=== PATIENT | female | born 1950 | race Caucasian/White ===

== ENCOUNTER → 2017-06-18 09:14 | Outpatient (CLI) | payer BC, MEDICARE, SELFPAY ==
[2017-06-18 15:30] LABS: Alanine Aminotransferase 20 U/L (12-78); Albumin Level 3.9 gm/dL (3.4-5.0); Albumin/Globulin Ratio 1.2 (1.1-1.8); Alkaline Phosphatase 106 U/L (46-116); Anion Gap 10.2 mEq/L (5-15); Aspartate Amino Transferase 17 U/L (15-37); Bilirubin,Total 0.3 mg/dL (0.2-1.0); Blood Urea Nitrogen 12 mg/dL (7-18); Calcium 9.2 mg/dL (8.5-10.1); Carbon Dioxide 32 mmol/L (21.0-32.0); Chloride 105 mmol/L (98-107); Chol/HDL Ratio 4.8 (1-3.5); Cholesterol 198 mg/dL (140-200); Creatinine,Serum 0.66 mg/dL (0.55-1.02); Estimated Glomerular Filt Rate 90 ml/min (>60); GFR (African American) 109 ML/MIN (>60); Globulin 3.3 gm/dl (1.3-3.2); Glucose 100 mg/dL (74-106); HDL Cholesterol 41 mg/dL (29-89); Potassium 4.2 mmoL/L (3.5-5.1); Sodium 143 mmol/L (136-145); Total Protein,Serum 7.2 gm/dL (6.4-8.2)
[2017-06-18 15:35] LABS: Triglycerides 408 mg/dL (30-200)
[2017-06-18 15:51] LABS: Thyroid Stimulating Hormone 1.73 uIU/ml (0.358-3.740)
[2017-06-21 13:36] LABS: Vitamin B12 1804 pg/mL (232-1245)
== END ==
PROVIDERS: PCP Family Medicine; Visit Provider Physician Assistant
DX: E53.8 Deficiency of other specified B group vitamins (principal); E03.9 Hypothyroidism, unspecified; I10 Essential (primary) hypertension; E55.9 Vitamin D deficiency, unspecified; Z13.220 Encounter for screening for lipoid disorders
CPT/HCPCS: 36415; 80053; 80061; 82607; 82652; 84443

== ENCOUNTER → 2017-06-24 10:35 | Outpatient (CLI) | payer BC, MEDICARE, SELFPAY ==
[2017-06-24 12:56] LABS: Chol/HDL Ratio 5.3 (1-3.5); Cholesterol 272 mg/dL (140-200); HDL Cholesterol 51 mg/dL (29-89)
[2017-06-24 13:08] LABS: Triglycerides 403 mg/dL (30-200)
== END ==
PROVIDERS: PCP Family Medicine; Visit Provider Physician Assistant
DX: E78.1 Pure hyperglyceridemia (principal)
CPT/HCPCS: 36415; 80061

== ENCOUNTER → 2019-06-15 09:45 | Outpatient (CLI) | payer MEDICARE, SELFPAY ==
--- NOTE | 2019-06-15 | CA_ITS ---
APPROVED REPORT Ht: 5 ft 7 in Wt: 137 lbs BSA: 1.72 m2 Stress Test Details Test: Serge HR Resting HR: 79 bpm Max Heart Rate (APMHR): 153 bpm Max HR Achieved: 108 bpm Target HR (85% APMHR): 130 bpm % of APMHR: 70 Recovery HR: 81 bpm BP Resting BP: 134/52 mmHg Max BP: 181/75 mmHg Recovery BP: 177.0/76.0 mmHg ECG Resting ECG: Sinus Rhythm Clinical Exercise duration: 01:27 min Highest Stage Achieved: Exercise capacity: 4.6 METs Stress ECG Conclusion Serge Protocol completed. Test stopped due to patient converted into a LBBB for 15 seconds. Patient converted back to SR. Test was reviewed with Neha Dahl. Pt had some CP with LBBB which resolved when rhythm converted back to SR. There was the occasional PVC, Couplet, and LBBB(15sec). Less than 1.5mm ST Depression. Patient had a normal bp response to the GXT. Yudelka Degroot spoke with Dr. Marie about patients abnormal GXT. Advised patient to avoid the gym until her follow up with Dr. Marie on Tuesday the . Test Summary REST . . . . . . . Standing REST . . . . . . . Sitting REST 02:48 0.0 0.0 79 . 134/ 52 . . Stage 1 01:00 10.0 1.7 92 . . . . Stage 1 01:27 10.0 1.7 100 . . . Stop exercise at 01:27 RECOVERY 01:00 0.0 0.0 87 . . . . RECOVERY 02:00 0.0 0.0 80 . 177/ 63 . . RECOVERY 03:00 0.0 0.0 73 . 177/ 63 . . RECOVERY 04:00 0.0 0.0 75 . 174/ 75 . . RECOVERY 05:00 0.0 0.0 77 . 174/ 75 . . RECOVERY 06:00 0.0 0.0 78 . 181/ 75 . . RECOVERY 07:00 0.0 0.0 72 . 181/ 75 . . RECOVERY 08:00 0.0 0.0 74 . 181/ 75 . . RECOVERY 09:00 0.0 0.0 75 . 181/ 75 . . RECOVERY 09:43 0.0 0.0 76 . 150/ 78 . . Electronically signed by : Angel Rivera, 06/18/2019 12:59:02
== END ==
PROVIDERS: PCP Family Medicine; Visit Provider Family Medicine
DX: R07.9 Chest pain, unspecified (principal)
CPT/HCPCS: 93017

== ENCOUNTER → 2019-07-16 10:30 | Outpatient (CLI) | payer MEDICARE, SELFPAY | PROVIDERS: PCP Family Medicine; Visit Provider Urology | DX: I10 Essential (primary) hypertension (principal); I35.9 Nonrheumatic aortic valve disorder, unspecified; R06.00 Dyspnea, unspecified; R42 Dizziness and giddiness; Z86.79 Personal history of other diseases of the circulatory system | CPT/HCPCS: 93270 ==

== ENCOUNTER → 2020-05-05 15:04 | Outpatient (CLI) | payer MEDICARE, SELFPAY ==
--- NOTE | 2020-05-05 15:06 | US_ITS ---
PROCEDURE: US THYROID CLINICAL INDICATION: HYPOTHYROIDISM hypothyroidism-pt says she has trouble swallowing-goiter seen on right lobe COMPARISON: No exams were available for comparison FINDINGS: Right lobe: 1.7cm x 4.2cm x 1.7cm. There is a 3.4 x 1.4 cm spongiform nodule in the mid polar region on the right. This is well-circumscribed wider than tall without obvious calcifications. This is a T rads 1 nodule benign Left lobe: 0.8cm x 3.9cm x 1.2cm Isthmus: Unremarkable Additional findings: IMPRESSION: There is a dominant right nodule in the right lobe of the thyroid gland measuring 3.4 x 1.4 cm. This however has benign features/T rads 1. Recommend six-month follow-up to confirm stability due to the size Dictated by: Colten Roe MD 05/06/2020 07:09 Colten Roe MD in OV 05/06/2020 07:09
== END ==
PROVIDERS: PCP Family Medicine; Visit Provider Family Medicine
DX: E03.9 Hypothyroidism, unspecified (principal)
CPT/HCPCS: 76536

== ENCOUNTER → 2020-07-09 09:03 | Outpatient (CLI) | payer MEDICARE, SELFPAY ==
--- NOTE | 2020-07-09 09:18 | CA_ITS ---
APPROVED REPORT EXAM: Comprehensive 2D, Doppler, and color-flow Echocardiogram Game Producer: Ann Perez RCS, RVS Ht: 5 ft 7 in Wt: 117lbs BSA: 1.61 BP: 123/42 mmHg Indications: Abn Aortic valve morphology, Aortic insufficiency, SOA 2D Dimensions IVSd 0.95 cm LVEF (Visual) 58.60 % PWd 1.01 cm LA Volume 46.40 mL LVDd 4.00 cm LA Volume Index 28.80 mL/m2 (M/F) 16-34 LVDs 2.78 cm Aortic Root 3.16 cm Left Atrium 2.72 cm LVOT 2.06 cm (M/F) 1.5-2.5 M-Mode Dimensions LA Diam 3.21 cm (1.9-4.0) Ao Diam 2.98 cm (2.0-3.7) EPSs 1.04 cm TAPSE 2.09 (<1.7) LV Diastology E Decel Time 250.00 (160-240 msec) E/A Ratio 1.02 MED E' 6.80 (< 7 cm/sec) MED A' 9.20 cm/s E'/MED E' Ratio 11.59 (>14) LAT E' 8.90 (<10 cm/sec) LAT A' 12.90 cm/s E/LAT E' Ratio 8.85 (>14) Aortic Valve LVOT Max 86.00 (70-110 cm/s) LVOT VTI 19.16 cm AoV Peak Lauri. 115.00 (50-130 cm/s) AI PHT 436.00 ms AO Peak GR. 5.30 mmHg AO Mean GR. 2.90 (<5 mmHg) AO VTI 29.44 (18-25 cm) ANGEL (VTI) 2.17 (2.5-4.5 cm2) Mitral Valve MV A Velocity 77.00 (40-130 cm/s) E/A Ratio 1.02 MV Decel. Time 250.00 (160-240 ms) Pulmonary Valve PV Peak Velocity 66.00 (50-150 cm/s) Tricuspid Valve TR P. Velocity 302.00 cm/s RAP Estimate 10.00 mmHg RVSP 46.50 mmHg Left Ventricle Left atrium is mildly enlarged, left ventricle is normal size, mild concentric left ventricular hypertrophy, visually estimated ejection fraction 55% with no regional wall motion abnormality, diastolic parameters are inconclusive. Right Ventricle Right atrium is mildly enlarged, right ventricle is normal size and contractility. Aortic Valve Aortic valve is thickened and calcified without aortic stenosis, there is moderate aortic insufficiency. Mitral Valve Mitral valve leaflets are minimally thickened, there is mild mitral regurgitation. Tricuspid Valve Tricuspid valve grossly normal, there is mild Tricuspid regurgitation, calculated right ventricular systolic pressure is 45 mmHg. Pulmonic Valve Pulmonic valve is poorly visualized. Great Vessels Aortic root is normal size. Pericardium No significant pericardial effusion noted. Conclusion 1. Mild biatrial enlargement, normal left ventricular size, mild concentric left ventricular hypertrophy, visually estimated ejection fraction 55% with no regional wall motion abnormality, diastolic parameters are inconclusive. 2. Moderate aortic, mild mitral and tricuspid regurgitation, calculated right ventricular systolic pressure is 46 mmHg. 3. No significant pericardial effusion noted. Electronically signed by : Salvador Cooper, 07/09/2020 18:26:09
== END ==
PROVIDERS: PCP Family Medicine; Visit Provider Nurse Practitioner Family
DX: R06.09 Other forms of dyspnea (principal); R07.9 Chest pain, unspecified
CPT/HCPCS: 93306

== ENCOUNTER → 2020-11-19 10:25 | Outpatient (CLI) | payer MEDICARE, SELFPAY ==
--- NOTE | 2020-11-19 10:27 | MM_ITS ---
PROCEDURE INFORMATION: Exam: MG Screening 3D Mammography Exam date and time: 11/19/2020 10:27 AM Age: 70 years old Clinical indication: Encounter for screening mammogram for malignant neoplasm of breast TECHNIQUE: Imaging protocol: Screening tomosynthesis and 2D mammography including computer-aided detection (CAD) when performed. COMPARISON: No relevant prior studies available. FINDINGS: MAMMOGRAPHY: Breast composition: The breast tissue is heterogeneously dense, which may obscure small masses. Mass: None. Architectural distortion: None. Calcifications: No suspicious calcifications. Asymmetric density: None. Skin thickening: None. Axillary adenopathy: None. IMPRESSION: No mammographic evidence of malignancy. Annual screening is recommended unless otherwise clinically indicated. ASSESSMENT: BI-RADS Category 1: Negative
== END ==
PROVIDERS: PCP Family Medicine; Visit Provider Family Medicine
DX: Z12.31 Encounter for screening mammogram for malignant neoplasm of breast (principal)
CPT/HCPCS: 77063; 77067

== ENCOUNTER 2020-12-14 13:16 | Emergency (ER) | payer MEDICARE, SELFPAY ==
[2020-12-14 14:18] VITALS: BP 151/71; PULSE 75; RESP 15; TEMP 36.8; O2SAT 98; BMI 17.8
--- NOTE | 2020-12-14 14:45 | HMH.EDUTC ---
[facility] [place] Clinical Impression: Strep [place] Disposition: Home, Self-Care Condition on Discharge: Good Instructions: Strep Throat, DI for Strep Throat Additional Instructions: Drink plenty of fluids. Take tylenol or ibuprofen for pain or fever. Take the medications as directed. Follow up with your regular doctor. GO TO THE ER FOR ANY WORSENING SYMPTOMS Throw your tooth brush away and get a new one. Prescriptions: Amoxicillin [Amoxicillin 500mg Tab] 500 mg PO TID 10 Days #30 tab Transmission Status: Received by [id number] predniSONE [Deltasone 10mg tablet] 10 mg PO BID 3 Days #6 tab Transmission Status: Received by [id number] Referrals: Neha Marie MD [Primary Care Provider] - Time of Disposition: 15:04 Medical Decision Making - Medical Records Medical records reviewed: No: I reviewed the patient's medical records. - Isac Inquiry Pt receiving controlled substance: No Vital Signs: 12/14/20 14:18 12/14/20 15:10 Temperature 98.3 F 98.3 F Temperature Source Oral Pulse Rate 70 Pulse Rate [Left] 75 Respiratory Rate 15 16 Blood Pressure 144/75 H Blood Pressure [Right Arm] 151/71 H Blood Pressure Mean [Right Arm] 97 02 Sat by Pulse Oximetry 98 - Lab Data Lab results reviewed: Yes: I reviewed the patient's lab results. Lab Results 12/14/20 14:52: Strep Scn Rapid Clinic Positive [place] [facility] [place] - General Stated complaint: headache, fever, fatigue Time Seen by Provider: 12/14/20 14:45 Mode of Arrival: Ambulatory Source of Information: Patient Limitations: No Limitations Description of Symptoms (Recalled from Triage Doc. by RN): pt c/o HAYS, fever, sore throat, nausea, lethargy and a cough. HEENT Symptoms (Recalled from RN notes): Yes (sore throat and HAYS) Resp Symptoms (Recalled from RN notes): Yes (nonproductive cough) Skin Symptoms (Recalled from RN notes): No MS Symptoms (Recalled from RN notes): No Functional Status (Recalled from RN notes): lethargy - History of Present Illness Provider Complaint: She states that for the past 3 days she has had fatigue, fever up to 103, body aches and chilling. She has been vaccinated against covid-19, but it was around 6 months ago. She denies sore throat. - Related Data Home Medications Medication Instructions Recorded Confirmed triamterene 37.5 1 tab PO QAM 06/06/17 01/09/20 mg-hydrochlorothiazide 25 mg tablet levothyroxine 50 mcg tablet 50 mcg PO DAILY tab 06/20/19 01/09/20 losartan 50 mg tablet 50 mg PO DAILY tab 07/09/20 07/09/20 sertraline 50 mg tablet 50 mg PO DAILY tab 07/09/20 07/09/20 Previous Rx's Medication Instructions Recorded diazepam 5 mg tablet 2.5 mg PO BID PRN #30 tab 03/21/20 buspirone 5 mg tablet See Rx Instructions PO BID #30 tab 11/13/20 Amoxicillin [Amoxicillin 500mg Tab] 500 mg PO TID 10 Days #30 tab 12/14/20 predniSONE [Deltasone 10mg tablet] 10 mg PO BID 3 Days #6 tab 12/14/20 Allergies Allergy/AdvReac Type Severity Reaction Status Date / Time Iodinated Contrast Media Allergy Severe Rash and Verified 07/09/20 10:45 [Iodinated Contrast Media - itching IV Dye] VODKA Allergy Severe Severe Uncoded 07/09/20 10:45 swelling - Worker's Comp Is this a Worker's Comp case?: No [facility] History - Hepatitis A Screen Drug use history?: No High risk sexual behaviors?: No History of sexually transmitted infection?: No Currently employed?: No Childcare worker?: No Do you have indoor plumbing?: Yes Do you have electricity?: Yes Attestation statement:: This patient has been screened for Hepatitis A risk factors. I have reviewed the patient's past medical history: Yes 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: Reports:: Arrhythmia, Hypertension, Kidney Stones, Palpitations Denies:: Seizures Other 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: Reports: Hypothyroidism Laterality Cases: Bilateral: Other Other Surgeries: Yes: Cholecystectomy, Hysterectomy-Partial, Other (bladder tuck) Amputation: No F
[2020-12-14 14:53] LABS: UTC Strep Screen (Rapid) Positive (Negative)
[2020-12-14 15:10] VITALS: BP 144/75; PULSE 70; RESP 16; TEMP 36.8
== END 2020-12-14 15:10 | disposition home or self-care (01) ==
PROVIDERS: Emergency Provider Nurse Practitioner Family; PCP Family Medicine
DX: J02.0 Streptococcal pharyngitis (principal); E03.9 Hypothyroidism, unspecified; Z87.442 Personal history of urinary calculi; Z87.891 Personal history of nicotine dependence; I10 Essential (primary) hypertension
CPT/HCPCS: G0463; 87880; 99202

== ENCOUNTER → 2021-01-19 10:35 | Outpatient (CLI) | payer MEDICARE, SELFPAY ==
--- NOTE | 2021-01-19 10:36 | CA_ITS ---
APPROVED REPORT EXAM: Comprehensive 2D, Doppler, and color-flow Echocardiogram Aircraft Systems Repairer: Adelaida Nicole RDCS Ht: 5 ft 7 in Wt: 111lbs BSA: 1.57 BP: 132/51 mmHg Indications: AI, Murmur, SOB, TR 2D Dimensions IVSd 1.04 cm LVEF (Visual) 50.80 % PWd 0.82 cm LA Volume 41.20 mL LVDd 4.39 cm LA Volume Index 26.399267 mL/m2 (M/F) 16-34 LVDs 3.21 cm Aortic Root 3.00 cm Left Atrium 2.70 cm LVOT 1.96 cm (M/F) 1.5-2.5 M-Mode Dimensions RVDd 1.34 cm (0.9-2.6) LA Diam 3.26 cm (1.9-4.0) LVDd 4.87 cm (3.5-5.7) Ao Diam 3.16 cm (2.0-3.7) LVDs 3.09 cm (3.5-5.7) IVSd 0.85 cm (0.6-1.1) PWd 0.96 cm (0.6-1.1) EF (Teich) 66.20% FS 36.60% EDV (Teich) 111.20 mL TAPSE 1.92 (<1.7) ESV (Teich) 37.60 mL LV Diastology E Decel Time 223.00 (160-240 msec) E/A Ratio 0.98 MED E' 6.00 (< 7 cm/sec) MED A' 9.60 cm/s E'/MED E' Ratio 10.78 (>14) LAT E' 8.10 (<10 cm/sec) LAT A' 12.30 cm/s E/LAT E' Ratio 7.99 (>14) Aortic Valve LVOT Max 94.00 (70-110 cm/s) LVOT VTI 22.13 cm AI PHT 419.00 ms AO Peak GR. 8.40 mmHg Mitral Valve MV A Velocity 66.00 (40-130 cm/s) E/A Ratio 0.98 MV Decel. Time 223.00 (160-240 ms) Pulmonary Valve ME End VMAX 155.00 cm/s Tricuspid Valve TR P. Velocity 233.00 cm/s RAP Estimate 10.00 mmHg RVSP 31.70 mmHg Left Ventricle Left atrium is mildly enlarged, left ventricle is normal size, mild concentric left ventricle hypertrophy, visually estimated ejection fraction 50% with no regional wall motion abnormality grade 1 diastolic dysfunction seen without tissue Doppler evidence of raise left atrial pressure. Right Ventricle Right atrium and right ventricle are normal size and contractility. Aortic Valve Aortic valve is minimally thickened and fibrosed, there is no aortic stenosis there is moderate aortic insufficiency. Mitral Valve Mitral valve grossly normal, there is mild mitral regurgitation. Tricuspid Valve Tricuspid grossly normal, there is mild tricuspid regurgitation, calculated right ventricular systolic pressure is within normal range. Pulmonic Valve Pulmonic valve is poorly visualized. Great Vessels Aortic root is normal size. Pericardium No significant pericardial effusion noted. Conclusion 1. Mildly enlarged left atrium, normal left ventricular size, mild concentric left ventricular hypertrophy, visually estimated ejection fraction 50% with no regional wall motion abnormality, diastolic parameters are consistent with grade 1, without tissue Doppler evidence of raise left atrial pressure. 2. Moderate aortic, mild mitral and tricuspid regurgitation. Calculated right ventricular systolic pressure is within normal range. 3. No significant pericardial effusion noted. Electronically signed by : Salvador Cooper MD 01/19/2021 19:10:38
== END ==
PROVIDERS: PCP Family Medicine; Visit Provider Physician Assistant
DX: I10 Essential (primary) hypertension (principal); I35.1 Nonrheumatic aortic (valve) insufficiency; I35.9 Nonrheumatic aortic valve disorder, unspecified
CPT/HCPCS: 93306

== ENCOUNTER → 2021-02-09 15:23 | Outpatient (CLI) | payer MEDICARE, SELFPAY ==
--- NOTE | 2021-02-09 15:27 | US_ITS ---
PROCEDURE: US THYROID CLINICAL INDICATION: HYPOTHYROIDISM,THYROID NODULE COMPARISON: US US THYROID from 05/05/2020 FINDINGS: Right lobe: 4.3 x 1.5 x 2.1 cm. A dominant nodule is present in the right lobe measuring 3.6 x 1.4 cm. The nodules heterogeneous having a spongiform appearance wider than tall with no calcification smooth margins and the nodule is well-circumscribed. Left lobe: 4 x 0.8 x 1.1 cm. Unremarkable appearance Isthmus: Unremarkable Additional findings: IMPRESSION: No change benign-appearing right thyroid nodule. Annual follow-up suggested. Dictated by: Colten Roe MD 02/10/2021 07:31 Colten Roe MD in OV 02/10/2021 07:31
== END ==
PROVIDERS: PCP Family Medicine; Visit Provider Family Medicine
DX: E03.9 Hypothyroidism, unspecified (principal); E04.1 Nontoxic single thyroid nodule
CPT/HCPCS: 76536

== ENCOUNTER → 2021-10-07 09:33 | Outpatient (CLI) | payer MEDICARE, SELFPAY ==
--- NOTE | 2021-10-07 09:46 | MR_ITS ---
FINAL REPORT CLINICAL HISTORY: MEMORY LOSS, EPISODIC PAROXYSMAL HEMICRANIA FINDINGS: Multiplanar MR imaging of the brain was performed without contrast. There is mild age-appropriate atrophy. There are scattered foci of increased T2 signal in the cerebral white matter that have a nonspecific appearance but likely represent mild chronic ischemic/gliotic changes. There is no evidence of intracranial hemorrhage or mass. No abnormal ventricular dilatation is identified. No abnormal extra-axial fluid collection is seen. No abnormality is seen on the diffusion weighted images. The posterior fossa and brainstem are unremarkable. Normal major vessel vascular flow voids are seen. IMPRESSION: Age-appropriate atrophy and mild chronic ischemic/gliotic changes. No acute intracranial abnormality. Reviewed, Interpreted and Dictated by Connor Zaidi III, MD Transcribed by Guillermo Gillespie Authenticated by Connor Zaidi III, MD on 10/07/2021 11:10:47 AM [facility]
== END ==
PROVIDERS: PCP Family Medicine; Visit Provider Family Medicine
DX: R41.3 Other amnesia (principal)
CPT/HCPCS: 70551

== ENCOUNTER → 2021-11-24 09:48 | Outpatient (CLI) | payer MEDICARE, SELFPAY ==
[2021-11-24 10:35] VITALS: PULSE 86; PULSE 89
--- NOTE | 2021-11-24 11:47 | XR_ITS ---
FINAL REPORT CLINICAL HISTORY: SOA COMPARISON: March 30, 2017 FINDINGS: Two views of the chest were obtained. The heart size and pulmonary vascularity are within normal limits. The mediastinum is normal. The lungs are hyperinflated consistent with COPD. There is no pneumothorax. The bony thorax is intact. IMPRESSION: Hyperinflation of the lungs consistent with COPD. Reviewed, Interpreted and Dictated by Connor Zaidi III, MD Transcribed by Guadalupe Resendiz Authenticated and [facility]
[2021-11-24 12:43] LABS: Basophils # 0.2 K/mm3 (0-0.2); Basophils % 2.6 % (0.1-2.0); Eosinophils # 0.1 K/mm3 (0.0-0.4); Eosinophils % 2.2 % (0.1-12.0); Hematocrit 41.7 % (37.0-47.0); Hemoglobin 13.3 g/dL (12.2-16.2); Lymphocytes # 2.6 K/mm3 (0.7-4.5); Mean Corpuscular HGB Conc 31.9 g/dL (31.8-35.4); Mean Corpuscular Volume 87.6 fl (81-99); Mean Platelet Volume 7.8 fl (7.4-10.4); Monocytes # 0.3 K/mm3 (0.1-1.0); Neutrophils # 2.9 K/mm3 (1.8-7.8); Neutrophils % 47.3 % (37.0-80.0); Platelet Count 245 K/mm3 (142-424); Red Blood Count 4.77 M/mm3 (4.20-5.40); Red Cell Distribution Width 14.8 % (11.5-17.5); White Blood Count 6.1 K/mm3 (4.8-10.8)
[2021-11-24 13:39] LABS: Erythrocyte Sedimentation Rate 18 mm/hr (0-30)
[2021-11-24 16:12] LABS: Vitamin B12 386 pg/mL (239-931)
[2021-11-24 16:29] LABS: Folate > 20.00 ng/mL
[2021-11-25 15:47] LABS: Anti-Centromere B Antibodies <0.2 AI (0.0-0.9); Anti-DNA (DS) Ab Qn <1 IU/mL (0-9); Anti-Jo-1 <0.2 AI (0.0-0.9); Anti-Smith Antibody <0.2 AI (0.0-0.9); Antichromatin Antibodies <0.2 AI (0.0-0.9); Antiscleroderma-70 Antibodies <0.2 AI (0.0-0.9); RNP Antibodies 0.2 AI (0.0-0.9); Sjogren's Anti-SS-A <0.2 AI (0.0-0.9); Sjogren's Anti-SS-B <0.2 AI (0.0-0.9)
== END ==
PROVIDERS: PCP Family Medicine; Visit Provider Specialist
DX: R53.83 Other fatigue (principal); R41.3 Other amnesia; R06.02 Shortness of breath; R68.89 Other general symptoms and signs
CPT/HCPCS: 36415; 71046; 82607; 82746; 85025; 85651; 86225; 86235; 94060; 94618; 94640; 94727; 94729; 94762

== ENCOUNTER → 2022-01-06 13:26 | Outpatient (CLI) | payer MEDICARE, SELFPAY ==
--- NOTE | 2022-01-06 13:37 | CA_ITS ---
APPROVED REPORT EXAM: Comprehensive 2D, Doppler, and color-flow Echocardiogram Harbor Boat Pilot: Ann Perez, ISMAEL, RVS Ht: 5 ft 7 in Wt: 135lbs BSA: 1.71 BP: 136/64 mmHg Indications: HTN, HLD, Aortic Insufficiency, Ex-smoker, Murmur, Hx-cardiac arrythmia and possible MVP 2D Dimensions Aortic Root 2.83 cm LA Volume 43.90 mL Left Atrium 3.14 cm LA Volume Index 25.70 mL/m2 (M/F) 16-34 LVOT 2.06 cm (M/F) 1.5-2.5 M-Mode Dimensions RVDd 2.11 cm (0.9-2.6) LA Diam 2.99 cm (1.9-4.0) LVDd 5.09 cm (3.5-5.7) Ao Diam 2.69 cm (2.0-3.7) LVDs 3.32 cm (3.5-5.7) IVSd 0.77 cm (0.6-1.1) PWd 0.87 cm (0.6-1.1) EF (Teich) 63.60% EPSs 0.71 cm FS 34.80% EDV (Teich) 123.20 mL TAPSE 1.94 (<1.7) ESV (Teich) 44.80 mL LV Diastology E Decel Time 170.00 (160-240 msec) E/A Ratio 0.93 MED E' 6.10 (< 7 cm/sec) MED A' 10.30 cm/s E'/MED E' Ratio 11.85 (>14) LAT E' 7.40 (<10 cm/sec) LAT A' 10.20 cm/s E/LAT E' Ratio 9.77 (>14) Pulm Vein s 24.00 cm/sec Pulm Vein d 24.00 cm/sec Ar-A Duration 93.00 msec Aortic Valve LVOT Max 90.00 (70-110 cm/s) LVOT VTI 17.93 cm AoV Peak Lauri. 123.00 (50-130 cm/s) AI PHT 478.00 ms AO Peak GR. 6.10 mmHg AO Mean GR. 3.50 (<5 mmHg) AO VTI 29.43 (18-25 cm) ANGEL (VTI) 2.03 (2.5-4.5 cm2) Mitral Valve MV A Velocity 78.00 (40-130 cm/s) E/A Ratio 0.93 MV Decel. Time 170.00 (160-240 ms) MV PHT 50.00 ms Pulmonary Valve PV Peak Velocity 87.00 (50-150 cm/s) UT End VMAX 133.00 cm/s Tricuspid Valve TR P. Velocity 229.00 cm/s RAP Estimate 10.00 mmHg RVSP 31.00 mmHg Left Ventricle Left atrium is mildly Left ventricle is normal size mild concentric left ventricular hypertrophy, estimated ejection fraction 55% with no obvious regional wall motion abnormality, grade 1 diastolic dysfunction seen without tissue Doppler evidence of raise left atrial pressure. Right Ventricle Right atrium and right ventricle are mildly enlarged with normal contractility. Aortic Valve Aortic valve is thickened and calcified without aortic stenosis, there is moderate aortic insufficiency. Mitral Valve Mitral valve leaflets are minimally thickened, there is mild mitral regurgitation. There is no obvious mitral valve prolapse seen in this study. Tricuspid Valve Tricuspid valve grossly normal, there is mild tricuspid regurgitation, calculated right ventricular systolic pressure is 31 mmHg. Pulmonic Valve Pulmonic valve is poorly visualized. Great Vessels Aortic root is normal size. Inferior vena cava normal size with normal inspiratory collapse. Pericardium No significant pericardial effusion noted. Conclusion 1. Mild biatrial enlargement, normal left ventricular size, mild concentric left ventricular hypertrophy, estimated ejection fraction 55% with no regional wall motion abnormality, grade 1 diastolic dysfunction seen without tissue Doppler evidence of raise left atrial pressure. 2. Mildly enlarged right ventricle with normal contractility. 3. Moderate aortic, mild mitral and tricuspid regurgitation, calculated right ventricular systolic pressure is 31 mmHg. 4. No significant pericardial effusion. 5. Inferior vena cava is normal size with normal inspiratory collapse. Electronically signed by : Salvador Cooper MD 01/07/2022 05:41:50
--- NOTE | 2022-01-06 14:15 | CT_ITS ---
FINAL REPORT CLINICAL HISTORY: H/O NICOTINE DEPENDENCE former smoker. quit 9 years ago. smoked 3ppd x 50 years. soa, weakness family hx of lung cancer FINDINGS: Low-Dose Chest CT Axial images were obtained from the lung apex to the mid abdomen by computed tomography. Low-dose protocol was utilized. CTDI vol (mGy): 2.90 DLP (mGy-cm): 106.29 There is no axillary adenopathy. There is no hilar or mediastinal adenopathy. The heart is proper size. There is no pericardial or pleural effusion. Limited images of the upper abdomen demonstrates a 19 mm mass in the medial segment of the left hepatic lobe which cannot be accurately characterized without contrast but may represent a cyst. In addition, there is a 9 mm mass in the medial left kidney which is not definitely a cyst. The Lung window images demonstrate mild changes of emphysema and mild pulmonary scarring. There are several calcified granulomas. There is a 3 mm nodule in the right lower lobe on image 54. IMPRESSION: Right lower lobe nodule Modifier S: 9 mm mass in the medial left kidney which is not definitely a cyst. If indicated, renal mass protocol CT could further evaluate. Lung RADS category 2S. Recommend 12 month follow-up low-dose chest CT. Reviewed, Interpreted and Dictated by Connor Zaidi III, MD Transcribed by Milvia Mendes Authenticated and [facility]
== END ==
PROVIDERS: PCP Family Medicine; Visit Provider Family Medicine
DX: R06.02 Shortness of breath (principal); R68.89 Other general symptoms and signs; I35.2 Nonrheumatic aortic (valve) stenosis with insufficiency; Z87.891 Personal history of nicotine dependence; Z12.2 Encounter for screening for malignant neoplasm of respiratory organs; I10 Essential (primary) hypertension
CPT/HCPCS: 71271; 93306

== ENCOUNTER → 2022-01-14 10:15 | Outpatient (CLI) | payer MEDICARE, SELFPAY ==
--- NOTE | 2022-01-14 10:24 | CT_ITS ---
FINAL REPORT TECHNIQUE: Axial CT images of the abdomen and pelvis were obtained before and after the administration of IV contrast. This study was performed with techniques to keep radiation doses as low as reasonably achievable (ALARA). Individualized dose reduction techniques using automated exposure control or adjustment of mA and/or kV according to the patient''s size were employed. CLINICAL HISTORY: RENAL MASS follow up FINDINGS: Abdomen: There is mild scarring in the lung bases. The heart is normal in size. There is a 19 mm mass in the medial segment of the left hepatic lobe consistent with a cyst. The patient is status post cholecystectomy. There is mild biliary ductal dilatation. The spleen is unremarkable. No adrenal masses present. The pancreas has an unremarkable appearance. There is a 10 mm mass in the anterior left kidney consistent with a cyst. The aorta is normal in caliber. There is no free fluid or adenopathy. No abnormal fluid collection is seen. There is a small umbilical hernia containing fat. Precontrast images demonstrate no evidence of nephrolithiasis. Pelvis: The appendix is normal. The patient is status post hysterectomy. The urinary bladder is unremarkable. No inflammatory process is seen. There is no evidence of mass or adenopathy. There is no evidence of bowel obstruction. IMPRESSION: Masses in the medial segment of the left hepatic lobe and anterior left kidney consistent with cysts. Reviewed, Interpreted and Dictated by Connor Zaidi III, MD Transcribed by Guadalupe Resendiz Authenticated and [facility]
[2022-01-14 10:59] LABS: Blood Urea Nitrogen 11 mg/dl (7-17); Estimated Glomerular Filt Rate 83 ml/min (>60); GFR (African American) 100 ML/MIN (>60)
== END ==
PROVIDERS: PCP Family Medicine; Visit Provider Family Medicine
DX: N28.89 Other specified disorders of kidney and ureter (principal)
CPT/HCPCS: 36415; 74178; 82565; 84520; Q9967

== ENCOUNTER → 2022-05-27 13:33 | Outpatient (CLI) | payer MEDICARE, SELFPAY ==
--- NOTE | 2022-05-27 13:37 | XR_ITS ---
FINAL REPORT CLINICAL HISTORY: left knee pain FINDINGS: LEFT KNEE Two views of the left knee were obtained. There is no acute fracture or dislocation. There are mild degenerative changes. Soft tissues are unremarkable. IMPRESSION: Mild degenerative change with no acute bony abnormality. Reviewed, Interpreted and Dictated by Connor Zaidi III, MD Transcribed by Milvia Mendes Authenticated and [facility]
== END ==
PROVIDERS: PCP Psychiatry & Neurology Sleep Medicine; Visit Provider Nurse Practitioner
DX: M25.562 Pain in left knee (principal)
CPT/HCPCS: 73560

== ENCOUNTER → 2022-07-20 10:58 | Outpatient (CLI) | payer MEDICARE, SELFPAY ==
--- NOTE | 2022-07-20 11:06 | CA_ITS ---
APPROVED REPORT EXAM: Comprehensive 2D, Doppler, and color-flow Echocardiogram Journalism Internship: Bettina Barbour CRT Ht: 5 ft 7 in Wt: 136lbs BSA: 1.72 BP: 177/62 mmHg Indications: COPD, Murmur, Hyperlipidemia, Hypertension/HDD, LBBB, AI 2D Dimensions LVOT 1.99 cm (M/F) 1.5-2.5 LA Volume 24.80 mL LA Volume Index 14.10 mL/m2 (M/F) 16-34 M-Mode Dimensions RVDd 2.13 cm (0.9-2.6) LA Diam 3.43 cm (1.9-4.0) LVDd 5.01 cm (3.5-5.7) Ao Diam 3.50 cm (2.0-3.7) LVDs 3.45 cm (3.5-5.7) IVSd 1.60 cm (0.6-1.1) PWd 0.75 cm (0.6-1.1) EF (Teich) 58.70% FS 31.10% EDV (Teich) 118.80 mL TAPSE 2.37 (<1.7) ESV (Teich) 49.10 mL LV Diastology E Decel Time 243.00 (160-240 msec) E/A Ratio 0.86 MED E' 6.20 (< 7 cm/sec) MED A' 9.40 cm/s E'/MED E' Ratio 11.84 (>14) LAT E' 8.80 (<10 cm/sec) LAT A' 9.40 cm/s E/LAT E' Ratio 8.34 (>14) Aortic Valve AI PHT 523.00 ms AO Peak GR. 8.20 mmHg Mitral Valve MV E Max Lauri. 73.00 (40-130 cm/s) MV A Velocity 85.00 (40-130 cm/s) E/A Ratio 0.86 MV Decel. Time 243.00 (160-240 ms) MV PHT 71.00 ms Pulmonary Valve PV Peak Velocity 129.00 (50-150 cm/s) Tricuspid Valve TR P. Velocity 284.00 cm/s RAP Estimate 10.00 mmHg RVSP 42.30 mmHg Left Ventricle Left atrium is mildly enlarged, left ventricle is normal size, mild concentric left ventricular hypertrophy, estimated ejection fraction 50%, there is abnormal septal motion. Grade 1 diastolic dysfunction seen without tissue Doppler evidence of late left atrial pressure. Right Ventricle Right atrium and right ventricular normal size and contractility. Aortic Valve Aortic valve is thickened and calcified without aortic stenosis, there is moderate aortic insufficiency. Mitral Valve Mitral valve is grossly normal, there is trace mitral regurgitation. Tricuspid Valve Tricuspid valve grossly normal, there is trace tricuspid regurgitation, tricuspid regurgitation jet velocity is inadequate for calculation of the right ventricular systolic pressure. Pulmonic Valve Pulmonic valve is poorly visualized. Great Vessels Aortic root is normal size. Inferior vena cava is normal size with normal inspiratory collapse. Pericardium No significant pericardial effusion noted. Conclusion 1. Mildly enlarged left atrium, normal left ventricular size mild concentric left ventricular hypertrophy, estimated ejection fraction 50%, there is abnormal septal motion, grade 1 diastolic dysfunction seen without tissue Doppler evidence of raise left atrial pressure. 2. Moderate aortic, trace mitral and tricuspid regurgitation. 3. No significant pericardial effusion noted. 4. Inferior vena cava is normal size with normal inspiratory collapse. Electronically signed by : Salvador Cooper MD 07/21/2022 06:01:48
== END ==
PROVIDERS: PCP Family Medicine; Visit Provider Physician Assistant
DX: I35.1 Nonrheumatic aortic (valve) insufficiency (principal); I51.89 Other ill-defined heart diseases
CPT/HCPCS: 93306

== ENCOUNTER 2022-08-06 07:59 | Day surgery (SDC) | payer MEDICARE, SELFPAY ==
[2022-08-06 08:03] VITALS: BMI 21.4
[2022-08-06 08:25] VITALS: BP 144/70; PULSE 69; PULSE 72; RESP 18; O2SAT 97
[2022-08-06 08:32] LABS: Basophils # 0.1 K/mm3 (0-0.2); Basophils % 1.2 % (0.1-2.0); Eosinophils # 0.2 K/mm3 (0.0-0.4); Eosinophils % 3.2 % (0.1-12.0); Hematocrit 39.9 % (37.0-47.0); Hemoglobin 13.4 g/dL (12.2-16.2); Lymphocytes # 1.8 K/mm3 (0.7-4.5); Lymphocytes % 34.5 % (10-50); Mean Corpuscular HGB Conc 33.5 g/dL (31.8-35.4); Mean Corpuscular Hemoglobin 27.9 pg (27.0-31.2); Mean Corpuscular Volume 83.1 fl (81-99); Mean Platelet Volume 8.1 fl (7.4-10.4); Monocytes # 0.4 K/mm3 (0.1-1.0); Monocytes % 8.5 % (1.7-9.3); Neutrophils # 2.7 K/mm3 (1.8-7.8); Neutrophils % 52.5 % (37.0-80.0); Platelet Count 234 K/mm3 (142-424); Red Blood Count 4.79 M/mm3 (4.20-5.40); White Blood Count 5.1 K/mm3 (4.8-10.8)
--- NOTE | 2022-08-06 10:03 | CA_ITS ---
APPROVED REPORT EXAM: Comprehensive 2D, Doppler, and color-flow Echocardiogram Car Icer: Marisa Hedrick RT(R) Ht: 5 ft 7 in Wt: 135lbs BSA: 1.71 BP: 136/52 mmHg Indications: mod AI, COPD, HTN, ex smoker, fatigue, LBBB, CM Procedure After obtaining informed consent, patient underwent transesophageal echo in the Accounts Receivable Coordinator. Type of Sedation : Conscious Sedation Sedation was administered by Dimitris Encarnacion C.R.N.A. Transesophageal probe was inserted and advanced into esophagus without difficulty by Dr. Charles Everett. The MYKE was performed without complications. Throughout the procedure, the blood pressure, pulse oximetry, cardiac rhythm, and rate were monitored. The patient tolerated the procedure without adverse effects. Recovery from conscious sedation was uneventful and vital signs were stable. Left Ventricle Left ventricle is normal size, estimated ejection fraction 50% in the obtained views. With no regional wall motion abnormality. Right Ventricle Right ventricle is normal size and contractility. Atria Left atrium is mildly enlarged, left great appendage free of thrombus, there is good appendage flow by spectral Doppler. Right atrium is normal size. Intra-atrial septum is intact, there is no flow across the interatrial septum, agitated saline contrast study did not identify intracardiac shunt. Aortic Valve Aortic valve is trileaflet, is minimally thickened and calcified, there is severe aortic insufficiency. Mitral Valve Mitral valve is grossly normal, there is mild mitral regurgitation. Tricuspid Valve Tricuspid valve grossly normal, there is mild tricuspid regurgitation. Pulmonic Valve Pulmonic valve is grossly normal. Great Vessels Aortic root is normal size. Ascending, arch and descending thoracic aorta there is no aneurysm or dissection. Pericardium No significant pericardial effusion noted. Conclusion 1. Normal left ventricular size, estimated ejection fraction 50% with no regional wall motion abnormality in the obtained views. 2. Thickened and calcified aortic valve without aortic stenosis there is severe aortic insufficiency. 3. Mild mitral and tricuspid regurgitation. 4. Other ancillary findings as described above. Electronically signed by : Salvador Cooper MD 08/06/2022 12:56:57
[2022-08-06 10:49] VITALS: BP 121/52; PULSE 67; RESP 20; O2SAT 95
[2022-08-06 10:50] VITALS: BP 101/42; PULSE 63; RESP 20; O2SAT 99
[2022-08-06 11:05] VITALS: BP 112/55; PULSE 60; RESP 18; O2SAT 100
[2022-08-06 11:25] VITALS: BP 104/45; PULSE 62; RESP 16; O2SAT 99
== END 2022-08-06 11:55 | disposition home or self-care (01) ==
PROVIDERS: Internal Medicine Cardiovascular Disease; PCP Family Medicine; Visit Provider Physician Assistant
DX: R06.09 Other forms of dyspnea; I35.1 Nonrheumatic aortic (valve) insufficiency; I25.118 Atherosclerotic heart disease of native coronary artery with other forms of angina pectoris; I10 Essential (primary) hypertension; J44.9 Chronic obstructive pulmonary disease, unspecified; R53.83 Other fatigue; R93.1 Abnormal findings on diagnostic imaging of heart and coronary circulation; R94.2 Abnormal results of pulmonary function studies; Z86.79 Personal history of other diseases of the circulatory system
CPT/HCPCS: 85025; 93312; 99152

== ENCOUNTER 2022-08-11 08:59 | Day surgery (SDC) | payer MEDICARE, SELFPAY ==
[2022-08-11] VITALS (13 sets, daily range): BP systolic 129–155; BP diastolic 49–85; PULSE 60–81; RESP 18–20; O2SAT 94–98; BMI 21.4
--- NOTE | 2022-08-11 | IR_ITS ---
APPROVED REPORT Patient Location: Outpatient PROCEDURES Selective coronary angiogram INDICATION Preoperative evaluation for surgical cardiothoracic/aortic valve surgery Informed consent was obtained prior to the procedure. COMPLICATIONS None Estimated Blood Loss: Less than 10 ml TECHNIQUE One percent lidocaine used to anesthetize the right anterior aspect of the wrist. The right radial artery was accessed via the Seldinger technique. A 6 Surinamese sheath was placed in the right radial artery. 2.5 mg of verapamil, 800 mcg of nitroglycerin, 1mg Lidocaine and 5000 U Heparin were given through the arterial sheath. The papa catheter was also used to perform selective coronary angiogram. The papa catheter was used to selectively intubate each renal artery. At the end of the procedure the sheath was removed good hemostasis was achieved using Traclet band, patient was transferred to the postop holding area in stable condition.. ANGIOGRAPHIC RESULTS The left main artery Normal The left anterior descending artery Normal The circumflex artery Normal The right coronary artery Dominant normal The ERWIN ventriculogram reveals Not performed The left ventricular end-diastolic pressure Not measured IMPRESSION Normal coronary arteries PLAN 1. Proceed with surgical evaluation and treatment of severe aortic valve disease Electronically signed by : John To MD 08/11/2022 14:18:08
[2022-08-11 09:32] LABS: Basophils # 0.1 K/mm3 (0-0.2); Basophils % 1.3 % (0.1-2.0); Eosinophils # 0.2 K/mm3 (0.0-0.4); Eosinophils % 3.3 % (0.1-12.0); Hematocrit 41.1 % (37.0-47.0); Hemoglobin 13.6 g/dL (12.2-16.2); Lymphocytes # 1.9 K/mm3 (0.7-4.5); Lymphocytes % 35.9 % (10-50); Mean Corpuscular HGB Conc 33.1 g/dL (31.8-35.4); Mean Corpuscular Hemoglobin 27.7 pg (27.0-31.2); Mean Corpuscular Volume 83.7 fl (81-99); Mean Platelet Volume 7.5 fl (7.4-10.4); Monocytes # 0.4 K/mm3 (0.1-1.0); Monocytes % 8.2 % (1.7-9.3); Neutrophils # 2.7 K/mm3 (1.8-7.8); Neutrophils % 51.3 % (37.0-80.0); Platelet Count 240 K/mm3 (142-424); Red Blood Count 4.91 M/mm3 (4.20-5.40); Red Cell Distribution Width 14.1 % (11.5-17.5); White Blood Count 5.3 K/mm3 (4.8-10.8)
[2022-08-11 09:56] LABS: Anion Gap 10.6 mEq/L (5-15); Blood Urea Nitrogen 15 mg/dl (7-17); Calcium 9.5 mg/dl (8.4-10.2); Carbon Dioxide 30 mmol/L (22.0-30.0); Chloride 103 mmol/L (98-107); Creatinine Clearance Estimated 51 mL/min (50-200); Estimated Glomerular Filt Rate 71 ml/min (>60); GFR (African American) 86 ML/MIN (>60); Glucose 95 mg/dl (74-100); Potassium 3.6 mmoL/L (3.5-5.1); Sodium 140 mmol/L (136-145)
--- NOTE | 2022-08-11 15:09 | SUR.PHASEII ---
Appointment made with dr Fish for august 27, 1039 am for aortic valve surgery consult.
== END 2022-08-11 15:09 | disposition home or self-care (01) ==
PROVIDERS: PCP Family Medicine; Visit Provider Internal Medicine
DX: I05.1 Rheumatic mitral insufficiency (principal); I25.118 Atherosclerotic heart disease of native coronary artery with other forms of angina pectoris; R94.2 Abnormal results of pulmonary function studies; J44.9 Chronic obstructive pulmonary disease, unspecified; I10 Essential (primary) hypertension; I42.9 Cardiomyopathy, unspecified; Z79.899 Other long term (current) drug therapy; Z87.891 Personal history of nicotine dependence
CPT/HCPCS: 80048; 85025; 93454; 99152; C1725; C1769; J1644; Q9967

== ENCOUNTER → 2022-10-26 14:21 | Outpatient (POV) | payer MEDICARE, SELFPAY | PROVIDERS: Visit Provider Dermatology | DX: Z00.00 Encounter for general adult medical examination without abnormal findings (principal) ==

== ENCOUNTER → 2022-11-02 10:55 | Outpatient (CLI) | payer MEDICARE, SELFPAY ==
--- NOTE | 2022-11-02 11:10 | MM_ITS ---
PROCEDURE INFORMATION: Exam: MG Bilateral Screening 3D Mammography Exam date and time: 11/02/2022 11:14 AM Age: 72 years old Clinical indication: Screening examination TECHNIQUE: Imaging protocol: Bilateral Screening tomosynthesis and 2D mammography including computer-aided detection (CAD) when performed. COMPARISON: MG MM DIG SCREENING MAMM BI W/CAD 11/19/2020 10:29 AM FINDINGS: MAMMOGRAPHY: Breast composition: The breasts are heterogeneously dense, which may obscure small masses. Mass: None. Architectural distortion: None. Calcifications: No suspicious calcifications. Asymmetric density: None. Skin thickening: None. Axillary adenopathy: None. IMPRESSION: No mammographic evidence of malignancy. Annual screening is recommended unless otherwise clinically indicated. So I a ASSESSMENT: BI-RADS Category 1: Negative
== END ==
PROVIDERS: PCP Family Medicine; Visit Provider Family Medicine
DX: Z12.31 Encounter for screening mammogram for malignant neoplasm of breast (principal)
CPT/HCPCS: 77063; 77067

== ENCOUNTER 2022-11-11 09:59 | Outpatient (RCR) | payer MEDICARE, SELFPAY | END 2023-01-14 14:00 | disposition home or self-care (01) | LOC: PT 09:59 | PROVIDERS: Visit Provider Thoracic Surgery (Cardiothoracic Vascular Surgery) | DX: Z95.2 Presence of prosthetic heart valve (principal); I25.10 Atherosclerotic heart disease of native coronary artery without angina pectoris | CPT/HCPCS: 93798 ==

== ENCOUNTER → 2023-01-04 12:21 | Outpatient (CLI) | payer MEDICARE, SELFPAY ==
[2023-01-04 12:48] LABS: Basophils % 0.6 % (0.1-2.0); Eosinophils # 0.2 K/mm3 (0.0-0.4); Eosinophils % 3.4 % (0.1-12.0); Hematocrit 37.9 % (37.0-47.0); Hemoglobin 11.9 g/dL (12.2-16.2); Lymphocytes # 2.3 K/mm3 (0.7-4.5); Lymphocytes % 36.8 % (10-50); Mean Corpuscular HGB Conc 31.4 g/dL (31.8-35.4); Mean Corpuscular Hemoglobin 23.1 pg (27.0-31.2); Mean Corpuscular Volume 73.6 fl (81-99); Mean Platelet Volume 8.1 fl (7.4-10.4); Monocytes # 0.4 K/mm3 (0.1-1.0); Monocytes % 6.3 % (1.7-9.3); Neutrophils # 3.3 K/mm3 (1.8-7.8); Platelet Count 245 K/mm3 (142-424); Red Blood Count 5.15 M/mm3 (4.20-5.40); Red Cell Distribution Width 15.6 % (11.5-17.5); White Blood Count 6.2 K/mm3 (4.8-10.8)
[2023-01-04 13:16] LABS: Alanine Aminotransferase 14 U/L (12-78); Albumin Level 4.2 g/dl (3.5-5.0); Alkaline Phosphatase 108 U/L (38-126); Anion Gap 10.1 mEq/L (5-15); Aspartate Amino Transferase 20 U/L (14-36); Bilirubin,Indirect 0.4 mg/dL (0.0-0.9); Bilirubin,Total 0.4 mg/dl (0.2-1.3); Bilirubin,Unconjugated 0.5 mg/dL (0.0-1.1); Blood Urea Nitrogen 17 mg/dl (7-17); Calcium 9.7 mg/dl (8.4-10.2); Carbon Dioxide 30 mmol/L (22.0-30.0); Chloride 107 mmol/L (98-107); Chol/HDL Ratio 2.9 (1-3.5); Cholesterol 120 mg/dl (140-200); Estimated Glomerular Filt Rate 83 ml/min (>60); GFR (African American) 100 ML/MIN (>60); Glucose 96 mg/dl (74-100); HDL Cholesterol 42 mg/dl (40-60); Magnesium 1.9 mg/dl (1.6-2.3); Potassium 4.1 mmoL/L (3.5-5.1); Sodium 143 mmol/L (136-145); Total Protein,Serum 7.1 g/dl (6.3-8.2); Triglycerides 256 mg/dl (30-150); VLDL Cholesterol 51 mg/dL (0-40)
[2023-01-04 13:35] LABS: Direct LDL Cholesterol < 30.00 mg/dL (100-129)
[2023-01-04 13:38] LABS: Free T4 (Free Thyroxine) 1.23 ng/dl (0.78-2.19)
[2023-01-04 13:45] LABS: Thyroid Stimulating Hormone < 0.02 uIU/mL (0.465-4.68)
== END ==
PROVIDERS: PCP Family Medicine; Visit Provider Internal Medicine
DX: I20.8 Other forms of angina pectoris (principal); J44.9 Chronic obstructive pulmonary disease, unspecified; R93.1 Abnormal findings on diagnostic imaging of heart and coronary circulation; R94.2 Abnormal results of pulmonary function studies; Z95.3 Presence of xenogenic heart valve; R53.83 Other fatigue; I42.8 Other cardiomyopathies
CPT/HCPCS: 36415; 80048; 80061; 80076; 83735; 84439; 84443; 85025

== ENCOUNTER → 2023-01-21 08:02 | Outpatient (CLI) | payer MEDICARE, SELFPAY ==
--- NOTE | 2023-01-21 08:18 | US_ITS ---
FINAL REPORT TECHNIQUE: Ultrasound images of the kidneys and bladder were obtained. CLINICAL HISTORY: hypertension FINDINGS: The right kidney measures 10.6 cm in length. It is normal in echogenicity. There is no hydronephrosis. The left kidney measures 8.8 cm in length. It is normal in echogenicity. There is no hydronephrosis. There is a small cyst in the superior pole of the left kidney. The spleen is unremarkable. IMPRESSION: Left renal cyst. Reviewed, Interpreted and Dictated by Sheng Craven MD Transcribed by Paulette Sharma Authenticated and [facility]
== END ==
PROVIDERS: PCP Family Medicine; Visit Provider Family Medicine
DX: I10 Essential (primary) hypertension (principal)
CPT/HCPCS: 76770

== ENCOUNTER → 2023-02-22 13:45 | Outpatient (CLI) | payer MEDICARE, SELFPAY ==
--- NOTE | 2023-02-22 13:49 | CA_ITS ---
APPROVED REPORT EXAM: Comprehensive 2D, Doppler, and color-flow Echocardiogram Plumbing Designer: Ann Perez, RCS, RVS Ht: 5 ft 7 in Wt: 124lbs BSA: 1.65 BP: 129/51 mmHg Indications: SOA s/p porcine AVR 08/2022, LBBB, Bradycardia, COPD, smoker 2D Dimensions Aortic Root 2.29 cm LA Volume 79.00 mL Left Atrium 3.68 cm LA Volume Index 46.70 mL/m2 (M/F) 16-34 LVOT 1.80 cm (M/F) 1.5-2.5 Ascending Aorta 3.12 cm M-Mode Dimensions RVDd 2.68 cm (0.9-2.6) LA Diam 4.10 cm (1.9-4.0) LVDd 3.98 cm (3.5-5.7) Ao Diam 2.99 cm (2.0-3.7) LVDs 3.01 cm (3.5-5.7) IVSd 1.30 cm (0.6-1.1) PWd 1.27 cm (0.6-1.1) EF (Teich) 49.00% EPSs 0.71 cm FS 24.40% EDV (Teich) 69.20 mL TAPSE 1.26 (<1.7) ESV (Teich) 35.30 mL LV Diastology E Decel Time 288.00 (160-240 msec) E/A Ratio 0.70 MED E' 6.20 (< 7 cm/sec) MED A' 11.80 cm/s E'/MED E' Ratio 10.53 (>14) LAT E' 8.60 (<10 cm/sec) LAT A' 14.00 cm/s E/LAT E' Ratio 7.59 (>14) Aortic Valve LVOT Max 87.00 (70-110 cm/s) LVOT VTI 17.97 cm AoV Peak Lauri. 233.00 (50-130 cm/s) AO Peak GR. 21.70 mmHg AO Mean GR. 13.20 (<5 mmHg) AO VTI 53.26 (18-25 cm) ANGEL (VTI) 0.86 (2.5-4.5 cm2) Mitral Valve MV A Velocity 93.00 (40-130 cm/s) E/A Ratio 0.70 MV Decel. Time 288.00 (160-240 ms) MV Mean Gr. 2.00 (<2mmHg) MV PHT 60.00 ms Pulmonary Valve PV Peak Velocity 98.00 (50-150 cm/s) MI End VMAX 177.00 cm/s Tricuspid Valve TR P. Velocity 238.00 cm/s RAP Estimate 10.00 mmHg RVSP 32.60 mmHg Left Ventricle The left ventricle is normal size. The left ventricular systolic function is low-normal. The left ventricular ejection fraction is within the normal range. There is increased LV wall thickness. There is moderate hypokinesis of the septal, inferoseptal, and anteroseptal forrester. Diastolic function is indeterminate. LVEF is 50% Right Ventricle The right ventricle is mildly dilated. The right ventricular systolic function is normal. Atria The left atrium is moderately dilated. The right atrium size is moderately dilated. There is no Doppler evidence of interatrial shunt. Aortic Valve s/p bioprosthetic AVR. The leaflets are not very well visualized, but grossly appears to have normal mobility. There is no aortic valvular stenosis. Peak velocity 2.3 m/s. Mean AV gradient is 14 mmHg. Max AV gradient is 21 mmHg. DVI=0.39. Trace paravalvular aortic regurgitation. No central AI. Mitral Valve The mitral valve is normal in structure. No evidence of mitral valve stenosis. Mild mitral regurgitation. Tricuspid Valve The tricuspid valve leaflets are thin and pliable. Mild tricuspid regurgitation. RVSP is 20-25 mmHg. Pulmonic Valve The pulmonary valve is normal in structure. Trace pulmonic regurgitation. Great Vessels The aortic root is normal in size. The ascending aorta is normal in size. IVC is normal in size and collapses >50% with inspiration. Pericardium There is no pericardial effusion. Other Information Study Quality: Fair Conclusion Low-normal biventricular systolic function. Moderate hypokinesis of the septal, inferoseptal, and anteroseptal LV forrester. Mild RV dilatation. Moderate biatrial dilatation. s/p bioprosthetic porcine AVR. The bioprosthesis is well-seated with grossly normal leaflet mobility. No significant AI. Peak transaortic velocity 2.3 m/s. Electronically signed by : Amrita Katz MD 02/25/2023 16:05:49
== END ==
PROVIDERS: PCP Family Medicine; Visit Provider Internal Medicine
DX: I10 Essential (primary) hypertension (principal); I20.8 Other forms of angina pectoris; R06.09 Other forms of dyspnea; R53.83 Other fatigue; R93.1 Abnormal findings on diagnostic imaging of heart and coronary circulation; Z95.3 Presence of xenogenic heart valve; I42.8 Other cardiomyopathies
CPT/HCPCS: 93306

== ENCOUNTER 2023-04-04 07:55 | Day surgery (SDC) | payer MEDICARE, SELFPAY ==
[2023-03-31 11:02] VITALS: BMI 20.6
[2023-04-04] VITALS (10 sets, daily range): BP systolic 113–163; BP diastolic 60–81; PULSE 68–85; RESP 15–18; TEMP 36.2–36.7; O2SAT 94–98
--- NOTE | 2023-04-04 08:22 | CA_ITS ---
APPROVED REPORT EXAM: Comprehensive 2D, Doppler, and color-flow Echocardiogram Human Machine Interface Engineer: RT Deya(R) Ht: 5 ft 7 in Wt: 124lbs BSA: 1.65 BP: 129/54 mmHg Indications: fatigue, CP, COPD, HTN, ex smoker, fatigue, HTN, hyperlipidemia, GERD, Abn EKG, hx AV replacement 08/2022 porcine. Procedure After obtaining informed consent, patient underwent transesophageal echo in the [facility]. Type of Sedation : MAC Sedation was administered by Dimitris Encarnacion C.R.N.A. Sedation start time: 10:300 Case end Time: 10:30 Transesophageal probe was inserted and advanced into esophagus without difficulty by Dr. Amrita Katz. The MYKE was performed without complications. Throughout the procedure, the blood pressure, pulse oximetry, cardiac rhythm, and rate were monitored. The patient tolerated the procedure without adverse effects. Recovery from conscious sedation was uneventful and vital signs were stable. Left Ventricle The left ventricle is normal size. Left ventricular systolic function is low-normal. There is increased LV wall thickness. There is moderate hypokinesis of the septal, inferoseptal, and anteroseptal LV forrester. LVEF is 50%. Right Ventricle The right ventricle is normal size. The right ventricular systolic function is normal. Atria Left atrium is mildly dilated. Right atrium is mildly dilated. Aortic Valve s/p bioprosthetic AVR (08/2022). The AV prosthesis is well-seated. The aortic valve leaflets have normal mobility without any evidence of restriction. No hemodynamically significant aortic stenosis. Mean AV gradient 8 mmHg. Max AV gradient 14 mmHg. Peak velocity 1.9 m/s. DI=0.43. Acceleration time 85 ms. No evidence of central or paravalvular aortic insufficiency. Mitral Valve The mitral valve leaflets are mildly thickened. No evidence of mitral valve stenosis. Mild mitral regurgitation. Tricuspid Valve The tricuspid valve leaflets are thin and pliable. Trace tricuspid regurgitation. There is insufficient TR jet to estimate RVSP. Pulmonic Valve The pulmonary valve is normal in structure. Trace pulmonic regurgitation. Great Vessels The aortic root is normal in size. The ascending aorta is normal in size. Pericardium There is no pericardial effusion. Other Information Study Quality: Adequate Conclusion Low-normal biventricular LV wall thickness (LVEF 50%). Moderate hypokinesis of the septal, inferoseptal, and anteroseptal LV forrester. Mild biatrial dilation. s/p bioprosthetic AVR (08/2022). The AV prosthesis is well-seated. The aortic valve leaflets have normal mobility without any evidence of restriction. No hemodynamically significant aortic stenosis or regurgitation. Mean AV gradient 8 mmHg. Max AV gradient 14 mmHg. Peak velocity 1.9 m/s. DI=0.43. Acceleration time 85 ms. Electronically signed by : Amrita Katz MD 04/04/2023 21:36:24
--- NOTE | 2023-04-04 08:23 | ECG_ITS ---
APPROVED REPORT Exam: Resting ECG HR:73 bpm ECG Measurements Heart Rate 73 AXES MT 190 P 75 QRSd 142 QRS 81 QT 420 T 29 QTc 445 Conclusion SINUS RHYTHM INTRAVENTRICULAR CONDUCTION DELAY [130+ ms QRS DURATION] ABNORMAL ECG UNCONFIRMED REPORT Electronically signed by : Juan Tobin MD 04/04/2023 17:49:04
[2023-04-04 08:36] LABS: Basophils % 0.4 % (0.1-2.0); Eosinophils # 0.2 K/mm3 (0.0-0.4); Eosinophils % 3.7 % (0.1-12.0); Hematocrit 37.8 % (37.0-47.0); Hemoglobin 13.2 g/dL (12.2-16.2); Lymphocytes # 1.8 K/mm3 (0.7-4.5); Lymphocytes % 35.4 % (10-50); Mean Corpuscular HGB Conc 34.9 g/dL (31.8-35.4); Mean Corpuscular Hemoglobin 27.7 pg (27.0-31.2); Mean Corpuscular Volume 79.3 fl (81-99); Mean Platelet Volume 7.5 fl (7.4-10.4); Monocytes # 0.3 K/mm3 (0.1-1.0); Monocytes % 6.4 % (1.7-9.3); Neutrophils # 2.7 K/mm3 (1.8-7.8); Neutrophils % 54.1 % (37.0-80.0); Platelet Count 236 K/mm3 (142-424); Red Blood Count 4.77 M/mm3 (4.20-5.40); Red Cell Distribution Width 16.4 % (11.5-17.5)
[2023-04-04 08:38] LABS: INR 0.99 (0.9-1.1); Prothrombin Time 10.7 seconds (10.1-12.5)
[2023-04-04 08:44] LABS: Anion Gap 12.4 mEq/L (5-15); Blood Urea Nitrogen 13 mg/dl (7-17); Calcium 9.9 mg/dl (8.4-10.2); Carbon Dioxide 30 mmol/L (22.0-30.0); Chloride 102 mmol/L (98-107); Creatinine Clearance Estimated 48 mL/min (50-200); Estimated Glomerular Filt Rate 71 ml/min (>60); GFR (African American) 86 ML/MIN (>60); Glucose 108 mg/dl (74-100); Potassium 3.4 mmoL/L (3.5-5.1); Sodium 141 mmol/L (136-145)
--- NOTE | 2023-04-04 11:09 | SUR.PHASEII ---
pt awakes easily and answers questions appropriately. pt request to sleep. family is at bedside. no further needs voiced.
== END 2023-04-04 12:30 | disposition home or self-care (01) ==
PROVIDERS: PCP Family Medicine; Visit Provider Internal Medicine
DX: I07.1 Rheumatic tricuspid insufficiency (principal); I34.0 Nonrheumatic mitral (valve) insufficiency; I51.89 Other ill-defined heart diseases; Z95.3 Presence of xenogenic heart valve
CPT/HCPCS: 80048; 85025; 85610; 93005; 93312

== ENCOUNTER → 2023-04-14 09:14 | Outpatient (CLI) | payer MEDICARE, SELFPAY ==
[2023-04-14 10:48] LABS: Alanine Aminotransferase 31 U/L (12-78); Albumin Level 4.3 g/dl (3.5-5.0); Alkaline Phosphatase 112 U/L (38-126); Aspartate Amino Transferase 44 U/L (14-36); Bilirubin,Direct 0.1 mg/dl (0.0-0.4); Bilirubin,Indirect 0.2 mg/dL (0.0-0.9); Bilirubin,Total 0.3 mg/dl (0.2-1.3); Bilirubin,Unconjugated 0.1 mg/dL (0.0-1.1); Total Protein,Serum 7.2 g/dl (6.3-8.2)
== END ==
PROVIDERS: PCP Family Medicine; Visit Provider Internal Medicine
DX: I10 Essential (primary) hypertension (principal); R53.83 Other fatigue; R93.1 Abnormal findings on diagnostic imaging of heart and coronary circulation; Z87.891 Personal history of nicotine dependence
CPT/HCPCS: 36415; 80076; 82533

== ENCOUNTER → 2023-05-13 07:51 | Outpatient (CLI) | payer MEDICARE, SELFPAY ==
--- NOTE | 2023-05-13 07:56 | NM_ITS ---
APPROVED REPORT Calculation Reviewer: Procedure: 99mTc-PYP Cardiac Amyloidosis Imaging Clinical Indication: cardiomyopathy, AVR, biatrial dilation, increased LV wall thickness, persistent fatigue Protocol: The patient received 25.7 mCi 99mTc-PYP intravenously. Planar and SPECT imaging was performed approximately 3 hours post injection. Planar images included anterior, left lateral and [id number] projections. Findings: Visual interpretation: Planar and SPECT images were reviewed The overall quality of the study was good. Semi quantitative SPECT findings showed a grade 2. Planar imaging demonstrates a heart to contralateral ratio of 2.5 (normal<1.5, equivocal=1.2-1.4, abnormal>1.5). Impression: 1. Overall, the quality of the study was good. 2. Semi quantitative SPECT findings showed grade 2. 3. Overall interpretation. 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 Further evaluation with cardiac MRI (amyloidosis protocol) is recommended. This study and report were reviewed and signed by Reyes Katz MD (forest officer). Conclusion Electronically signed by : Amrita Katz MD 05/23/2023 22:29:02
== END ==
LOC: RAD 07:51
PROVIDERS: PCP Family Medicine; Visit Provider Internal Medicine
DX: R06.00 Dyspnea, unspecified; R53.83 Other fatigue; Z95.3 Presence of xenogenic heart valve; I42.8 Other cardiomyopathies
CPT/HCPCS: 78800

== ENCOUNTER 2023-06-01 12:37 | Outpatient (CLI) | payer MEDICARE, SELFPAY ==
--- NOTE | 2023-06-01 12:55 | MR_ITS ---
APPROVED REPORT Retail Services Professional: CLINICAL INDICATION Equivocal PYP scan, evaluate for amyloidosis. TECHNIQUE Image Acquisition: Cardiac magnetic resonance (CMR) was performed on Siemens Espree MRI 1.5T scanner. Software platform sequences were performed using the Siemens Spreadsave MR B19 platform. A set of three-plane, low-resolution, large [id number] localizers were initially acquired. Then axial, coronal, sagittal TrueFISP, as well as axial HASTE images, were obtained. These were followed by gated TrueFISP breathold cinematic sequences obtained in the short axis with 8 mm slices and 2 mm gaps, 2-chamber (vertical long axis), 3-chamber, 4-chamber (horizontal long axis). A bolus of contrast was injected intravenously with first-pass sequences obtained in the short axis and four-chamber planes. After approximately 10 minutes, a TI vp & general counsel sequence was performed to determine the optimal TI time. Using the optimized TI time, delayed contrast enhancement segmented inversion???recovery TurboFLASH sequences were obtained in the short axis, 2-chamber, 3-chamber, and 4-chamber projections. 2D-velocity phase mapping was performed. Functional parameters were calculated by offline analysis on an independent workstation ([employer], [employer]). Contrast: ProHance??? (Gadoteridol) FINDINGS MORPHOLOGY AND FUNCTION Left ventricle: The left ventricle is normal in size. The indexed left ventricular end-diastolic volume (LVEDVi) is 62 ml/m2 (reference range 57-105 ml/m2 in males, 56-96 ml/m2 in females). There is mild reduction in left ventricular systolic function. There is normal left ventricular wall thickness (maximum LV wall thickness is 10.5 mm in end-diastole). There is moderate hypokinesis of the septal, anteroseptal, and inferoseptal LV forrester. The septum appears asynchronous. LVEF is calculated at 47.1% (reference range 57-77%). Right ventricle: The right ventricle is normal in size. The indexed right ventricular end-diastolic volume (RVEDVi) is 57 ml/m2 (reference range 61-121 ml/m2 in males, 48-112 ml/m2 in females). Normal right ventricular systolic function is present. RVEF is calculated at 55.5% (reference range 52-72% in males, 51-71% in females). Atria: The left atrium is normal in size. The maximum indexed left atrial volume is 26 ml/m2 (reference range 26-52 ml/m2 in males, 27-53 ml/m2 in females). The right atrium is normal in size. The maximum indexed right atrial volume is 22 ml/m2 (reference range 18-90 ml/m2). Aorta: The diameter of the aortic annulus is normal, measuring 25 mm (coronal view reference range 21-30 mm in males, 19-27 mm in females). The diameter of the aortic sinus is normal, measuring 31 mm (coronal view reference range 25-42 mm in males, 24-36 mm in females). The diameter of the sinotubular junction is normal, measuring 27 mm (coronal view reference range 18-32 mm in males, 18-28 mm in females). The diameters of the ascending and descending thoracic aorta are normal. Main pulmonary artery: The main pulmonary artery diameter is normal. Pericardium: The pericardial thickness is normal. The pericardial thickness measures 1.2 cm (normal < 4.0 cm). There is no pericardial effusion. VALVES s/p porcine aortic valve replacement. No significant aortic regurgitation is noted. The remaining valves appear normal in structure visually. Systolic anterior motion of the mitral valve is not visualized. Ratio of pulmonary to systemic flow, Qp:Qs ratio = 1.0 (normal < or = 1.2), demonstrating no evidence of hemodynamically significant shunt. TISSUE CHARACTERIZATION Resting Perfusion: Normal myocardial blood flow at rest. No evidence of resting hypoperfusion. Myocardial Fibrosis and/or edema: Normal gadolinium kinetics are present. No evidence of late gadolinium enhancement is noted, consistent with absence of myocardial scarring, infarction, or necrosis. T2-weighted imaging demonstrates no evidence of myocardial edema or inflammation. OTHER No other significant findings are noted. However, this exam is focused on the cardiac structure and function. IMPRESSION Normal LV size with mild reduction in LV systolic function. LVEDVi= 62 ml/m2 and LVEF= 47.1%. Moderate hypokinesis of the septal, anteroseptal, and inferoseptal LV forrester. The septum is asynchronous. Normal RV size with normal RV systolic function. RVEDVi= 57 ml/m2 and RVEF= 55.5%. No atrial enlargement. s/p porcine aortic valve replacement. No significant aortic regurgitation is noted. No CMR evidence of myocardial scarring, infarction, or necrosis. No evidence of myocardial edema or inflammation. Perfusion analysis demonstrates normal blood flow at rest with no evidence of resting hypoperfusion. Ratio of pulmonary to systemic flow, Qp:Qs ratio = 1.0 (normal < or = 1.2), demonstrating no evidence of hemodynamically significant shunt. Overall, the study demonstrates mild, non-ischemic cardiomyopathy with mild reduction in LV systolic function (LVEF 47.1%). No CMR evidence of amyloidosis in this study. COMPARISON None CRITICAL RESULT None COMMUNICATION Per this written report The findings of this cardiac MR were reviewed, reported, and signed by Reyes Katz MD (Underwriting Director). Conclusion Electronically signed by : Amrita Katz MD 06/05/2023 19:18:29
[2023-06-01 13:43] LABS: Blood Urea Nitrogen 15 mg/dl (7-17); Calcium 9.7 mg/dl (8.4-10.2); Carbon Dioxide 29 mmol/L (22.0-30.0); Chloride 104 mmol/L (98-107); Estimated Glomerular Filt Rate 49 ml/min (>60); GFR (African American) 59 ML/MIN (>60); Glucose 119 mg/dl (74-100); Potassium 4.2 mmoL/L (3.5-5.1)
[2023-06-01 13:56] LABS: Anion Gap 7.2 mEq/L (5-15); Sodium 136 mmol/L (136-145)
[2023-06-01] MEDS: SODIUM CHLORIDE 0.9% 10ML SYR (RAD ONLY) 10 ML IV (14:48)
[2023-06-01] MEDS: GADOTERIDOL INJ 17ML SYRINGE 14 ML IV (14:48)
[2023-06-01] MEDS: SODIUM CHLORIDE 0.9% 50ML BAG 25 ML IV (14:48)
== END 2023-06-01 23:59 ==
LOC: RAD 12:37
PROVIDERS: PCP Family Medicine; Visit Provider Internal Medicine
DX: I10 Essential (primary) hypertension (principal); I42.9 Cardiomyopathy, unspecified; R06.00 Dyspnea, unspecified; R53.83 Other fatigue; J44.9 Chronic obstructive pulmonary disease, unspecified; R93.1 Abnormal findings on diagnostic imaging of heart and coronary circulation; Z95.3 Presence of xenogenic heart valve; Z87.891 Personal history of nicotine dependence; I20.89 Other forms of angina pectoris
CPT/HCPCS: 75561; 80048; A9576

== ENCOUNTER 2023-08-01 14:29 | Outpatient (CLI) | payer MEDICARE, SELFPAY ==
[2023-08-01 14:58] LABS: Basophils # 0.1 K/mm3 (0-0.2); Basophils % 1.3 % (0.1-2.0); Eosinophils # 0.2 K/mm3 (0.0-0.4); Eosinophils % 2.3 % (0.1-12.0); Hematocrit 41.8 % (37.0-47.0); Hemoglobin 13.7 g/dL (12.2-16.2); Lymphocytes # 2.3 K/mm3 (0.7-4.5); Lymphocytes % 33.3 % (10-50); Mean Corpuscular HGB Conc 32.8 g/dL (31.8-35.4); Mean Corpuscular Hemoglobin 28.6 pg (27.0-31.2); Mean Platelet Volume 7.7 fl (7.4-10.4); Monocytes # 0.6 K/mm3 (0.1-1.0); Monocytes % 8.4 % (1.7-9.3); Neutrophils # 3.7 K/mm3 (1.8-7.8); Neutrophils % 54.7 % (37.0-80.0); Platelet Count 199 K/mm3 (142-424); Red Cell Distribution Width 14.5 % (11.5-17.5); White Blood Count 6.8 K/mm3 (4.8-10.8)
[2023-08-01 15:38] LABS: Alanine Aminotransferase 24 U/L (12-78); Albumin Level 4.3 g/dl (3.5-5.0); Alkaline Phosphatase 94 U/L (38-126); Anion Gap 9.6 mEq/L (5-15); Aspartate Amino Transferase 29 U/L (14-36); Bilirubin,Direct 0.3 mg/dl (0.0-0.4); Bilirubin,Indirect 0.4 mg/dL (0.0-0.9); Bilirubin,Total 0.7 mg/dl (0.2-1.3); Bilirubin,Unconjugated 0.4 mg/dL (0.0-1.1); Blood Urea Nitrogen 15 mg/dl (7-17); Calcium 10.6 mg/dl (8.4-10.2); Carbon Dioxide 30 mmol/L (22.0-30.0); Chloride 105 mmol/L (98-107); Chol/HDL Ratio 4.4 (1-3.5); Cholesterol 159 mg/dl (140-200); Estimated Glomerular Filt Rate 62 ml/min (>60); GFR (African American) 75 ML/MIN (>60); Glucose 87 mg/dl (74-100); HDL Cholesterol 36 mg/dl (40-60); Magnesium 2.1 mg/dl (1.6-2.3); Potassium 4.6 mmoL/L (3.5-5.1); Sodium 140 mmol/L (136-145); Total Protein,Serum 6.8 g/dl (6.3-8.2); Triglycerides 371 mg/dl (30-150); VLDL Cholesterol 74 mg/dL (0-40)
[2023-08-01 15:48] LABS: Direct LDL Cholesterol 35.04 mg/dL (100-129)
[2023-08-01 15:55] LABS: Free T4 (Free Thyroxine) 0.97 ng/dl (0.78-2.19)
[2023-08-01 16:08] LABS: Thyroid Stimulating Hormone 1.05 uIU/mL (0.465-4.68)
== END 2023-08-01 23:59 ==
LOC: LAB 14:30
PROVIDERS: PCP Family Medicine; Visit Provider Internal Medicine
DX: I10 Essential (primary) hypertension (principal); J44.9 Chronic obstructive pulmonary disease, unspecified; R53.83 Other fatigue; R93.1 Abnormal findings on diagnostic imaging of heart and coronary circulation; I42.8 Other cardiomyopathies; Z79.899 Other long term (current) drug therapy
CPT/HCPCS: 36415; 80048; 80061; 80076; 83735; 84439; 84443; 85025

== ENCOUNTER 2023-08-10 16:58 | Emergency (ER) | payer MEDICARE, SELFPAY ==
--- NOTE | 2023-08-10 17:14 | EXP.UTC ---
Discharge Plan Disposition Patient Disposition: Home, Self-Care Condition: Good Prescriptions Prescriptions: New azithromycin [Zithromax] 250 mg tablet 250 mg PO UD DOSE PK Qty: 6 0RF Rx Instructions: Take two (2) tablets today, then one (1) tablet days #2 thru #5 benzonatate 100 mg capsule 100 mg PO TIDP PRN (Reason: Cough) Qty: 30 0RF methylprednisolone 4 mg Tablets,Dose Pack 4 mg PO DIRECTED 6 Days Qty: 21 0RF Rx Instructions: Take 1 pack as directed for 6 days No Action levothyroxine [Synthroid] 50 mcg tablet 50 mcg PO DAILY rosuvastatin 5 mg tablet 5 mg PO DAILY duloxetine 30 mg capsule,delayed release(DR/EC) 30 mg PO DAILY losartan 50 mg tablet 50 mg PO DAILY Qty: 90 3RF metoprolol succinate [Toprol XL] 50 mg tablet extended release 24 hr 50 mg PO DAILY Qty: 30 2RF aspirin [Adult Aspirin Regimen] 81 mg tablet,delayed release (DR/EC) 81 mg PO DAILY hydrochlorothiazide 12.5 mg tablet 12.5 mg PO DAILY Qty: 90 3RF Referrals Follow up/Referrals: Neha Marie MD [Primary Care Provider] - See instructions Activity Restrictions/Add. Instructions Additional Instructions/Restrictions: Drink plenty of fluids. Take tylenol or ibuprofen for pain or fever. Take the medications as directed. Follow up with your regular doctor. GO TO THE ER FOR ANY WORSENING SYMPTOMS Throw your tooth brush away and get a new one. Don't start the oral steroids until tomorrow since you had the steroid shot here today. Clinical Impressions Clinical Impression: Strep throat Instructions Patient Instructions: Strep Throat, DI for Strep Throat, Methylprednisolone, Azithromycin, Penicillin G Benzathine Injection, Dexamethasone Injection Discharge ED Provider: Kenyon Coburn [facility] General Stated complaint: exp strep- sore throat Time Seen by Provider: 08/10/23 17:14 History of Present Illness Provider Complaint: She states that for the past 3 days she has had worsening sore throat, low grade fever, malaise, and a dry cough. She has been exposed to strep throat in her home. Related Data Home Medications Medication Instructions Recorded Confirmed levothyroxine 50 mcg tablet 50 mcg PO DAILY thyroid 06/20/19 08/10/23 (Synthroid) rosuvastatin 5 mg tablet 5 mg PO DAILY Cholesterol 07/09/21 08/10/23 duloxetine 30 mg capsule,delayed 30 mg PO DAILY mood 11/19/21 08/10/23 release aspirin 81 mg tablet,delayed 81 mg PO DAILY 10/05/22 08/10/23 release (Adult Aspirin Regimen) Previous Rx's Medication Instructions Recorded losartan 50 mg tablet 50 mg PO DAILY #90 tabs 12/21/22 hydrochlorothiazide 12.5 mg tablet 12.5 mg PO DAILY #90 tabs 05/12/23 metoprolol succinate 50 mg 50 mg PO DAILY #30 tabs 08/01/23 tablet,extended release 24 hr (Toprol XL) azithromycin 250 mg tablet 250 mg PO UD DOSE PK #6 tabs 08/10/23 (Zithromax) benzonatate 100 mg capsule 100 mg PO TIDP PRN Cough #30 caps 08/10/23 methylprednisolone 4 mg tablets in 4 mg PO DIRECTED 6 days #21 tabs 08/10/23 a dose pack Allergies Allergy/AdvReac Type Severity Reaction Status Date / Time Iodinated Contrast Media Allergy Mild Rash and Verified 08/10/23 17:22 [Iodinated Contrast Media - itching IV Dye] VODKA Allergy Severe Severe Uncoded 08/01/23 13:39 swelling [facility] Disclaimer: The information contained in this section may have been updated after the patient was seen, as this information can be updated by other users. 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 COPD (chronic obstructive pulmonary disease) Dyspnea on exertion Hyperlipemia Hypertension Mild mitral regurgitation Mild tricuspid regurgitation Moderate aortic regurgitation Stopped smoking with greater than 30 pack year history Surgical History Heart valve replaced Hx of bladder repair surgery Hx of cholecystectomy Hx of vaginal hysterectomy Family History Other Hypertension Social History Smoking Status: Former smoker alcohol intake: never substance use type: denies use current occupational status: retired and other Travel in the last 8 weeks: None household members: spouse housing: house number of children: 5 ROS Obtained: Yes All systems reviewed & no additional complaints except as documented Constitutional Constitutional: Reports chills and Reports fever(s) Eyes Eyes: Denies eye discharge ENT Ears, Nose, Mouth, and Throat: Reports as per HPI Cardiovascular Cardiovascular: Denies chest pain Respiratory Respiratory: Denies chest congestion and Reports cough Gastrointestinal Gastrointestingal: Reports nausea; Denies abdominal pain, constipation, cramping, diarrhea or vomiting Musculoskeletal Musculoskeletal: Denies arthralgias Integumentary/Breasts Skin/Breast: Denies rash Neurologic Neurologic: Denies paresthesias Physical Exam General General appearance: alert and in no apparent distress Head Head exam: atraumatic, normocephalic and normal inspection Eye Eye exam: Present normal appearance, PERRL and EOMI ENT ENT exam: Present mucous membranes moist and normal external ear exam Expanded ENT Exam TM/Canal exam: Bilateral TM: erythema and bulging Nose exam: Absent sinus tenderness Mouth exam: Present normal external inspection; Absent drooling Teeth exam: Present normal inspection Throat exam: Present tonsillar erythema, tonsillomegaly and tonsillar exudate Neck Neck exam: Present normal inspection, full ROM and trachea midline; Absent tenderness, meningismus or lymphadenopathy Chest Chest inspection: Present normal inspection and symmetric chest wall rise; Absent tenderness Respiratory Respiratory exam: Present normal lung sounds bilaterally; Absent respiratory distress, wheezes, stridor or accessory muscle use Cardiovascular Cardiovascular exam: Present regular rate and normal rhythm; Absent systolic murmur or diastolic murmur Abdominal Exam Abdominal exam: Present soft and normal bowel sounds; Absent distention, tenderness, guarding, rebound or rigidity Extremities Exam Extremities exam: Present normal inspection and normal capillary refill; Absent calf tenderness Back Exam Back exam: Present normal inspection and full ROM; Absent tenderness, CVA tenderness (R) or CVA tenderness (L) Neurological Exam Neurological exam: Present alert, oriented X3 and CN II-XII intact Psychiatric Psychiatric exam: Present normal affect and normal mood Skin Skin exam: Present warm, dry, intact and normal color Medical Decision Making Medical Records Medical records reviewed: No I reviewed the patient's medical records. Isac Inquiry Pt receiving controlled substance: No Lab Data Lab results reviewed: Yes I reviewed the patient's lab results.
[2023-08-10 17:15] VITALS: BP 124/50; PULSE 67; RESP 18; TEMP 36.6; O2SAT 100; BMI 21.9
[2023-08-10 17:29] LABS: UTC Strep Screen (Rapid) Negative (Negative)
[2023-08-10] MEDS: PENICILLIN G BENZATHINE 1,200,000 UNITS/2ML SYRINGE 1200000 UNIT IM (17:44)
[2023-08-10] MEDS: DEXAMETHASONE 4MG/ML 1ML VIAL 8 MG IM (17:44)
[2023-08-10 18:03] VITALS: BP 124/50; PULSE 67; RESP 18; TEMP 36.6; O2SAT 100
== END 2023-08-10 18:03 | disposition home or self-care (01) ==
PROVIDERS: Emergency Provider Nurse Practitioner Family; PCP Family Medicine
DX: J02.0 Streptococcal pharyngitis (principal); R50.9 Fever, unspecified; R53.81 Other malaise; R05.9 Cough, unspecified; J44.9 Chronic obstructive pulmonary disease, unspecified; E78.5 Hyperlipidemia, unspecified; I10 Essential (primary) hypertension; I34.0 Nonrheumatic mitral (valve) insufficiency; I36.1 Nonrheumatic tricuspid (valve) insufficiency; I35.1 Nonrheumatic aortic (valve) insufficiency; Z87.891 Personal history of nicotine dependence
CPT/HCPCS: 87880; 96372; 99212; 99214; G0463; J0561

== ENCOUNTER 2023-09-12 09:35 | Outpatient (CLI) | payer MEDICARE, SELFPAY ==
--- NOTE | 2023-09-12 | CA_ITS ---
APPROVED REPORT EXAM: Limited 2D Echocardiogram Curtain Fitter: Kia Keating RVT Ht: 5 ft 7 in Wt: 141lbs BSA: 1.74 BP: 97/55 mmHg Indications: EF CHECK, EF OF 50% ON ECHO FROM 02/19 AND EF OF 47% ON MRI 06/01/23,AVR M-Mode Dimensions RVDd 2.93 cm (0.9-2.6) LA Diam 2.66 cm (1.9-4.0) LVDd 3.32 cm (3.5-5.7) LVDs 2.11 cm (3.5-5.7) IVSd 1.20 cm (0.6-1.1) PWd 0.69 cm (0.6-1.1) EF (Teich) 67.40% FS 36.40% EDV (Teich) 44.80 mL ESV (Teich) 14.60 mL Other Information Study Quality: Fair Conclusion This is a limited TTE to evaluate for LVEF. Limited windows were obtained. The left ventricle is normal in size. There is increased LV wall thickness. There is normal global LV systolic function. The septum is asynchronous. There is mild hypokinesis of the septal and inferior septal LV forrester. No regional wall motion abnormalities are noted. LVEF is 55%. Compared to prior [facility] and prior CMR report, the LVEF is improved and is now normal. Electronically signed by : Amrita Katz MD 09/14/2023 12:28:28
== END 2023-09-12 23:59 | disposition home or self-care (01) ==
LOC: RT 09:38
PROVIDERS: PCP Family Medicine; Visit Provider Internal Medicine
DX: I51.89 Other ill-defined heart diseases (principal)
CPT/HCPCS: 93308

== ENCOUNTER 2023-11-16 08:46 | Outpatient (CLI) | payer MEDICARE, SELFPAY ==
--- NOTE | 2023-11-16 08:55 | CT_ITS ---
FINAL REPORT TECHNIQUE: Axial CT of the abdomen and pelvis, without and with IV contrast. Coronal and sagittal reconstructions were obtained and reviewed. This study was performed with techniques to keep radiation doses as low as reasonably achievable, (ALARA). Individualized dose reduction techniques using automated exposure control or adjustment of mA and/or kV according to the patient's size were employed. CLINICAL HISTORY: LT LOWER QUADRANT PAIN COMPARISON: 01/14/2022 FINDINGS: Abdomen: Lung bases are clear. There is an 8 mm left hepatic lobe lesion, decreased in size from prior exam where it measured 17 mm. This probably represents a cyst. The remaining solid abdominal organs are unremarkable. Status postcholecystectomy. Precontrast imaging shows no renal stone disease. Postcontrast imaging of the kidneys shows a 9 mm upper pole left renal cyst. The kidneys are otherwise unremarkable. There is mild fecal impaction of the colon without evidence of bowel obstruction. Pelvis: The appendix is normal. Pelvic bowel loops are unremarkable. Status post hysterectomy. The urinary bladder is unremarkable. No fluid collection or adenopathy is seen. IMPRESSION: No evidence of bowel obstruction or inflammatory changes. No urinary tract stone disease or obstruction. Reviewed, Interpreted and Dictated by Neha Marcus MD Transcribed by Miranda Powell Authenticated and . [facility]
[2023-11-16 09:18] LABS: Blood Urea Nitrogen 14 mg/dl (7-17); Estimated Glomerular Filt Rate 62 ml/min (>60); GFR (African American) 75 ML/MIN (>60)
[2023-11-16] MEDS: IOPAMIDOL-370 (76%);100ML BOTTLE 75 ML IV (10:01)
[2023-11-16] MEDS: SODIUM CHLORIDE 0.9% 10ML SYR (RAD ONLY) 10 ML IV (10:01)
== END 2023-11-16 23:59 | disposition home or self-care (01) ==
LOC: RAD 08:46
PROVIDERS: PCP Family Medicine; Visit Provider Nurse Practitioner Family
DX: R10.32 Left lower quadrant pain (principal)
CPT/HCPCS: 36415; 74178; 82565; 84520; Q9967

== ENCOUNTER 2023-11-20 15:58 | Emergency (ER) | payer MEDICARE, SELFPAY ==
--- NOTE | 2023-11-20 16:12 | XR_ITS ---
PROCEDURE INFORMATION: Exam: XR Right Ankle Exam date and time: 11/20/2023 4:46 PM Age: 73 years old Clinical indication: Pain; Ankle; Right; Additional info: Pain/cant walk TECHNIQUE: Imaging protocol: Radiologic exam of the right ankle. Views: 3 or more views. COMPARISON: No relevant prior studies available. FINDINGS: Bones/joints: No evidence of acute fracture or malalignment. Ankle mortise appears intact. Soft tissues: Unremarkable. IMPRESSION: No evidence of acute osseous abnormality in the right ankle.
--- NOTE | 2023-11-20 16:13 | XR_ITS ---
PROCEDURE INFORMATION: Exam: XR Right Foot Exam date and time: 11/20/2023 4:49 PM Age: 73 years old Clinical indication: Pain; Foot; Right; Additional info: Pain/cant walk TECHNIQUE: Imaging protocol: Radiologic exam of the right foot. Views: 3 or more views. COMPARISON: CR XR ANKLE RT MIN 3V 11/20/2023 4:46 PM FINDINGS: Bones/joints: No evidence of acute fracture or malalignment. Lisfranc joint appears normal. Soft tissues: Unremarkable. IMPRESSION: No evidence of acute osseous abnormality in the right foot.
[2023-11-20 17:10] VITALS: BP 188/76; PULSE 70; RESP 18; TEMP 36.7; O2SAT 99; BMI 22.6
--- NOTE | 2023-11-20 17:38 | EXP.UTC ---
Discharge Plan Disposition Patient Disposition: Home, Self-Care Condition: Good Prescriptions Prescriptions: No Action levothyroxine [Synthroid] 50 mcg tablet 50 mcg PO DAILY rosuvastatin 5 mg tablet 5 mg PO DAILY duloxetine 30 mg capsule,delayed release(DR/EC) 30 mg PO DAILY losartan 50 mg tablet 50 mg PO DAILY Qty: 90 3RF aspirin [Adult Aspirin Regimen] 81 mg tablet,delayed release (DR/EC) 81 mg PO DAILY metoprolol succinate [Toprol XL] 50 mg tablet extended release 24 hr 50 mg PO DAILY Qty: 30 2RF spironolactone [Aldactone] 25 mg tablet 25 mg PO DAILY Qty: 90 3RF Referrals Follow up/Referrals: Neha Marie MD [Primary Care Provider] - See instructions Activity Restrictions/Add. Instructions Additional Instructions/Restrictions: rest Ice with cold pack for 20 minutes remove may repeat for comfort every hour Ivan wrap for support and swelling no less in the shower. Be sure not too tight but not to lose either Elevate with ankle above your heart as much as possible to help reduce swelling and therefore pain Ibuprofen every 6 hours as needed for pain or inflammation. If needs something more you can take Tylenol every 4 hours as needed as long as her primary care has told he was okayed for you to take both. If improving any do not need to follow-up you can bring begin exercising 2-3 weeks after injury. Follow-up immediately if new or worsening symptoms or no noticeable improvement over the next 3-5 days. call ortho if no improvement Clinical Impressions Clinical Impression: Ankle strain Instructions Patient Instructions: DI for Ankle Sprain Discharge ED Provider: Pietro ([facility])Audie [facility] HPI General Stated complaint: AO 11/20/23 1230 injury right foot Mode of Arrival: Ambulatory Source of Information: Patient Limitations: No Limitations Time Seen by Provider: 11/20/23 17:38 Description of Symptoms (Recalled from Triage Doc. by RN): Pt was stepping off a step while carrying her grandson and stepped in a hole. She has pain in her right foot. HEENT Symptoms (Recalled from RN notes): No Resp Symptoms (Recalled from RN notes): No Skin Symptoms (Recalled from RN notes): No MS Symptoms (Recalled from RN notes): Yes Functional Status (Recalled from RN notes): n/a History of Present Illness Provider Complaint: 73 yr old female presents for rt foot pain. Pt was stepping off a step while carrying her grandson and stepped in a hole. She has pain in her right foot. Related Data Home Medications Medication Instructions Recorded Confirmed levothyroxine 50 mcg tablet 50 mcg PO DAILY thyroid 06/20/19 11/20/23 (Synthroid) rosuvastatin 5 mg tablet 5 mg PO DAILY Cholesterol 07/09/21 11/20/23 duloxetine 30 mg capsule,delayed 30 mg PO DAILY mood 11/19/21 11/20/23 release aspirin 81 mg tablet,delayed 81 mg PO DAILY 10/05/22 11/20/23 release (Adult Aspirin Regimen) Previous Rx's Medication Instructions Recorded losartan 50 mg tablet 50 mg PO DAILY #90 tabs 12/21/22 metoprolol succinate 50 mg 50 mg PO DAILY #30 tabs 10/10/23 tablet,extended release 24 hr (Toprol XL) spironolactone 25 mg tablet 25 mg PO DAILY #90 tabs 11/10/23 (Aldactone) Allergies Allergy/AdvReac Type Severity Reaction Status Date / Time Iodinated Contrast Media Allergy Mild Rash and Verified 11/20/23 17:23 [Iodinated Contrast Media - itching IV Dye] VODKA Allergy Severe Severe Uncoded 09/01/23 13:34 swelling Worker's Comp Is this a Worker's Comp case?: No [facility] Disclaimer: The information contained in this section may have been updated after the patient was seen, as this information can be updated by other users. 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) Smoking Status: Former smoker alcohol intake: never substance use type: denies use current occupational status: retired and other Travel in the last 8 weeks: None household members: spouse housing: house number of children: 5 ROS Obtained: Yes All systems reviewed & no additional complaints except as documented Constitutional Constitutional: Reports system reviewed and no additional complaints, except as documented Eyes Eyes: Reports system reviewed and no additional complaints, except as documented ENT Ears, Nose, Mouth, and Throat: Reports system reviewed and no additional complaints, except as documented Cardiovascular Cardiovascular: Reports system reviewed and no additional complaints, except as documented Respiratory Respiratory: Reports system reviewed and no additional complaints, except as documented Gastrointestinal Gastrointestingal: Reports system reviewed and no additional complaints, except as documented Musculoskeletal Musculoskeletal: Reports system reviewed and no additional complaints, except as documented, Reports arthralgias, Reports joint swelling and Reports limited range of motion Integumentary/Breasts Skin/Breast: Reports system reviewed and no additional complaints, except as documented Neurologic Neurologic: Reports system reviewed and no additional complaints, except as documented Endocrine Endocrine: Reports system reviewed and no additional complaints, except as documented Hematologic/Lymphatic Henatologic/Lymphatic: Reports system reviewed and no additional complaints, except as documented Allergic/Immunologic Allergic/Immunologic: Reports system reviewed and no additional complaints, except as documented Physical Exam General General appearance: alert and in no apparent distress Head Head exam: atraumatic ENT ENT exam: Present normal exam Respiratory Respiratory exam: Present normal lung sounds bilaterally Cardiovascular Cardiovascular exam: Present regular rate and normal rhythm Expanded Lower Extremity Exam Right: Ankle image: 1. tenderness, bruise Neurological Exam Neurological exam: Present alert and oriented X3 Skin Skin exam: Present warm and intact Medical Decision Making Medical Records Medical records reviewed: Yes I reviewed the patient's medical records. Isac Inquiry Pt receiving controlled substance: No Isac was queried for this patient: No Vital Signs: 11/20/23 17:10 Temperature 98.0 F Temperature Source Oral Pulse Rate [Right Radial] 70 Respiratory Rate 18 Blood Pressure [Right Arm] 188/76 H Blood Pressure Mean [Right Arm] 113 Blood Pressure Source [Right Arm] Automatic Cuff Blood Pressure Position [Right Arm] Sitting 02 Sat by Pulse Oximetry 99 Oxygen Delivery Method Room Air Lab Data Lab results reviewed: Yes I reviewed the patient's lab results. Orders (Tests/Meds): ORDERS Category Date Time Status Ankle XR -Right minimum 3 Views [XR ankle RT min 3V] Exams 11/20/23 16:12 Taken Stat Foot XR right minimum 3 views [XR foot RT min 3V] Stat Exams 11/20/23 16:13 Taken
[2023-11-20 18:26] VITALS: BP 188/76; PULSE 70; RESP 18; TEMP 36.7; O2SAT 99
== END 2023-11-20 18:26 | disposition home or self-care (01) ==
PROVIDERS: Emergency Provider Nurse Practitioner Family; PCP Family Medicine
DX: S96.911A Strain of unspecified muscle and tendon at ankle and foot level, right foot, initial encounter (principal); M79.671 Pain in right foot; W10.8XXA Fall (on) (from) other stairs and steps, initial encounter
CPT/HCPCS: 73610; 73630; 99212; 99213; G0463

== ENCOUNTER 2023-11-29 10:56 | Outpatient (CLI) | payer MEDICARE, SELFPAY ==
--- NOTE | 2023-11-29 11:00 | MM_ITS ---
PROCEDURE INFORMATION: Exam: MG Bilateral Diagnostic Breast Tomosynthesis Exam date and time: 11/29/2023 10:52 AM Age: 73 years old Clinical indication: Left breast palpable lump TECHNIQUE: Imaging protocol: Bilateral Diagnostic tomosynthesis and 2D mammography including computer-aided detection (CAD) when performed. Unilateral or bilateral exam. COMPARISON: 1. MG MM DIG SCREENING MAMM BI W/CAD 11/02/2022 11:14 AM 2. MG MM DIG SCREENING MAMM BI W/CAD 11/19/2020 10:29 AM FINDINGS: MAMMOGRAPHY: Breast composition: The breasts are heterogeneously dense, which may obscure small masses. Breast mammogram findings: A skin marker was placed over area of palpable concern in the left upper outer quadrant.There is no stellate mass, architectural distortion or suspicious microcalcifications in either breast to suggest malignancy. No skin thickening or axillary adenopathy. IMPRESSION: Patient to return for targeted left breast ultrasound for further evaluation of a palpable abnormality ASSESSMENT: BI-RADS Category 0: Incomplete- Need Additional Imaging Evaluation and/or Prior Mammograms for Comparison.
== END 2023-11-29 23:59 | disposition home or self-care (01) ==
LOC: RAD 10:57
PROVIDERS: PCP Family Medicine; Visit Provider Family Medicine
DX: N63.21 Unspecified lump in the left breast, upper outer quadrant (principal); N63.25 Unspecified lump in the left breast, overlapping quadrants; Z12.31 Encounter for screening mammogram for malignant neoplasm of breast
CPT/HCPCS: 77062; 77066; G0279

== ENCOUNTER 2023-12-06 10:19 | Outpatient (CLI) | payer MEDICARE, SELFPAY ==
--- NOTE | 2023-12-06 10:23 | US_ITS ---
PROCEDURE INFORMATION: Exam: US Left Breast, Complete Exam date and time: 12/06/2023 10:21 AM Age: 73 years old Clinical indication: Patient returned for further evaluation of a palpable abnormality in the left breast TECHNIQUE: Imaging protocol: Complete ultrasound of all four quadrants of the left breast and the retroareolar regions, including ultrasound of the axilla when performed. COMPARISON: MG MM DIG MAMM BI DX W/CAD 11/29/2023 10:52 AM FINDINGS: ULTRASOUND: Breast ultrasound findings: Sonographic images of the left breast including the retroareolar region, all 4 quadrants and the axilla demonstrates a hypoechoic lobulated solid mass in the 2 o'clock axis 3 cm from the nipple corresponding to the patient's complaint of palpable abnormalities. It measures 1.1 x 0.6 x 1.1 cm in dimension and is radiographically indeterminate. Ovoid well-circumscribed uniformly hypoechoic solid mass in the left 12 o'clock axis 5 cm from the nipple, nonpalpable, measures 0.6 x 0.8 x 0.2 cm. Both masses are radiographically indeterminate. Both masses are not well seen on mammography. No architectural distortion or acoustical shadowing. No skin thickening or axillary adenopathy. IMPRESSION: Two indeterminate solid masses in the left breast, 1 of which corresponds to a palpable abnormality. Ultrasound-guided core biopsy of both masses is recommended for further evaluation. ASSESSMENT: BI-RADS Category 4: Suspicious.
== END 2023-12-06 23:59 | disposition home or self-care (01) ==
LOC: RAD 10:19
PROVIDERS: PCP Family Medicine; Visit Provider Family Medicine
DX: N63.21 Unspecified lump in the left breast, upper outer quadrant (principal); N63.25 Unspecified lump in the left breast, overlapping quadrants
CPT/HCPCS: 76641

== ENCOUNTER 2023-12-12 09:46 | Outpatient (CLI) | payer MEDICARE, SELFPAY ==
--- NOTE | 2023-12-12 09:52 | US_ITS ---
FINAL REPORT CLINICAL HISTORY: LT ABNORMAL US -- LT BREAST CORE BX -- DR SARAH DE SOUZA -- MAMMATOME FINDINGS: ULTRASOUND-GUIDED LEFT BREAST CORE BIOPSY HISTORY: Left breast nodules Note: There were 2 separate left breast nodules. Larger more suspicious was targeted for biopsy which measured 11 mm located 2:00. TECHNIQUE: The left breast was prepped in a routine sterile fashion and locally anesthetized with 1% lidocaine. An 11-gauge vacuum-assisted hand-held device was utilized. The needle was positioned posterior to the lesion. Multiple vacuum assisted core samples were obtained. Lesion was noted to be significantly smaller following biopsy. A biopsy marker clip was deployed in satisfactory position. A post biopsy mammogram was performed and dictated separately. Limited postbiopsy images showed no evidence of significant hemorrhage. Marker clip is noted to be in satisfactory position. Procedure was well tolerated. IMPRESSION: 1. Technically successful guided vacuum assisted core biopsy of left breast lesion as above. 2. Biopsy marker clip deployed Histopathology results reveal intraductal papilloma. Pathology is concordant with mammographic findings. Recommend 6-month sonographic and mammographic follow-up as routine post benign biopsy surveillance Authenticated and ERN
--- NOTE | 2023-12-12 11:44 | MM_ITS ---
FINAL REPORT CLINICAL HISTORY: .CLIP PLACEMENT , S/P BX FINDINGS: MAMMOGRAM LEFT 2D TECHNIQUE: Standard digital 2D views COMPARISON: 12/06/2023 and 11/29/2023 DENSITY: There are scattered areas of fibroglandular density FINDINGS: Post biopsy marker clip is noted in satisfactory position. Postbiopsy changes are noted. There is no nodule seen in the region of the biopsy marker clip at 2-3:00. No lesion was seen on diagnostic mammogram. The abnormality was evident by ultrasound only. IMPRESSION: Biopsy marker clip in good position RECOMMENDATION: Short-term 6-month mammographic and sonographic follow-up left breast as part of normal post benign biopsy surveillance Authenticated and ERN
== END 2023-12-12 23:59 | disposition home or self-care (01) ==
LOC: RAD 09:47
PROVIDERS: PCP Family Medicine; Visit Provider Physician Assistant
DX: R92.8 Other abnormal and inconclusive findings on diagnostic imaging of breast (principal)
CPT/HCPCS: 19083; 77065; 88305; C2618

== ENCOUNTER 2024-02-13 08:06 | Outpatient (CLI) | payer MEDICARE, SELFPAY ==
--- NOTE | 2024-02-13 08:10 | CA_ITS ---
FINAL REPORT TECHNIQUE: Izquierdo scale, color and spectral doppler images of the bilateral carotid arteries were obtained. CLINICAL HISTORY: Dizziness, HTN, HLD, exsmoker COMPARISON: None FINDINGS: Peak systolic velocity in the right internal carotid artery is 96 cm/sec. The internal carotid to common carotid artery ratio is 1.79. There is no significant carotid artery stenosis and no significant plaque formation. The right vertebral artery is normal in direction. Peak systolic velocity in the left internal carotid artery is 88 cm/sec. The internal carotid to common carotid artery ratio is 1.19. There is no significant carotid artery stenosis, with mild plaque formation present. The left vertebral artery is normal in direction. IMPRESSION: No ultrasound evidence of hemodynamically significant carotid artery stenosis. Normal peak systolic velocities and normal internal to common carotid artery ratios bilaterally. Mild left carotid artery plaque. Reviewed, Interpreted and Dictated by Lily Martin MD Transcribed by Freda Luevano Authenticated and [facility]
== END 2024-02-13 23:59 | disposition home or self-care (01) ==
LOC: RT 08:07
PROVIDERS: PCP Psychiatry & Neurology Sleep Medicine; Visit Provider Nurse Practitioner Family
DX: R42 Dizziness and giddiness (principal)
CPT/HCPCS: 93880

== ENCOUNTER 2024-06-08 10:19 | Outpatient (CLI) | payer MEDICARE, SELFPAY ==
--- NOTE | 2024-06-08 10:24 | MM_ITS ---
PROCEDURE INFORMATION: Exam: MG Bilateral Screening 3D Mammography Exam date and time: 06/08/2024 10:08 AM Age: 74 years old Clinical indication: Screening examination TECHNIQUE: Imaging protocol: Bilateral Screening tomosynthesis and 2D mammography including computer-aided detection (CAD) when performed. COMPARISON: 1. MG MM CLIP PLACEMENT LT 12/12/2023 11:28 AM 2. MG MM DIG MAMM BI DX W/CAD 11/29/2023 10:52 AM FINDINGS: MAMMOGRAPHY: Breast composition: The breasts are heterogeneously dense, which may obscure small masses. Mass: None. Architectural distortion: None. Calcifications: No suspicious calcifications. Asymmetric density: None. Skin thickening: None. Axillary adenopathy: None. IMPRESSION: No mammographic evidence of malignancy. Annual screening is recommended unless otherwise clinically indicated. ASSESSMENT: BI-RADS Category 1: Negative.
== END 2024-06-08 23:59 | disposition home or self-care (01) ==
LOC: RAD 10:20
PROVIDERS: PCP Family Medicine; Visit Provider Family Medicine
DX: Z12.31 Encounter for screening mammogram for malignant neoplasm of breast (principal)
CPT/HCPCS: 77063; 77067

== ENCOUNTER 2024-06-28 14:25 | Outpatient (CLI) | payer MEDICARE, SELFPAY | END 2024-06-28 23:59 | disposition home or self-care (01) | LOC: RT 14:27 | PROVIDERS: PCP Family Medicine; Visit Provider Internal Medicine | DX: R55 Syncope and collapse (principal); R07.9 Chest pain, unspecified | CPT/HCPCS: 93225; 93227 ==

== ENCOUNTER 2024-07-04 14:20 | Outpatient (CLI) | payer MEDICARE, SELFPAY | END 2024-07-04 23:59 | disposition home or self-care (01) | LOC: RT 14:21 | PROVIDERS: PCP Family Medicine; Visit Provider Internal Medicine | DX: R55 Syncope and collapse (principal); R07.9 Chest pain, unspecified | CPT/HCPCS: 93270 ==

== ENCOUNTER 2024-07-11 06:57 | Outpatient (CLI) | payer MEDICARE, SELFPAY ==
--- NOTE | 2024-07-11 | CA_ITS ---
APPROVED REPORT Exam: Pharmacologic Technologist: Deb Mayer Ht: 6 ft 7 in Wt: 143 lbs BSA: 1.98 m2 HR: 56 bpm BP: 143/61 mmHg Stress Test Details Test: Lexiscan HR Resting HR: 56 bpm Max Heart Rate (APMHR): 148.914841 bpm Max HR Achieved: 70 bpm Target HR (85% APMHR): 125.289427 bpm % of APMHR: 47.30 Recovery HR: 62 bpm BP Resting BP: 143.0/61.0 mmHg Max BP: 143.0/61.0 mmHg Recovery BP: 132.0/57.0 mmHg ECG Resting ECG: Sinus rhythm Stress ECG Conclusion Symptoms: Mild lightheaded and dizziness Arrhythmias/Ectopy: None ST-T Changes: None Lexiscan Electronically signed by : Amrita Katz MD 07/15/2024 00:17:56
--- NOTE | 2024-07-11 07:06 | NM_ITS ---
APPROVED REPORT Exam: Nuclear Stress Test Indication: cabg, htn, fm hx, c.p., sob, fatigue Patient Location: Outpatient Stress Tech: Deb Mayer [place] Tech:Zaira YostPEDRO RT (R)(N)(M) Ht: 5 ft 7 in Wt: 145 lbs Bra Size: 36c HR: 56 bpm BP: 143/61 mmHg BSA: 1.76 m2 TID: 1.18 BMI: 22.7 History: cabg, htn, fm hx, c.p., sob, fatigue Procedure: Patient received 0.4 mg of intravenous Lexiscan, resting heart rate 56 bpm, resting blood pressure 143/61 mmHg, with Lexiscan maximum heart rate achieved was 70 bpm which is % of the maximum predicted heart rate and blood pressure was 140/58 mmHg. With Lexiscan, patient denied any complaint of chest pain. Cardiac Stress and Resting SPECT Images: Cardiac Stress and Resting SPECT images were obtained using technetium 99m Myoview 31.7 mCi stress and 10.18 mCi at rest. Resting and stress imaging in supine and prone positions demonstrate no evidence of fixed or reversible perfusion defects. Gated imaging demonstrates normal global and regional LV systolic function. LVEF is calculated at 62%. Conclusion: No evidence of fixed or reversible perfusion defects. Gated imaging demonstrates normal global and regional LV systolic function. LVEF is calculated at 62%. Electronically signed by : Amrita Katz MD 07/15/2024 00:09:40
[2024-07-11] MEDS: SODIUM CHLORIDE 0.9% 10ML SYR (RAD ONLY) 10 ML IV ×2 (07:10→08:30)
--- NOTE | 2024-07-11 07:47 | CA_ITS ---
APPROVED REPORT EXAM: Comprehensive 2D, Doppler, and color-flow Echocardiogram Car Dryer: Kia Keating RVT Ht: 5 ft 7 in Wt: 143lbs BSA: 1.75 BP: 124/70 mmHg Indications: DYSPENA,NEAR SYNCOPE,MURMUR,COPD,EX SMOKER,PORCINE AVR 09/19 2D Dimensions LA Volume 26.00 mL LA Volume Index 14.86 mL/m2 (M/F) 16-34 M-Mode Dimensions RVDd 2.77 cm (0.9-2.6) LA Diam 3.64 cm (1.9-4.0) LVDd 3.57 cm (3.5-5.7) LVDs 2.24 cm (3.5-5.7) IVSd 1.22 cm (0.6-1.1) PWd 0.80 cm (0.6-1.1) EF (Teich) 68.10% FS 37.30% EDV (Teich) 53.30 mL TAPSE 1.75 (<1.7) ESV (Teich) 17.00 mL LV Diastology E Decel Time 250 (160-240 msec) E/A Ratio 1.1 Aortic Valve ANGEL Index 0.73 cm2/m2 AoV Peak Lauri. 234.0 (50-130 cm/s) AO Peak GR. 22.00 mmHg AO Mean GR. 13.50 (<5 mmHg) AO VTI 59.5 (18-25 cm) ANGEL (VTI) 1.32 (2.5-4.5 cm2) Mitral Valve MV E Max Lauri. 94.0 (40-130 cm/s) MV A Velocity 88.0 (40-130 cm/s) E/A Ratio 1.06 MV PHT 73.0 ms Pulmonary Valve PV Peak Velocity 79.0 (50-150 cm/s) Tricuspid Valve TR P. Velocity 297.00 cm/s RAP Estimate 10.00 mmHg RVSP 45.20 mmHg Left Ventricle The left ventricle is normal size. The left ventricular systolic function is normal. The left ventricular ejection fraction is within the normal range. There is increased LV wall thickness. There is normal LV segmental wall motion. Diastolic function is indeterminate. LVEF is 55%. Right Ventricle The right ventricle is normal size. The right ventricular systolic function is normal. Atria Left atrium is moderately dilated. Right atrium is moderately dilated. There is no Doppler evidence of interatrial shunt. Aortic Valve s/p AVR. The prosthesis is well-seated. Peak velocity 2.4 m/s. Mean AV gradient 13 mmHg. Max AV gradient 25 mmHg. Acceleration time 80 ms. Trace central aortic regurgitation. Mitral Valve The mitral valve leaflets are mildly thickened. Mild mitral regurgitation. No evidence of mitral valve stenosis. Tricuspid Valve Tricuspid valve is grossly normal in structure and function. Mild tricuspid regurgitation. RVSP is 20-25 mmHg. Pulmonic Valve The pulmonary valve is normal in structure. Trace pulmonic regurgitation. Great Vessels The aortic root is normal in size. IVC is normal in size and collapses >50% with inspiration. Pericardium There is no pericardial effusion. Other Information Study Quality: Fair Conclusion Normal biventricular systolic function. Biatrial dilation. Mild MR, mild TR. s/p AVR. Peak transaortic velocity 2.4 m/s. Mean AV gradient 13 mmHg. Max AV gradient 25 mmHg. Acceleration time 80 ms. Compared to prior TTE and MYKE, there is no significant change. The transaortic velocities and gradients are unchanged. Electronically signed by : Amrita Katz MD 07/16/2024 00:10:39
[2024-07-11] MEDS: REGADENOSON 0.4MG/5ML SYRINGE 0.4 MG IV (08:30)
[2024-07-11] MEDS: ISOTOPE MYOVIEW (PER STUDY) 1 DOSE IV (09:45)
== END 2024-07-11 23:59 | disposition home or self-care (01) ==
LOC: RAD 06:57
PROVIDERS: PCP Family Medicine; Visit Provider Internal Medicine
DX: R06.09 Other forms of dyspnea (principal); I07.1 Rheumatic tricuspid insufficiency; I10 Essential (primary) hypertension; I35.1 Nonrheumatic aortic (valve) insufficiency; Z95.3 Presence of xenogenic heart valve; I42.9 Cardiomyopathy, unspecified; Z86.79 Personal history of other diseases of the circulatory system; I34.0 Nonrheumatic mitral (valve) insufficiency; J44.9 Chronic obstructive pulmonary disease, unspecified; R53.83 Other fatigue; R07.9 Chest pain, unspecified; R55 Syncope and collapse
CPT/HCPCS: 78452; 93017; 93018; 93306; A9502; J2785

== ENCOUNTER 2024-08-06 10:16 | Outpatient (CLI) | payer MEDICARE, SELFPAY ==
--- NOTE | 2024-08-06 10:19 | XR_ITS ---
FINAL REPORT TECHNIQUE: Chest PA & Lateral CLINICAL HISTORY: Weakness, myasthenia COMPARISON: 11/24/2021 FINDINGS: 2 views of the chest were performed. Sternotomy wires are present, new since the prior exam of 2021. The heart size is normal. The mediastinum is within normal limits. There is no acute cardiopulmonary process. There are no pleural effusions. There is no pneumothorax. The bony thorax appears intact. IMPRESSION: No acute cardiopulmonary process. Reviewed, Interpreted and Dictated by Sheng Craven MD Transcribed by Freda Luevano Authenticated and [facility]
[2024-08-06 10:57] LABS: Anti-Centromere B Antibodies ND; Anti-DNA (DS) Ab Qn ND; Antichromatin Antibodies ND; Antiscleroderma-70 Antibodies ND; RNP Antibodies ND; Sjogren's Anti-SS-A ND; Sjogren's Anti-SS-B ND
[2024-08-06 11:26] LABS: Basophils # 0.1 K/mm3 (0-0.2); Basophils % 1.4 % (0.1-2.0); Eosinophils # 0.1 K/mm3 (0.0-0.4); Eosinophils % 2.3 % (0.1-12.0); Hematocrit 42.6 % (37.0-47.0); Hemoglobin 14.2 g/dL (12.2-16.2); Lymphocytes # 1.8 K/mm3 (0.7-4.5); Lymphocytes % 31.8 % (10-50); Mean Corpuscular HGB Conc 33.3 g/dL (31.8-35.4); Mean Corpuscular Hemoglobin 27.8 pg (27.0-31.2); Mean Corpuscular Volume 83.5 fl (81-99); Mean Platelet Volume 10.2 fl (7.4-10.4); Monocytes # 0.5 K/mm3 (0.1-1.0); Monocytes % 8.7 % (1.7-9.3); Neutrophils # 3.2 K/mm3 (1.8-7.8); Neutrophils % 55.5 % (37.0-80.0); Platelet Count 239 K/mm3 (142-424); Red Cell Distribution Width 13.3 % (11.5-17.5); White Blood Count 5.7 K/mm3 (4.8-10.8)
[2024-08-06 11:55] LABS: Erythrocyte Sedimentation Rate 13 mm/hr (0-30)
[2024-08-06 11:56] LABS: Alanine Aminotransferase 23 U/L (12-78); Albumin Level 4.6 g/dl (3.5-5.0); Albumin/Globulin Ratio 1.8 (1.1-1.8); Alkaline Phosphatase 102 U/L (38-126); Anion Gap 9.2 mEq/L (5-15); Aspartate Amino Transferase 30 U/L (14-36); Bilirubin,Total 0.6 mg/dl (0.2-1.3); Blood Urea Nitrogen 13 mg/dl (7-17); Calcium 10.7 mg/dl (8.4-10.2); Carbon Dioxide 27 mmol/L (22.0-30.0); Chloride 106 mmol/L (98-107); Creatine Kinase 124 U/L (30-135); Estimated Glomerular Filt Rate 62 ml/min (>60); GFR (African American) 74 ML/MIN (>60); Globulin 2.5 g/dL (1.3-3.2); Glucose 99 mg/dl (74-100); Potassium 4.2 mmoL/L (3.5-5.1); Sodium 138 mmol/L (136-145); Total Protein,Serum 7.1 g/dl (6.3-8.2)
[2024-08-06 12:28] LABS: Thyroid Stimulating Hormone 1.75 uIU/mL (0.465-4.68)
[2024-08-06 12:48] LABS: Vitamin B12 242 pg/mL (239-931)
[2024-08-07 14:19] LABS: Anti-Jo-1 <0.2 AI (0.0-0.9); Antinuclear Antibodies (ANA) Negative (Negative)
[2024-08-07 16:11] LABS: Aldolase 5.4 U/L (3.3-10.3)
[2024-08-08 15:17] LABS: AChR Binding Abs 0.27 nmol/L (0.00-0.24)
[2024-08-09 13:11] LABS: AChR Blocking Abs 40 % (0-25)
[2024-08-13 06:12] LABS: MuSK Antibodies <1.0 U/mL (.)
[2024-08-15 10:44] LABS: AChR Modulating Ab 23 % (0-45)
[2024-08-20 17:12] LABS: Voltage-gated Ca Antibody <1.0 pmol/L (0.0-30.0)
[2024-08-23 15:14] LABS: Anti-Jo-1 <0.2
== END 2024-08-06 23:59 | disposition home or self-care (01) ==
LOC: LAB 10:17
PROVIDERS: PCP Family Medicine; Visit Provider Specialist
DX: R53.1 Weakness (principal); H02.401 Unspecified ptosis of right eyelid; R53.83 Other fatigue; R42 Dizziness and giddiness; Z79.899 Other long term (current) drug therapy
CPT/HCPCS: 36415; 71046; 80053; 82085; 82550; 82607; 82746; 83519; 84443; 85025; 85651; 86038; 86225; 86235; 86255; 86596

== ENCOUNTER 2024-08-14 12:49 | Outpatient (CLI) | payer MEDICARE, SELFPAY ==
--- NOTE | 2024-08-14 12:50 | MR_ITS ---
FINAL REPORT TECHNIQUE: Multiplanar MR, without and with gadolinium enhancement CLINICAL HISTORY: weakness, dizziness, r eye drooping memory loss right sided head pain with ringing in ears and blurry vision 13 ml prohance COMPARISON: 10/07/2021 FINDINGS: MRI HEAD WITH AND WITHOUT CONTRAST: Diffusion sequences show no signal abnormality to indicate acute infarct. No mass, hemorrhage or edema is seen. Minimal changes of age-appropriate atrophy are identified. There are mild scattered foci of increased T2 signal in the periventricular and subcortical white matter, consistent with mild changes of chronic microvascular disease. Ventricles are normal. Major vascular flow voids are intact. Following contrast administration, no mass or abnormal enhancement is seen. IMPRESSION: No acute findings are present to account for the clinical symptoms. Minimal age-appropriate atrophy and mild changes of chronic microvascular disease. Reviewed, Interpreted and Dictated by Neah Marcus MD Transcribed by Freda Luevano Authenticated and [facility]
[2024-08-14] MEDS: SODIUM CHLORIDE 0.9% 10ML SYR (RAD ONLY) 10 ML IV (14:04)
[2024-08-14] MEDS: GADOTERIDOL INJ 20ML SYRINGE 13 ML IV (14:04)
== END 2024-08-14 23:59 | disposition home or self-care (01) ==
LOC: RAD 12:50
PROVIDERS: PCP Family Medicine; Visit Provider Specialist
DX: R53.1 Weakness (principal); R42 Dizziness and giddiness; H02.401 Unspecified ptosis of right eyelid
CPT/HCPCS: 70553; A9576

== ENCOUNTER 2024-08-28 12:51 | Outpatient (CLI) | payer MEDICARE, SELFPAY ==
[2024-08-28 14:05] VITALS: PULSE 60; PULSE 61
[2024-08-28] MEDS: ALBUTEROL 0.083% 2.5 MG/3 ML NEB IH (14:05)
== END 2024-08-28 23:59 | disposition home or self-care (01) ==
LOC: RT 12:51
PROVIDERS: PCP Family Medicine; Visit Provider Specialist
DX: R94.2 Abnormal results of pulmonary function studies (principal); R06.09 Other forms of dyspnea; J44.9 Chronic obstructive pulmonary disease, unspecified
CPT/HCPCS: 94060; 94618; 94640; 94726; 94729; J7613

== ENCOUNTER 2024-09-26 10:16 | Outpatient (CLI) | payer MEDICARE, SELFPAY ==
--- NOTE | 2024-09-26 10:30 | CT_ITS ---
FINAL REPORT TECHNIQUE: Axial images were obtained through the chest without contrast. Coronal and sagittal images were obtained and reviewed. This study was performed with techniques to keep radiation doses as low as reasonably achievable, (ALARA). Individualized dose reduction techniques using automated exposure control or adjustment of mA and/or kV according to the patient's size were employed. CLINICAL HISTORY: eval for thymoma (C37) COMPARISON: CT low-dose 01/06/2022 FINDINGS: The ascending aorta measures up to 3.4 cm. The heart size is normal. Multiple median sternotomy wires are present. There is streak artifact from aortic valve. There is no pericardial or pleural effusion. Limited images of the upper abdomen are unremarkable. No suspicious infiltrate or nodule identified. Biapical pleural and parenchymal scarring is noted. No evidence of thymoma. IMPRESSION: No acute process. No evidence of thymoma. Reviewed, Interpreted and Dictated by Sheng Craven MD Transcribed by Miranda Powell Authenticated and [facility]
== END 2024-09-26 23:59 | disposition home or self-care (01) ==
LOC: RAD 10:16
PROVIDERS: PCP Family Medicine; Visit Provider Specialist
DX: G70.00 Myasthenia gravis without (acute) exacerbation (principal); G70.9 Myoneural disorder, unspecified; R53.1 Weakness
CPT/HCPCS: 71250

== ENCOUNTER 2024-12-14 08:55 | Day surgery (SDC) | payer MEDICARE, SELFPAY ==
[2024-12-12 16:08] VITALS: BMI 22.6
[2024-12-14 09:13] VITALS: BP 154/64; PULSE 64; RESP 18; TEMP 36.2; O2SAT 98
--- NOTE | 2024-12-14 09:13 | EXP.GEN.HP ---
HPI HPI HPI: Patient is a 74-year-old female who presents for colonoscopy. She wasreferred by Paulette Ramos for rectal mass and seen in office on 11/29/24. She has been treated by Dr. Norton for lichen sclerosus and patient states that she had incidentally noted with observation an anal mass. This has been relatively asymptomatic however she has had change in her bowel function which she describes small frequent pellet-like stools. Denies bleeding or pain or itching. She does have photos of the lesion on her phone. This appears to be potentially consistent with large prolapsing hemorrhoid versus polyp versus less likely distal rectal mass. She states that it has been years since she has had a colonoscopy. [facility] Disclaimer: The information contained in this section may have been updated after the patient was seen, as this information can be updated by other users. 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 Myasthenia gravis Antibody positive, (AChR, binding and blocking +) Drooping eyelid >5 months Abdominal bloating Dyspareunia in female Lichen sclerosus of vulva Hypertension Hyperlipemia Mild tricuspid regurgitation Mild mitral regurgitation Dyspnea on exertion Stopped smoking with greater than 30 pack year history COPD (chronic obstructive pulmonary disease) Moderate aortic regurgitation Surgical History Hx of bladder repair surgery Heart valve replaced Hx of cholecystectomy Hx of vaginal hysterectomy Family History Other Hypertension Social History Smoking Status: Former smoker alcohol intake: never substance use type: denies use current occupational status: retired and other Travel in the last 8 weeks?: None household members: spouse housing: house number of children: 5 Have you lived/traveled outside US in past 30 days?: No Contact w/someone who lives/traveled outside US past 30 days?: No Exposure to someone with infectious disease in past 14 days?: No Do you have a fever (greater than 100.4 F or 38 C)?: No Have you tested positive for COVID-19?: No Exposed to someone with COVID-19 in past 14 days?: No Do you have a sore throat?: No Do you have a cough?: No Do you have any weakness?: No Do you have any diarrhea?: No Are you experiencing any unusual bleeding?: No Do you have any muscle aches/pain?: No Do you have any abdominal pain?: No Are you experiencing loss of taste or smell?: No Other 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 Have you received the Flu Vaccine for this season: Yes Have you received the Pneumonia Vaccine: Yes Meds Home Medications and Allergies Home Medications ?Medication ?Instructions ?Recorded ?Confirmed ?Type levothyroxine 50 mcg tablet 50 mcg PO DAILY thyroid 06/20/19 12/14/24 History (Synthroid) duloxetine 30 mg capsule,delayed 30 mg PO BID mood 11/19/21 12/14/24 History release aspirin 81 mg tablet,delayed 81 mg PO DAILY 10/05/22 12/14/24 History release (Adult Aspirin Regimen) spironolactone 25 mg tablet 25 mg PO DAILY #90 tabs 06/05/24 12/14/24 Rx (Aldactone) irbesartan 300 mg tablet 300 mg PO DAILY 06/28/24 12/14/24 History clobetasol 0.05 % topical cream 1 applic topical HS #30 grams 07/09/24 11/29/24 Rx amlodipine 5 mg tablet 5 mg PO DAILY 10/02/24 12/14/24 History pyridostigmine bromide 60 mg tablet 60 mg PO TID Myasthenia gravis #90 10/02/24 12/14/24 Rx tabs sodium,potassium,mag sulfates 17.5 See Rx Instructions PO .COMPLEX 11/29/24 11/29/24 Rx gram-3.13 gram-1.6 gram oral soln #354 mL (Suprep Bowel Prep Kit) metoprolol succinate 50 mg 50 mg PO DAILY 12/12/24 12/14/24 History tablet,extended release 24 hr New Prescriptions to Start Prescriptions: Allergies Allergy/AdvReac Type Severity Reaction Status Date / Time Iodinated Contrast Media Allergy Mild Rash and Verified 12/14/24 09:09 (Iodinated Contrast Media - itching IV Dye) VODKA Allergy Severe Severe Uncoded 11/29/24 11:23 swelling Exam Data for Last 24 hours I & O for Last 24 hours: Intake & Output 07/15/25 07/16/25 07/17/25 07/18/25 11:59 11:59 11:59 11:59 Weight 140 lb Constitutional Constitutional: no acute distress *Routine HEENT Exam Head: Present normocephalic Eye: Present EOMI and PERRL ENT: Present mucous membranes moist *Routine Neck Exam Neck: Present supple; Absent lymphadenopathy *Routine Respiratory Exam Respiratory: Present CTA bilaterally *Routine Cardiovascular Exam Cardiovascular: Present RRR *Routine Abdominal Exam Abdominal: Present soft and normoactive bowel sounds; Absent tenderness *Routine Rectal Exam Rectal:: deferred *Routine Genitalia Exam Genitalia:: deferred *Routine Extremities Exam Extremities: Absent cyanosis, clubbing or edema *Routine Skin Exam Skin: Present warm; Absent rash *Routine Neurological Exam Neurological: Present alert and oriented X3 Assessment and Plan *Assessment and plan (1) Rectal lesion: Status: Acute Category: Medical Code(s): K62.9 - Disease of anus and rectum, unspecified Plan This lesion could be secondary to a variety of pathology from benign to significant. This could be internal hemorrhoid or polyp or mass or potentially prolapsing rectal tissue. Plan to proceed with colonoscopy to start with to assess the area for better characterization.
[2024-12-14] MEDS: LACTATED RINGERS 1000ML 1,000 ML 50 ML IV (09:28)
--- NOTE | 2024-12-14 09:41 | EXP.ANES.CKL ---
[facility] Disclaimer: The information contained in this section may have been updated after the patient was seen, as this information can be updated by other users. 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 Myasthenia gravis Antibody positive, (AChR, binding and blocking +) Drooping eyelid >5 months Abdominal bloating Dyspareunia in female Lichen sclerosus of vulva Hypertension Hyperlipemia Mild tricuspid regurgitation Mild mitral regurgitation Dyspnea on exertion Stopped smoking with greater than 30 pack year history COPD (chronic obstructive pulmonary disease) Moderate aortic regurgitation Surgical History Hx of bladder repair surgery Heart valve replaced Hx of cholecystectomy Hx of vaginal hysterectomy Family History Other Hypertension Social History Smoking Status: Former smoker alcohol intake: never substance use type: denies use current occupational status: retired and other Travel in the last 8 weeks?: None household members: spouse housing: house number of children: 5 Have you lived/traveled outside US in past 30 days?: No Contact w/someone who lives/traveled outside US past 30 days?: No Exposure to someone with infectious disease in past 14 days?: No Do you have a fever (greater than 100.4 F or 38 C)?: No Have you tested positive for COVID-19?: No Exposed to someone with COVID-19 in past 14 days?: No Do you have a sore throat?: No Do you have a cough?: No Do you have any weakness?: No Do you have any diarrhea?: No Are you experiencing any unusual bleeding?: No Do you have any muscle aches/pain?: No Do you have any abdominal pain?: No Are you experiencing loss of taste or smell?: No [facility] Anesthesia Checklist Patient Identification Patient Identification: Arm Band and Verbal (Name & ) Structural Data Admitted From: Home Planned Operative Procedure/s: colonoscopy Verified Documents: Surgical Consent NPO Status Verified Time NPO: 00:00 Additional verifications Anesthesia Reactions: Yes (PONV) Hx Blood Transfusions: No Blood Transfusion Reaction: No Airway Assessment Mallampati Score:: Class II C-Spine Mobility Assessed: Yes TMJ Mobility Assessed: Yes Dentition: Edentulous Neurological Assessment Level of Consciousness: Awake, Alert and Appropriate Hx Seizures: No Numbness or tingling in extremities: No Anesthesia Plan Anesthesia Risk discussed: Yes Anesthesia Plan: Verified ASA Class: II Anesthesia Type: MAC
[2024-12-14 10:00] VITALS: BP 87/48; PULSE 59; RESP 16; TEMP 36.2; O2SAT 98
--- NOTE | 2024-12-14 10:04 | HMH.SCOPE ---
Procedure: Date: 12/14/24 Patient Date of :: 1950 Procedure Performed:: Total colonoscopy Indications:: Patient is a 74-year-old female who presents for colonoscopy. She wasreferred by Paulette Ramos for rectal mass and seen in office on 11/29/24. She has been treated by Dr. Norton for lichen sclerosus and patient states that she had incidentally noted with observation an anal mass. This has been relatively asymptomatic however she has had change in her bowel function which she describes small frequent pellet-like stools. Denies bleeding or pain or itching. She does have photos of the lesion on her phone. This appears to be potentially consistent with large prolapsing hemorrhoid versus polyp versus less likely distal rectal mass. She states that it has been years since she has had a colonoscopy. Performing Provider:: Connor Baez MD Referring Provider:: Van Marie MD Sedation:: MAC sedation Procedure:: Patient history was obtained and appropriate physical examination was performed. Patient's medications and allergies were reviewed. Informed consent was obtained after explaining the benefits, alternatives, and risks of the procedure including, but not limited to, bleeding, perforation, missed lesions, and adverse reaction to anesthesia medications. Patient was transported to endoscopy procedure room. Patient was connected to monitoring devices. Throughout the procedure the patient's blood pressure, pulse, and oxygen saturations were monitored continuously. Patient identification and planned procedure were verified by the staff. Patient was positioned in lateral decubitus position. Digital anorectal exam was performed. Variable stiffness Olympus colonoscope was inserted and advanced under direct visualization to the cecum. Adequacy of the colonic preparation was noted. The colonoscope was advanced a short distance into the terminal ileum. The colonoscope was then slowly withdrawn while carefully examining the color, texture, anatomy, and integrity of the mucosoa circumferentially. Within the rectum retroflexion was performed. Colonoscope was then withdrawn. Impression: Colonic preparation was excellent. Retroflexion was unable to be successfully safely performed in the rectum. However careful inspection revealed circumferential mild prolapsing hemorrhoids. There did appear to be possibly 1 hemorrhoid pile which was somewhat more prominent. Findings:: Prolapsing hemorrhoids Recommendations:: Repeat colonoscopy 10 years unless otherwise indicated. Rectal mass appears to be likely prolapsing hemorrhoid. This appears to be potentially amenable to medical management. I will give her prescription for steroid suppositories. If she develops progressive refractory symptoms could undergo potential banding in the operating room under sedation. Complications:: None immediately apparent Estimated blood obtained (mL): 0 Colonoscopy Component Colonoscopy Component Was a colonoscopy performed during today's procedure?: Yes Recommended follow up colonoscopy of at least 10 years?: Yes
[2024-12-14 10:10] VITALS: BP 97/50; PULSE 54; RESP 18; O2SAT 100
[2024-12-14 10:30] VITALS: BP 118/60; PULSE 52; RESP 18; TEMP 36.2; O2SAT 97
[2024-12-14 10:32] VITALS: BP 117/59; PULSE 51; RESP 18; O2SAT 97
== END 2024-12-14 10:30 | disposition home or self-care (01) ==
PROVIDERS: PCP Family Medicine; Visit Provider Surgery
PROC: 0DJD8ZZ Inspection of Lower Intestinal Tract, Via Natural or Artificial Opening Endoscopic (ICD-10-PCS; CPT 45378; principal; 2024-12-14 10:00)
DX: K64.8 Other hemorrhoids (principal); R19.4 Change in bowel habit; E78.5 Hyperlipidemia, unspecified; I10 Essential (primary) hypertension; J44.9 Chronic obstructive pulmonary disease, unspecified; G70.00 Myasthenia gravis without (acute) exacerbation; Z87.891 Personal history of nicotine dependence; Z90.49 Acquired absence of other specified parts of digestive tract; Z95.2 Presence of prosthetic heart valve; Z79.890 Hormone replacement therapy; Z79.82 Long term (current) use of aspirin; Z79.899 Other long term (current) drug therapy; Z91.041 Radiographic dye allergy status; Z88.8 Allergy status to other drugs, medicaments and biological substances
CPT/HCPCS: 45378; J2003; J2704; J7120

== ENCOUNTER 2025-01-04 09:12 | Outpatient (CLI) | payer MEDICARE, SELFPAY ==
--- OUTSIDE RECORDS SUMMARY | 2008-06-25 05:17 | XMS_ITS | Continuity of Care Document ---
Author Organization [facility] Address [address] [facility] [place] [address] Phone Care Team Providers Care Circus Hand Name Role Phone Nichelle Guzmán MD Unavailable Unavailable Advance Directives Directive Yes / No Effective Date File Name No Information Encounters Encounter Description Practice Location Reason(s) For Visit Diagnoses Date Provider Providers Copied on Encounter [facility], [facility] [place], [address], [place] tel:[phone] [facility] No Information Ramirez Steward. [address] [place] [address], [address], [place], [id number], [place]. tel:[phone] Referring Provider: Nichelle walter, [address] [place] [address] [address], [place], [address] . tel:[phone] Family History Family Member Type Diagnosis Age At Onset No Information Payers Payer name Insurance type Covered alliance party ID Authoriza tion(s) [facility] National Account BL [id number] Social History Type Description Quantity Date Captured [...]
--- OUTSIDE RECORDS SUMMARY | 2009-09-21 20:00 | XMS_ITS | Continuity of Care Document ---
Author Organization [facility] Address [address] [place] [address] [place] [address] Phone Care Team Providers Care Counseling Psychologist Name Role Phone Nichelle Guzmán MD Unavailable Unavailable Medications Medication Instructions Dosage Effective Dates (start - stop) Status Comments trazodone 150 mg Tab TAKE 1 TABLET BY MOUTH EVERY NIGHT AT BEDTIME No Longer Active folic acid 1 mg [...] BY MOUTH TWICE DAILY No Longer Active trazodone 150 mg [...] TABLET BY MOUTH DAILY No Longer Active amitriptyline 50 mg [...] BY MOUTH TWICE DAILY No Longer Active carisoprodol 350 mg Tab TAKE 1 TABLET BY MOUTH FOUR TIMES DAILY No Longer Active Cymbalta 30 mg Cap TAKE 3 CAPSULES BY MOUTH EVERY DAY No Longer Active prednisone 5 mg Tab [...] TABLET BY MOUTH DAILY No Longer Active trazodone 150 mg Tab TAKE 1 TABLET BY MOUTH EVERY NIGHT AT BEDTIME No Longer Active amitriptyline 50 mg Tab TAKE 3 TABLETS BY MOUTH EVERY NIGHT AT BEDTIME No Longer Active Cymbalta 30 mg Cap TAKE 3 CAPSULES BY MOUTH EVERY DAY No Longer Active Lunesta 3 mg Tab TAKE ONE TABLET BY MOUTH AT BEDTIME NEEDED FOR SLEEP No Longer Active amitriptyline 50 mg Tab TAKE 3 TABLETS BY MOUTH EVERY NIGHT AT BEDTIME No Longer Active Zithromax Z-Kyle 250 mg Tab Use as directed No Longer Active none Cymbalta 30 mg Cap TAKE 3 CAPSULES BY MOUTH EVERY DAY No Longer Active folic acid 1 mg Tab TAKE ONE TABLET BY MOUTH DAILY No Longer Active amitriptyline 50 mg [...] Tab Take 1 Tablets by oral route [facility] No Longer Active Lunesta 3 mg Tab TAKE ONE TABLET BY MOUTH AT BEDTIME NEEDED FOR SLEEP No Longer Active Cymbalta 60 mg Cap TAKE 1 CAPSULES BY ORAL ROUTE EVERY DAY No Longer Active carisoprodol 350 [...] Tab Take 1 Tablets by oral route [facility] No Longer Active Lunesta 3 mg Tab TAKE ONE TABLET BY MOUTH AT BEDTIME NEEDED FOR SLEEP No Longer Active Nasonex 50 mcg/actuation [place] Use As Directed No Longer Active Asmanex [...] Tab Take 1 Tablets by oral route [facility] No Longer Active Lunesta 3 mg Tab Take 1 Tablets by oral route [facility] No Longer Active PT WILL PAY WOLFF : HAVING HARD TIME GETTING THROUGH PHONE LINES amitriptyline 50 mg Tab Take 1 Tablets by oral route [facility] No Longer Active Lunesta 3 mg Tab Take 1 Tablets by oral route [facility] No Longer Active INS APPROVED 20 TABLETS. Provigil 200 mg Tab take 1 tablet [...] Tab Take 1 Tablets by oral route [facility] No Longer Active INS APPROVED 20 [...] Provider Providers Copied on Encounter [facility], [facility] Traci Gomez MD, [id number], [place] tel:[phone] Rx Conversion Data No Information 0 [facility] Nichelle. [address] [place] [address], [facility] 340, [place], [id number], [place]. tel:[phone] [facility], [facility] [place], [id number], [place] tel:[phone] Rx Conversion Data No Information 0 Ramirez Nichelle. [address] [place] [address], [address], [place], [id number], [place]. tel:[phone] [facility], [facility] [place] Traci Mccullough MD, [id number], [place] tel:[phone] Rx Conversion Data No Information 0 Ramirez Nichelle. [address] [place] [address] 340, [place], [id number], [place]. tel:[phone] [facility] [place], [id number], [place] tel:[phone] Rx Conversion Data No Information 0 Ramirez Nichelle. [address] [place] [address], [place], [id number], [place]. tel:[phone] [facility] [place], [id number], [place] tel:[phone] Rx Conversion Data No Information 0 Ramirez Nichelle. [address] [place] [address], [place], [id number], [place]. tel:[phone] [facility], [facility] [place] Traci Mccullough MD, [id number], [place] tel:[phone] Rx Conversion Data No Information 9 Ramirez Nichelle. [facility] [place] [address], [id number], [place]. tel:[phone] [facility], [facility] [place] Traci Mccullough MD, [id number], [place] tel:[phone] Rx Conversion Data No Information 9 Ramirez Nichelle. [address] [place] [address]Traci MD, [id number], [place]. tel:[phone] [facility] [place], [id number], [place] tel:[phone] Rx Conversion Data No Information 9 Ramirez Nichelle. [facility] 340, [place], [id number], [place]. tel:[phone] [facility], [facility] [place] Traci Mccullough MD, [id number], [place] tel:+ [phone] Rx Conversion Data No Information Oct-1 4-200 9 Ramirez Nichelle. [address] [place] [address], [facility] 340, [place], [id number], [place]. tel:[phone] [facility], [address] [place], [place] [address]Traci [place], [id number], [place] tel:[phone] Rx Conversion Data No Information 0 8-200 9 Ramirez Nichelle. [address] [place] [address] 340, [place], [id number], [place]. tel:[phone] [facility], [id number], [place] tel:[phone] Rx Conversion Data No Information 3200 9 Ramirez Nichelle. [address] [place] [address], [place], [id number], [place]. tel:[phone] [facility], [facility] [place] Traci Mccullough MD, [id number], [place] tel:[phone] Rx Conversion Data No Information 1200 9 Ramirez Nichelle. [address] [place] [address], [place], [id number], [place]. tel:[phone] [facility], [facility] [place] Traci Mccullough MD, [id number], [place] tel:[phone] Rx Conversion Data No Information 8200 9 Ramirez Nichelle. [address] [place], [place] [address]Traci [place], [id number], [place]. tel:[phone] [facility], [id number], [place] tel:[phone] Rx Conversion Data No Information 0-200 9 Ramirez Nichelle. [facility] [place] [address], [place], [id number], [place]. tel:[phone] [facility] [place], [id number], [place] tel:[phone] Rx Conversion Data No Information 5-200 9 Ramirez Nichelle. [address] [place] [address], [place], [id number], [place]. tel:[phone] [facility], [facility] [place] Traci Mccullough MD, [id number], [place] tel: [phone] Rx Conversion Data No Information 8-200 9 Ramirez Nichelle. [address] [place] [address], [address], [place], [id number], [place]. tel:[phone] [facility] [place], [id number], [place] tel:[phone] Rx Conversion Data No Information 1-200 9 Ramirez Nichelle. [address] [place] [address], [facility] 340, [place], [id number], [place]. tel:[phone] [facility], [facility] [place] Traci Mccullough MD, [id number], [place] tel:[phone] Rx Conversion Data No Information 3 0-200 9 Ramirez Nichelle. [address] [place] [address], [facility] 340, [place], [id number], [place]. tel:[phone] [facility], [facility] [place] Traci Mccullough MD, [id number], [place] tel:[phone] Rx Conversion Data No Information Aug-0 2-200 9 Ramirez Nichelle. [facility], [facility] 340, [place], [id number], [place]. tel:[phone] [facility], [facility] [place], [id number], [place] tel:[phone] Rx Conversion Data No Information Jul-0 2-200 9 Ramirez Nichelle. [facility], [facility] 340, [place], [id number], [place]. tel:[phone] [facility], [facility] Traci Gomez MD, [id number], [place] tel:[phone] Rx Conversion Data No Information 6-200 9 Ramirez Nichelle. [facility], [facility] 340, [place], [id number], [place]. tel:[phone] [facility], [facility] [place], [id number], [place] tel:[phone] Rx Conversion Data No Information 1200 8 Ramirez Nichelle. [address] [facility], [facility] 340, [place], [id number], [place]. tel:[phone] [facility], [facility] [place] Traci Mccullough MD, [id number], [place] tel:[phone] Rx Conversion Data No Information 0 1200 8 Ramirez Nichelle. [address] [place] [address], [facility] 340, [place], [id number], [place]. tel:[phone] [facility], [facility] [place], [id number], [place] tel:[phone] Rx Conversion Data No Information 8 Ramirez Nichelle. [facility], [facility] 340, [place], [id number], [place]. tel:[phone] [facility], [facility] [place], [id number], [place] tel:[phone] Rx Conversion Data No Information 7200 8 Ramirez Nichelle. [facility], [facility] 340Traci MD, [id number], [place]. tel:[phone] [facility], [facility] [place], [id number], [place] tel:[phone] Rx Conversion Data No Information 6200 8 Ramirez Nichelle. [address] [place] [address], [facility] 340, [place], [id number], [place]. tel:[phone] [facility], [facility] [place], [id number], [place] tel:[phone] Rx Conversion Data No Information 8200 8 Ramirez Nichelle. [facility], [facility] 340, [place], [id number], [place]. tel:[phone] [facility], [facility] [place], [id number], [place] tel:[phone] Rx Conversion Data No Information May-1 9-200 8 Ramirez Nichelle. [address] [place] [address], [facility] 340, [place], [id number], [place]. tel:[phone] [facility] [place], [id number], [place] tel:[phone] Rx Conversion Data No Information 8-200 8 Ramirez Nichelle. [address] [place] [address] 340, [place], [id number], [place]. tel:[phone] [facility], [address] [place], [place] [address]Traci [place], [id number], [place] tel:+ [phone] Rx Conversion Data No Information 5-200 8 Ramirez Nichelle. [address] [place] [address], [place], [id number], [place]. tel:[phone] [facility], [facility] [place] Traci Mccullough MD, [id number], [place] tel:+ [phone] Rx Conversion Data No Information 4-200 8 Ramirez Nichelle. [address] [place] [address], [place], [id number], [place]. tel:[phone] [facility], [facility] [place] Traci Mccullough MD, [id number], [place] tel:+ [phone] Rx Conversion Data No Information 5-200 8 Ramirez Nichelle. [address] [place], [place] [address]Traci [place], [id number], [place]. tel:[phone] [facility] [place], [id number], [place] tel:[phone] Rx Conversion Data No Information 4-200 8 Ramirez Nichelle. [facility] [place] [address], [id number], [place]. tel:[phone] [facility], [facility] Traci Mccullough MD, [id number], [place] tel:[phone] Rx Conversion Data No Information 8-200 8 Ramirez Nichelle. [address] [place] [address], [place], [id number], [place]. tel:[phone] [facility] MD, [id number], [place] tel:+ [phone] Rx Conversion Data No Information 2 0-200 7 Ramirez Nichelle. [address] [place] [address], [address], [place], [id number], [place]. tel:[phone] [facility], [facility] [place], [id number], [place] tel:+ [phone] Rx Conversion Data No Information 4-200 7 Ramirez Nichelle. [address] [place] [address], [address], [place], [id number], [place]. tel:[phone] [facility], [facility] [place] Traci Mccullough MD, [id number], [place] tel:+ [phone] Rx Conversion Data No Information 0 7-200 7 Ramirez Nichelle. [address] [place] [address], [facility] 340, [place], [id number], [place]. tel:[phone] [facility], [facility] MD, [id number], [place] tel:+ [phone] Rx Conversion Data No Information 0 5-200 7 Ramirez Nichelle. [address] [place] [address], [facility] 340, [place], [id number], [place]. tel:[phone] [facility], [facility] [place], [id number], [place] tel:+ [phone] Rx Conversion Data No Information 2 6-200 7 Ramirez Nichelle. [facility], [address], [place], [id number], [place]. tel:[phone] [facility], [facility] [place], [id number], [place] tel:+ [phone] Rx Conversion Data No Information 9-200 7 Ramirez Nichelle. [address] [place] [address], [facility] 340, [place], [id number], [place]. tel:[phone] [facility], [facility] [place], [id number], [place] tel:+ [phone] Rx Conversion Data No Information Dec-3 1-200 7 Ramirez Nichelle. [address] [place] [address], [facility] 340, [place], [id number], [place]. tel:[phone] [facility], [facility] Traci Mccullough MD, [id number], [place] tel:+ [phone] Rx Conversion Data No Information Dec-2 3-200 7 Ramirez Nichelle. [address] [place] [address], [facility] 340, [place], [id number], [place]. tel:[phone] [facility], [facility] [place], [id number], [place] tel:+ [phone] Rx Conversion Data No Information Dec-2 2-200 7 Ramirez Nichelle. [address] [place] [address], [facility] 340, [place], [id number], [place]. tel:[phone] [facility], [facility] [place] Traci Mccullough MD, [id number], [place] tel:+ [phone] Rx Conversion Data No Information Dec-1 6-200 7 Ramirez Nichelle. [facility] [place] [address], [place], [id number], [place]. tel:[phone] [facility], [facility] [place], [id number], [place] tel:+ [phone] Rx Conversion Data No Information Dec-1 0-200 7 Ramirez Nichelle. [address] [place] [address] 340, [place], [id number], [place]. tel:[phone] [facility], [facility] [place] Traci Mccullough MD, [id number], [place] tel:+ [phone] Rx Conversion Data No Information Aug-0 2-200 7 Ramirez Nichelle. [facility] 340, [place], [id number], [place]. tel:[phone] [facility], [facility] [place], [id number], [place] tel:+ [phone] Rx Conversion Data No Information 0-200 7 Ramirez Nichelle. [address] [facility], [address], [place], [id number], [place]. tel:[phone] [facility], [id number], [place] tel:+ [phone] Rx Conversion Data No Information 3200 7 Ramirez Nichelle. [address] [facility] 340, [place], [id number], [place]. tel:[phone] [facility], [facility] MD, [id number], [place] tel:+ [phone] Rx Conversion Data No Information 6-200 7 Ramirez Nichelle. [address] [facility] 340, [place], [id number], [place]. tel:[phone] [facility], [facility] [place] Traci Mccullough MD, [id number], [place] tel:+ [phone] Rx Conversion Data No Information 6-200 7 Ramirez Nichelle. [address] [place] [address], [facility] 340, [place], [id number], [place]. tel:[phone] [facility], [facility] [place], [id number], [place] tel:+ [phone] Rx Conversion Data No Information 0200 7 Ramirez Nichelle. [address] [place], [place] [address]Traci [place], [id number], [place]. tel:[phone] [facility], [facility] [place], [id number], [place] tel:[phone] Rx Conversion Data No Information 0200 7 Ramirez Nichelle. [facility] [place] [address], [id number], [place]. tel:[phone] [facility], [facility] [place], [id number], [place] tel:[phone] Rx Conversion Data No Information 4200 6 Ramirez Nichelle. [address] [place] [address] 340, [place], [id number], [place]. tel:[phone] [facility], [facility] [place] Traci Mccullough MD, [id number], [place] tel:+ [phone] Rx Conversion Data No Information 9-200 6 Ramirez Nichelle. [address] [facility], [address], [place], [id number], [place]. tel:[phone] [facility], [facility], [id number], [place] tel:[phone] Rx Conversion Data No Information 5-200 6 Ramirez Nichelle. [address] [place] [address], [facility] 340, [place], [id number], [place]. tel:[phone] [facility], [facility] Traci Gomez MD, [id number], [place] tel:[phone] Rx Conversion Data No Information 9-200 6 Ramirez Nichelle. [address] [place] [address], [facility] 340, [place], [id number], [place]. tel:[phone] [facility], [facility] [place] Traci Mccullough MD, [id number], [place] tel:+ [phone] Rx Conversion Data No Information 2-200 6 Ahmed Olesya. [address] [facility], [place] [address], [place], [address], [place]. tel:[phone] [facility], [facility] [place], [id number], [place] tel:+ [phone] Rx Conversion Data No Information -200 6 Ramirez Nichelle. [facility], [facility] 340, [place], [id number], [place]. tel:[phone] [facility], [facility] [place] MD, [id number], [place] tel:+ [phone] Rx Conversion Data No Information 8-200 6 Armirez Nichelle. [address] [place] [address], [facility] 340, [place], [id number], [place]. tel:[phone] [facility], [facility] [place] Traci Mccullough MD, [id number], [place] tel:+ [phone] Rx Conversion Data No Information 7200 6 [facility] Nichelle. [address] [place] [address], [facility] 340, [place], [id number], [place]. tel:[phone] [facility], [facility] HospitalTr[facility] [place], [id number], [place] tel:+ [phone] Rx Conversion Data No Information 7200 5 [facility] Nichelle. [address] [place] [address], [facility] 340, [place], [id number], [place]. tel:[phone] [facility], [facility] [place], [id number], [place] tel:+ [phone] Rx Conversion Data No Information 1200 5 [facility] Nichelle. [address] [place] [address], [facility] 340, [place], [id number], [place]. tel:[phone] [facility], [facility] MD, [id number], [place] tel:+ [phone] Rx Conversion Data No Information 8200 5 [facility] Nichelle. [address] [place] [address], [facility] 340, [place]aci, [id number], [place]. tel:[phone] [facility], [facility] [place] Traci Mccullough MD, [id number], [place] tel:+ [phone] Rx Conversion Data No Information 0-200 4 Ramirez Nichelle. [address] [place] [address], [facility] 340, [place], [id number], [place]. tel:[phone] [facility], [facility] [place], [id number], [place] tel:+ [phone] Rx Conversion Data No Information 1-200 4 Ramirez Nichelle. [facility], [facility] 340, [place] Traci, [id number], [place]. tel:[phone] [facility], [facility] MD, [id number], [place] tel:+ [phone] Rx Conversion Data No Information [address] [facility]. [address] [place] [address], [address], [place], [id number], [place]. tel:[phone] Family History Family Member Type Diagnosis Age At Onset No Information Payers Payer name Insurance type Covered green party ID Authoriza tion(s) No Information Social [...]
--- OUTSIDE RECORDS SUMMARY | 2024-08-21 07:30 | XMS_ITS ---
Author Organization [facility] Address [address] [place] [id number] Care Team Providers Care Systems Technician Name Role Phone Mallorie Marie Primary Care Provider [phone] Kee Gaspar Unavailable [phone] Allergies Allergen (clinical drug ingredient) Drug/Non Drug [...] 10.7 Performing Lab: Notes/Report: Test performed by [facility], [employer] [address] [place] [address] , [address], [place] [address] Kenneth Mcrae MD, Medical Dermatologist CLIA: [id number] Sodium 138 135-145 mmol/L Potassium 4.9 3.5-5.3 mmol/L Chloride 104 97-108 mmol/L CO2 24 22-32 mmol/L Glucose 91 65-99 mg/dL BUN 16 8-23 mg/dL Creatinine 0.92 0.50-1.00 mg/dL Calcium 10.7 8.6-10.4 mg/dL eGFR by Creatinine 66 >59 mL/min/1.73m2 P-CPK Reviewed date:08/22/2024 05:54:01 PM Interpretation:247 Performing Lab: Notes/Report: Test performed by [facility] , [address], [place] [address] Kenneth Mcrae MD, Medical Dermatologist CLIA: [id number] Creatine Kinase 247 20-180 U/L J-G-Uunlwvyc Protein (CRP) Reviewed date:08/22/2024 05:54:01 PM Interpretation:0.81 Performing Lab: Notes/Report: Test performed by [facility] , [facility], [place] [address] Kenneth Mcrae MD, Medical Dermatologist CLIA: [id number] C-Reactive Protein (CRP) 0.81 <0.50 mg/dL P-Sed Rate (ESR) Reviewed date:08/22/2024 05:54:01 PM Interpretation:Normal Performing Lab: Notes/Report: Test performed by [facility] , [address], [place] [address] Kenneth Mcrae MD, Medical Dermatologist CLIA: [id number] Erythrocyte Sedimentation Rate (ESR), Automated 7 <31 mm/hr P-Magnesium Reviewed date:08/22/2024 05:54:01 PM Interpretation:Normal Performing Lab: Notes/Report: Test performed by [facility] , [address], [place] [address] Kenneth Mcrae MD, Medical Dermatologist CLIA: [id number] Magnesium 2.2 1.6-2.4 mg/dL P-Phosphorus Reviewed date:08/22/2024 05:54:01 PM Interpretation:Normal Performing Lab: Notes/Report: Test performed by [facility] [address] , [address], [place] [address] Kenneth Mcrae MD, Medical Dermatologist CLIA: [id number] Phosphorus 3.2 2.5-4.5 mg/dL REASON FOR VISIT [...] 25 MG 1 tablet Orally Active pyRIDostigmine [place] 30 MG 1 tablet Or ally Five times a day; Duration: 30 day(s) Active Aspirin 81 MG 1 tab(s) orally once a day; Duration: 30 day(s) Active Problems Problem Type SNOMED Code ICD Code Onset Dates Problem Status W/U Status Risk Notes Problem MG (myasthenia gravis) (G70.00) Active confirmed Vital Signs Blood pressure systolic 132 mm Hg 08/22/19 25 Blood pressure diastolic 70 mm Hg 025 Heart Rate 66 /min 08/21/2024 Height 66.50 in 08/21/2024 Weight 140 lbs 08/21/2024 BMI 22.26 kg/m2 08/21/2024 Encounters Encounter Location Date Provider Diagnosis [facility] [address] [id number] 08/21/2024 Kee Aurora Cramp in lower leg R25.2 ; Myalgia [...] Notes MG (myasthenia gravis) Note from Dr. Pav ez reviewed, keep f/u appt. in 2 weeks Next Appt Details Follow Up: via phone to repo rt test results, Reason: Progress Notes * ANISHA DUBONDOB: 2 (74 yo F)Acc No.[id number]:08/21/2024 Progress Notes Patient: ANISHA ORTIZ Provider: Kam Gaspar M.D. :1950 A ge:74 Y S ex:Female Date:08/21/2024 Address:[address] [place] [address] [place] Jin [id number] Pcp:Mallorie Marie Subjective: * Chief Complaints: * [...] 09/22/2022. * Hospitalization/Major Diagno stic Procedure: [facility] [place] [facility] 08/2010, [place]: AVR for severe aortic [...] active: yes. * Medications: T aking pyRIDostigmine [place] 30 MG Tablet 1 tablet Orally Five [...] 53:49 PM > see phone encounter ?LAB: G-Q-Lmodgesn Protein (CRP) (Collection Date & Time - [...] G 2211 Complex e/[place] [address] CBC WITH AUTO DIFF, 3075F SYST BP GE 130 - 139MM HG, 3078F DIAST BP < 80 MM HG * Follow Up: v ia phone to report test results * Images: Billing Information: * Visit Code: 34126 Office Visit, Est Pt., Level 4. * Procedure Codes: G2211 Complex e/[place]. [address] CBC WITH AUTO DIFF. 3075F SYST BP GE 130 - 139MM HG. 3078F DIAST BP < 80 MM HG. * Electronic signature of Tara Gaspar MD on 01/04/2025 at 09:13 AM EDT Sign off status: Pending * Provider: Kam Gaspar M.D. Date: 0 08/21/2024 Generated for Lou turner/Hakeem/eTbensmcirilo on: 0 01/04/2025 09:13 AM EDT History and Physical Notes * [...]
--- OUTSIDE RECORDS SUMMARY | 2024-11-26 09:30 | XMS_ITS ---
[facility] Address [address] [place] [id number] Care Team Providers Care Ball Machine Operator Name Role Phone Mallorie Marie Primary Care Provider Maggie Ramos Unavailable [phone] Allergies Allergen (clinical drug ingredient) Drug/Non Drug [...] Rectal mass (K62.89) [facility] Referring Provider First Name Maggie Referring Provider [...] TWIC E DAILY; Duration: 90 Active pyRIDostigmine [place] 30 MG 1 tablet Or ally Five [...] 11/26/2024 Encounters Encounter Location Date Provider Diagnosis [facility] [address] [phone] 11/26/2024 Maggie Ramos Acute upper respiratory infection [...] * ANISHA DUBONDOB: 2 (74 yo F)Acc No.[id number]:11/26/2024 Progress Notes Patient: JESUS ORTIZTY Provider: KO Lewis :1950 A ge:74 Y S ex:Female Date:11/26/2024 Address:[address] [place] [address] Debra Abernathy [place], [id number] Pcp:Mallorie Marie Subjective: * Chief Complaints: * [...] * Hospitalization/Major Diagno stic Procedure: C venita [facility] 08/2010, : AVR for severe aortic [...] active: yes. * Medications: T aking pyRIDostigmine [place] 30 MG Tablet 1 tablet Orally Five [...] 80, O2 Sat: 96% on RA, Nurse: [facility], Ht: 66.50, BMI:22.16. * Examination: G eneral [...] I mbalance - R26.89 5 . B [place] 22.0-22.9, adult - Z68.22 Plan: * Treatment: [...] G 2211 Complex e/[place], [address] CAPILLARY BLOOD DRAW, 09769 CBC WITH AUTO DIFF, 78458 COVID TEST IN HOUSE, Modifiers: QW , 1036F TOBACCO NON-USER, G8420 BMI<30 AND >=22 CALC & DOCU, G8783 BP SCR PRFRM RCMDD DEFIND SCR INTVL, G8752 MOST RECENT SYSTOLIC BP < 140MM HG, G8754 MOST RECENT DIASTOLIC BP < 90MM HG * Follow Up: p rn * Images: Billing Information: * Visit Code: 20188 Office Visit, Est Pt., Level 3. * Procedure Codes: G2211 Complex e/[place]. [address] CAPILLARY BLOOD DRAW. 85309 CBC WITH AUTO DIFF. 46284 COVID TEST IN HOUSE. Modifiers: QW 1036F TOBACCO NON-USER. G8420 BMI<30 AND >=22 CALC & DOCU. G8783 BP SCR PRFRM RCMDD DEFIND SCR INTVL. G8752 MOST RECENT SYSTOLIC BP < 140MM HG. G8754 MOST RECENT DIASTOLIC BP < 90MM HG. * Electronic signature of Jillian warnersidra Ramos APRN on 01/04/2025 at 09:14 AM EDT Sign off status: Pending * Provider: ZEYAD LewisP Date: 0 11/26/2024 Generated for Saltyi johnny/Thiagog/eTbensmitting on: 0 01/04/2025 09:14 AM EDT History and Physical Notes * [...]
--- OUTSIDE RECORDS SUMMARY | 2024-12-10 04:52 | XMS_ITS ---
[facility] Address [address] [facility] [address] [facility] [address] [place] [id number] Care Team Providers Care Appliance Fixer Name Role Phone Mallorie Marie Primary Care Provider REASON FOR VISIT due colonoscopy and BD Encounters Encounter Location Date Provider Diagnosis [facility] [address] [place] [id number] 12/10/2024 Mallorie Marie Screening for osteoporosis Z13.820 Assessments Encounter Date Diagnosis (ICD Code) Assessment Notes Treatment Notes Treatment Clinical Notes Section Notes 12/10/2024 Screening for osteoporosis (ICD-10 - Z13.820) Plan Of Treatment Pending Test Test Name Order Date Bone density 12/10/2024 Progress Notes * LINGANISHADOB: 2 (74 yo F)Acc No.[id number]:12/10/2024 Patient: ANISHA ORTIZ :1950 A ge:74 Y S ex:Female Address:[address] [place] [address] [place] [address] Subjective: * Chief Complaints: * d ue colonoscopy and BD * 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: * Surgical History: * Hospitalization/Major Diagno stic Procedure: * Medications: Objective: * Vitals: * Physical Examination: Assessment: * Assessment: 1. S creening for osteoporosis - Z13.820 (Primary) Plan: * Treatment: * Procedure Codes: * true * Date: Generated for Printi ng/Faxing/eTransmitting on: 0 01/04/2025 09:14 AM EDT
--- OUTSIDE RECORDS SUMMARY | 2025-01-04 09:14 | XMS_ITS | Clinical Summary ---
Author Organization [facility] Address [address] 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 2 Active rosuvastatin (Crestor) 5 MG tablet Take 5 mg by mouth every night. 3 Active DULoxetine (Cymbalta) [address] capsule Take 30 mg by mouth 1 (one) time each day. 3 Active acetaminophen (Tylenol) 325 MG tablet Take 2 tablets (650 mg total) by mouth every 6 (six) hours if needed for pain, headaches or fever. 100 tablet 3 Active metoprolol tartrate (Lopressor) 25 MG tablet Take 1 tablet (25 mg) by mouth 2 (two) times a day. 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 COPD (chronic obstructive pulmonary disease) Hypertension 08/23/2022 Hyperlipidemia 08/23/2022 Left bundle branch block 08/23/2022 Overview (09/22/2022): - No beta blockers Hypothyroid 08/23/2022 Resolved Problems Problem Noted Date Diagnosed Date Resolved Date Calcification of aortic valve 09/26/2022 09/27/2022 Hypermagnesemia 09/26/2022 09/27/2022 Hypocalcemia 09/26/2022 09/27/2022 Hypophosphatemia 09/26/2022 09/27/2022 Hyperkalemia 09/26/2022 09/27/2022 Hypercalcemia 09/26/2022 09/27/2022 Transient hyperglycemia post procedure 09/26/2022 09/27/2022 Tobacco abuse, in remission 09/26/2022 09/27/2022 Thrombocytopenia 09/25/2022 09/27/2022 Dyspnea on exertion 09/25/2022 09/28/19 Acute respiratory failure with hypoxia 09/22/2022 09/27/2022 Overview (09/23/2022): - Arrived to the ICU intubated - On HFNC - Daily CXR Nausea 09/22/2022 09/25/2022 Overview (09/22/2022): - Postop - PRN zofran Constipation 09/22/2022 09/25/2022 Overview (09/22/2022): - Postoperative - Bowel regimen BMI 21.0-21.9, adult 09/01/2022 05/2 023 Severe aortic insufficiency 08/23/2022 09/27/2022 Overview (09/22/2022): Severe AI noted on preop MYKE Now s/p AVR on 09/22 Family History 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 Relation Name Comments Coronary artery disease Brother Hypertension Child Stroke Child Coronary artery disease Father she does not know Cancer Mother Coronary artery disease Mother Hypertension Mother Cancer Sister Anesthesia problems Neg Hx Malig Hyperthermia Neg Hx Relation Name Status Comments Brother Child Alive Father Mother Sister Social History Tobacco Use Types Packs/Day Years Used Date Smoking Tobacco: Former Cigarettes 2 40 1 963 - 2003 Smokeless Tobacco: Never Tobacco Cessation:Counseling Given: Not Answered Alcohol Use Standard Drinks/Week Comments Not Currently 0 (1 standard drink = 0.6 oz pur e alcohol) Comments No Sex and Gender Information Value Date Recorded Sex Assigned at Not on file Legal Sex Female 7:53 PM EDT Gender Identity Not on file Sexual Orientation Not on file Last Filed Vital Signs Vital Sign Reading Time Taken Comments Blood Pressure 144/76 10/14/2022 2:32 PM EDT Pulse 64 10/14/2022 2:23 PM EDT Temperature 36.6 C (97.9 F) 09/27/2022 11:35 AM EDT Respiratory Rate 18 09/27/2022 11:35 AM EDT Oxygen Saturation 98% 10/14/2022 2:23 PM EDT Inhaled Oxygen Concentration - - Weight 57.2 kg (126 lb) 10/14/2022 2:23 PM EDT Height 167.6 cm (5' 6 ) 08/26/2022 10:54 AM EDT Body Mass Index 20.34 08/26/2022 10:54 AM EDT Plan of Treatment Health Maintenance Due Date Last Done Comments [facility]-Bone Density Scan 1952 [facility]-Depression Screening 1952 [facility]-Hepatitis C Screening 1950 [facility]-Medicare Annual Wellness (AWV) 1952 [facility]-Infant/Child/Adol SDOH Screenings 1952 [facility]- SDOH Screenings 1970 [facility]-Adult SDOH Screenings 1970 [facility]-DTaP,Tdap,and Td Vaccine s (1 - Tdap) 1971 CT Colonography 1997 Colonoscopy 1997 FIT-DNA 1997 FIT 1997 FOBT 1997 Sigmoidoscopy 1997 [facility]-Colorectal Cancer Screening 1997 [facility]-Breast Cancer Screening 2002 [facility]-RSV Vaccine: 60+ Years o r (1 - Risk 60-74 years 1-dose series) 2012 [facility]-Pneumococcal Vaccine: 50 + Years (2 of 2 - PCV) 03/21/2021 03/21/2020 [id number] Vaccine (4 - 2023- season) 2024 06/03/2021, 09/24/2020, 08/27/2020 [facility]-Influenza Vaccine (#1) 2025 03/21/2020 [facility]-Zoster Vaccines Completed 06/10/2020, 03/21/2020 HPV Vaccines Aged Out No longer eligi ble based on patient's age to complete this topic [facility]-HIB Vaccines Aged Out No longer e ligible based on patient's age to complete this topic [facility]-Hepatitis A Vaccines Aged Out No longer eligible based on patient's age to complete this topic UKY-IPV Vaccines Aged Out No longer e ligible based on patient's age to complete this topic UKY-Rotavirus Vaccines Aged Out No lo nger eligible based on patient's age to complete this topic Medical Devices Implanted Type Area Boiler Installer Device Identifier Shelf Expiration Date Model / Serial / Lot Valve Aortic Epic Plus Supra Porcine 21mm - [id number] - [id number] Implanted:Qty: 1 on 09/22/2022 by Garth Fish MD at [facility] [id number] 01/14/2025 [id number] / [id number] / [id number] Description:2 rinses, 10 sec onds each. Insurance [facility] MEDICARE Advance Directives * Full Code (Latest Code Status on File) Date Activated Date Inactivated Comments 09/22/2022 2:41 PM 09/27/2022 3:02 PM Question Answer Comments Patient has decision-making capacity? Yes Care Teams Jet Dyeing Machine Operator Relationship Specialty Start Date End Date Andres Marie MD [address] [address] PCP - General 10/10/20 Quintin Dahl PA [address] [place] [address] Referring Physician Cardiology 08/23/22
--- OUTSIDE RECORDS SUMMARY | 2025-01-04 09:14 | XMS_ITS | Patient Health Record ---
[facility] Address [address] [place] [id number] Care Team Providers Care Vending Machine Servicer Name Role Phone Mallorie Marie Primary Care Provider [phone] Kee Gaspar Unavailable [phone] Maggie Ramos Unavailable [phone] Melodie Ponce Unavailable [phone] Allergies Allergen (clinical drug ingredient) Drug/Non Drug [...] 10.7 Performing Lab: Notes/Report: Test performed by [email or web address], [facility] [address] [place] [address] , [address], [place] [address] Kenneth Mcrae MD, Stock Digger CLIA: [id number] Sodium 138 135-145 mmol/L Potassium 4.9 3.5-5.3 mmol/L Chloride 104 97-108 mmol/L CO2 24 22-32 mmol/L Glucose 91 65-99 mg/dL BUN 16 8-23 mg/dL Creatinine 0.92 0.50-1.00 mg/dL Calcium 10.7 8.6-10.4 mg/dL eGFR by Creatinine 66 >59 mL/min/1.73m2 P-CPK Reviewed date:08/22/2024 05:54:01 PM Interpretation:247 Performing Lab: Notes/Report: Test performed by [email or web address] , [address], [place] [address] Kenneth Mcrae MD, Stock Digger CLIA: [id number] Creatine Kinase 247 20-180 U/L O-C-Kolwxous Protein (CRP) Reviewed date:08/22/2024 05:54:01 PM Interpretation:0.81 Performing Lab: Notes/Report: Test performed by [facility] , [address], [place] [address] Kenneth Mcrae MD, Stock Digger CLIA: [id number] C-Reactive Protein (CRP) 0.81 <0.50 mg/dL P-Sed Rate (ESR) Reviewed date:08/22/2024 05:54:01 PM Interpretation:Normal Performing Lab: Notes/Report: [facility] , [facility] [address], [place] [address] Kenneth Mcrae MD, Stock Digger CLIA: [id number] Erythrocyte Sedimentation Rate (ESR), Automated 7 <31 mm/hr P-Magnesium Reviewed date:08/22/2024 05:54:01 PM Interpretation:Normal Performing Lab: Notes/Report: Test performed by [email or web address] , [address], [place] [address] Kenneth Mcrae MD, Stock Digger CLIA: [id number] Magnesium 2.2 1.6-2.4 mg/dL P-Phosphorus Reviewed date:08/22/2024 05:54:01 PM Interpretation:Normal Performing Lab: Notes/Report: [facility] , [address], [place] [address] Kenneth Mcrae MD, Stock Digger CLIA: [id number] Phosphorus 3.2 2.5-4.5 mg/dL CBC Fingerstick (in house) Reviewed date:11/26/2024 04:02:27 [...] Interpretation:neg Performing Lab: Notes/Report: neg Result: neg Mammogram Reviewed date:06/15/2024 12:41:43 PM Interpretation:Negative Performing Lab: Notes/Report: Negative result Negative Carotid Duplex Reviewed date:02/21/2024 10:48:53 AM Interpretation:mild let carotid artery plaque Performing Lab: Notes/Report: mild let carotid artery plaque Medications Medication SIG (Take, Route, Frequency, Duration) Notes Start Date End Date Status Spironolactone 25 MG 1 tablet Orally Active Albuterol Sulfate HFA 108 (90 Base) MCG/ACT 2 inhalations Inhalation four times a day as needed 11/24/2022 Active Metoprolol Succinate 50 MG 1 capsule Ora lly Once a day Active amLODIPine Besylate 5 MG 1 tablet Orally Once a day; Duration: 30 days Active Irbesartan 300 MG TAKE 1 TABLET EVERY MORNING; Duration: 90 days Active Levothyroxine Sodium 50 MCG TAKE 1 TABLE T EVERY OTHER DAY ALTERNATE WITH 1/2 TABLET EVERY OTHER DAY; Duration: 90 Active DULoxetine HCl 30 MG TAKE 1 CAPSULE TWIC E DAILY; Duration: 90 Active pyRIDostigmine [place] 30 MG 1 tablet Or ally Five times a day; Duration: 30 day(s) Active Aspirin 81 MG 1 tab(s) orally once a day; Duration: 30 day(s) Active Immunizations Vaccine Route Administration Date Status Malou nts xFlu shot-36 months and older IM Intramuscular 04/29/2006 Administered Shingrix Unknown 03/21/2020 Administered Shingrix Unknown 06/10/2020 Administered PNEUMOVAX 23 VACCINE Unknown 03/21/2020 Administered Fluzone High Dose (65yr and older) IM Intramuscular 04/12/2019 Administered Fluzone High Dose (65yr and older) Unknown 03/21/2020 Administered Fluzone High Dose (65yr and older) IM Intramuscular 02/14/2023 Administered COVID 19 Moderna Unknown 08/27/2020 Administered COVID 19 Moderna Unknown 09/24/2020 Administered COVID 19 Moderna Unknown 06/03/2021 Administered Problems Problem Type SNOMED Code ICD Code Onset Dates Problem Status W/U Status Risk Notes Problem Hypothyroidism (81906791) Hypothyroidism (acquired) (E03.9) Active confirmed Problem Vitamin D deficiency (45020647) Vitamin D deficiency (E55.9) Active confirmed Problem Essential hypertension (23166400) Essential hypertension (I10) Active confirmed Problem Hypertriglyceridemia (505292908) Hypertriglyceridemia (E78.1) Active confirmed Problem Anxiety (97143598) Anxiety (F41.9) Active confi rmed Problem Osteopenia (545041193) Osteopenia (M85.80) Active confirmed Problem Mixed anxiety and depressive disorder (098729545) Depression with anxiety (F41.8) Active confirmed Problem Memory loss (51405116) Memory loss (R41.3) Active confirmed Problem Paroxysmal hemicrani a (872254004) Episodic paroxysmal hemicrania, 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) Active confirmed Problem Chronic pain (84978295) Other chronic pain (G89.29) Active confirmed Problem Thyroid nodule (666805985) Thyroid nodule (E04.1) Active confirmed Problem Chronic pain (84751066) Other chronic pain (G89.29) Active confirmed Problem Reactive depression (situational) (96636548) Situational depression (F43.21) Active confirmed Problem Mammography abnormal (050228678) Abnormal mammogram of left breast (R92.8) Active confirmed Problem New daily persistent headache (318214969704621) New daily persistent headache (G44.52) Active confirmed Problem Abnormal gait (62683747) Imbalance (R26.89) Active confirmed Problem History of heart valve repair with prosthesis (963648394602530) Status post aortic valve replacement (Z95.2) Active confirmed Problem Ultrasonography of breast abnormal (14116625698905856) Abnormal ultrasound of breast (R92.8) Active confirmed Problem Mixed hyperlipidemia (448202056) Elevated triglycerides with high cholesterol (E78.2) Active confirmed Problem Memory deficit (929611920) Memory deficit (R41.3) Active confirmed Problem Aortic valve sclerosis (02199494) Aortic valve sclerosis (I35.8) Active confirmed Problem Hypertensive urgency (130177583) Hypertensive urgency (I16.0) Active confirmed Problem Loss of balance (321513574) Loss of balance (R26.89) Active confirmed Problem Contracture of smith r fascia (576507672) Dupuytren's contracture of left hand (M72.0) Active confirmed Problem Disorder of kidney and/or ureter (699487012) Left renal mass (N28.89) Active confirmed Problem Disorder of skin pigmentation (93006142) Pigmented skin lesion suspicious for malignant neoplasm (L81.9) Active confirmed Problem Basal cell carcinoma of truncal skin (958185618) Basal cell carcinoma of skin of trunk (C44.519) Active confirmed Problem Vitreous floaters of both eyes (592894660613710) Vitreous floaters of both eyes (H43.393) Active confirmed Problem Myasthenia gravis without exacerbation (54308259529257) MG (myasthenia gravis) (G70.00) Active confirmed Vital Signs Heart Rate 80 /min 11/26/2024 Blood pressure diastolic 60 mm Hg 11/26/2024 Height 66.50 in 11/26/2024 Blood pressure systolic 110 mm Hg 11/26/2024 Weight 139.4 lbs 11/26/2024 BMI 22.16 kg/m2 11/26/2024 Encounters Encounter Location Date Provider Diagnosis [facility] [address] [place] [id number] 02/07/2024 Maggie Ramos Dizziness R42 ; Loss of balance R26.89 ; Depression with anxiety F41.8 and Memory deficit R41.3 [facility] [address] [place] [id number] 03/21/2024 Melodie Crowdy Essential hypertensi on I10 and Hypertensive urgency I16.0 [facility] [address] [place] [id number] 04/04/2024 Melodie Crowdy Essential hypertensi on I10 and Vitreous floaters of both eyes H43.393 [facility] [address] [facility] [address] [place], [place] [id number] 08/21/2024 Kee Gaspar Cramp in lower leg R25.2 ; Myalgia M79.10 and MG (myasthenia gravis) G70.00 [facility] [address] [facility] [address] [place], [place] [id number] 11/26/2024 Maggie Ramos Acute upper respiratory infection 465.9 ; Rectal mass K62.89 ; Essential hypertension I10 ; Imbalance R26.89 and BMI 22.0-22.9, adult Z68.22 [facility] [address] [facility] [address] [place], [place] [id number] 06/08/2024 Mallorie Marie [facility] [address] [facility] [address] [place], [place] [id number] 08/22/2024 Kee Gaspar [facility] [address] [facility] [address] [place], [place] [id number] 09/17/2024 Mallorie Marie [facility] [address] [place], [place] [id number] 12/10/2024 Mallorie Marie Screening for osteoporosis Z13.820 Assessments Encounter Date Diagnosis (ICD Code) Assessment Notes Treatment Notes Treatment Clinical Notes Section Notes 02/07/2024 Loss of balance (ICD-10 - R26.89) 03/21/2024 Essential hypertension (ICD-10 - I10) 03/21/2024 Hypertensive urgency (ICD-10 - I16.0) Discussed with Dr. Gaspar. Will stop the losartan and start on irbesartan and amlodipine. Will log BP twice a day and f/u in 2 weeks. 04/04/2024 Essential hypertension (ICD-10 - I10) BP is much better today. Readings are still elevated at night at home. Will give it a few more weeks and see if BP continues to improve. She has a f/u with cardiology next month. 04/04/2024 Vitreous floaters of both eyes (ICD-10 - H43.393) Will make an appt to see her eye doctor. 08/21/2024 Cramp in lower leg (ICD-10 - R25.2) 08/21/2024 Myalgia (ICD-10 - M79.10) 02/07/2024 Dizziness (ICD-10 - R42) 11/26/2024 Acute upper respiratory infection (ICD-10 - 465.9) Inpatient labs negative. Continue to stay away from sister and others as long as symptoms continue. fluids, rest, supportive measures for fever/symptom relief 11/26/2024 Rectal mass (ICD-10 - K62.89) Sent a referral to surgery to make sure this is not cancer. Told her to make srue she shows the surgeon that photo she showed us. 12/10/2024 Screening for osteoporosis (ICD-10 - Z13.820) 02/07/2024 Depression with anxiety (ICD-10 - F41.8) will increase Duloxitine 08/21/2024 MG (myasthenia gravis) (ICD-10 - G70.00) Note from Dr. Thao reviewed, keep f/u appt. in 2 weeks 11/26/2024 Essential hypertension (ICD-10 - I10) 02/07/2024 Memory deficit (ICD-10 - R41.3) encouraged her to write down things she igoing to do, where she is going, directions to where she is going or use a GPS 11/26/2024 Imbalance (ICD-10 - R26.89) 11/26/2024 BMI 22.0-22.9, adult (ICD-10 - Z68.22) Plan Of Treatment Pending Test Test Name Order Date Bone density 12/10/2024 Mammogram 11/18/2023 Cologuard 11/18/2023 Insurance Providers Payer Name Payer Address Payer Phone Subscriber Number Group Number Insured Name Patient Relationship to Insured Coverage Start Date Coverage End Date [employer] (MEDICAR E) [address] [address] [place] [address] [phone] [id number] ANISHA DUBON Self - patient is the insured Medications Administered Medication Instructions Date of Administration Dosage Notes B-12 03/27/2015 1 mL B-12 03/27/2015 1 mL B-12 10/15/2020 1 mL Bicillin LA 1,200,000 06/01/2012 2 mL Dexamethasone 12/18/2005 1 mL Dexamethasone 11/02/2008 1 mL Dexamethasone 07/12/2018 1 mL Medical (General) History 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 History ICD Code Hypercholestrolemia Hypertriglyceridemia Chronic Sinusitis MVP on echo MNG Cardiac cath Dr. Barreto 2006 Cologard 11/27/2020 NEG Depression COPD Hypothyroidism Grade 1 diastolic dysfunction LVH Surgical History Surgery Date(Month/Year) Hysterectomy (cystocoele/rectocoele) 199 6 Anterior Colporrhaphy Repair 02/2009 Cholecystectomy AVR 09/22/2022 Hospitalization History Reason Date(Month/Year) [facility]: AVR for severe aortic re gurgitation and calcified aortic valve; acute blood loss anemia; COPD with hypoxia 09/22-09/27/2022 Chest Pain- [facility] 08/2010
--- OUTSIDE RECORDS SUMMARY | 2025-01-04 09:14 | XMS_ITS | Encounter Summary ---
Author Organization Healthcare Address [address] [place] [address] Care Team Providers Care Linen Room Custodian Name Role Phone Andres Marie MD Primary Care Provider [phone] Quintin Dahl Unavailable Encounter Details Date Type Department Care Team (Late st Contact Info) Description 08/11/2022 Orders Only External Location [address] [place] [address] Provider, External Social History Tobacco Use Types Packs/Day Years Used Date Smoking Tobacco: Never Assessed Comments Unknown Sex and Gender Information Value Date Recorded Sex Assigned at Not on file Legal Sex Female 7:53 PM EDT Gender Identity Not on file Sexual Orientation Not on file documented as of this encounter Plan of Treatment Not on file documented as of this encounter Procedures Procedure Name Priority Date/Time Associated Diagnosis Comments IR CHEST OUTSIDE IMAGES 08/11/2022 12:00 AM EDT documented in this encounter Results * IR CHEST OUTSIDE IMAGES (08/11/2022 12:00 AM EDT) Anatomical Region Laterality Modality X-Ray Angiograph y 08/11/2022 us External Provider IMG IR PROCEDURES Final Result documented in this encounter Visit Diagnoses Not on filedocumented in this encounter Care Teams Linen Room Custodian Relationship Specialty Start Date End Date Andres Marie MD [address] [place] [address] PCP - General 10/10/20 Quintin Dahl PA [address] [place] [address] Referring Physician Cardiology 08/23/22 documented as of this encounter
--- NOTE | 2025-01-04 09:16 | XR_ITS ---
FINAL REPORT CLINICAL HISTORY: SCREENING COMPARISON: None FINDINGS: Using L1-4, the bone mineral density of the spine is 0.800 g/cm2, corresponding to T-score of -2.2, consistent with osteopenia. Using the left hip, the bone mineral density of the total hip is 0.588 g/cm2, corresponding to a T-score of -2.9, consistent with osteoporosis. Using the right hip, the bone mineral density of the femoral neck is 0.655 g/cm2, corresponding to a T-score of -2.4, consistent with osteopenia. FRAX not reported because some T-score at or below -2.5. NOTE: T-score: Standard deviation compared with peak bone mass of young adult mean. *Following the recommendations of the International Society of Bone densitometry, classification of hip BMD is based on the lower of two T-scores; total hip or femoral neck. IMPRESSION: Diminished bone mineral density consistent with osteopenia in the lumbar spine and right hip and osteoporosis in the left hip. Reviewed, Interpreted and Dictated by Sheng Craven MD Transcribed by Miranda Powell Authenticated and [facility]
== END 2025-01-04 23:59 | disposition home or self-care (01) ==
LOC: RAD 09:12
PROVIDERS: PCP Family Medicine; Visit Provider Family Medicine
DX: Z13.820 Encounter for screening for osteoporosis (principal); M81.0 Age-related osteoporosis without current pathological fracture
CPT/HCPCS: 77080

== ENCOUNTER 2025-03-13 11:35 | Outpatient (CLI) | payer MEDICARE, SELFPAY ==
--- OUTSIDE RECORDS SUMMARY | 2024-08-21 07:30 | XMS_ITS ---
Author Organization [facility] Address [address] [place] [id number] Care Team Providers Care Assembly Riveter Name Role Phone Mallorie Marie Primary Care Provider Kee Gaspar Unavailable [phone] Allergies Allergen (clinical drug ingredient) Drug/Non Drug [...] PM Interpretation:Calcium 10.7 Performing Lab: Notes/Report: CLIA: [id number] Kenneth Mcrae MD, Geographic Information Systems Director [facility] , [address], [place] [address] Test performed by [employer], [facility] Sodium 138 135-145 mmol/L Potassium 4.9 3.5-5.3 mmol/L Chloride 104 97-108 mmol/L CO2 24 22-32 mmol/L Glucose 91 65-99 mg/dL BUN 16 8-23 mg/dL Creatinine 0.92 0.50-1.00 mg/dL Calcium 10.7 8.6-10.4 mg/dL eGFR by Creatinine 66 >59 mL/min/1.73m2 P-CPK Reviewed date:08/22/2024 05:54:01 PM Interpretation:247 Performing Lab: Notes/Report: Test performed by [employer] , [address], [place] [address] Kenneth Mcrae MD, Geographic Information Systems Director CLIA: [id number] Creatine Kinase 247 20-180 U/L J-X-Nmdkfxzd Protein (CRP) Reviewed date:08/22/2024 05:54:01 PM Interpretation:0.81 Performing Lab: Notes/Report: [facility] by [facility] , [facility] [address], [place] [address] Kenneth Mcrae MD, Geographic Information Systems Director CLIA: [id number] C-Reactive Protein (CRP) 0.81 <0.50 mg/dL P-Sed Rate (ESR) Reviewed date:08/22/2024 05:54:01 PM Interpretation:Normal Performing Lab: Notes/Report: Test performed by [facility] , [address], [place] [address] Kenneth Mcrae MD, Geographic Information Systems Director CLIA: [id number] Erythrocyte Sedimentation Rate (ESR), Automated 7 <31 mm/hr P-Magnesium Reviewed date:08/22/2024 05:54:01 PM Interpretation:Normal Performing Lab: Notes/Report: Test performed by [facility] , [address], [place] [address] Kenneth Mcrae MD, Geographic Information Systems Director CLIA: [id number] Magnesium 2.2 1.6-2.4 mg/dL P-Phosphorus Reviewed date:08/22/2024 05:54:01 PM Interpretation:Normal Performing Lab: Notes/Report: Test performed by [employer] [address] , [address], [place] [address] Kenneth Mcrae MD, Geographic Information Systems Director CLIA: [id number] Phosphorus 3.2 2.5-4.5 mg/dL REASON FOR VISIT [...] 25 MG 1 tablet Orally Active pyRIDostigmine Maxwell 30 MG 1 tablet Or ally Five times a day; Duration: 30 day(s) Active Aspirin 81 MG 1 tab(s) orally once a day; Duration: 30 day(s) Active Problems Problem Type SNOMED Code ICD Code Onset Dates Problem Status W/U Status Risk Notes Problem Myasthenia gravis without exacerbation (07706038076357) MG (myastheni a gravis) (G70.00) Active confirmed Vital Signs Weight 140 lbs 08/21/2024 Blood pressure systolic 132 mm Hg 08/22/19 Blood pressure diastolic 70 mm Hg 025 Heart Rate 66 /min 08/21/2024 Height 66.50 in 08/21/2024 BMI 22.26 kg/m2 08/21/2024 Encounters Encounter Location Date Provider Diagnosis [facility] [address], [place] [phone] 08/21/2024 Kee Atwood Cramp in lower leg R25.2 ; Myalgia [...] * ANISHA DUBONDOB: 2 (74 yo F)Acc No.[id number]:08/21/2024 Progress Notes Patient: ANISHA ORTIZ Provider: Kam Gaspar M.D. :1950 A ge:74 Y S ex:Female Date:08/21/2024 Address:[address] [place] [address] VALORIE Jin, [id number] Pcp:Mallorie Marie Subjective: * Chief Complaints: * [...] * Hospitalization/Major Diagno stic Procedure: C [place] [facility] 08/2010, : AVR for severe aortic [...] active: yes. * Medications: T aking pyRIDostigmine Maxwell 30 MG Tablet 1 tablet Orally Five [...] 53:49 PM > see phone encounter ?LAB: F-Z-Vynfdixf Protein (CRP) (Collection Date & Time - [...] G 2211 Complex e/[place], [address] CBC WITH AUTO DIFF, 3075F SYST BP GE 130 - 139MM HG, 3078F DIAST BP < 80 MM HG * Follow Up: v ia phone to report test results * Images: Billing Information: * Visit Code: 89268 Office Visit, Est Pt., Level 4. * Procedure Codes: G2211 Complex e/[place]. [address] CBC WITH AUTO DIFF. 3075F SYST BP GE 130 - 139MM HG. 3078F DIAST BP < 80 MM HG. * Electronic signature of Tara Gaspar MD on 03/13/2025 at 11:37 AM EDT Sign off status: Pending * Provider: Kam Gaspar M.D. Date: 0 08/21/2024 Generated for Lou turner/Hakeem/Sonam on: 1 11:37 AM EDT History and Physical Notes * [...]
--- OUTSIDE RECORDS SUMMARY | 2024-11-26 09:30 | XMS_ITS ---
Author Organization [facility] Address [address] [place] [id number] Care Team Providers Care Griddle Attendant Name Role Phone Mallorie Marie Primary Care Provider Maggie Ramos Unavailable [phone] Allergies Allergen (clinical drug ingredient) Drug/Non Drug [...] 1 Rectal mass (K62.89) [facility] Referring Provider First Name Maggie Referring Provider [...] TWIC E DAILY; Duration: 90 Active pyRIDostigmine [place] 30 MG 1 tablet Or ally Five [...] 11/26/2024 Encounters Encounter Location Date Provider Diagnosis [facility] [address] [phone] 11/26/2024 Maggie Ramos Acute upper respiratory infection [...] Next Appt Details Follow Up: prn, Reason: Progress Notes * ANISHA DUBONDOB: 2 (74 yo F)Acc No.[id number]:11/26/2024 Progress Notes Patient: JESUS ORTIZTY Provider: KO Lewis :1950 A ge:74 Y S ex:Female Date:11/26/2024 Address:[address] [place] [address] Debra Abernathy [place], [id number] Pcp:Mallorie Marie Subjective: * Chief Complaints: * [...] * Hospitalization/Major Diagno stic Procedure: C venita [facility] 08/2010, : AVR for severe aortic regurgitation [...] active: yes. * Medications: T aking pyRIDostigmine [place] 30 MG Tablet 1 tablet Orally Five [...] 80, O2 Sat: 96% on RA, Nurse: [facility], Ht: 66.50, BMI:22.16. * Examination: G eneral [...] I mbalance - R26.89 5 . B [place] 22.0-22.9, adult - Z68.22 Plan: * Treatment: [...] G 2211 Complex e/[place], [address] CAPILLARY BLOOD DRAW, 48476 CBC WITH AUTO DIFF, 14740 COVID TEST IN HOUSE, Modifiers: QW , 1036F TOBACCO NON-USER, G8420 BMI<30 AND >=22 CALC & DOCU, G8783 BP SCR PRFRM RCMDD DEFIND SCR INTVL, G8752 MOST RECENT SYSTOLIC BP < 140MM HG, G8754 MOST RECENT DIASTOLIC BP < 90MM HG * Follow Up: p rn * Images: Billing Information: * Visit Code: 37920 Office Visit, Est Pt., Level 3. * Procedure Codes: G2211 Complex e/[place]. [address] CAPILLARY BLOOD DRAW. 99991 CBC WITH AUTO DIFF. 68564 COVID TEST IN HOUSE. Modifiers: QW 1036F TOBACCO NON-USER. G8420 BMI<30 AND >=22 CALC & DOCU. G8783 BP SCR PRFRM RCMDD DEFIND SCR INTVL. G8752 MOST RECENT SYSTOLIC BP < 140MM HG. G8754 MOST RECENT DIASTOLIC BP < 90MM HG. * Electronic signature of Jillian lai MELANIE Ramos on 03/13/2025 at 11:38 AM EDT Sign off status: Pending * Provider: ZEYAD LewisP Date: 0 11/26/2024 Generated for Printi ng/Fajohng/eTransmitting on: 1 11:38 AM EDT History and Physical Notes * [...]
--- OUTSIDE RECORDS SUMMARY | 2025-01-12 07:15 | XMS_ITS ---
Author Organization [facility] Address [address] [place] [phone] Care Team Providers Care Voice Coach Name Role Phone Mallorie Marie Primary Care Provider Kee Gaspar Unavailable [phone] Allergies Allergen (clinical drug ingredient) Drug/Non Drug [...] a day as needed 11/24/2022 Active pyRIDostigmine [place] 30 MG 1 tablet Or ally Five [...] Location Date Provider Diagnosis [facility] [address] [facility] [address] [place] [id number] 01/12/2025 Kee [place] Muscle spasm of back M62.830 Assessments Encounter [...] via phone to repo rt progress, Reason: Progress Notes * ANISHA DUBONDOB: 2 (74 yo F)Acc No.[id number]:01/12/2025 Progress Notes Patient: ANISHA ORTIZ Provider: Kam Gaspar M.D. :1950 A ge:74 Y S ex:Female Date:01/12/2025 Address:[address] [place] [address] [phone] Pcp:Mallorie Marie Subjective: * Chief Complaints: [...] Hospitalization/Major Diagno stic Procedure: C [facility]- [facility] 08/2010, [place]: AVR for severe aortic regurgitation [...] active: yes. * Medications: T aking pyRIDostigmine [place] 30 MG Tablet 1 tablet Orally Five [...] * Images: Billing Information: * Visit Code: 85823 Office Visit, Est Pt., Level 3. * Procedure Codes: G2211 Complex e/m visit add on. * Electronic signature of Tara Gaspar MD on 03/13/2025 at 11:38 AM EDT Sign off status: Pending * Provider: Kam Gaspar M.D. Date: 0 01/12/2025 Generated for Lou turner/Hakeem/Langsmitting on: 1 11:38 AM EDT History and [...]
--- OUTSIDE RECORDS SUMMARY | 2025-01-17 12:00 | XMS_ITS ---
Author Organization [facility] 1210 [facility] [address] [place] [id number] Care Team Providers Care Softwood Faller Name Role Phone Mallorie Marie Primary Care Provider Melodie Ponce [phone] Allergies Allergen (clinical drug ingredient) Drug/Non Drug Allergy documented on EMR Reaction Allergy Type Onset Date Status Iodinated contrast media (substance) Iodinated Contrast Media Unknown Drug Allergy Active REASON FOR VISIT Pain not Improving Encounters Encounter Location Date Provider Diagnosis [facility] [address] [place] [id number] 01/17/2025 Melodie Ponce Plan Of Treatment No Information Progress Notes * DUBONANISHADOB: 2 (74 yo F)Acc No.[id number]:01/17/2025 Progress Notes Patient: ANISHA ORTIZ Provider: ZACH Humphreys :1950 A ge:74 Y S ex:Female Date:01/17/2025 Address:[address] [place] [address] [id number] Pcp:Mallorie Marie Subjective: * Chief Complaints: * [...] Hospitalization/Major Diagno stic Procedure: C venita [facility]- [facility] 08/2010, : AVR for severe aortic [...] * Electronic signature of ZACH Pat on 03/13/2025 at 11:37 AM EDT Sign off status: Pending * Provider: ZACH Humphreys Date: 0 01/17/2025 Generated for Lou turner/Hakeem/eTransmitting on: 1 11:37 AM EDT
--- OUTSIDE RECORDS SUMMARY | 2025-03-13 11:38 | XMS_ITS | Clinical Summary ---
Author Organization [facility] Address 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 COPD (chronic obstructive pulmonary disease) Hypertension 08/23/2022 Hyperlipidemia 08/23/2022 Left bundle branch block 08/23/2022 Overview (09/22/2022): - No beta blockers Hypothyroid 08/23/2022 Resolved Problems Problem Noted Date Diagnosed Date Resolved Date Calcification of aortic valve 09/26/2022 09/27/2022 Left ventricular hypertrophy 09/26/2022 02/17/2025 Hypermagnesemia 09/26/2022 09/27/2022 Hypocalcemia 09/26/2022 09/27/2022 Hypophosphatemia 09/26/2022 09/27/2022 Hyperkalemia 09/26/2022 09/27/2022 Hypercalcemia 09/26/2022 09/27/2022 Transient hyperglycemia post procedure 09/26/2022 09/27/2022 Tobacco abuse, in remission 09/26/2022 09/27/2022 Thrombocytopenia 09/25/2022 09/27/2022 Dyspnea on exertion 09/25/2022 09/28/19 23 Acute respiratory failure with hypoxia 09/22/2022 09/27/2022 Overview (09/23/2022): - Arrived to the ICU intubated - On HFNC - Daily CXR Nausea 09/22/2022 09/25/2022 Overview (09/22/2022): - Postop - PRN zofran Constipation 09/22/2022 09/25/2022 Overview (09/22/2022): - Postoperative - Bowel regimen BMI 21.0-21.9, adult 09/01/2022 05/ 023 Severe aortic insufficiency 08/23/2022 09/27/2022 Overview [...] [facility]-Depression Screening 1950 [facility]-Hepatitis C Screening 1950 [facility]-Medicare Annual Wellness (AWV) 1950 [facility]-/Child/Adol SDOH Screenings 1950 [facility]- SDOH Screenings 1970 [...] (2 of 2 - PCV) 03/21/2021 03/21/2020 [id number] Vaccine (4 - 2024- season) 2025 06/03/2021, 09/24/2020, 08/27/2020 [facility]-Influenza Vaccine (#1) 2025 [...] this topic Medical Devices Implanted Type Area Abstracter Device Identifier Shelf Expiration Date Model / Serial / Lot Valve Aortic Epic Plus Supra Porcine 21mm - [id number] - [id number] Implanted:Qty: 1 on 09/22/2022 by Garth Fish MD at [facility] [id number] 01/14/2025 [id number] / [id number] / [id number] Description:2 rinses, 10 sec onds each. Insurance [facility] MEDIC[facility] Advance Directives * Full Code (Latest Code Status on File) Date Activated Date Inactivated Comments 09/22/2022 2:41 PM 09/27/2022 3:02 PM Question Answer Comments Patient has decision-making capacity? Yes Care Teams House Superintendent Relationship Specialty Start Date End Date Andres Marie MD [address] [facility] [address] [address] PCP - General 10/10/20 Quintin Dahl PA [address] [place] [address] Referring Physician Cardiology 08/23/22
--- OUTSIDE RECORDS SUMMARY | 2025-03-13 11:38 | XMS_ITS | Encounter Summary ---
Author Organization [facility] Address [address] [place] [address] Care Team Providers Care Car Examiner Name Role Phone Andres Marie MD Primary Care Provider [phone] Quintin Dahl Unavailable Encounter Details Date Type Department Care Team (Late st Contact Info) Description 08/11/2022 Orders Only External Location [address] [place] [address] Provider, External Social History Tobacco Use Types [...] on filedocumented in this encounter Care Teams Car Examiner Relationship Specialty Start Date End Date Andres Marie MD [address] [place] [address] PCP - General 10/10/20 Quintin Dahl PA [address] [place] [address] Referring Physician Cardiology 08/23/22 documented as of this encounter
--- OUTSIDE RECORDS SUMMARY | 2025-03-13 11:39 | XMS_ITS | Patient Health Record ---
[facility] Address [address] [place] [id number] Care Team Providers Care Yarn Weigher Name Role Phone Mallorie Marie Primary Care Provider [phone] Kee Gaspar Unavailable [phone] Maggie Ramos Unavailable [phone] Melodie Ponce Unavailable [phone] Allergies Allergen (clinical drug ingredient) Drug/Non Drug [...] 10.7 Performing Lab: Notes/Report: Test performed by [facility] [address] [place] [address] , [address], [place] [address] Kenneth Mcrae MD, Knitting Teacher CLIA: [id number] Sodium 138 135-145 mmol/L Potassium 4.9 3.5-5.3 mmol/L Chloride 104 97-108 mmol/L CO2 24 22-32 mmol/L Glucose 91 65-99 mg/dL BUN 16 8-23 mg/dL Creatinine 0.92 0.50-1.00 mg/dL Calcium 10.7 8.6-10.4 mg/dL eGFR by Creatinine 66 >59 mL/min/1.73m2 P-CPK Reviewed date:08/22/2024 05:54:01 PM Interpretation:247 Performing Lab: Notes/Report: Test performed by [facility] , [address], [place] [address] Kenneth Mcrae MD, Knitting Teacher CLIA: [id number] Creatine Kinase 247 20-180 U/L J-M-Guezneec Protein (CRP) Reviewed date:08/22/2024 05:54:01 PM Interpretation:0.81 Performing Lab: Notes/Report: Test performed by [facility] , [address], [place] [address] Kenneth Mcrae MD, Knitting Teacher CLIA: [id number] C-Reactive Protein (CRP) 0.81 <0.50 mg/dL P-Sed Rate (ESR) Reviewed date:08/22/2024 05:54:01 PM Interpretation:Normal Performing Lab: Notes/Report: Test performed by [facility] , [facility] [address], [place] [address] Kenneth Mcrae MD, Knitting Teacher CLIA: [id number] Erythrocyte Sedimentation Rate (ESR), Automated 7 <31 mm/hr P-Magnesium Reviewed date:08/22/2024 05:54:01 PM Interpretation:Normal Performing Lab: Notes/Report: Test performed by [facility] , [address], [place] [address] Kenneth Mcrae MD, Knitting Teacher CLIA: [id number] Magnesium 2.2 1.6-2.4 mg/dL P-Phosphorus Reviewed date:08/22/2024 05:54:01 PM Interpretation:Normal Performing Lab: Notes/Report: Test performed by [facility] , [address], [place] [address] Kenneth Mcrae MD, Knitting Teacher CLIA: [id number] Phosphorus 3.2 2.5-4.5 mg/dL CBC Fingerstick (in [...] Interpretation:Negative Performing Lab: Notes/Report: Negative result Negative Bone density Reviewed date:01/07/2025 09:28:20 AM Interpretation:osteopenia L-spine and right hip, osteoporosis left hip Performing Lab: Notes/Report: osteopenia L-spine and right hip, osteoporosis left hip Medications Medication SIG (Take, Route, Frequency, Duration) Notes Start Date End Date Status Irbesartan 300 MG 1 tablet Orally Once a day; Duration: 90 days Active Aspirin 81 MG 1 tab(s) orally once a day; Duration: 30 day(s) Active Albuterol Sulfate HFA 108 (90 Base) MCG/ACT 2 inhalations Inhalation four times a day as needed 11/24/2022 Active pyRIDostigmine Kersey 30 MG 1 tablet Or ally Five times a day; Duration: 30 day(s) Active Metoprolol Succinate 50 MG 1 capsule Ora lly Once a day Active Levothyroxine Sodium 50 MCG TAKE 1 TABLE T EVERY OTHER DAY ALTERNATE WITH 1/2 TABLET EVERY OTHER DAY; Duration: 90 Active amLODIPine Besylate 5 MG 1 tablet Orally Once a day; Duration: 90 days Active tiZANidine HCl 4 MG 1 tablet Orally 3 times a day As needed 01/17/2025 Active DULoxetine HCl 30 MG 1 capsule Orally tw ice a day; Duration: 90 days Active Spironolactone 25 MG 1 tablet Orally Active Immunizations Vaccine Route Administration Date Status Comme nts xFlu shot-36 months and older IM [...] Status W/U Status Risk Notes Problem Hypothyroidism (33869294) Hypothyroidism (acquired) (E03.9) Active confirmed Problem Vitamin D deficiency (64363144) Vitamin D deficiency (E55.9) Active confirmed Problem Essential hypertension (13788343) Essential hypertension (I10) Active confirmed Problem Hypertriglyceridemia (789681237) Hypertriglyceridemia (E78.1) Active confirmed Problem Anxiety (87783936) Anxiety (F41.9) Active confi rmed Problem Osteopenia (768358475) Osteopenia (M85.80) Active confirmed Problem Mixed anxiety and depressive disorder (735846969) Depression with anxiety (F41.8) Active confirmed Problem Memory loss (65401558) Memory loss (R41.3) Active confirmed Problem Paroxysmal hemicrani a (235796112) Episodic paroxysmal hemicrania, 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) Active confirmed Problem Chronic pain (72015605) Other chronic pain (G89.29) Active confirmed Problem Thyroid nodule (434830645) Thyroid nodule (E04.1) Active confirmed Problem Chronic pain (45668404) Other chronic pain (G89.29) Active confirmed Problem Reactive depression (situational) (86808958) Situational depression (F43.21) Active confirmed Problem Mammography abnormal (131073435) Abnormal mammogram of left breast (R92.8) Active confirmed Problem New daily persistent headache (287670549952708) New daily persistent headache (G44.52) Active confirmed Problem Abnormal gait (13088011) Imbalance (R26.89) Active confirmed Problem History of heart valve repair with prosthesis (671917191721958) Status post aortic valve replacement (Z95.2) Active confirmed Problem Ultrasonography of breast abnormal (88313824256604316) Abnormal ultrasound of breast (R92.8) Active confirmed Problem Mixed hyperlipidemia (147461959) Elevated triglycerides with high cholesterol (E78.2) Active confirmed Problem Memory deficit (058150467) Memory deficit (R41.3) Active confirmed Problem Aortic valve sclerosis (53572692) Aortic valve sclerosis (I35.8) Active confirmed Problem Hypertensive urgency (407826933) Hypertensive urgency (I16.0) Active confirmed Problem Loss of balance (498286769) Loss of balance (R26.89) Active confirmed Problem Contracture of smith r fascia (065360649) Dupuytren's contracture of left hand (M72.0) Active confirmed Problem Age-related osteoporosis (349109903) Osteoporosis, unspecified osteoporosis type, unspecified pathological fracture presence (M81.0) Active confirmed Problem Disorder of kidney and/or ureter (432626278) Left renal mass (N28.89) Active confirmed Problem Disorder of skin pigmentation (62079405) Pigmented skin lesion suspicious for malignant neoplasm (L81.9) Active confirmed Problem Basal cell carcinoma of truncal skin (234001003) Basal cell carcinoma of skin of trunk (C44.519) Active confirmed Problem Vitreous floaters of both eyes (731764014991545) Vitreous floaters of both eyes (H43.393) Active confirmed Problem Myasthenia gravis without exacerbation (96769570270686) MG (myasthenia gravis) (G70.00) Active confirmed Vital Signs Heart Rate 62 /min 01/12/2025 Blood pressure diastolic 70 mm Hg 01/12/2025 Height 66.50 in 01/12/2025 Blood pressure systolic 130 mm Hg 01/12/2025 Weight 140.8 lbs 01/12/2025 BMI 22.38 kg/m2 01/12/2025 Encounters Encounter Location Date Provider Diagnosis [facility] [address] [facility] [address] [facility] [address] [place] [id number] 03/21/2024 Melodie Crowdy Essential hypertensi on I10 and Hypertensive urgency I16.0 [facility] [address] [facility] [address] [facility] [address] [place] [id number] 04/04/2024 Melodie Crowdy Essential hypertensi on I10 and Vitreous floaters of both eyes H43.393 [facility] [address] [place], [place] [id number] 08/21/2024 Kee Auburn Cramp in lower leg R25.2 ; Myalgia M79.10 and MG (myasthenia gravis) G70.00 [facility] [address] [place], [place] [id number] 11/26/2024 Maggie Ramos Acute upper respiratory infection 465.9 ; Rectal mass K62.89 ; Essential hypertension I10 ; Imbalance R26.89 and BMI 22.0-22.9, adult Z68.22 [facility] [address] [place], [place] [id number] 01/12/2025 Kee Auburn Muscle spasm of back M62.830 [facility] [address] [place], [place] [id number] 06/08/2024 Mallorie Marei [facility] [address] [place], [place] [id number] 08/22/2024 Kee Auburn [facility] [address] [place], [place] [id number] 09/17/2024 Mallorie Marie [facility] [address] [place], [place] [id number] 12/10/2024 Mallorie Marie Screening for osteoporosis Z13.820 [facility] [address] [place], [place] [id number] 01/07/2025 Mallorie Marie [facility] [address] [place], [place] [id number] 01/14/2025 Kee Auburn [facility] [address] [place], [place] [id number] 01/16/2025 Kee [place] Muscle spasm of back M62.830 [facility] [address] [place], [place] [id number] 02/28/2025 Mallorie Marie Assessments Encounter Date Diagnosis (ICD Code) Assessment [...] - R25.2) 08/21/2024 Myalgia (ICD-10 - M79.10) 11/26/2024 Rectal mass (ICD-10 - K62.89) Sent a referral to surgery to make sure this is not cancer. Told her to make srue she shows the surgeon that photo she showed us. 12/10/2024 Screening for osteoporosis (ICD-10 - Z13.820) 01/12/2025 Muscle spasm of back (ICD-10 - M62.830) Home exercise program provided to patient heating pad to affected areas 2 to 3 times a day TENS unit OTC recommended 01/16/2025 Muscle spasm of back (ICD-10 - M62.830) 11/26/2024 Acute upper respiratory infection (ICD-10 - 465.9) Inpatient labs negative. Continue to stay away from sister and others as long as symptoms continue. fluids, rest, supportive measures for fever/symptom relief 08/21/2024 MG (myasthenia gravis) (ICD-10 - G70.00) Note from Dr. Thao reviewed, keep f/u appt. in 2 weeks 11/26/2024 Essential hypertension (ICD-10 - I10) 11/26/2024 Imbalance (ICD-10 - R26.89) 11/26/2024 BMI 22.0-22.9, adult (ICD-10 - Z68.22) Plan Of Treatment Pending Test Test Name Order Date Mammogram 11/18/2023 Cologuard 11/18/2023 Insurance Providers Payer Name Payer Address Payer Phone Subscriber Number Group Number Insured Name Patient Relationship to Insured Coverage Start Date Coverage End Date [employer] (MEDICAR E) [address] [address] [place] [address] [id number] LING ANISHA Self - patient is the insured Medications [...] anemia; COPD with hypoxia 09/22-09/27/2022 Chest Pain- [facility] 08/2010
[2025-03-13 12:30] LABS: Blood Urea Nitrogen 9 mg/dl (7-17); Creatinine,Serum 0.80 mg/dl (0.52-1.04); Estimated Glomerular Filt Rate 71 ml/min (>60); GFR (African American) 85 ML/MIN (>60)
== END 2025-03-13 23:59 | disposition home or self-care (01) ==
LOC: LAB 11:35
PROVIDERS: PCP Family Medicine; Visit Provider Colon & Rectal Surgery
DX: Z01.89 Encounter for other specified special examinations (principal)
CPT/HCPCS: 36415; 82565; 84520

== ENCOUNTER 2025-03-14 07:49 | Outpatient (CLI) | payer MEDICARE, SELFPAY ==
--- OUTSIDE RECORDS SUMMARY | 2024-08-21 07:30 | XMS_ITS ---
Author Organization [facility] Address [address] [place] [id number] Care Team Providers Care Form Stripper Name Role Phone Mallorie Marie Primary Care Provider Kee Gaspar Unavailable [phone] Allergies Allergen (clinical drug ingredient) Drug/Non Drug [...] 05:54:01 PM Interpretation:Calcium 10.7 Performing Lab: Notes/Report: Test performed by [facility], [facility] [address] [place] [address] , [address], [place] [address] Kenneth Mcrae MD, Power Tool Repairer CLIA: [id number] Sodium 138 135-145 mmol/L Potassium 4.9 3.5-5.3 mmol/L Chloride 104 97-108 mmol/L CO2 24 22-32 mmol/L Glucose 91 65-99 mg/dL BUN 16 8-23 mg/dL Creatinine 0.92 0.50-1.00 mg/dL Calcium 10.7 8.6-10.4 mg/dL eGFR by Creatinine 66 >59 mL/min/1.73m2 P-CPK Reviewed date:08/22/2024 05:54:01 PM Interpretation:247 Performing Lab: Notes/Report: Test performed by [facility] , [address], [place] [address] Kenneth Mcrae MD, Power Tool Repairer CLIA: [id number] Creatine Kinase 247 20-180 U/L R-C-Jxnytoen Protein (CRP) Reviewed date:08/22/2024 05:54:01 PM Interpretation:0.81 Performing Lab: Notes/Report: [facility] , [facility], [place] [address] Kenneth Mcrae MD, Power Tool Repairer CLIA: [id number] C-Reactive Protein (CRP) 0.81 <0.50 mg/dL P-Sed Rate (ESR) Reviewed date:08/22/2024 05:54:01 PM Interpretation:Normal Performing Lab: Notes/Report: [facility] , [address], [place] [address] Kenneth Mcrae MD, Power Tool Repairer CLIA: [id number] Erythrocyte Sedimentation Rate (ESR), Automated 7 <31 mm/hr P-Magnesium Reviewed date:08/22/2024 05:54:01 PM Interpretation:Normal Performing Lab: Notes/Report: Test performed by [facility] , [address], [place] [address] Kenneth Mcrae MD, Power Tool Repairer CLIA: [id number] Magnesium 2.2 1.6-2.4 mg/dL P-Phosphorus Reviewed date:08/22/2024 05:54:01 PM Interpretation:Normal Performing Lab: Notes/Report: Test performed by [facility] [address] , [address], [place] [address] Kenneth Mcrae MD, Power Tool Repairer CLIA: [id number] Phosphorus 3.2 2.5-4.5 mg/dL REASON FOR VISIT [...] 25 MG 1 tablet Orally Active pyRIDostigmine [place] 30 MG 1 tablet Or ally Five times a day; Duration: 30 day(s) Active Aspirin 81 MG 1 tab(s) orally once a day; Duration: 30 day(s) Active Problems Problem Type SNOMED Code ICD Code Onset Dates Problem Status W/U Status Risk Notes Problem Myasthenia gravis without exacerbation (65209629407712) MG (myastheni a gravis) (G70.00) Active confirmed Vital Signs Weight 140 lbs 08/21/2024 Blood pressure systolic 132 mm Hg 08/22/19 Blood pressure diastolic 70 mm Hg 025 Heart Rate 66 /min 08/21/2024 Height 66.50 in 08/21/2024 BMI 22.26 kg/m2 08/21/2024 Encounters Encounter Location Date Provider Diagnosis [facility] [address], [place] [id number] 08/21/2024 Kee [place] Cramp in lower leg R25.2 ; Myalgia [...] phone to repo rt test results, Reason: Progress Notes * ANISHA DUBONDOB: 2 (74 yo F)Acc No.[id number]:08/21/2024 Progress Notes Patient: ANISHA ORTIZ Provider: Kam Gaspar M.D. :1950 A ge:74 Y S ex:Female Date:08/21/2024 Address:[address] [place] [address] [place], [id number] Pcp:Mallorie Marie Subjective: * Chief Complaints: * [...] 09/22/2022. * Hospitalization/Major Diagno stic Procedure: [facility] 08/2010, : AVR for severe aortic regurgitation [...] active: yes. * Medications: T aking pyRIDostigmine [place] 30 MG Tablet 1 tablet Orally Five [...] M agnesium 2.2 1.6-2.4 - mg/dL * LoisGina 08/22/2024 05: 53:49 PM > see phone encounter ?LAB: P-Phosphorus (Collection Date & Time - 08/21/2024 11:20 AM)?Normal* Value Reference Range P hosphorus 3.2 2.5-4.5 - mg/dL * LoisGina 08/22/2024 05: 53:49 PM > see phone [...] Homa Benjamin 08/21/2024 12:34:3 8 PM > LoisGina 08/22/2024 05:53:49 PM > see phone encounter 2.?Myalgia?LAB: P-CPK (Collection Date & Time - 08/21/2024 11:20 AM)?247* Value Reference Range C reatine Kinase 247 H 20-180 - U/L * Gina Abreu 08/22/2024 05: 53:49 PM > see phone encounter ?LAB: F-B-Uatpbnea Protein (CRP) (Collection Date & Time - [...] G 2211 Complex e/[place], [address] CBC WITH AUTO DIFF, 3075F SYST BP GE 130 - 139MM HG, 3078F DIAST BP < 80 MM HG * Follow Up: v ia phone to report test results * Images: Billing Information: * Visit Code: 15582 Office Visit, Est Pt., Level 4. * Procedure Codes: G2211 Complex e/[place]. [address] CBC WITH AUTO DIFF. 3075F SYST BP GE 130 - 139MM HG. 3078F DIAST BP < 80 MM HG. * Electronic signature of Tara Gaspar MD on 03/14/2025 at 07:53 AM EDT Sign off status: Pending * Provider: Kam Gaspar M.D. Date: 0 08/21/2024 Generated for Lou turner/Hakeem/Sonam on: 1 07:53 AM EDT History and Physical Notes * HPI (History [...]
--- OUTSIDE RECORDS SUMMARY | 2024-11-26 09:30 | XMS_ITS ---
Author Organization [facility] Address [address] [place] [phone] Care Team Providers Care Dividend Deposit Voucher Clerk Name Role Phone Mallorie Marie Primary Care Provider [phone] Maggie Ramos Unavailable [phone] Allergies Allergen (clinical drug ingredient) Drug/Non Drug [...] Diagnosis 1 Rectal mass (K62.89) [facility] Referring Provider First Name Maggie Referring Provider [...] TWIC E DAILY; Duration: 90 Active pyRIDostigmine [place] 30 MG 1 tablet Or ally Five [...] 11/26/2024 Encounters Encounter Location Date Provider Diagnosis [facility] [address] [phone] 11/26/2024 Maggie Ramos Acute upper respiratory infection [...] * ANISHA DUBONDOB: 2 (74 yo F)Acc No.[id number]:11/26/2024 Progress Notes Patient: JESUS ORTIZTY Provider: KO Lewis :1950 A ge:74 Y S ex:Female Date:11/26/2024 Address:[address] [place] [address] [phone] Pcp:Mallorie Marie Subjective: * Chief Complaints: * [...] ERMATOLOGY: no R cecilia. n o H adoins. E NT: Cough y es. S ore [...] * Hospitalization/Major Diagno stic Procedure: C venita [facility] 08/2010, : AVR for severe aortic [...] active: yes. * Medications: T aking pyRIDostigmine [place] 30 MG Tablet 1 tablet Orally Five [...] 80, O2 Sat: 96% on RA, Nurse: [facility] [employer], Ht: 66.50, BMI:22.16. * Examination: G eneral [...] I mbalance - R26.89 5 . B [place] 22.0-22.9, adult - Z68.22 Plan: * Treatment: [...] G 2211 Complex e/[place], [address] CAPILLARY BLOOD DRAW, 85045 CBC WITH AUTO DIFF, 43939 COVID TEST IN HOUSE, Modifiers: QW , 1036F TOBACCO NON-USER, G8420 BMI<30 AND >=22 CALC & DOCU, G8783 BP SCR PRFRM RCMDD DEFIND SCR INTVL, G8752 MOST RECENT SYSTOLIC BP < 140MM HG, G8754 MOST RECENT DIASTOLIC BP < 90MM HG * Follow Up: p rn * Images: Billing Information: * Visit Code: 47219 Office Visit, Est Pt., Level 3. * Procedure Codes: G2211 Complex e/[place]. [address] CAPILLARY BLOOD DRAW. 62044 CBC WITH AUTO DIFF. 27160 COVID TEST IN HOUSE. Modifiers: QW 1036F TOBACCO NON-USER. G8420 BMI<30 AND >=22 CALC & DOCU. G8783 BP SCR PRFRM RCMDD DEFIND SCR INTVL. G8752 MOST RECENT SYSTOLIC BP < 140MM HG. G8754 MOST RECENT DIASTOLIC BP < 90MM HG. * Electronic signature of Jillian lai MELANIE Ramos on 03/14/2025 at 07:53 AM EDT Sign off status: Pending * Provider: ZEYAD LewisP Date: 0 11/26/2024 Generated for Printi ng/Thiagog/eTransmitting on: 1 07:53 AM EDT History and [...]
--- OUTSIDE RECORDS SUMMARY | 2025-01-12 07:15 | XMS_ITS ---
Author [facility] [address] [place] [id number] Care Team Providers Care Retail General Manager Name Role Phone Mallorie Marie Primary Care Provider Kee Gaspar Unavailable [phone] Allergies Allergen (clinical drug ingredient) Drug/Non Drug [...] a day as needed 11/24/2022 Active pyRIDostigmine [place] 30 MG 1 tablet Or ally Five [...] Provider Diagnosis [facility] [address] [facility] [address] [place] [id number] 01/12/2025 Kee [place] Muscle spasm of back M62.830 Assessments Encounter [...] * ANISHA DUBONDOB: 2 (74 yo F)Acc No.[id number]:01/12/2025 Progress Notes Patient: ANISHA ORTIZ Provider: Kam Gaspar M.D. :1950 A ge:74 Y S ex:Female Date:01/12/2025 Address:[address] [place] [address] [phone] Pcp:Mallorie Marie Subjective: * [...] Hospitalization/Major Diagno stic Procedure: C [facility]- [facility] 08/2010, [place]: AVR for severe aortic regurgitation [...] active: yes. * Medications: T aking pyRIDostigmine [place] 30 MG Tablet 1 tablet Orally Five [...] * Images: Billing Information: * Visit Code: 27231 Office Visit, Est Pt., Level 3. * Procedure Codes: G2211 Complex e/m visit add on. * Electronic signature of Tara Gaspar MD on 03/14/2025 at 07:53 AM EDT Sign off status: Pending * Provider: Kam Gaspar M.D. Date: 0 01/12/2025 Generated for Lou turner/Hakeem/Langsmitting on: 07:53 AM EDT History and Physical Notes [...]
--- OUTSIDE RECORDS SUMMARY | 2025-01-17 12:00 | XMS_ITS ---
[facility] 1210 [facility] [address] [place] [id number] Care Team Providers Care Baby Registry Sales Consultant Name Role Phone Mallorie Marie Primary Care Provider Melodie Ponce [phone] Allergies Allergen (clinical drug ingredient) Drug/Non Drug Allergy documented on EMR Reaction Allergy Type Onset Date Status Iodinated contrast media (substance) Iodinated Contrast Media Unknown Drug Allergy Active REASON FOR VISIT Pain not Improving Encounters Encounter Location Date Provider Diagnosis [facility] [address] [place] [phone] 01/17/2025 Melodie Ponce Plan Of Treatment No Information Progress Notes * DUBONANISHADOB: 2 (74 yo F)Acc No.[id number]:01/17/2025 Progress Notes Patient: AINSHA ORTIZ Provider: ZACH Humphreys :1950 A ge:74 Y S ex:Female Date:01/17/2025 Address:[address] [place] [address] [id number] Pcp:Mallorie Marie Subjective: * Chief Complaints: * [...] Hospitalization/Major Diagno stic Procedure: C venita [facility]- [facility] 08/2010, : AVR for severe aortic [...] * Procedure Codes: * Electronic signature of [facility] Pat on 03/14/2025 at 07:53 AM EDT Sign off status: Pending * Provider: ZACH Humphreys Date: 0 01/17/2025 Generated for Lou turner/Hakeem/eTbensmitting on: 1 07:53 AM EDT
--- NOTE | 2025-03-14 07:53 | CT_ITS ---
FINAL REPORT TECHNIQUE: Thin section axial images were obtained from the thoracic inlet through the upper abdomen after intravenous contrast injection. Reconstruction images were obtained from the axial data. Exam was performed using dose reduction technique. This study was performed with techniques to keep radiation doses as low as reasonably achievable (ALARA). Individualized dose reduction techniques using automated exposure control or adjustment of mA and/or kV according to the patient's size were employed. 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 There is no pleural or pericardial effusion. The heart size is normal. Biapical scarring is stable in appearance. There are changes of emphysema as well as evidence of prior granulomatous disease. There is a tiny right lower lobe medial subpleural nodule present, best seen on image 53 of series 4. There is a 4 mm nodule just inferior, which is new, and indeterminate in etiology. No additional nodules or masses are identified. The lung gipson are otherwise clear with no evidence of consolidation. No acute osseous abnormality. IMPRESSION: 1. There is a new 4 mm nodule in the medial right lower lobe, which is new compared with the prior exam of 09/26/2024, and indeterminate. Recommend 3 to 6-month follow-up CT for further evaluation. 2. No new nodules or masses are otherwise identified. Reviewed, Interpreted and Dictated by Lily Martin MD Transcribed by Freda Luevano Authenticated and [facility]
--- NOTE | 2025-03-14 07:53 | CT_ITS ---
FINAL REPORT TECHNIQUE: Thin section axial images are obtained through the abdomen and pelvis after intravenous contrast. Reconstruction images were obtained from the axial data. Exam was performed using dose reduction techniques. This study was performed with techniques to keep radiation doses as low as reasonably achievable (ALARA). Individualized dose reduction techniques using automated exposure control or adjustment of mA and/or kV according to the patient's size were employed. CLINICAL HISTORY: localized cancer of skin perineum COMPARISON: 11/16/2023 FINDINGS: LIVER: Homogeneous. There is a lesion in the medial segment of the left lobe of the liver, currently measuring 5 mm in size, which is slightly decreased in size since the prior exam. This is best seen on image #30 of series 5. There is also a stable likely hepatic cyst in the lateral segment of the left lobe, best seen on image #27. No other new hepatic lesions are identified. GALLBLADDER/BILIARY SYSTEM: Gallbladder is present. No gallstones. No biliary dilatation. SPLEEN: Unremarkable. PANCREAS: Unremarkable. ADRENALS: Unremarkable. KIDNEYS/URETERS/BLADDER: There is a stable small hypodense lesion in the upper pole of the left kidney, which was also seen on the prior CT of 2023 and is unchanged in appearance. Unremarkable urinary bladder. GI TRACT: No small bowel obstruction or dilatation. Normal appendix. There is mild wall thickening in the sigmoid colon without surrounding inflammatory change, similar to the prior exam. This may be related to incomplete distention or changes of radiation, correlate with clinical history. PELVIC ORGANS: The uterus is absent. LYMPH NODES/RETROPERITONEUM/MESENTERY: No lymphadenopathy. No abdominal aortic aneurysm. ABDOMINAL WALL: There is a small fat-containing umbilical hernia present. FREE FLUID: No ascites. BONES: No acute osseous abnormality. IMPRESSION: 1. Lesion in the medial segment of the left lobe of the liver is now 5 mm, decreased in size since the prior CT of 2023. No new hepatic lesions are seen. 2. Mild wall thickening in the sigmoid colon without surrounding inflammatory change, that may represent incomplete distention or radiation changes to the colon. Correlate with clinical history. Reviewed, Interpreted and Dictated by Lily Martin MD Transcribed by Freda Luevano Authenticated and [facility]
--- OUTSIDE RECORDS SUMMARY | 2025-03-14 07:53 | XMS_ITS | Clinical Summary ---
Author Organization [facility] Address [address] [id number] Care Team Providers Care Diagnostic Technologist Name Role Phone Andres Marie MD Primary Care Provider [phone] Quintin Dahl PA Unavailable Allergies Active [...] (2 of 2 - PCV) 03/21/2021 03/21/2020 [id number] Vaccine (4 - 2024- season) 2025 06/03/2021, [...] this topic Medical Devices Implanted Type Area Pellet Press Operator Device Identifier Shelf Expiration Date Model / Serial / Lot Valve Aortic Epic Plus Supra Porcine 21mm - [id number] - [id number] Implanted:Qty: 1 on 09/22/2022 by Garth Fish MD at [facility] [id number] 01/14/2025 [id number] / [id number] / [id number] Description:2 rinses, 10 sec onds each. Insurance [facility] MEDICARE Advance Directives * Full Code (Latest Code Status on File) Date Activated Date Inactivated Comments 09/22/2022 2:41 PM 09/27/2022 3:02 PM Question Answer Comments Patient has decision-making capacity? Yes Care Teams Diagnostic Technologist Relationship Specialty Start Date End Date Andres Marie MD [address] [facility] [address] [address] PCP - General 10/10/20 Quintin Dahl PA [address] [place] [address] Referring Physician Cardiology 08/23/22
--- OUTSIDE RECORDS SUMMARY | 2025-03-14 07:53 | XMS_ITS | Encounter Summary ---
Author Organization Healthcare Address [address] [place] [address] Care Team Providers Care Ball Rolling Machine Operator Name Role Phone Andres Marie MD Primary Care Provider [phone] Quintin Dahl Unavailable Encounter Details Date Type Department Care Team (Late st Contact Info) Description 08/11/2022 Orders Only External Location [address] [place] [address] Provider, External Social History Tobacco Use Types [...] on filedocumented in this encounter Care Teams Ball Rolling Machine Operator Relationship Specialty Start Date End Date Andres Marie MD [address] [place] [address] PCP - General 10/10/20 Quintin Dahl PA [address] [place] [address] Referring Physician Cardiology 08/23/22 documented as of this encounter
--- OUTSIDE RECORDS SUMMARY | 2025-03-14 07:54 | XMS_ITS | Patient Health Record ---
Author Organization [facility] Address [address] [place] [id number] Care Team Providers Care Electromagnet Crane Operator Name Role Phone Mallorie Marie Primary Care Provider [phone] Kee Gaspar Unavailable [phone] Maggie Ramos Unavailable [phone] Melodie Ponce Unavailable [phone] Allergies Allergen (clinical drug ingredient) Drug/Non Drug [...] 10.7 Performing Lab: Notes/Report: Test performed by [facility] [employer] [address] [place] [address] , [address], [place] [address] Kenneth Mcrae MD, Bank Note Designer CLIA: [id number] Sodium 138 135-145 mmol/L Potassium 4.9 3.5-5.3 mmol/L Chloride 104 97-108 mmol/L CO2 24 22-32 mmol/L Glucose 91 65-99 mg/dL BUN 16 8-23 mg/dL Creatinine 0.92 0.50-1.00 mg/dL Calcium 10.7 8.6-10.4 mg/dL eGFR by Creatinine 66 >59 mL/min/1.73m2 P-CPK Reviewed date:08/22/2024 05:54:01 PM Interpretation:247 Performing Lab: Notes/Report: Test performed by [facility] , [address], [place] [address] Kenneth Mcrae MD, Bank Note Designer CLIA: [id number] Creatine Kinase 247 20-180 U/L N-G-Ndzahvob Protein (CRP) Reviewed date:08/22/2024 05:54:01 PM Interpretation:0.81 Performing Lab: Notes/Report: Test performed by [facility] , [address], [place] [address] Kenneth Mcrae MD, Bank Note Designer CLIA: [id number] C-Reactive Protein (CRP) 0.81 <0.50 mg/dL P-Sed Rate (ESR) Reviewed date:08/22/2024 05:54:01 PM Interpretation:Normal Performing Lab: Notes/Report: [facility] , [facility], [place] [address] Kenneth Mcrae MD, Bank Note Designer CLIA: [id number] Erythrocyte Sedimentation Rate (ESR), Automated 7 <31 mm/hr P-Magnesium Reviewed date:08/22/2024 05:54:01 PM Interpretation:Normal Performing Lab: Notes/Report: Test performed by [facility] , [address], [place] [address] Kenneth Mcrae MD, Bank Note Designer CLIA: [id number] Magnesium 2.2 1.6-2.4 mg/dL P-Phosphorus Reviewed date:08/22/2024 05:54:01 PM Interpretation:Normal Performing Lab: Notes/Report: [facility] , [address], [place] [address] Kenneth Mcrae MD, Bank Note Designer CLIA: [id number] Phosphorus 3.2 2.5-4.5 mg/dL CBC Fingerstick (in [...] Interpretation:neg Performing Lab: Notes/Report: neg Result: neg Bone density Reviewed date:01/07/2025 09:28:20 AM Interpretation:osteopenia L-spine and right hip, osteoporosis left hip Performing Lab: Notes/Report: osteopenia L-spine and right hip, osteoporosis left hip Mammogram Reviewed date:06/15/2024 12:41:43 PM Interpretation:Negative Performing Lab: Notes/Report: Negative result Negative Medications Medication SIG (Take, Route, Frequency, Duration) Notes Start Date End Date Status Irbesartan 300 MG 1 tablet Orally Once a day; Duration: 90 days Active Aspirin 81 MG 1 tab(s) orally once a day; Duration: 30 day(s) Active Albuterol Sulfate HFA 108 (90 Base) MCG/ACT 2 inhalations Inhalation four times a day as needed 11/24/2022 Active pyRIDostigmine Riggins 30 MG 1 tablet Or ally Five [...] Status W/U Status Risk Notes Problem Hypothyroidism (95171698) Hypothyroidism (acquired) (E03.9) Active confirmed Problem Vitamin D deficiency (50146401) Vitamin D deficiency (E55.9) Active confirmed Problem Essential hypertension (45935303) Essential hypertension (I10) Active confirmed Problem Hypertriglyceridemia (847722511) Hypertriglyceridemia (E78.1) Active confirmed Problem Anxiety (60625703) Anxiety (F41.9) Active confi rmed Problem Osteopenia (805684130) Osteopenia (M85.80) Active confirmed Problem Mixed anxiety and depressive disorder (216945939) Depression with anxiety (F41.8) Active confirmed Problem Memory loss (52847795) Memory loss (R41.3) Active confirmed Problem Paroxysmal hemicrani a (087691093) Episodic paroxysmal hemicrania, 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) Active confirmed Problem Chronic pain (00394376) Other chronic pain (G89.29) Active confirmed Problem Thyroid nodule (745380568) Thyroid nodule (E04.1) Active confirmed Problem Chronic pain (46620310) Other chronic pain (G89.29) Active confirmed Problem Reactive depression (situational) (91697147) Situational depression (F43.21) Active confirmed Problem Mammography abnormal (841384343) Abnormal mammogram of left breast (R92.8) Active confirmed Problem New daily persistent headache (760192518984738) New daily persistent headache (G44.52) Active confirmed Problem Abnormal gait (81988130) Imbalance (R26.89) Active confirmed Problem History of heart valve repair with prosthesis (480836101293811) Status post aortic valve replacement (Z95.2) Active confirmed Problem Ultrasonography of breast abnormal (62476763656083055) Abnormal ultrasound of breast (R92.8) Active confirmed Problem Mixed hyperlipidemia (346765200) Elevated triglycerides with high cholesterol (E78.2) Active confirmed Problem Memory deficit (431662549) Memory deficit (R41.3) Active confirmed Problem Aortic valve sclerosis (70026019) Aortic valve sclerosis (I35.8) Active confirmed Problem Hypertensive urgency (644967580) Hypertensive urgency (I16.0) Active confirmed Problem Loss of balance (629727283) Loss of balance (R26.89) Active confirmed Problem Contracture of smith r fascia (031313265) Dupuytren's contracture of left hand (M72.0) Active confirmed Problem Age-related osteoporosis (008361736) Osteoporosis, unspecified osteoporosis type, unspecified pathological fracture presence (M81.0) Active confirmed Problem Disorder of kidney and/or ureter (804218319) Left renal mass (N28.89) Active confirmed Problem Disorder of skin pigmentation (18123967) Pigmented skin lesion suspicious for malignant neoplasm (L81.9) Active confirmed Problem Basal cell carcinoma of truncal skin (960929004) Basal cell carcinoma of skin of trunk (C44.519) Active confirmed Problem Vitreous floaters of both eyes (277750772430587) Vitreous floaters of both eyes (H43.393) Active confirmed Problem Myasthenia gravis without exacerbation (46376210385700) MG (myasthenia gravis) (G70.00) Active confirmed Vital Signs Heart Rate 62 /min 01/12/2025 Blood pressure diastolic 70 mm Hg 01/12/2025 Height 66.50 in 01/12/2025 Blood pressure systolic 130 mm Hg 01/12/2025 Weight 140.8 lbs 01/12/2025 BMI 22.38 kg/m2 01/12/2025 Encounters Encounter Location Date Provider Diagnosis [facility] [address] [facility] [address] [facility] [address] [place] [id number] 03/21/2024 Melodie Crowdy Essential hypertensi on I10 and Hypertensive urgency I16.0 [facility] [address] [facility] [address] [facility] [address] [place] [id number] 04/04/2024 Melodie Crowdy Essential hypertensi on I10 and Vitreous floaters of both eyes H43.393 [facility] [address] [place], [place] [id number] 08/21/2024 Kee [place] Cramp in lower leg R25.2 ; Myalgia M79.10 and MG (myasthenia gravis) G70.00 [facility] [address] [place], [place] [id number] 11/26/2024 Maggie Ramos Acute upper respiratory infection 465.9 ; Rectal mass K62.89 ; Essential hypertension I10 ; Imbalance R26.89 and BMI 22.0-22.9, adult Z68.22 [facility] [address] [place], [place] [id number] 01/12/2025 Kee [place] Muscle spasm of back M62.830 [facility] [address] [place], [place] [id number] 06/08/2024 Mallorie Marie [facility] [address] [place], [place] [id number] 08/22/2024 Kee [place] [facility] [address] [place], [place] [id number] 09/17/2024 Mallorie Marie [facility] [address] [place], [place] [id number] 12/10/2024 Mallorie Marie Screening for osteoporosis Z13.820 [facility] [address] [place], [place] [id number] 01/07/2025 Mallorie Marie [facility] [address] [place], [place] [id number] 01/14/2025 Kee [place] [facility] [address] [place] [id number] 01/16/2025 Kee [place] Muscle spasm of back M62.830 [facility] [address] [place], [place] [id number] 02/28/2025 Mallorie Marie Assessments Encounter Date Diagnosis (ICD Code) Assessment Notes Treatment Notes Treatment Clinical Notes Section Notes 08/21/2024 Cramp in lower leg (ICD-10 - R25.2) 08/21/2024 Myalgia (ICD-10 - M79.10) 11/26/2024 Rectal mass (ICD-10 - K62.89) Sent a referral to surgery to make sure this is not cancer. Told her to make srue she shows the surgeon that photo she showed us. 01/12/2025 Muscle spasm of back (ICD-10 - M62.830) Home exercise program provided to patient heating pad to affected areas 2 to 3 times a day TENS unit OTC recommended 01/16/2025 Muscle spasm of back (ICD-10 - M62.830) 04/04/2024 Essential hypertension (ICD-10 - I10) BP is much better today. Readings are still elevated at night at home. Will give it a few more weeks and see if BP continues to improve. She has a f/u with cardiology next month. 04/04/2024 Vitreous floaters of both eyes (ICD-10 - H43.393) Will make an appt to see her eye doctor. 03/21/2024 Essential hypertension (ICD-10 - I10) 03/21/2024 Hypertensive urgency (ICD-10 - I16.0) Discussed with Dr. Gaspar. Will stop the losartan and start on irbesartan and amlodipine. Will log BP twice a day and f/u in 2 weeks. 11/26/2024 Acute upper respiratory infection (ICD-10 - 465.9) Inpatient labs negative. Continue to stay away from sister and others as long as symptoms continue. fluids, rest, supportive measures for fever/symptom relief 12/10/2024 Screening for osteoporosis (ICD-10 - Z13.820) 08/21/2024 MG (myasthenia gravis) (ICD-10 - G70.00) [...] Date [employer] [address] [address] [place] [address] [id number] LING ANISHA Self - patient is the [...] anemia; COPD with hypoxia 09/22-09/27/2022 Chest [facility] 08/2010
[2025-03-14] MEDS: IOPAMIDOL-370 (76%);100ML BOTTLE 75 ML IV (08:29)
[2025-03-14] MEDS: SODIUM CHLORIDE 0.9% 10ML SYR (RAD ONLY) 10 ML IV (08:30)
== END 2025-03-14 23:59 | disposition home or self-care (01) ==
LOC: RAD 07:51
PROVIDERS: PCP Family Medicine; Visit Provider Colon & Rectal Surgery
DX: C44.500 Unspecified malignant neoplasm of anal skin (principal); R91.8 Other nonspecific abnormal finding of lung field
CPT/HCPCS: 71260; 74177; Q9967

== ENCOUNTER 2025-04-19 20:11 | Emergency (ER) | payer MEDICARE, SELFPAY ==
--- OUTSIDE RECORDS SUMMARY | 2008-06-25 04:17 | XMS_ITS | Continuity of Care Document ---
Author Organization [facility] Address [address] [facility] [place] [address] Phone Care Team Providers Care Explosives Worker Name Role Phone Nichelle Guzmán MD Unavailable Unavailable Advance Directives Directive Yes / No Effective Date File Name No Information Encounters Encounter Description Practice Location Reason(s) For Visit Diagnoses Date Provider Providers Copied on Encounter [facility], [facility] [place], [address], [place] tel:[phone] [facility] No Information Ramirez tSeward. [address] [place] [address], [address], [place], [id number], [place]. tel:[phone] Referring Provider: Nichelle walter, [address] [place] [address] [address], [place], [address] . tel:[phone] Family History Family Member Type Diagnosis Age At Onset No Information Payers Payer name Insurance type Covered green party ID Authoriza tion(s) [facility] National Account BL [id number] Social History Type Description Quantity Date Captured Comments Sex Female Smoking Status No Information Chief Complaint And Reason For Visit No Information Reason For Referral Reason For Referral No Information History Of Present Illness Encounter Date Complaint History Of Prese nt Illness No Information Functional Status Date Functional Assessmen t No Information Instructions Date Instruction Additional Infor mation No Information Assessments Type Assessment Date No Information Patient Care Teams Name Effective Dates (start - stop) Status Members No Information
--- OUTSIDE RECORDS SUMMARY | 2009-09-21 19:00 | XMS_ITS | Continuity of Care Document ---
Author Organization [facility] Address [address] [place] [address] [place] [address] Phone Care Team Providers Care Cook Soup Name Role Phone Nichelle Guzmán MD Unavailable Unavailable Medications Medication Instructions Dosage Effective Dates (start - stop) Status Comments trazodone 150 mg Tab TAKE 1 TABLET BY MOUTH EVERY NIGHT AT BEDTIME No Longer Active prednisone 5 mg Tab TAKE 2 TABLETS BY MOUTH TWICE DAILY No Longer Active folic acid 1 mg Tab TAKE ONE TABLET BY MOUTH DAILY No Longer Active prednisone 5 mg Tab TAKE 2 TABLETS BY MOUTH TWICE DAILY No Longer Active amitriptyline 50 mg Tab TAKE 3 TABLETS BY MOUTH EVERY NIGHT AT BEDTIME No Longer Active trazodone 150 mg Tab TAKE 1 TABLET BY MOUTH EVERY NIGHT AT BEDTIME No Longer Active prednisone 5 mg Tab TAKE 2 TABLETS BY MOUTH TWICE DAILY No Longer Active prednisone 5 mg Tab TAKE 2 TABLETS BY MOUTH TWICE DAILY No Longer Active folic acid 1 mg Tab TAKE ONE TABLET BY MOUTH DAILY No Longer Active prednisone 5 mg Tab TAKE 2 TABLETS BY MOUTH TWICE DAILY No Longer Active amitriptyline 50 mg Tab TAKE 3 TABLETS BY MOUTH EVERY NIGHT AT BEDTIME No Longer Active trazodone 150 mg Tab TAKE 1 TABLET BY MOUTH EVERY NIGHT AT BEDTIME No Longer Active prednisone 5 mg Tab TAKE 2 TABLETS BY MOUTH TWICE DAILY No Longer Active folic acid 1 mg Tab TAKE ONE TABLET BY MOUTH DAILY No Longer Active prednisone 5 mg Tab TAKE 2 TABLETS BY MOUTH TWICE DAILY No Longer Active amitriptyline 50 mg Tab TAKE 3 TABLETS BY MOUTH EVERY NIGHT AT BEDTIME No Longer Active trazodone 150 mg Tab TAKE 1 TABLET BY MOUTH EVERY NIGHT AT BEDTIME No Longer Active amitriptyline 50 mg Tab TAKE 3 TABLETS BY MOUTH EVERY NIGHT AT BEDTIME No Longer Active trazodone 150 mg Tab TAKE 1 TABLET BY MOUTH EVERY NIGHT AT BEDTIME No Longer Active prednisone 5 mg Tab TAKE 2 TABLETS BY MOUTH TWICE DAILY No Longer Active prednisone 5 mg Tab TAKE 2 TABLETS BY MOUTH TWICE DAILY No Longer Active Cymbalta 30 mg Cap TAKE 3 CAPSULES BY MOUTH EVERY DAY No Longer Active carisoprodol 350 mg Tab TAKE 1 TABLET BY MOUTH FOUR TIMES DAILY No Longer Active folic acid 1 mg Tab TAKE ONE TABLET BY MOUTH DAILY No Longer Active prednisone 5 mg Tab TK 2 TS PO BID No Longer Active amitriptyline 50 mg Tab TAKE 3 TABLETS BY MOUTH EVERY NIGHT AT BEDTIME No Longer Active trazodone 150 mg Tab TAKE 1 TABLET BY MOUTH EVERY NIGHT AT BEDTIME No Longer Active Lunesta 3 mg Tab TAKE ONE TABLET BY MOUTH AT BEDTIME NEEDED FOR SLEEP No Longer Active folic acid 1 mg Tab TAKE ONE TABLET BY MOUTH DAILY No Longer Active Lunesta 3 mg Tab TAKE ONE TABLET BY MOUTH AT BEDTIME NEEDED FOR SLEEP No Longer Active Cymbalta 30 mg Cap TAKE 3 CAPSULES BY MOUTH EVERY DAY No Longer Active trazodone 150 mg Tab TAKE 1 TABLET BY MOUTH EVERY NIGHT AT BEDTIME No Longer Active amitriptyline 50 mg Tab TAKE 3 TABLETS BY MOUTH EVERY NIGHT AT BEDTIME No Longer Active amitriptyline 50 mg Tab TAKE 3 TABLETS BY MOUTH EVERY NIGHT AT BEDTIME No Longer Active Zithromax Z-Kyle 250 mg Tab Use as directed No Longer Active none folic acid 1 mg Tab TAKE ONE TABLET BY MOUTH DAILY No Longer Active Cymbalta 30 mg Cap TAKE 3 CAPSULES BY MOUTH EVERY DAY No Longer Active amitriptyline 50 mg Tab TAKE 3 TABLETS BY MOUTH EVERY NIGHT AT BEDTIME No Longer Active Lunesta 3 mg Tab TAKE ONE TABLET BY MOUTH EVERY NIGHT AT BEDTIME NEEDED No Longer Active folic acid 1 mg Tab TAKE ONE TABLET BY MOUTH DAILY No Longer Active prednisone 5 mg Tab TAKE 2 TABLETS BY MOUTH TWICE DAILY No Longer Active prednisone 5 mg Tab TAKE 2 TABLETS BY MOUTH TWICE DAILY No Longer Active folic acid 1 mg Tab TAKE ONE TABLET BY MOUTH DAILY No Longer Active carisoprodol 350 mg Tab TAKE 1 TABLET BY MOUTH FOUR TIMES DAILY No Longer Active carisoprodol 350 mg Tab TAKE 1 TABLET BY MOUTH FOUR TIMES DAILY No Longer Active Lunesta 3 mg Tab Take 1 Tablets by oral route [facility] No Longer Active Lunesta 3 mg Tab TAKE ONE TABLET BY MOUTH AT BEDTIME NEEDED FOR SLEEP No Longer Active carisoprodol 350 mg Tab TAKE 1 TABLET BY MOUTH FOUR TIMES DAILY No Longer Active Cymbalta 60 mg Cap TAKE 1 CAPSULES BY ORAL ROUTE EVERY DAY No Longer Active Lunesta 3 mg Tab Take 1 Tablets by oral route [facility] No Longer Active carisoprodol 350 mg Tab TAKE 1 TABLET BY MOUTH FOUR TIMES DAILY No Longer Active trazodone 150 mg Tab Take 1 Tablet(s) PO QHS No Longer Active none Lyrica 300 mg Cap Take 1 Capsules by oral route BID No Longer Active Lyrica 50 mg Cap TAKE 4 TABLET TWICE DAILY No Longer Active Lyrica 50 mg Cap Use As Directed No Longer Active Lyrica 300 mg Cap Take 1 Capsules by oral route BID No Longer Active Lunesta 3 mg Tab Take 1 Tablets by oral route [facility] No Longer Active Lunesta 3 mg Tab TAKE ONE TABLET BY MOUTH AT BEDTIME NEEDED FOR SLEEP No Longer Active Nasonex 50 mcg/actuation [place] Use As Directed No Longer Active Asmanex Twisthaler 220 mcg (60 doses) Breath Activated Inhale 1 Puffs by inhalation route QD No Longer Active Asmanex Twisthaler 220 mcg (60 doses) Breath Activated Inhale 1 Puffs by inhalation route QD No Longer Active Asmanex Twisthaler 220 mcg (60 doses) Breath Activated Inhale 1 Puffs by inhalation route QD No Longer Active trazodone 150 mg Tab Take 1 Tablet(s) PO QHS No Longer Active none Lyrica 75 mg Cap Take 1 Capsules by oral route BID No Longer Active Cymbalta 60 mg Cap Take 1 Capsules by oral route QD No Longer Active Ultram ER 100 mg 24 hr Tab Take 1-2 Tablets by oral route QD No Longer Active Cymbalta 60 mg Cap Take 1 Capsules by oral route QD No Longer Active Lunesta 3 mg Tab Take 1 Tablets by oral route [facility] No Longer Active PT WILL PAY WOLFF : HAVING HARD TIME GETTING THROUGH PHONE LINES Lunesta 3 mg Tab Take 1 Tablets by oral route [facility] No Longer Active Lunesta 3 mg Tab Take 1 Tablets by oral route [facility] No Longer Active INS APPROVED 20 TABLETS. amitriptyline 50 mg Tab Take 1 Tablets by oral route TID No Longer Active Provigil 200 mg Tab take 1 tablet (200mg) by oral route once daily in the morning No Longer Active trazodone 150 mg Tab Take 1 Tablet(s) PO QHS No Longer Active none sulfasalazine 500 mg Tab take 4 tablet (500mg) by oral route 2 times per day No Longer Active sulfasalazine 500 mg Tab take 4 tablet (500mg) by oral route 2 times per day No Longer Active folic acid 1 mg Tab Take 1 Tablet(s) PO QD No Longer Active none carisoprodol 350 mg Tab Take 1 Tablets by oral route QID No Longer Active Lunesta 3 mg Tab Take 1 Tablets by oral route [facility] No Longer Active INS APPROVED 20 TABLETS. Lunesta 3 mg Tab Take 1 Tablets by oral route Q No Longer Active INS APPROVED 20 TABLETS. amitriptyline 50 mg Tab Take 1 Tablets by oral route TID - No Longer Active Lunesta 3 mg Tab Take 1 Tablets by oral route QHS - No Longer Active INS APPROVED 20 TABLETS. PT NEEDS RX BY 12PM TODAY sulfasalazine 500 mg Tab take 4 tablet (500mg) by oral route 2 times per day - No Longer Active amitriptyline 50 mg Tab Take 1 Tablets by oral route TID - No Longer Active Miralax 17 gram/dose Oral Powder Take 0.5-1 Teaspoon(s) PO QD - No Longer Active none Mobic 15 mg Tab take 1 tablet (15mg) by oral route once daily - No Longer Active amitriptyline 50 mg Tab Take 1 Tablet(s) by oral route TID - No Longer Active Celebrex 200 mg Cap Take 1-3 Tablet(s) PO QD No Longer Active none carisoprodol 350 mg Tab Take 1 Tablet(s) by oral route QID - No Longer Active Advance Directives Directive Yes / No Effective Date File Name No Information Encounters Encounter Description Practice Location Reason(s) For Visit Diagnoses Date Provider Providers Copied on Encounter [facility] Traci Gomez MD, [id number], [place] tel:[phone] Rx Conversion Data No Information 0 [facility] Nichelle. [address] [place] [address], [facility] 340, [place] Traci, [id number], [place]. tel:[phone] [facility] [place], [id number], [place] tel:[phone] Rx Conversion Data No Information 0 Ramirez Nichelle. [address] [place] [address], [address], [place] Traci, [id number], [place]. tel:[phone] [facility] Traci Mccullough MD, [id number], [place] tel:[phone] Rx Conversion Data No Information 0 Ramirez Nichelle. [address] [place] [address], [place] Traci, [id number], [place]. tel:[phone] [facility] [id number], [place] tel:[phone] Rx Conversion Data No Information 0 Ramirez Nichelle. [address] [place] [address], [place] Traci, [id number], [place]. tel:[phone] [facility], [id number], [place] tel:[phone] Rx Conversion Data No Information 0 Ramirez Nichelle. [address] [place] [address], [place] Traci, [id number], [place]. tel:[phone] [facility] Traci Mccullough MD, [id number], [place] tel:[phone] Rx Conversion Data No Information 9 Ramirez [place]helle. [facility] [place] [address], [id number], [place]. tel:[phone] [facility] Traci Mccullough MD, [id number], [place] tel:[phone] Rx Conversion Data No Information 9 Ramirez Nichelle. [address] [place] [address]Traci MD, [id number], [place]. tel:[phone] [facility], [id number], [place] tel:[phone] Rx Conversion Data No Information 9 Ramirez [facility]. [facility], [place], [id number], [place]. tel:[phone] [facility] Traci Mccullough MD, [id number], [place] tel:[phone] Rx Conversion Data No Information Oct-1 4-200 9 Ramirez Nichelle. [address] [place] [address], [facility] 340, [place] Traci, [id number], [place]. tel:[phone] [facility], [address] [place], [place] [address]Traci MD, [id number], [place] tel:[phone] Rx Conversion Data No Information 0 8-200 9 Ramirez Nichelle. [address] [place] [address], [place] Traci, [id number], [place]. tel:[phone] [facility], [id number], [place] tel:[phone] Rx Conversion Data No Information 3200 9 Ramirez Nichelle. [address] [place] [address], MD Traci, [id number], [place]. tel:[phone] [facility] Traci Mccullough MD, [id number], [place] tel:[phone] Rx Conversion Data No Information 1200 9 Ramirez Nichelle. [address] [place] [address], [place] Traci, [id number], [place]. tel:[phone] [facility] Traci Mccullough MD, [id number], [place] tel:[phone] Rx Conversion Data No Information 8200 9 Ramirez Nichelle. [address] [place], [place] [address]Traci MD, [id number], [place]. tel:[phone] [facility], [id number], [place] tel:[phone] Rx Conversion Data No Information 0-200 9 Ramirez Nichelle. [facility] [place] [address], [place], [id number], [place]. tel:[phone] [facility], [id number], [place] tel:[phone] Rx Conversion Data No Information 5-200 9 Ramirez Nichelle. [address] [place] [address], MD Traci, [id number], [place]. tel:[phone] [facility] Traci Mccullough MD, [id number], [place] tel: [phone] Rx Conversion Data No Information 8-200 9 Ramirez Nichelle. [address] [place] [address], [address], [place] Traci, [id number], [place]. tel:[phone] [facility], [id number], [place] tel:[phone] Rx Conversion Data No Information 1-200 9 Ramirez Nichelle. [address] [place] [address], [facility] 340, [place] Traci, [id number], [place]. tel:[phone] [facility] Traci Mccullough MD, [id number], [place] tel:[phone] Rx Conversion Data No Information 3 0-200 9 Ramirez Nichelle. [address] [place] [address], [facility] 340, [place] Traci, [id number], [place]. tel:[phone] [facility] Traci Mccullough MD, [id number], [place] tel:[phone] Rx Conversion Data No Information Aug-0 2-200 9 Ramirez Nichelle. [facility], [facility] 340, MD Traci, [id number], [place]. tel:[phone] [facility] [place] [place], [id number], [place] tel:[phone] Rx Conversion Data No Information Jul-0 2-200 9 Ramirez Nichelle. [facility], [facility] 340, MD Traci, [id number], [place]. tel:[phone] [facility] Traci Gomez MD, [id number], [place] tel:[phone] Rx Conversion Data No Information 6-200 9 Ramirez Nichelle. [facility], [facility] 340, [place] Traci, [id number], [place]. tel:[phone] [facility] [place] MD, [id number], [place] tel:[phone] Rx Conversion Data No Information 1200 8 Ramirez Nichelle. [address] [facility], [facility] 340, MD Traci, [id number], [place]. tel:[phone] [facility] Traci Mccullough MD, [id number], [place] tel:[phone] Rx Conversion Data No Information 0 1200 8 Ramirez Nichelle. [address] [place] [address], [facility] 340, MD Traci, [id number], [place]. tel:[phone] [facility], [id number], [place] tel:[phone] Rx Conversion Data No Information 8 Ramirez Nichelle. [facility], [facility] 340, MD Traci, [id number], [place]. tel:[phone] [facility] [place] MD, [id number], [place] tel:[phone] Rx Conversion Data No Information 7200 8 Ramirez Nichelle. [facility], [facility] 340Traci MD, [id number], [place]. tel:[phone] [facility] [place], [id number], [place] tel:[phone] Rx Conversion Data No Information 6200 8 Ramirez Nichelle. [address] [place] [address], [facility] 340, MD Traci, [id number], [place]. tel:[phone] [facility] [place], [id number], [place] tel:+ [phone] Rx Conversion Data No Information 8200 8 Ramirez Nichelle. [facility], [facility] 340, [place] Traci, [id number], [place]. tel:[phone] [facility] [place] [place], [id number], [place] tel:+ [phone] Rx Conversion Data No Information May-1 9-200 8 Ramirez Nichelle. [address] [place] [address], [facility] 340, [place] Traci, [id number], [place]. tel:[phone] [facility], [id number], [place] tel:+ [phone] Rx Conversion Data No Information 8-200 8 Ramirez Inchelle. [address] [place] [address], [place] Traci, [id number], [place]. tel:[phone] [facility], [address] [place], [place] [address]Traci MD, [id number], [place] tel:+ [phone] Rx Conversion Data No Information 5-200 8 Ramirez Nichelle. [address] [place] [address], MD Traci, [id number], [place]. tel:[phone] [facility] Traci Mccullough MD, [id number], [place] tel:+ [phone] Rx Conversion Data No Information 4-200 8 Ramirez Nichelle. [address] [place] [address], MD Traci, [id number], [place]. tel:[phone] [facility] Traci Mccullough MD, [id number], [place] tel:+ [phone] Rx Conversion Data No Information 5-200 8 Ramirez Nichelle. [address] [place], [place] [address]Traci MD, [id number], [place]. tel:[phone] [facility], [id number], [place] tel:[phone] Rx Conversion Data No Information 4-200 8 Ramirez Nichelle. [facility] [place] [address], [id number], [place]. tel:[phone] [facility] Traci Mccullough MD, [id number], [place] tel:[phone] Rx Conversion Data No Information 8-200 8 Ramirez Nichelle. [address] [place] [address], MD Traci, [id number], [place]. tel:[phone] [facility], [id number], [place] tel:+ [phone] Rx Conversion Data No Information 2 0-200 7 Ramirez Nichelle. [address] [place] [address], [address], [place] Traci, [id number], [place]. tel:[phone] [facility], [id number], [place] tel:+ [phone] Rx Conversion Data No Information 4-200 7 Ramirez Nichelle. [address] [place] [address], [address], [place] Traci, [id number], [place]. tel:[phone] [facility] Traci Mccullough MD, [id number], [place] tel:+ [phone] Rx Conversion Data No Information 0 7-200 7 Ramirez Nichelle. [address] [place] [address], [facility] 340, MD Traci, [id number], [place]. tel:[phone] [facility], [id number], [place] tel:+ [phone] Rx Conversion Data No Information 0 5-200 7 Ramirez Nichelle. [address] [place] [address], [facility] 340, [place] Traci, [id number], [place]. tel:[phone] [facility] [place], [id number], [place] tel:+ [phone] Rx Conversion Data No Information 2 6-200 7 Ramirez Nichelle. [facility], [address], [place] Trcai, [id number], [place]. tel:[phone] [facility] C[facility] MD, [id number], [place] tel:+ [phone] Rx Conversion Data No Information 9-200 7 Ramirez Nichelle. [address] [place] [address], [facility] 340, MD Traci, [id number], [place]. tel:[phone] [facility] [place] [place], [id number], [place] tel:+ [phone] Rx Conversion Data No Information Dec-3 1-200 7 Ramirez Nichelle. [address] [place] [address], [facility] 340, MD Traci, [id number], [place]. tel:[phone] [facility] Trcai Mccullough MD, [id number], [place] tel:+ [phone] Rx Conversion Data No Information Dec-2 3-200 7 Ramirez Nichelle. [address] [place] [address], [facility] 340, MD Traci, [id number], [place]. tel:[phone] [facility], [id number], [place] tel:+ [phone] Rx Conversion Data No Information Dec-2 2-200 7 Ramirez Nichelle. [address] [place] [address], [facility] 340, MD Traci, [id number], [place]. tel:[phone] [facility] Traci Mccullough MD, [id number], [place] tel:+ [phone] Rx Conversion Data No Information Dec-1 6-200 7 Ramirez Nichelle. [facility] [place] [address], [place]aci, [id number], [place]. tel:[phone] [facility] C[place] MD, [id number], [place] tel:+ [phone] Rx Conversion Data No Information Dec-1 0-200 7 Ramirez Nichelle. [address] [place] [address] 340, [place] Traci, [id number], [place]. tel:[phone] [facility] Traci Mccullough MD, [id number], [place] tel:+ [phone] Rx Conversion Data No Information Aug-0 2-200 7 Ramirez Nichelle. [facility], [place]aci, [id number], [place]. tel:[phone] [facility] [place], [id number], [place] tel:+ [phone] Rx Conversion Data No Information 0-200 7 Ramirez Nichelle. [facility], [address], [place] Traci, [id number], [place]. tel:[phone] [facility], [id number], [place] tel:+ [phone] Rx Conversion Data No Information 3200 7 Ramirez Nichelle. [address] [facility] 340, [place] Traci, [id number], [place]. tel:[phone] [facility], [id number], [place] tel:+ [phone] Rx Conversion Data No Information 6-200 7 Ramirez Nichelle. [address] [facility] 340, MD Traci, [id number], [place]. tel:[phone] [facility] Traci Mccullough MD, [id number], [place] tel:+ [phone] Rx Conversion Data No Information 6-200 7 Ramirez Nichelle. [address] [place] [address], [facility] 340, MD Traci, [id number], [place]. tel:[phone] [facility] C[place], [id number], [place] tel:+ [phone] Rx Conversion Data No Information 0200 7 Ramirez Nichelle. [address] [place], [place] [address]Traci [place], [id number], [place]. tel:[phone] [facility] C[place], [id number], [place] tel:[phone] Rx Conversion Data No Information 0200 7 Ramirez Nichelle. [facility] [place] [address], [id number], [place]. tel:[phone] [facility] C[place], [id number], [place] tel:[phone] Rx Conversion Data No Information 4200 6 Ramirez Nichelle. [address] [place] [address] 340, [place] Traci, [id number], [place]. tel:[phone] [facility] Traci Mccullough MD, [id number], [place] tel:+ [phone] Rx Conversion Data No Information 9-200 6 Ramirez Nichelle. [address] [facility], [address], [place] Traci, [id number], [place]. tel:[phone] [facility], [id number], [place] tel:[phone] Rx Conversion Data No Information 5-200 6 Ramirez Nichelle. [address] [place] [address], [facility] 340, MD Traci, [id number], [place]. tel:[phone] [facility] Traci Gomez MD, [id number], [place] tel:[phone] Rx Conversion Data No Information 9-200 6 Ramirez Nichelle. [address] [place] [address], [facility] 340, MD Traci, [id number], [place]. tel:[phone] [facility] Traci Mccullough MD, [id number], [place] tel:+ [phone] Rx Conversion Data No Information 2-200 6 Ahmed Olesya. [address] [facility], [place] [address], [place] Bird, [address], [place]. tel:[phone] [facility], [id number], [place] tel:+ [phone] Rx Conversion Data No Information -200 6 Ramirez Nichelle. [facility], [facility] 340, MD Traci, [id number], [place]. tel:[phone] [facility] [place], [id number], [place] tel:+ [phone] Rx Conversion Data No Information 8-200 6 Ramirez Nichelle. [address] [place] [address], [facility] 340, MD Traci, [id number], [place]. tel:[phone] [facility] Traci Mccullough MD, [id number], [place] tel:+ [phone] Rx Conversion Data No Information 7200 6 [facility] Nichelle. [address] [place] [address], [facility] 340, MD Traci, [id number], [place]. tel:[phone] [facility], [id number], [place] tel:+ [phone] Rx Conversion Data No Information 7200 5 [facility] Nichelle. [address] [place] [address], [facility] 340, MD Traci, [id number], [place]. tel:[phone] [facility], [id number], [place] tel:+ [phone] Rx Conversion Data No Information 1200 5 [facility] Nichelel. [address] [place] [address], [facility] 340, MD Traci, [id number], [place]. tel:[phone] [facility], [id number], [place] tel:+ [phone] Rx Conversion Data No Information 8200 5 [facility] Nichelle. [address] [place] [address], [facility] 340, MD Traci, [id number], [place]. tel:[phone] [facility] Traci Mccullough MD, [id number], [place] tel:+ [phone] Rx Conversion Data No Information 0-200 4 Ramirez Nichelle. [address] [place] [address], [facility] 340, [place], [id number], [place]. tel:[phone] [facility] [place], [id number], [place] tel:+ [phone] Rx Conversion Data No Information 1-200 4 Ramirez Nichelle. [facility], [facility] 340, [place], [id number], [place]. tel:[phone] [facility] [place], [id number], [place] tel:[phone] Rx Conversion Data No Information 200 4 [facility]. [address] [place] [address], [address], [place], [id number], [place]. tel:[phone] Family History Family Member Type Diagnosis Age At Onset No Information Payers Payer name Insurance type Covered alliance party ID Authoriza tion(s) No Information Social History Type Description Quantity Date Captured [...]
--- OUTSIDE RECORDS SUMMARY | 2024-02-07 08:30 | XMS_ITS ---
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 Name Role Phone Mallorie Marie Primary Care Provider Maggie Ramos Unavailable [phone] Allergies Allergen (clinical drug ingredient) Drug/Non Drug Allergy documented on EMR Reaction Allergy Type Onset Date Status Iodinated contrast media (substance) Iodinated Contrast Media Unknown Drug Allergy Active Results Component Value Reference Range Notes Carotid Duplex Reviewed date:02/21/2024 10:48:53 AM Interpretation:mild let carotid artery plaque Performing Lab: Notes/Report: mild let carotid artery plaque REASON FOR VISIT forgetting things and getting lost when goes to [facility] Medications Medication SIG (Take, Route, Frequency, Duration) Notes Start Date End Date Status Albuterol Sulfate HFA 108 (90 Base) MCG/ACT 2 inhalations Inhalation four times a day as needed 11/24/2022 Active Levothyroxine Sodium 50 MCG TAKE 1 TABLE T EVERY OTHER DAY ALTERNATE WITH 1/2 TABLET EVERY OTHER DAY; Duration: 90 Active DULoxetine HCl 30 MG 1 capsule Orally Tw ice a day Active Losartan Potassium 50 MG 1 tablet Orally twice a day; Duration: 90 days Active Aspirin 81 MG 1 tab(s) orally once a day; Duration: 30 day(s) Active Metoprolol Succinate 50 MG 1 capsule Ora lly Once a day; Duration: 30 day(s) Active Spironolactone 25 MG 1 tablet Orally; Duration: 30 day(s) Active Problems Problem Type SNOMED Code ICD Code Onset Dates Problem Status W/U Status Risk Notes Problem Loss of balance (946601709) Loss of balance (R26.89) Active confirmed Problem Memory deficit (896433593) Memory deficit (R41.3) Active confirmed Vital Signs Blood pressure systolic 130 mm Hg 02/07/20 24 Blood pressure diastolic 70 mm Hg 024 Heart Rate 66 /min 02/07/2024 Height 66.50 in 02/07/2024 Weight 135.8 lbs 02/07/2024 BMI 21.59 kg/m2 02/07/2024 Encounters Encounter Location Date Provider Diagnosis [facility] [address] [facility] [address] [facility] [address] [place] [id number] 02/07/2024 Maggie Ramos Dizziness R42 ; Loss of balance R26.89 ; Depression with anxiety F41.8 and Memory deficit R41.3 Assessments Encounter Date Diagnosis (ICD Code) Assessment Notes Treatment Notes Treatment Clinical Notes Section Notes 02/07/2024 Dizziness (ICD-10 - R42) 02/07/2024 Loss of balance (ICD-10 - R26.89) 02/07/2024 Depression with anxiety (ICD-10 - F41.8) will increase Duloxitine 02/07/2024 Memory deficit (ICD-10 - R41.3) encouraged her to write down things she igoing to do, where she is going, directions to where she is going or use a GPS Plan Of Treatment Medication Medication Name Sig Start Date Stop Date Notes DULoxetine HCl 30 MG 1 capsule Orally Twice a day Treatment Notes Assessment Notes Depression with anxiety will increase Du loxitine Memory deficit encouraged her to wr ite down things she igoing to do, where she is going, directions to where she is going or use a GPS Next Appt Details Follow Up: 2 Weeks, Reason: Provider Name:Mallorie Dominguez , 04/29/2025 02:15:00 PM, [address] [facility] [address] [facility], [address], [place], [id number], Progress Notes * ANISHA DUBONDOB: 2 (74 yo F)Acc No.[id number]:02/07/2024 Progress Notes Patient: Arin ANISHA CARRERA Provider: KO Lewis :1950 A ge:73 Y S ex:Female Date:02/07/2024 Address:[id number] Pcp:Mallorie Marie Subjective: * Chief Complaints: * 1 . Forgetting things and getting lost when goes to town. * HPI: N eurology: 73 year old female presents with c/o memory loss P t is here today for c/o forgetting things and getting lost when going to town. Pt sts that her mother and father had Alzheimer's and she would like to see what is going on and determine if that is what is happening with her. Pt sts that that if she is getting Alzheimer's she would like to get a jump start on it before it gets much worse. Pt sts that she had to pick her grand baby up from day care one day and forgot where the day care was . Denies : headache. D enies : head injury. D enies : syncope. 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 P sychology: c/o stress. c/o sleep disturbances s he waits until her son is sleeping which is sometimes 11-12 MN and he awakens her in the middle of the night if he needs something. c/o low energy level. c/o Anxiety. c/o depression. c/o sad or cry easily. c/o Mood Disorder. her grandson told her she wished that she would not be as mean; Her has vocalized that he doen not know what has happened to her; no one helps her with the care of her son; her son has also made negative comments to her which make her sad; she does not want to be mean but sometimes that she could hurt someone. * ROS: R ESPIRATORY: Positive for r ecently had COVID followed by a sinusitis for which she is completing Amoxicillin. G ASTROENTEROLOGY: Positive for e ating as usual without problems. n o?Nausea. n o C onstipation. N EUROLOGY: no H eadache. M otto loss yes, s hort term; could not relate all of yesterday's activities. D izziness yes. G ait abnormality yes, u nsteady at times. O PTHALMOLOGY: Positive for h as had a recent dilated eye exam; has floaters and silver floaters periodically; has mentioned to cardiology and to eye MD. * 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: H ypercholestrolemia, Hypertriglyceridemia, Chronic Sinusitis, MVP on echo, MNG, Cardiac cath Dr. Barreto 2006, Cologard 11/27/2020 NEG, Depression, COPD, Hypothyroidism, Grade 1 diastolic dysfunction, LVH. * Surgical History: H ysterectomy (cystocoele/rectocoele) 1995, Anterior Colporrhaphy Repair 02/2009, Cholecystectomy , AVR 09/22/2022. * Hospitalization/Major Diagno stic Procedure: C hest Pain- [facility] 08/2010, : AVR for severe aortic regurgitation and calcified aortic valve; acute blood loss anemia; COPD with hypoxia 09/22-09/27/2022. * Family History: F ather: 91 yrs, CHF. M other: alive 85 yrs. S iblings: alive. C madelin: alive, 1 son is murdered at 25 yrs. of age. 7 brother(s) , 5 sister(s) - healthy. 3 son(s) , 2 daughter(s) . . * Social History: C URRENT TOBACCO USE S moking Status: Patient does NOT smoke. C affeine: yes, frequency:daily. Home smoke detector use: yes. Marital Status: . 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 Past smoking status: no, Smoking status: Does not smoke; quit smoking 25 years ago at which time she was smoking 3 PPD. Alcohol: No. Sexually active: yes. * Medications: T aking Spironolactone 25 MG Tablet 1 tablet Orally , Taking Metoprolol Succinate 50 MG Capsule ER 24 Hour Sprinkle 1 capsule Orally Once a day , Taking Aspirin 81 MG Tablet Delayed Release 1 tab(s) orally once a day , Taking Albuterol Sulfate HFA 108 (90 Base) MCG/ACT Aerosol Solution 2 inhalations Inhalation four times a day as needed , Taking Levothyroxine Sodium 50 MCG Tablet TAKE 1 TABLET EVERY OTHER DAY ALTERNATE WITH 1/2 TABLET EVERY OTHER DAY , Taking DULoxetine HCl 30 MG Capsule Delayed Release Particles 1 capsule Orally Once a day , Taking Losartan Potassium 50 MG Tablet 1 tablet Orally twice a day , Discontinued Cipro 250 MG Tablet 1 tablet Orally every 12 hrs , Medication List reviewed and reconciled with the patient * Allergies: I odinated Contrast Media. Objective: * Vitals: W t:135.8, Temp:98.0, BP:130/70, HR:66, O2 Sat:97% on RA, Nurse:FITO, Ht: 66.50, BMI:21.59. * Examination: G eneral Examination: General Appearance: NAD, appears healthy, alert, pleasant. H EENT: PERRLA, EOM's with normal ROM, no nystagmus. N mychal: transmitted murmur from AVR to carotids. H eart: RRR. L ungs: CTAB A&P. N eurologic Exam: alert and oriented, normal cranial nerves II-XII . Assessment: * Assessment: 1. D izziness - R42 (Primary) 2 . L oss of balance - R26.89 ?3. D epression with anxiety - F41.8 4 . M otto deficit - R41.3 Plan: * Treatment: 2.?Depression with anxiety? Increase DULoxetine HCl Capsule Delayed Release Particles, 30 MG, 1 capsule, Orally, Twice a day. ? Notes: will increase Duloxitine??3.?Memory deficit? Notes: encouraged her to write down things she igoing to do, where she is going, directions to where she is going or use a GPS?? * Procedure Codes: 9 4760 PULSE OX * Follow Up: 2 Weeks * Images: Billing Information: * Visit Code: 49188 Office Visit, Est Pt., Level 4. * Procedure Codes: 13277 PULSE OX. 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 Pt sts that her mother and father had Alzheimer's and she would like to see what is going on and determine if that is what is happening with her. Pt sts that that if she is getting Alzheimer's she would like to get a jump start on it before it gets much worse. Pt sts that she had to pick her grand baby up from day care one day and forgot where the day care was syncope Psychology low energy level her grandso n told her she wished that she would not be as mean; Her has vocalized that he doen not know what has happened to her; no one helps her with the care of her son; her son has also made negative comments to her which make her sad; she does not want to be mean but sometimes that she could hurt someone sleep disturbances she waits until her son is sleeping which is sometimes 11-12 MN and he awakens her in the middle of the night if he needs something stress sad or cry easily Anxiety depression Mood Disorder Examination Category Sub-Category Detail Notes Category Not es General Examination HEENT: PERRLA, EOM' s with normal ROM, no nystagmus Heart: RRR Lungs: CTAB A&P General Appearance: NAD, appears healthy , alert, pleasant Neurologic Exam: alert and oriented, normal cranial nerves II-XII Neck: transmitted murmur f rom AVR to carotids
--- OUTSIDE RECORDS SUMMARY | 2024-02-21 08:45 | XMS_ITS ---
Author Organization [facility] Address [address] [facility] [address] [facility] [address] [place] [id number] Care Team Providers Care Manager Pmo Name Role Phone Mallorie Marie Primary Care Provider Maggie Ramos [phone] Allergies Allergen (clinical drug ingredient) Drug/Non Drug Allergy documented on EMR Reaction Allergy Type Onset Date Status Iodinated contrast media (substance) Iodinated Contrast Media Unknown Drug Allergy Active REASON FOR VISIT 2 WEEK FU Encounters Encounter Location Date Provider Diagnosis [facility] [address] [facility] [address] [place] [id number] 02/21/2024 Maggie Ramos Plan Of Treatment Next Appt Details Provider Name:Mallorie Dominguez er, 04/29/2025 02:15:00 PM, [address] [facility], [address], [place], [place], [phone], Progress Notes * ANISHA DUBONDOB: 2 (74 yo F)Acc No.[id number]:02/21/2024 Progress Notes Patient: Arin LANGDAISY ANISHA Provider: KO Lewsi :1950 A ge:73 Y S ex:Female Date:02/21/2024 Address:[address] [place] [address] [phone] Pcp:Mallorie Marie Subjective: * [...] * Hospitalization/Major Diagno stic Procedure: Sade Roca- [facility] 08/2010, : AVR for severe aortic regurgitation [...] of Jillian Ramos APRN on 04/19/2025 at 08:23 PM EST Sign off status: Pending * Provider: KO Lewis Date: 0 02/21/2024 Generated for Lou turner/Hakeem/Langsmcirilo on: 1 06/19/2024 08:23 PM EST History and Physical Notes * HPI (History of Present Illness) Category Sub-Category Detail Notes Category Not es Neurology head injury memory loss Pt is here today for a 2 week f/u on memory loss. Pt sts that it is Psychology Pt sts her mood has been
--- OUTSIDE RECORDS SUMMARY | 2024-03-21 09:15 | XMS_ITS ---
[facility] Organization [facility] [address] [place] [id number] Care Team Providers Care Escalator Constructor Name Role Phone Mallorie Marie Primary Care Provider Melodie Ponce Unavailable [phone] Allergies Allergen (clinical drug ingredient) Drug/Non Drug Allergy documented on EMR Reaction Allergy Type Onset Date Status Iodinated contrast media (substance) Iodinated Contrast Media Unknown Drug Allergy Active REASON FOR VISIT high blood pressure reading Medications Medication SIG (Take, Route, Frequency, Duration) Notes Start Date End Date Status Irbesartan 300 MG 1 tablet Orally Once a day in the morning; Duration: 30 day(s) 03/21/2024 Active amLODIPine Besylate 5 MG 1 tablet Orally Once a day at night; Duration: 30 day(s) 03/21/2024 Active Levothyroxine Sodium 50 MCG TAKE 1 TABLE T EVERY OTHER DAY ALTERNATE WITH 1/2 TABLET EVERY OTHER DAY; Duration: 90 Active DULoxetine HCl 30 MG 1 capsule Orally Tw ice a day Active Aspirin 81 MG 1 tab(s) orally once a day; Duration: 30 day(s) Active Albuterol Sulfate HFA 108 (90 Base) MCG/ACT 2 inhalations Inhalation four times a day as needed 11/24/2022 Active Metoprolol Succinate 50 MG 1 capsule Ora lly Once a day Active Spironolactone 25 MG 1 tablet Orally Active Problems Problem Type SNOMED Code ICD Code Onset Dates Problem Status W/U Status Risk Notes Problem Hypertensive urgency (209539297) Hypertensive urgency (I16.0) Active confirmed Vital Signs Blood pressure systolic 186 mm Hg 03/21/20 24 Blood pressure diastolic 90 mm Hg 024 Heart Rate 65 /min 03/21/2024 Height 66.50 in 03/21/2024 Weight 136.8 lbs 03/21/2024 BMI 21.75 kg/m2 03/21/2024 Encounters Encounter Location Date Provider Diagnosis [facility] [address] [facility] [address] [facility] [address] [place] [phone] 03/21/2024 Melodie Ponce Essential hypertensi on I10 and Hypertensive urgency I16.0 Assessments Encounter Date Diagnosis (ICD Code) Assessment Notes Treatment Notes Treatment Clinical Notes Section Notes 03/21/2024 Essential hypertension (ICD-10 - I10) 03/21/2024 Hypertensive urgency (ICD-10 - I16.0) Discussed with Dr. Gaspar. Will stop the losartan and start on irbesartan and amlodipine. Will log BP twice a day and f/u in 2 weeks. Plan Of Treatment Medication Medication Name Sig Start Date Stop Date Notes Irbesartan 300 MG 1 tablet Orally Once a day in the morning; Duration: 30 day(s) 03/21/2024 amLODIPine Besylate 5 MG 1 tablet Orally Once a day at night; Duration: 30 day(s) 03/21/2024 Losartan Potassium 50 MG 1 tablet Orally twice a day Metoprolol Succinate 50 MG 1 capsule Orally Once a day Spironolactone 25 MG 1 tablet Orally Treatment Notes Assessment Notes Hypertensive urgency Discussed with Dr. Gaspar. Will stop the losartan and start on irbesartan and amlodipine. Will log BP twice a day and f/u in 2 weeks. Next Appt Details Follow Up: 2 Weeks, Reason: Provider Name:Mallorie Dominguez , 04/29/2025 02:15:00 PM, [address] [facility] [address] [facility], [address], [place], [id number], Progress Notes * ANISHA DUBONDOB: 2 (74 yo F)Acc No.[id number]:03/21/2024 Progress Notes Patient: ANISHA ORTIZ Provider: ZACH Humphreys :1950 A ge:73 Y S ex:Female Date:03/21/2024 Address:[address] [place] [address] [place], [id number] Pcp:Mallorie Marie Subjective: * Chief Complaints: * 1 . High blood pressure reading. * HPI: C ardiology: The patient is here today with c/o elevated BP. Pt states she checked her BP at [facility] today and it was 200/89. Pt states her home readings are running in the 170's/100's. Pt states she is taking her medications as directed. Pt states she has had a headache for several days and is having some chest pain and dizziness off and on when it is very elevated. 73 year old female presents with c/o Chest Pain. Denies : Short of Breath. D enies : Dizziness. D enies : Palpitations. * ROS: D ERMATOLOGY: no R cecilia. n o H adonis. G ASTROENTEROLOGY: no N ausea. n o V omiting. n o D iarrhea.? U ROLOGY: no D ifficulty urinating. n o B lood in urine. * 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: H ypercholestrolemia, Hypertriglyceridemia, Chronic Sinusitis, MVP on echo, MNG, Cardiac cath Dr. Barreto 2006, Cologard 11/27/2020 NEG, Depression, COPD, Hypothyroidism, Grade 1 diastolic dysfunction, LVH. * Surgical History: H ysterectomy (cystocoele/rectocoele) 1995, Anterior Colporrhaphy Repair 02/2009, Cholecystectomy , AVR 09/22/2022. * Hospitalization/Major Diagno stic [facility], : AVR for severe aortic regurgitation and calcified aortic valve; acute blood loss anemia; COPD with hypoxia 09/22-09/27/2022. * Family History: F ather: 91 yrs, CHF. M other: alive 85 yrs. S iblings: alive. C hildren: alive, 1 son is murdered at 25 [...] No. Sexually active: yes. * Medications: T vicg Spironolactone 25 MG Tablet 1 tablet Orally , Taking Metoprolol Succinate 50 MG Capsule ER 24 Hour Sprinkle 1 capsule Orally Once a day , Taking Aspirin 81 MG Tablet Delayed Release 1 tab(s) orally once a day , Taking Albuterol Sulfate HFA 108 (90 Base) MCG/ACT Aerosol Solution 2 inhalations Inhalation four times a day as needed , Taking Losartan Potassium 50 MG Tablet 1 tablet Orally twice a day , Taking DULoxetine HCl 30 MG Capsule Delayed Release Particles 1 capsule Orally Twice a day , Taking Levothyroxine Sodium 50 MCG Tablet TAKE 1 TABLET EVERY OTHER DAY ALTERNATE WITH 1/2 TABLET EVERY OTHER DAY , Medication List reviewed and reconciled with the patient * Allergies: I odinated Contrast Media. Objective: * Vitals: W t:136.8, Temp:98.3, BP:186/90, HR:65, O2 Sat:99% on RA, Nurse:RODRÍGUEZ, Ht: 66.50, BMI:21.75. * Examination: G eneral Examination: General Appearance: N AD. H EENT: u nremarkable.?Oral cavity: n o lesions, mucosa moist and WNL, no erythema. N mychal: s upple, no lymphadenopathy. C hest: n ormal shape and expansion. H eart: R SR. L ungs: c lear to auscultation. A bdomen: bowel sounds present, soft and nontender, no organomegaly or masses, no guarding or rigidity. N eurologic Exam: I ntact, gait normal. S kin: n ormal, no rash. P eripheral pulses: n ormal (2+) bilaterally. E xtremities: n o leg edema. Assessment: * Assessment: 1. E ssential hypertension - I10 (Primary) 2 . H ypertensive urgency - I16.0 Plan: * Treatment: 2. H ypertensive urgency Start Irbesartan Tablet, 300 MG, 1 tablet, Orally, Once a day in the morning, 30 day(s), 30, Refills 0; S tart amLODIPine Besylate Tablet, 5 MG, 1 tablet, Orally, Once a day at night, 30 day(s), 30, Refills 0. Notes: Discussed with Dr. Gaspar. Will stop the losartan and start on irbesartan and amlodipine. Will log BP twice a day and f/u in 2 weeks. * Procedure Codes: 9 4760 PULSE OX * Follow Up: 2 Weeks * Images: Billing Information: * Visit Code: 27631 Office Visit, Est Pt., Level 4. * Procedure Codes: 46995 PULSE OX. * Electronic signature of ZACH Pat on 04/19/2025 at 08:21 PM EST Sign off status: Pending * Provider: ZACH Humphreys Date: Generated for Saltyi ng/Hakeem/eTransmitting on: 06/19/2024 08:21 PM EST History and Physical Notes * HPI (History of Present Illness) Category Sub-Category Detail Notes Category Not es Cardiology Short of Breath Chest Pain Palpitations Dizziness Examination Category Sub-Category Detail Notes Category Not es General Examination HEENT: unremarkable Heart: RSR Lungs: clear to auscultatio n Abdomen: bowel sounds present , soft and nontender, no organomegaly or masses, no guarding or rigidity Extremities: no leg edema General Appearance: NAD Skin: normal, no rash Neurologic Exam: Intact, gait normal Neck: supple, no lymphaden opathy Oral cavity: no lesions, mucosa m oist and WNL, no erythema Peripheral pulses: normal (2+) bilatera lly Chest: normal shape and exp ansion
--- OUTSIDE RECORDS SUMMARY | 2024-04-04 04:15 | XMS_ITS ---
Author Organization [facility] Address [address] [place] [id number] Care Team Providers Care Production Control Supervisor Name Role Phone Mallorie Marie Primary Care Provider Melodie Ponce Unavailable [phone] Allergies Allergen (clinical drug ingredient) Drug/Non Drug [...] Notes Problem Vitreous floaters of both eyes (8121200597451 01) Vitreous floaters of both eyes (H43.393) Active confirmed Vital Signs Blood pressure systolic 114 mm Hg 04/04/20 24 Blood pressure diastolic 70 mm Hg 024 Heart Rate 63 /min 04/04/2024 Height 66.50 in 04/04/2024 Weight 137.2 lbs 04/04/2024 BMI 21.81 kg/m2 04/04/2024 Encounters Encounter Location Date Provider Diagnosis [facility] 36 [facility] [address] [place] [id number] 04/04/2024 Melodie Kris Essential hypertensi on I10 [...] bates progress, Reason: Provider Name:Mallorie Dominguez er, 04/29/2025 02:15:00 PM, [address] [facility], [address], [place], [phone], Progress Notes * DELIA DUBONB: (74 yo F)Acc No.[id number]:04/04/2024 Progress Notes Patient: Arin CARRERA ANISHA Provider: ZACH Humphreys :1950 A ge:73 Y S ex:Female Date:04/04/2024 Address:[facility] [place], [id number] Pcp:Mallorie Marie Subjective: * Chief Complaints: * [...] 09/22/2022. * Hospitalization/Major Diagno stic Procedure: C venita Pain- [facility] 08/2010, : AVR for severe aortic [...] * Images: Billing Information: * Visit Code: 26207 Office Visit, Est Pt., Level 4. * Procedure Codes: 05358 PULSE OX. * Electronic signature of ZACH Pat on 04/19/2025 at 08:22 PM EST Sign off status: Pending * Provider: ZACH Humphreys Date: 06/04/2023 Generated for [employer] ng/Fajohng/eTransmitting on: 06/19/2024 08:22 PM EST History and Physical Notes * [...]
--- OUTSIDE RECORDS SUMMARY | 2024-05-16 04:45 | XMS_ITS ---
Author Organization [facility] Address 1210 [facility] 36 [facility] [address] [place] [id number] Care Team Providers Care Environment Friendly Landscape Designer Name Role Phone Mallorie Marie Primary Care Provider Melodie Ponce [phone] Allergies Allergen (clinical drug ingredient) Drug/Non Drug Allergy documented on EMR Reaction Allergy Type Onset Date Status Iodinated contrast media (substance) Iodinated Contrast Media Unknown Drug Allergy Active REASON FOR VISIT dizzy tried all the time Encounters Encounter Location Date Provider Diagnosis [facility] [address] [facility] [address] [place] [id number] 05/16/2024 Melodie Ponce Plan Of Treatment Next Appt Details Provider Name:Mallorie Dominguez er, 04/29/2025 02:15:00 PM, 1210 [facility] 36 [facility], [address], [place], [id number], Progress Notes * ANISHA DUBONDOB: 2 (74 yo F)Acc No.[id number]:05/16/2024 Progress Notes Patient: JESUS ORTIZTY Provider: ZACH Humphreys :1950 A ge:73 Y S ex:Female Date:05/16/2024 Address:[address] [place] [address] [phone] Pcp:Mallorie Marie Subjective: * [...] * Hospitalization/Major Diagno stic Procedure: C hest [facility] 08/2010, : AVR for severe aortic [...] signature of ZACH Pat on 04/19/2025 at 08:20 PM EST Sign off status: Pending * Provider: ZACH Humphreys Date: 07/17/2023 Generated for Lou turner/Hakeem/eTransmitting on: 06/19/2024 08:20 PM EST
--- OUTSIDE RECORDS SUMMARY | 2024-08-21 06:30 | XMS_ITS ---
Author Organization [facility] Address [address] [place] [id number] Care Team Providers Care Process Helper Name Role Phone Mallorie Marie Primary Care Provider Kee Gaspar Unavailable [phone] Allergies Allergen (clinical drug ingredient) Drug/Non Drug Allergy documented on EMR Reaction Allergy Type Onset Date Status Iodinated contrast media (substance) Iodinated Contrast Media Unknown Drug Allergy Active Results Component Value Reference Range Notes CBC Venipuncture (in house) Reviewed date:08/22/2024 05:54:01 PM Interpretation: Performing Lab: Notes/Report: wbc 4.6 3.5 - 10 lymph 35.2% 15 - 50 mid 8.5% 2 - 15 gran 56.3% 35 - 80 rbc 4.95 3.5 - 5.5 hgb 13.8 11.5 - 16.5 hct 40.5 35 - 55 mcv 81.9 75 - 100 mch 27.9 25 - 35 mchc 34.0 31 - 38 platlet 212 100 - 400 P-Basic Metabolic Panel (BMP ) Reviewed date:08/22/2024 05:54:01 PM Interpretation:Calcium 10.7 Performing Lab: Notes/Report: CLIA: [id number] Kenneth Mcrae MD, Child Life Specialist [facility] , [address], [place] [address] Test performed by [facility], [facility] Sodium 138 135-145 mmol/L Potassium 4.9 3.5-5.3 mmol/L Chloride 104 97-108 mmol/L CO2 24 22-32 mmol/L Glucose 91 65-99 mg/dL BUN 16 8-23 mg/dL Creatinine 0.92 0.50-1.00 mg/dL Calcium 10.7 8.6-10.4 mg/dL eGFR by Creatinine 66 >59 mL/min/1.73m2 P-CPK Reviewed date:08/22/2024 05:54:01 PM Interpretation:247 Performing Lab: Notes/Report: Test performed by [facility] , [address], [place] [address] Kenneth Mcrae MD, Child Life Specialist CLIA: [id number] Creatine Kinase 247 20-180 U/L J-V-Tfeokfub Protein (CRP) Reviewed date:08/22/2024 05:54:01 PM Interpretation:0.81 Performing Lab: Notes/Report: [facility] , [facility], [place] [address] Kenneth Mcrae MD, Child Life Specialist CLIA: [id number] C-Reactive Protein (CRP) 0.81 <0.50 mg/dL P-Sed Rate (ESR) Reviewed date:08/22/2024 05:54:01 PM Interpretation:Normal Performing Lab: Notes/Report: [facility] performed [facility] , [address], [place] [address] Kenneth Mcrae MD, Child Life Specialist CLIA: [id number] Erythrocyte Sedimentation Rate (ESR), Automated 7 <31 mm/hr P-Magnesium Reviewed date:08/22/2024 05:54:01 PM Interpretation:Normal Performing Lab: Notes/Report: Test performed by [facility] , [address], [place] [address] Kenneth Mcrae MD, Child Life Specialist CLIA: [id number] Magnesium 2.2 1.6-2.4 mg/dL P-Phosphorus Reviewed date:08/22/2024 05:54:01 PM Interpretation:Normal Performing Lab: Notes/Report: Test performed by [facility] [address] , [address], [place] [address] Kenneth Mcrae MD, Child Life Specialist CLIA: [id number] Phosphorus 3.2 2.5-4.5 mg/dL REASON FOR VISIT leg cramps Medications Medication SIG (Take, Route, Frequency, Duration) Notes Start Date End Date Status DULoxetine HCl 30 MG 1 capsule Orally Tw ice a day; Duration: 90 days Active Irbesartan 300 MG TAKE 1 TABLET EVERY MORNING; Duration: 90 Active Levothyroxine Sodium 50 MCG TAKE 1 TABLE T EVERY OTHER DAY ALTERNATE WITH 1/2 TABLET EVERY OTHER DAY; Duration: 90 days Active Metoprolol Succinate 50 MG 1 capsule Ora lly Once a day Active amLODIPine Besylate 5 MG 1 tablet Orally Once a day at night; Duration: 30 days Active Albuterol Sulfate HFA 108 (90 Base) MCG/ACT 2 inhalations Inhalation four times a day as needed 11/24/2022 Active Spironolactone 25 MG 1 tablet Orally Active pyRIDostigmine [place] 30 MG 1 tablet Or ally Five times a day; Duration: 30 day(s) Active Aspirin 81 MG 1 tab(s) orally once a day; Duration: 30 day(s) Active Problems Problem Type SNOMED Code ICD Code Onset Dates Problem Status W/U Status Risk Notes Problem Myasthenia gravis without exacerbation (98644311441193) MG (myastheni a gravis) (G70.00) Active confirmed Vital Signs Blood pressure systolic 132 mm Hg 08/22/19 25 Blood pressure diastolic 70 mm Hg 025 Heart Rate 66 /min 08/21/2024 Height 66.50 in 08/21/2024 Weight 140 lbs 08/21/2024 BMI 22.26 kg/m2 08/21/2024 Encounters Encounter Location Date Provider Diagnosis [facility] [address], [place] [id number] 08/21/2024 Kee [place] Cramp in lower leg R25.2 ; Myalgia M79.10 and MG (myasthenia gravis) G70.00 Assessments Encounter Date Diagnosis (ICD Code) Assessment Notes Treatment Notes Treatment Clinical Notes Section Notes 08/21/2024 Cramp in lower leg (ICD-10 - R25.2) 08/21/2024 Myalgia (ICD-10 - M79.10) 08/21/2024 MG (myasthenia gravis) (ICD-10 - G70.00) Note from Dr. Thao reviewed, keep f/u appt. in 2 weeks Plan Of Treatment Treatment Notes Assessment Notes MG (myasthenia gravis) Note from Dr. Callum gant reviewed, keep f/u appt. in 2 weeks Next Appt Details Follow Up: via phone to repo rt test results, Reason: Provider Name:Mallorie Dominguez er, 04/29/2025 02:15:00 PM, [address], [address], [place], [place], [id number], Progress Notes * ANISHA DUBONDOB: 2 (74 yo F)Acc No.[id number]:08/21/2024 Progress Notes Patient: ANISHA ORTIZ Provider: Kam Gaspar M.D. :1950 A ge:74 Y S ex:Female Date:08/21/2024 Address:[address] [place] [address] [place], [id number] Pcp:Mallorie Marie Subjective: * Chief Complaints: * 1 . Leg cramps. * HPI: N eurology: 74 year old female presents with c/o restless legs P t complains of bilateral leg cramps at night for a while . Pt states she has been taking OTC medication for restless legs but has not had any relief. Pt states she did not sleep last night due her leg cramping. * ROS: D ERMATOLOGY: no R cecilia. n o H adonis. G ASTROENTEROLOGY: no N ausea. n o V omiting. U ROLOGY: no D ifficulty urinating. n o B lood in urine. * 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: H ypercholestrolemia, Hypertriglyceridemia, Chronic Sinusitis, MVP on echo, MNG, Cardiac cath Dr. Barreto 2006, Cologard 11/27/2020 NEG, Depression, COPD, Hypothyroidism, Grade 1 diastolic dysfunction, LVH. * Surgical History: H ysterectomy (cystocoele/rectocoele) 1995, Anterior Colporrhaphy Repair 02/2009, Cholecystectomy , AVR 09/22/2022. * Hospitalization/Major Diagno stic Procedure: C hest Pain- [facility] 08/2010, [place]: AVR for severe aortic regurgitation and calcified aortic valve; acute blood loss anemia; COPD with hypoxia 09/22-09/27/2022. * Family History: F ather: 91 yrs, CHF. M other: alive 85 yrs. S iblings: alive. Sade yusuf: alive, 1 son is murdered at 25 [...] Sexually active: yes. * Medications: T aking pyRIDostigmine [place] 30 MG Tablet 1 tablet Orally Five times a day , Taking Aspirin 81 MG Tablet Delayed Release 1 tab(s) orally once a day , Taking Albuterol Sulfate HFA 108 (90 Base) MCG/ACT Aerosol Solution 2 inhalations Inhalation four times a day as needed , Taking Spironolactone 25 MG Tablet 1 tablet Orally , Taking Metoprolol Succinate 50 MG Capsule ER 24 Hour Sprinkle 1 capsule Orally Once a day , Taking amLODIPine Besylate 5 MG Tablet 1 tablet Orally Once a day at night , Taking DULoxetine HCl 30 MG Capsule Delayed Release Particles 1 capsule Orally Twice a day , Taking Irbesartan 300 MG Tablet TAKE 1 TABLET EVERY MORNING , Taking Levothyroxine Sodium 50 MCG Tablet TAKE 1 TABLET EVERY OTHER DAY ALTERNATE WITH 1/2 TABLET EVERY OTHER DAY , Medication List reviewed and reconciled with the patient * Allergies: I odinated Contrast Media. Objective: * Vitals: W t: 140, Temp: 97.8, BP: 132/70, HR: 66, O2 Sat: 97% on RA, Nurse: marcela, Ht: 66.50, BMI:22.26. * Examination: G eneral Examination: General Appearance: N AD. H eart: R SR. L ungs:?clear to auscultation. P eripheral pulses: n ormal (2+) bilaterally. E xtremities:?no leg edema. Assessment: * Assessment: 1. C ramp in lower leg - R25.2 (Primary) 2 . M yalgia - M79.10 ?3. M G (myasthenia gravis) - G70.00 Plan: * Treatment: Value Reference Range B UN 16 8-23 - mg/dL * C alcium 10.7 H 8.6-10.4 - mg/dL * C hloride 104 97-108 - mmol/L * C O2 24 22-32 - mmol/L * C reatinine 0.92 0.50-1.00 - mg/dL * G lucose 91 65-99 - mg/dL * P otassium 4.9 3.5-5.3 - mmol/L * S odium 138 135-145 - mmol/L * e GFR by Creatinine 66 >59 - mL/min/1.73m2 * Gina Abreu 08/22/2024 05: 53:49 PM > see phone encounter ?LAB: P-Magnesium (Collection Date & Time - 08/21/2024 11:20 AM)?Normal* Value Reference Range M agnesium 2.2 1.6-2.4 - mg/dL * Gina Abreu 08/22/2024 05: 53:49 PM > see phone encounter ?LAB: P-Phosphorus (Collection Date & Time - 08/21/2024 11:20 AM)?Normal* Value Reference Range P hosphorus 3.2 2.5-4.5 - mg/dL * Gina Abreu 08/22/2024 05: 53:49 PM > see phone encounter ?LAB: CBC Venipuncture (in house) (Collection Date & Time - 08/21/2024)* Value Reference Range w bc 4.6 3.5 - 10 * l ymph 35.2% 15 - 50 * m id 8.5% 2 - 15 * g ran 56.3% 35 - 80 * r bc 4.95 3.5 - 5.5 * h gb 13.8 11.5 - 16.5 * h ct 40.5 35 - 55 * m cv 81.9 75 - 100 * m ch 27.9 25 - 35 * m chc 34.0 31 - 38 * p latlet 212 100 - 400 * Homa Benjamin 08/21/2024 12:34:3 8 PM > Gina Abreu 08/22/2024 05:53:49 PM > see phone encounter 2.?Myalgia?LAB: P-CPK (Collection Date & Time - 08/21/2024 11:20 AM)?247* Value Reference Range C reatine Kinase 247 H 20-180 - U/L * Gina Abreu 08/22/2024 05: 53:49 PM > see phone encounter ?LAB: L-H-Lcspytux Protein (CRP) (Collection Date & Time - 08/21/2024 11:20 AM)?0.81* Value Reference Range C -Reactive Protein (CRP) 0.81 H <0.50 - mg/dL * Gina Abreu 08/22/2024 05: 53:49 PM > see phone encounter ?LAB: P-Sed Rate (ESR) (Collection Date & Time - 08/21/2024 11:20 AM)?Normal * Value Reference Range E rythrocyte Sedimentation Rate (ESR), Automated 7 <31 - mm/hr * Gina Abreu 08/22/2024 05: 53:49 PM > see phone encounter 3.?MG (myasthenia gravis)? Notes: Note from Dr. Thao reviewed, keep f/u appt. in 2 weeks?? * Procedure Codes: G 2211 Complex e/[place], [address] CBC WITH AUTO DIFF, 3075F SYST BP GE 130 - 139MM HG, 3078F DIAST BP < 80 MM HG * Follow Up: v ia phone to report test results * Images: Billing Information: * Visit Code: 81790 Office Visit, Est Pt., Level 4. * Procedure Codes: G2211 Complex e/[place]. [address] CBC WITH AUTO DIFF. 3075F SYST BP GE 130 - 139MM HG. 3078F DIAST BP < 80 MM HG. * Electronic signature of Tara Gaspar MD on 04/19/2025 at 08:21 PM EST Sign off status: Pending * Provider: Kam Gaspar M.D. Date: 0 08/21/2024 Generated for Saltyi ng/Fajohng/eTransmitting on: 1 06/19/2024 08:21 PM EST History and Physical Notes * HPI (History of Present Illness) Category Sub-Category Detail Notes Category Not es Neurology restless legs Pt complains of bilateral leg cramps at night for a while . Pt states she has been taking OTC medication for restless legs but has not had any relief. Pt states she did not sleep last night due her leg cramping Examination Category Sub-Category Detail Notes Category Not es General Examination Heart: RSR Lungs: clear to auscultatio n Extremities: no leg edema General Appearance: NAD Peripheral pulses: normal (2+) bilatera lly
--- OUTSIDE RECORDS SUMMARY | 2024-11-26 08:30 | XMS_ITS ---
Author Organization [facility] Address [address] [place] [id number] Care Team Providers Care Emergency Crew Supervisor Name Role Phone Mallorie Marie Primary Care Provider Maggie Ramos Unavailable [phone] Allergies Allergen (clinical drug ingredient) Drug/Non Drug [...] Diagnosis 1 Rectal mass (K62.89) [facility] Referring Provider First Name Maggie Referring Provider [...] TWIC E DAILY; Duration: 90 Active pyRIDostigmine Tyrone 30 MG 1 tablet Or ally Five times a day; Duration: 30 day(s) Active Aspirin 81 MG 1 tab(s) orally once a day; Duration: 30 day(s) Active Vital Signs Blood pressure systolic 110 mm Hg 11/27/19 25 Blood pressure diastolic 60 mm Hg 025 Heart Rate 80 /min 11/26/2024 Height 66.50 in 11/26/2024 Weight 139.4 lbs 11/26/2024 BMI 22.16 kg/m2 11/26/2024 Encounters Encounter Location Date Provider Diagnosis [facility] [address] [phone] 11/26/2024 Maggie Ramos Acute upper respiratory infection [...] Up: prn, Reason: Provider Name:Mallorie Dominguez er, 04/29/2025 02:15:00 PM, [address] [facility] [address] [facility], [address], [place], [place], [id number], Progress Notes * ANISHA DUBONDOB: 2 (74 yo F)Acc No.[id number]:11/26/2024 Progress Notes Patient: ANISHA ORTIZ Provider: KO Lewis :1950 A ge:74 Y S ex:Female Date:11/26/2024 Address:[address] [place], [place] [id number] Pcp:Mallorie Marie Subjective: * Chief Complaints: * [...] active: yes. * Medications: T aking pyRIDostigmine [place] 30 MG Tablet 1 tablet Orally Five [...] I mbalance - R26.89 5 . B NV 22.0-22.9, adult - Z68.22 Plan: * Treatment: [...] G 2211 Complex e/[place], [address] CAPILLARY BLOOD DRAW, 59294 CBC WITH AUTO DIFF, 94694 COVID TEST IN HOUSE, Modifiers: QW , 1036F TOBACCO NON-USER, G8420 BMI<30 AND >=22 CALC & DOCU, G8783 BP SCR PRFRM RCMDD DEFIND SCR INTVL, G8752 MOST RECENT SYSTOLIC BP < 140MM HG, G8754 MOST RECENT DIASTOLIC BP < 90MM HG * Follow Up: p rn * Images: Billing Information: * Visit Code: 77685 Office Visit, Est Pt., Level 3. * Procedure Codes: G2211 Complex e/[place]. [address] CAPILLARY BLOOD DRAW. 12383 CBC WITH AUTO DIFF. 04946 COVID TEST IN HOUSE. Modifiers: QW 1036F [...] 11/26/2024 Generated for Lou turner/Hakeem/Kenyattaitting on: 1 06/19/2024 08:23 PM EST History [...]
--- OUTSIDE RECORDS SUMMARY | 2025-01-12 06:15 | XMS_ITS ---
[facility] Organization [facility] Address [address] [place] [id number] Care Team Providers Care Mash Processing Operator Name Role Phone Mallorie Marie Primary Care Provider Kee Gaspar Unavailable [phone] Allergies Allergen (clinical drug ingredient) Drug/Non Drug [...] a day as needed 11/24/2022 Active pyRIDostigmine [place] 30 MG 1 tablet Or ally Five times a day; Duration: 30 day(s) Active Metoprolol Succinate 50 MG 1 capsule Ora lly Once a day Active Spironolactone 25 MG 1 tablet Orally Active Vital Signs Blood pressure systolic 130 mm Hg 01/13/20 25 Blood pressure diastolic 70 mm Hg 025 Heart Rate 62 /min 01/12/2025 Height 66.50 in 01/12/2025 Weight 140.8 lbs 01/12/2025 BMI 22.38 kg/m2 01/12/2025 Encounters Encounter Location Date Provider Diagnosis [facility]10 [facility] 36 [facility] [address] [place] [id number] 01/12/2025 Kee [place] Muscle spasm of back M62.830 Assessments Encounter [...] rt progress, Reason: Provider Name:Mallorie Dominguez er, 04/29/2025 02:15:00 PM, 1210 [facility] 36 [facility], [address], [place], [id number], Progress Notes * ANISHA DUBONDOB: 2 (74 yo F)Acc No.[id number]:01/12/2025 Progress Notes Patient: ANISHA ORTIZ Provider: Kam Gaspar M.D. :1950 A ge:74 Y S ex:Female Date:01/12/2025 Address:[address] [place] [address] [id number] Pcp:Mallorie Marie Subjective: * [...] * Hospitalization/Major Diagno stic Procedure: C venita [facility] 08/2010, : AVR for severe aortic [...] active: yes. * Medications: T aking pyRIDostigmine [place] 30 MG Tablet 1 tablet Orally Five [...] * Images: Billing Information: * Visit Code: 80375 Office Visit, Est Pt., Level 3. * Procedure Codes: G2211 Complex e/m visit add on. * Electronic signature of Tara Gaspar MD on 04/19/2025 at 08:22 PM EST Sign off status: Pending * Provider: Kam Gaspar M.D. Date: 0 01/12/2025 Generated for Lou turner/Hakeem/Sonam on: 06/19/2024 08:22 PM EST History and [...]
--- OUTSIDE RECORDS SUMMARY | 2025-01-17 11:00 | XMS_ITS ---
Author Organization [facility] Address 1210 [facility] 36 [facility] [address] [place] [phone] Care Team Providers Care Manager Photography Name Role Phone Mallorie Marie Primary Care Provider Melodie Ponce [phone] Allergies Allergen (clinical drug ingredient) Drug/Non Drug Allergy documented on EMR Reaction Allergy Type Onset Date Status Iodinated contrast media (substance) Iodinated Contrast Media Unknown Drug Allergy Active REASON FOR VISIT Pain not Improving Encounters Encounter Location Date Provider Diagnosis [facility] [address] [facility] [address] [place] [phone] 01/17/2025 Melodie Ponce Plan Of Treatment Next Appt Details Provider Name:Mallorie Dominguez er, 04/29/2025 02:15:00 PM, 1210 [facility] 36 [facility], [address], [place], [id number], Progress Notes * ANISHA DUBONDOB: 2 (74 yo F)Acc No.[id number]:01/17/2025 Progress Notes Patient: Arin CARRERA ANISHA Provider: ZACH Humphreys :1950 A ge:74 Y S ex:Female Date:01/17/2025 Address:[address] [place] [address] [phone] Pcp:Mallorie Marie Subjective: * [...] 09/22/2022. * Hospital[facility]Major Diagno stic [facility], [place]: AVR for severe aortic [...] 01/17/2025 Generated for Lou turner/Hakeem/Kenyattaitting on: 1 06/19/2024 08:22 PM EST
--- OUTSIDE RECORDS SUMMARY | 2025-03-28 14:00 | XMS_ITS | Encounter Summary ---
[facility] [address] [place] [address] Care Team Providers Care Construction Rep Name Role Phone Andres Marie MD Primary Care Provider [phone] Reason for Referral * MRI/CAT/PET Scan (Routine) - Authorized Specialty Diagnoses / Procedures Referred By Naima telles Referred To Contact Radiology Diagnoses Vulvar cancer Procedures NM Pet Skull Base To Mid Thigh Vinayak Delgado MD [address] [place] [address] Phone: tel: fax: Referral ID Status Reason Start Date Expiration Date V isits Requested Visits Authorized [id number] Authorized 03/28/2025 06/27/2026 4 4 Reason for Visit * Reason Comments Vulvar Cancer * Consultation (Urgent) - Closed Specialty Diagnoses / Procedures Referred By Naima telles Referred To Contact Radiation Oncology Diagnoses Squamous cell carcinoma of anal skin Connor Nava MD [address] [facility] [place] [address] Phone: tel: fax: [place] [address] [place] [address] Phone: tel: fax: Referral ID Status Reason Start Date Expiration Date V isits Requested Visits Authorized [id number] Closed Specialty Services Required 03/27/2025 06/26/2026 1 1 Encounter Details Date Type Department Care Team (Late st Contact Info) Description 03/28/2025 3:00 PM EDT Office Visit [facility] [address] [place] [address] Vinayak Delgado MD [address] [place] [address] Vulvar cancer (Primary Dx) Social History Tobacco [...] 1. Await examination with Dr. Allen with [employer] oncology regarding potential for surgery 2. If [...] Care Team (Late st Contact Info) Description 04/22/2025 2:00 PM EST Office Visit [facility] [address] [place] [address] Andres Allen MD [address] [facility] [address] [place] [address] documented as of this encounter Procedures Procedure [...] MD 04/10/2025 1:57 PM EST Workstation ID: [id number] Narrative 04/10/2025 1:57 PM EST FDG NM [...] Signed: True Goel MD 04/10/2025 1:57 PM [facility] Workstation ID: [id number] Vinayak Delgado MD G NM ORDERABLES Fi nal Result * Colonoscopy, Scan (03/28/2025) Result [facility] CHART REVIEW TABS Final Re sult * LABS SCANNED (03/28/2025) Result [facility] LAB BLOOD ORDERABLES Final Re sult * SCANNED PATHOLOGY (03/28/2025) Result [facility] PATHOLOGY/CYTOLOGY ORDERABLES Final Result * IMAGING SCANNED (03/28/2025) Anatomical Region Laterality Modality Radiographic Lisa ging Result [facility] DIAGNOSTIC IMAGING ORDERA BLES Final Result * IMAGING SCANNED (03/28/2025) Anatomical Region Laterality Modality Radiographic Lisa ging Result [facility] DIAGNOSTIC IMAGING ORDERA BLES Final Result * IMAGING SCANNED (03/28/2025) Anatomical Region Laterality Modality Radiographic Lisa ging [facility] IMG DIAGNOSTIC IMAGING ORDERA BLES Final Result documented in this encounter Visit Diagnoses Diagnosis Vulvar cancer- Primary Malignant neoplasm of vulva, unspecified site Vulvar cancer Malignant neoplasm of vulva, unspecified site documented in this encounter Care Teams Construction Rep Relationship Specialty Start Date End Date Andres Marie MD [address] [facility] [address] [facility] [address] [place] [address] PCP - General Family Medicine 03/27/25 documented as of this encounter
--- OUTSIDE RECORDS SUMMARY | 2025-04-01 10:45 | XMS_ITS | Encounter Summary ---
[facility] Address [address] [place] [id number] Care Team Providers Care Extra Gang Supervisor Name Role Phone Sudhir Marie MD Primary Care Provider [phone] Reason for Referral * MRI/CAT/PET Scan (Routine) - Closed Specialty Diagnoses / Procedures Referred By Naima telles Referred To Contact Radiology Diagnoses Vulvar cancer Procedures MRI Pelvis With & Without Contrast Sudhir Zimmer MD [address] [facility] [address] [place] [address] Phone: tel: fax: Referral ID Status Reason Start Date Expiration Date Visits Re quested Visits Authorized [id number] Closed 04/01/2025 07/01/2026 1 1 * Diagnostic Imaging (Routine) - Closed Specialty Diagnoses / Procedures Referred By Naima telles Referred To Contact Radiology Diagnoses Vulvar cancer Procedures XR Chest 1 View Sudhir Zimmer MD [address] [facility] [address] [place] [address] Phone: tel: fax: Referral ID Status Reason Start Date Expiration Date Visits Re quested Visits Authorized [id number] Closed 04/01/2025 07/01/2026 1 1 Encounter Details Date Type Department Care Team (Late st Contact Info) Description 04/01/2025 10:45 AM EST Office Visit [facility] GYNECOLOGIC ONCOLOGY [address] [facility] [address] [address] [place] [address] Sudhir Zimmer MD [address] [facility] [address] [place] [address] [id number] Vulvar cancer (Primary Dx) Social History Tobacco Use Types Packs/Day Years Used Date Smoking Tobacco: Former Cigarettes Comments:Quit 22 years ago Alcohol Use Standard Drinks/Week Comments Not Currently 0 (1 standard drink = 0.6 oz pur e alcohol) Abuse Screen Answer Date Recorded Feels Unsafe at Home or Work/School no 04/02/2025 Feels Threatened by Someone no 08/2024 Does Anyone Try to Keep You From Having Contact with Others or Doing Things Outside Your Home? no 04/02/2025 Physical Signs of Abuse Present no 04/02/2025 Education Answer Date Recorded Help with school or training? Not on file Preferred Language Solomon Islander 04/02/2025 PHQ-2 Answer Date Recorded Patient Health Questionnaire-2 Score 1 03/28/2025 Comments Unknown Sex and Gender Information Value Date Recorded Sex Assigned at Not on file Legal Sex Female 11:49 AM EDT Gender Identity Not on file Sexual Orientation Not on file documented as of this encounter Last Filed Vital Signs Vital Sign Reading Time Taken Comments Blood Pressure 129/63 04/01/2025 10:48 AM EST Pulse 98 04/01/2025 10:48 AM EST Temperature 36.8 C (98.3 F) 04/01/2025 10:48 AM EST Respiratory Rate 18 04/01/2025 10:48 AM EST Oxygen Saturation 97% 04/01/2025 10:48 AM EST Inhaled Oxygen Concentration - - Weight 64.6 kg (142 lb 8 oz) 04/01/2025 10:48 AM EST Height 167.6 cm (5' 6 ) 04/01/2025 10:48 AM EST Body Mass Index 23 04/01/2025 10:48 AM EST documented in this encounter Patient Instructions * Patient Instructions* Keturah Mendes - 04/01/2025 10:45 AM EST Images from the original note were not included. Surgery Instructions Kathy Barron [id number] 1950 SURGEON: SUDHIR ZIMMER Surgery Coordinator: Kiara Humphrey Gynecological Oncology [address] [facility] [address] [place] [address], [id number] Pre-Admission Testing Appointment You have a Pre-Admission Testing (PAT) appointment on 04/02/2025 at 9:30 AM You will need to be at hospital registration 10 minutes before that time. Directions to PAT and Registration will be listedbelow. We understand your time is valuable. To prevent delays, please bring the following to your PAT apt.if it applies to you: Written physician orders (if given to you by your physician) All medications in the original bottles including [id number] medications (not a list) Copy of living will or power of state attorney documents Copy of recent test results (EKG, stress test, echo, heart cath, etc.) Copy of pacemaker or ICD cards and date of last interrogation Copy of cardiac clearance letter from your grading machine operator or primary care physician if history of heart problems Name and phone number of your pharmacy, primary care physician and/or grading machine operator CPAP or BiPAP settings Surgery Appointment Your surgery has been scheduled on 04/09/2025. You will need to go to Main Registration to check inat 7:30 AM. Then you will be sent to the [address] [place] [address] second floor surgery registration desk to check in. Nothing by mouth after midnight on 04/08/2025. If you are feeling sick, have a fever or cough and have seen your PCP let our office know 48 hours prior to surgery. It may be subject to rescheduling. The Day of Surgery: Do not chew gum or tobacco, smoke, or eat mints or hard candy. Shower and wash your hair. You may brush your teeth but do not swallow water. Use any wipes that Pre-admission testing has given you. Please arrive for surgery as instructed by the pre-op nurse, often one to two hours before your surgery. Once you are called to go to your pre-op room, no one will be allowed in the pre op room. Please note no one under age 12 is permitted to stay in the waiting area without supervision. Remove all jewelry, including rings and piercings. Do not bring valuables to the hospital. Wear loose-fitting clothing. Avoid wearing eye makeup or contact lenses We make every effort to begin surgery at your scheduled start time but delays do occur. We will keep you and your family updated about any delays Please note: you MUST have a delivery truck driver over the age of 18 to drive you home from the hospital. You maynot use Uber, Lyft or a taxi. Please remember to bring: Photo ID and current medical insurance card Advanced directives, living will or power of state attorney (if applicable) Current list of all medications, including over-the- counter and herbal supplements List of allergies CPAP device if you have sleep apnea Any assistive devices or equipment needed after surgery While You are In the Pre-Op Room: The nurse will review your health history and will place an IV (into the vein) in your hand or arm for fluids and medicines. An anesthesia provider will talk with you about anesthesia and pain control during and after surgery. A member of the surgical team can answer your questions. Directions to [facility] [address] [facility] ? [place], [place] [address] ? From [address] and [address] [facility]: Take [address] to the [address] exit. Go right on [address] to [address]. Right on [address] to [facility]. Left on [address] to [facility] which is on the left. From [address] [facility]: Get off [address] at the [address] exit. Go left on [address] to [address]. Right on [address] [facility]. Left on [facility] to [facility] which is on the left. From the South ([place]): Follow [facility] to approximately one mile inside [facility]. [facility] is on the right at [facility] and [facility]. Parking: Free Access Coordinator Parking - Take Entrance [address] and go straight ahead to [address] [place] [address]. Self Parking - Take Entr[address], bear left and follow the road to [facility]. Directions to Registration: If entering through front of [address] (gas flow regulator parking), take a right and proceed up the hallwayconnecting [address] to [address]. Registration is on the left about intermediate up the [address]amante. If entering from [facility], take garage elevator to first floor (1), exit to the right and proceed through the doors to outside, follow the covered sidewalk to entrance of [facility], follow signs to [address] [place] [address], this leads to the [facility] lobby and information desk. Proceed past the information desk to the hallway that connects [address] [place] [address] [facility]. Registration is on the left about intermediate up the [address]. Directions to Pre-admission Testing: Follow directions to Registration and Pre-admission Testing is next door to Registration PREPARING FOR SURGERY Disability or Work Release Forms Work: The amount of time you will be off work after surgery depends on both your surgery and your job. Discuss this with your doctor before surgery. If you have any questions about this, call your doctor. You must provide all forms completed and signed to the [facility] office. FORM FOR AUHTHORIZATION FOR USE AND/OR DISCLOSURE OF PROCTED HEALTH INFORMATION CAN BE PROVIDED UPON REQUEST. Preoperative Evaluation and Optimization If your doctor tells you to get a preoperative evaluation from your primary care provider, grading machine operator, or other specialist, it is your responsibility to make sure to complete these well before yoursurgery. We want you to get evaluated to make sure you are as healthy as possible when you have your surgery. If the evaluation, including all recommended testing, is not done in time, your surgery will be postponed. If you take diabetic medications please consult with the prescriber. Continue antidepressants, Beta Blockers olol , anti-seizure medication, GERD medication (heartburn), Opioids and Parkinson's medication. Let us know if you have a history of blood clots or are taking a blood thinner before your surgery,this will need to be held and you will need to discuss this with staff. If you are taking any weight loss medications please let our staff now. Ideally they will need to be held 2 weeks prior to your procedure. You are allowed 1 visitor that may remain in the waiting room at both locations. Visitors cannot come back to pre-op or post-op areas. Please note: you MUST have a delivery truck driver over the age of 18 to drive you home from the hospital. You maynot use Uber, Lyft or a taxi. Physical Fitness Research shows that getting more physical activity before surgery can lower your risk for problems after surgery. Walking is a great way to improve your fitness level before surgery. Even if you start walking just a few weeks before surgery, it can make a big difference. Quit Smoking If you smoke, your risk of having a lung problem is at least twice that of a non-smoker. Surgical incisions will not heal as well and you have a higher risk of infection The heart has to work harder. It is best to quit smoking 6 to 8 weeks before surgery. This gives your lungs more time to recover. Outpatient Surgery You will need to have someone bring you to the hospital, stay in the waiting room during your procedure and take you home at discharge. It is recommended that someone stay with you 24 hours after your procedure. If you live more than a 4-hour drive away from the hospital, or live in an area without easy accessto an emergency department, we recommend you plan to spend another night or two close to the hospital before you go home. For assistance with hotel, prices and vouchers let our office know and we canlet you talk with our plant operations worker, Kayla Bates. Post-Operative Visit You will be scheduled a post-operative appointment for 3 weeks after your surgical procedure. If you do not have an appointment please call the office and have that scheduled. How to prevent nausea The best way to prevent nausea is to eat frequent small meals. It is especially important to eat something before taking pain medication. Take your ondansetron if you are feeling nauseous do not wait. Pain Management after Surgery If you have kidney disease or liver disease and are not to take ibuprofen or Tylenol please let your doctor or nurse know. Driving: Do not drive while you are taking prescription pain medications. It is normal to have some pain after surgery. The goal of managing your acute pain after surgery isto minimize your pain so you feel comfortable enough to get up, take deep breaths, wash, get dressed, and do simple tasks in your home. Some discomfort is likely. We do not expect you to be completely free of pain. Pain is usually worst the first 24-48 hours after surgery. What can I do to relieve pain without medications? Apply heat with a warm compress, hot water bottle, or heating pad. Do not put anything hot directlyon your skin or lie on top of it. Apply cooling with a cold gel pack, bag of peas, or crushed ice. Wrap in a soft cloth or towel. Do not push or press on your incision. It is normal for your incision to be sore for up to 6 weeks if you push on it. Unless your doctor gives you a different plan, ibuprofen and acetaminophen are the main medicines you will use to manage your pain. You may also get a prescription for an opioid such as oxycodone or hydrocodone. Opioids should onlybe added as needed to reduce pain that is not adequately relieved by ibuprofen and acetaminophen. Typical Pain Medication Schedule 6 am Ibuprofen 600 mg 9 am acetaminophen 650 mg 12:00 pm Noon Ibuprofen 600 mg 3:00 pm Acetaminophen 650 mg 6:00 pm Ibuprofen 600 mg 9:00 pm Acetaminophen 650 mg 12:00 am Midnight Ibuprofen 600 mg. What if this schedule does not control my pain? Please call the office and let us know at [phone] Reduce the number and frequency of opioids as soon as you can. Do not take more opioid medication than your doctor has prescribed. Common side effects and risks of opioids include drowsiness, mental confusion, dizziness, nausea, constipation, itching, dry mouth, and slowed breathing. Never mix opioids with alcohol, sleep aids or anti-anxiety medications. These are dangerous combinations that increase the harmful effects of opioid pain medication. Many overdose deaths from opioidsalso involve at least one other drug or alcohol. It is illegal to sell or share an opioid without a prescription properly issued by a licensed health care prescriber. What is the best way to stop taking pain medications? 1. Stop opioid use. 2. Stop acetaminophen. 3. Gradually decrease how often you take ibuprofen. It is a good idea to take a 600 mg pill before you start a more tiring activity such as going shopping or for a long walk. Once you get more active, you may have a day when your pain gets a little worse. If this happens, take ibuprofen. If ibuprofen does not relieve the pain, add acetaminophen. What do I need to know about bowel movements? Starting as soon as you get home, take 17 grams of Miralax (one capful) twice a day to keep your stool soft and prevent constipation. It is important to prevent constipation because straining can damage your stitches. Your stool should be as soft as toothpaste. If your stool gets too loose, cut back to using Miralax only once a day. If you used a bowel prep before surgery, it is common not to have a bowel movement on the first andsecond day after surgery. If you have not had a bowel movement by 7 p.m. on the third day after surgery, do one of the following at bedtime: Drink 1 ounce (2 tablespoons) of Milk of Magnesia (MOM). If you have used MOM before and know you need to take 2 ounces for it to work for you, it is OK to do this, or Take 2 Senekot tablets. Go for short walks. Walking and being active will help you have a bowel movement. If you have not had a bowel movement by noon on the fourth day after surgery, call the clinic whereyou were seen and ask to speak with a nurse. What kind of vaginal bleeding is normal? Spotting of pink or red blood from the vagina is normal. Brown-colored discharge that gradually changes to a light yellow or cream color is also normal and can last up to 6 weeks. The brownish discharge is old blood and often has a strong odor, this is okay. Call us if it becomes heavier or foul smelling or you are saturating a maxi pad within an hour. At Home after Surgery: If you experience a medical emergency call 911 or have someone drive you to your nearest emergency department. When should I call my doctor? Call your doctor right away, any time of the day or night, including on weekends and holidays, if you have any of the following signs or symptoms: A temperature over 100.4??F (38??C) If you don't have one, please buy a thermometer before your surgery. Heavy bleeding (soaking a regular pad in an hour or less) Severe pain in your abdomen or pelvis that the pain medication is not helping Chest pain or difficulty breathing Swelling, redness, or pain in your legs An incision that opens An incision that is red or hot Fluid or blood leaking from an incision New bruising after leaving the hospital that is large or spreading. A little bit of bruising aroundan incision is normal. Nausea and vomiting Skin rash Unable to urinate at all Pain or stinging when you pass urine Blood or cloudiness in your urine Non-stop urge to pass urine, but only dribbling when you try to go A sense that something is wrong. Caring for post-surgical incisions Do not have vaginal intercourse until your doctor evaluates you at a postop visit and tells you OK. Showers: You may shower starting 24 hours after your surgery. NO BATHS: do not take a tub bath up to 6 weeks after surgery. Do not put any lotion, oil, gel, or powder on or near your incisions. For incisions inside your vagina: Incisions inside the vagina are closed with dissolvable stitches.When they dissolve you may see little bits of suture material that look like thin pieces of string on your underwear or on toilet tissue after wiping. This is normal. Do not put anything inside the vagina until your doctor evaluates you at a postop visit and tells you when it will be OK. For incisions on your skin: If there is a dressing over the incision, remove it before your first shower. Leave the slim adhesive strips that are under the dressing in place. During the week after surgery, they will usually curl up at the edges and then come off on their own. If they are still there a week after surgery, gently remove them. To clean the incisions, first wash your hands, and then get your hands sudsy with soap and gently wash or let the sudsy water run down over the incisions. Dry the incisions well after washing by gently patting with a towel. You may use a blow dryer, but it must be on a low-heat setting. When will my bladder function get back to normal? You received extra fluid through your I.V. while you were in the hospital, so it is normal to urinate (pee) more than usual when you first get home. It is normal for your bladder function to be different after surgery. You may notice a pause beforeyour urine stream starts or that your urine stream is slower. This will gradually get better, but it may take up to 6 months before you are back to normal. Be patient, relax, and sit on the toilet a little longer. Drinking more water than usual will not help the bladder recover faster. What is a normal energy level? It is normal to have a decreased energy level after surgery. Listen to your body. If you need to rest, do it. Give yourself permission to take it easy. Once you settle into a normal routine at home, you will find that you slowly begin to feel better. Walking around the house and taking short walks outside will help you get back to normal. What kind of exercise/activities can I do? Exercise is important for a healthy recovery. We encourage you to begin normal physical activity, like walking, within hours of surgery. Start with short walks and gradually increase the distance andlength of time that you walk. Allow your body time to heal. Do not restart a difficult exercise routine until you have had your post-op exam and your doctor says it is OK. Lifting: Unless you are given other instructions, for 6 weeks after your surgery do not lift anything over 15 pounds. Travel: It is best if you do not go far away from home before your postop visit with your doctor. If you have travel plans, talk to your doctor about this before your surgery. Financial Assistance: If you have any questions or need assistance, contact your [facility] financial counseling office from 8:30 a.m.-4:30 p.m. Tuesday through Tuesday. Closed weekends. [place]: [phone] or, or visit at [address] [place] [address], [address], near the entrance. Financial Assistance Application available upon request Patient Payments and Correspondence Customer service representatives are available to assist you from 8:00 a.m. to 6:00 p.m. Eastern Standard Time by calling Tuesday through Tuesday. You can also contact us through komoot. [facility] [address] [place] [address] documented in this encounter Progress Notes * Sudhir Zimmer MD - 04/01/2025 10:45 AM EST Images from the original note were not included. Kathy Barron [id number] 1950 Reason for visit: Squamous of carcinoma Consultation: Patient is being seen at the request of Dr. Simeon History of present illness: The patient is a 74 y.o. year old female who presents today for treatment and evaluation of the above issues. 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 Lesion medial aspect of left lobe of liver 5 mm decreasing in size since previous CT scan no noted adenopathy. Patient initially presented with a small bowel bump near her episiotomy for many years. Patient started noticing it growing and when she looked below thought she had something protruding through the rectum. Patient was seen by GI and underwent evaluation for possible anal cancer with biopsy as above. Upon further evaluation felt that mass is likely limited to perineum and patient referred here for further discussion and evaluation. For new patients, [facility] intake form from patient patient's chart and referring physicians was reviewed and confirmed. OBGYN History: She is a No obstetric history on file.. She does not have a history of abnormal pap smears. Oncologic History: Oncology/Hematology History Vulvar cancer 03/28/2025 Initial Diagnosis Vulvar cancer 03/28/2025 Cancer Staged Staging form: Vulva, AJCC V9 - Clinical stage from 03/28/2025: FIGO Stage II (cT2, cN0, cM0) - Signed by Vinayak Delgado MD on 03/28/2025 Past 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: Diagnosis Date Anal cancer COPD (chronic obstructive pulmonary disease) Disease of thyroid gland Hypertension Myasthenia gravis Osteoporosis PONV (postoperative nausea and vomiting) Skin cancer Past Surgical History: Procedure Laterality Date AORTIC VALVE REPAIR/REPLACEMENT 07/2022 Bioprosthetic valve BLADDER REPAIR 2006 CHOLECYSTECTOMY COLONOSCOPY HYSTERECTOMY 1993 05 ovary remains OTHER SURGICAL HISTORY Left reports clip in left breast MEDICATIONS: Current Outpatient Medications: amLODIPine (NORVASC) 5 MG tablet, Take 1 tablet by mouth Every Night., Disp: , Rfl: aspirin 81 MG EC tablet, Daily., Disp: , Rfl: Colestid 1 g tablet, Take by mouth. (Patient not taking: Reported on 04/02/2025), Disp: , Rfl: DULoxetine (CYMBALTA) 30 MG capsule, Take 1 capsule by mouth Every Night., Disp: , Rfl: irbesartan (AVAPRO) 300 MG tablet, Take by mouth Daily., Disp: , Rfl: levothyroxine sodium (TIROSINT) 50 MCG capsule, Take 1 capsule by mouth Daily., Disp: , Rfl: metoprolol succinate XL (TOPROL-XL) 50 MG 24 hr tablet, Take 1 tablet by mouth Every Night., Disp: , Rfl: pyridostigmine (MESTINON) 60 MG tablet, Take by mouth 3 (Three) Times a Day., Disp: , Rfl: risedronate (ACTONEL) 35 MG tablet, Take 1 tablet by mouth Every 7 (Seven) Days., Disp: , Rfl: spironolactone (ALDACTONE) 25 MG tablet, Take by mouth Daily., Disp: , Rfl: vitamin B-12 (CYANOCOBALAMIN) 1000 MCG tablet, Take 1 tablet by mouth Daily., Disp: , Rfl: No current facility-administered medications for this visit. Allergies: is allergic to iodinated contrast media. Social History: Social History Socioeconomic History Marital status: Tobacco Use Smoking status: Former Types: Cigarettes Smokeless tobacco: Never Tobacco comments: Quit 22 years ago Vaping Use Vaping status: Never Used Substance and Sexual Activity Alcohol use: Not Currently Drug use: Never Sexual activity: Defer Family History: Family History Problem Relation Name Age of Onset Heart disease Mother Heart disease Father Breast cancer Sister Lung cancer Sister Leukemia Brother Health Maintenance: Health Maintenance Topic Date Due DXA SCAN Never done Pneumococcal Vaccine 50+ (1 of 2 - PCV) Never done TDAP/TD VACCINES (1 - Tdap) Never done MAMMOGRAM Never done ZOSTER VACCINE (1 of 2) Never done COVID-19 Vaccine (3 - Moderna risk series) 07/01/2021 INFLUENZA VACCINE Never done HEPATITIS C SCREENING Never done ANNUAL WELLNESS VISIT Never done COLORECTAL CANCER SCREENING 03/28/2035 Review of Systems: Please refer to history of present illness. Review of systems otherwise negative. Physical Exam: Vitals: 04/01/25 1048 BP: 129/63 Pulse: 98 Resp: 18 Temp: 98.3 ??F (36.8 ??C) TempSrc: Temporal SpO2: 97% Weight: 64.6 kg (142 lb 8 oz) Height: 167.6 cm (66 ) PainSc: 5 PainLoc: Groin Body mass index is 23 kg/m??. Wt Readings from Last 3 Encounters: 04/02/25 64.4 kg (141 lb 15.6 oz) 04/02/25 64.4 kg (142 lb) 04/01/25 64.6 kg (142 lb 8 oz) PHQ-9 Depression Screening Little interest or pleasure in doing things? Feeling down, depressed, or hopeless? PHQ-2 Total Score Trouble falling or staying asleep, or sleeping too much? Feeling tired or having little energy? Poor appetite or overeating? Feeling bad about yourself - or that you are a failure or have let yourself or your family down? Trouble concentrating on things, such as reading the newspaper or watching television? Moving or speaking so slowly that other people could have noticed? Or the opposite - being so fidgety or restless that you have been moving around a lot more than usual? Thoughts that you would be better off , or of hurting yourself in some way? PHQ-9 Total Score If you checked off any problems, how difficult have these problems made it for you to do your work,take care of things at home, or get along with other people? GENERAL: Alert, well-appearing female appearing her stated age who is in no apparent distress. BREASTS: Deferred CARDIOVASCULAR: Normal rate, regular rhythm, no murmurs, rubs, or gallops. No peripheral edema. RESPIRATORY: Clear to auscultation bilaterally, normal respiratory effort GASTROINTESTINAL: Abdomen is soft, non-tender, non-distended, no rebound or guarding, no masses, orhernias. No HSM. PSYCHIATRIC: AO x3, with appropriate affect, normal thought processes. NEUROLOGIC: No focal deficits. Moves extremities well. MUSCULOSKELETAL: Normal gait and station. EXTREMITIES: No cyanosis, clubbing, symmetric. LYMPHATICS: 1 cm palpable left groin mass PELVIC exam: External genitalia see diagram. On bimanual examination, the cervix absent. On bimanual examination no mass was appreciated. Vaginal cuff without palpable lesions. Parametria were smooth. Rectovaginal exam no obvious tumor in anus or palpable distance of rectum Physical Exam Genitourinary: Genitourinary Comments: 2 cm left perineum mass abutting midline Mass appears to be mobile without extension to sphincter or anus. Stays exterior to introitus consistent with T1b tumor approximately 2 cm in diameter. ECOG PS 0 PROCEDURES: None Diagnostic Data: XR Chest 1 View Result Date: 04/02/2025 Impression: No acute findings. Electronically Signed: Steven Lewis MD 04/02/2025 9:43 AM EST Workstation ID: [id number] Lab Results Component Value Date WBC 6.29 04/02/2025 HGB 13.3 04/02/2025 HCT 41.4 04/02/2025 MCV 84.8 04/02/2025 PLT 285 04/02/2025 NEUTROABS 3.85 04/02/2025 GLUCOSE 126 (H) 09/24/2022 NA 141 09/22/2022 K 4.4 09/24/2022 CL 98 09/24/2022 MG 2.1 09/27/2022 No results found for: TSH No results found for: FT4 No results found for: CA125 Assessment & Plan This is a 74 y.o. woman Encounter Diagnosis Name Primary? Vulvar cancer Yes I discussed with patient her exam is most consistent with a vulvar cancer. Appears to be a stage Ib(greater than 2 cm). Discussed my concerns about a palpable lymph node in her left groin though it is 1 cm not meeting pathologic criteria but concerning. Plan to obtain MRI to assess for distance between tumor and sphincter and also better evaluation of groins. Agree with previously ordered PET scan to look for extrapelvic disease in view of the small nodularities in her lungs. Will likely proceed forward with modified radical vulvectomy and bilateral sentinel inguinal node dissection with use of spy phi. Discussed the indications for radiation. Discussed the option of preoperative radiation but in view of the exam feel that this can be primarily resected with probable margin and would defer radiation based onfinal pathology report. I discussed the risks of surgery in detail including risk of bleeding infection high risk of wound separation lymphedema lymphocyst formation lymphangitis cosmetic changes pain sexual dysfunction and anal sphincter dysfunction. Also discussed the possible need of postoperative radiation or additional procedures. Discussed the risk of recurrence despite aggressive therapy. After this discussion patient wished to proceed forward with surgery. All questions answered. Pain assessment was performed today as a part of patient???s care. For patients with pain related to surgery, gynecologic malignancy or cancer treatment, the plan is as noted in the assessment/plan. For patients with pain not related to these issues, they are to seek any further needed care from a more appropriate provider, such as PCP. Orders Placed This Encounter Procedures XR Chest 1 View Standing Status: Future Number of Occurrences: 1 Expected Date: 04/06/2025 Expiration Date: 04/01/2026 Reason for Exam:: preop Release to patient: Routine Release [[id number]] MRI Pelvis With & Without Contrast Standing Status: Future Number of Occurrences: 1 Expected Date: 04/06/2025 Expiration Date: 04/01/2026 Release to patient: Routine Release [[id number]] Reason for Exam:: vulvar cancer and palpable left groin mass Comprehensive Metabolic Panel Standing Status: Future Number of Occurrences: 1 Expected Date: 04/06/2025 Expiration Date: 04/01/2026 Release to patient: Routine Release [[id number]] Verify NPO Status Standing Status: Future Expected Date: 04/06/2025 Provide Instructions to Patient on NPO Status Standing Status: Future Expected Date: 04/06/2025 Chlorhexidine Skin Prep Chlorhexidine Skin Prep and Instructions For All Patients Having A Procedure Requiring an Outward Incision if Not Allergic. If Allergic, Give Antibacterial Skin Wipes and Instructions. Do Not Use ForFacial Cases or on Any Mucus Membranes. Standing Status: Future Expected Date: 04/06/2025 Instruct Patient on Coughing, Deep Breathing & Incentive Spirometry Standing Status: Future Expected Date: 04/01/2025 ECG 12 Lead Standing Status: Future Number of Occurrences: 1 Expected Date: 04/06/2025 Expiration Date: 04/01/2026 Reason for Exam:: preop Release to patient: Routine Release [[id number]] Type & Screen Standing Status: Future Expected Date: 04/01/2025 Expiration Date: 04/01/2026 Release to patient: Routine Release [[id number]] CBC & Differential Standing Status: Future Number of Occurrences: 1 Expected Date: 04/06/2025 Expiration Date: 04/01/2026 Manual Differential: No Release to patient: Routine Release [[id number]] FOLLOW UP: No follow-ups on file. I spent 65 minutes caring for Kathy on this date of service. This time includes time spent by me inthe following activities: preparing for the visit, reviewing tests, performing a medically appropriate examination and/or evaluation, counseling and educating the patient/family/caregiver, referring and communicating with other health home health care coordinator, documenting information in the medical record, ordering test(s), and ordering procedure(s) Electronically Signed by: Sudhir Zimmer MD Date: 04/02/2025 documented in this encounter Plan of Treatment Upcoming Encounters Date Type Department Care Team (Late st Contact Info) Description 04/22/2025 2:00 PM EST Office Visit [facility] [address] [place] [address] Sudhir Zimmer MD [address] [facility] [address] [place] [address] documented as of this encounter Results * Type & Screen (04/09/2025 10:12 AM EST) ABO Type O 04/09/2025 11:39 AM EST [facility] RH type Positive 04/09/2025 11:39 AM EST [facility] Antibody Screen Negative 04/09/2025 11:39 AM EST [facility] T&S Expiration Date 04/12/2025 11:59:59 PM 04/09/2025 11:39 AM EST [facility] Blood 04/09/2025 10:1 2 AM EST 04/09/2025 10:26 AM EST Sudhir Zimmer MD BLOOD BANK TEST ORDERABLES Manoj seferino Result - Final [facility]
[address] [place] [address], * XR Chest 1 View (04/02/2025 9:37 AM EST) Anatomical Region Laterality Modality Body N/A Radiographic Lisa ging 04/02/2025 9:42 AM EST Impressions 04/02/2025 9:43 AM EST Impression: No acute findings. Electronically Signed: Steven Lewis MD 04/02/2025 9:43 AM EST Workstation ID: [id number] Narrative 04/02/2025 9:43 AM EST XR CHEST 1 VW Date of Exam: 04/02/2025 9:34 AM EST Indication: preop. Comparison: None available. Findings: Sternotomy. Aortic valve repair/replacement. Cardiomediastinal silhouette is within normal limits. Benign calcified granuloma in the left apex. No focal consolidation. No pleural effusion or pneumothorax. Osseous structures are unremarkable. Procedure Note Steven Lewis MD - 04/02/2025 XR CHEST 1 VW Date of Exam: 04/02/2025 9:34 AM EST Indication: preop. Comparison: None available. Findings: Sternotomy. Aortic valve repair/replacement. Cardiomediastinal silhouetteis within normal limits. Benign calcified granuloma in the left apex. Nofocal consolidation. No pleural effusion or pneumothorax. Osseousstructures are unremarkable. IMPRESSION: Impression: No acute findings. Electronically Signed: Steven Lewis MD 04/02/2025 9:43 AM EST Workstation ID: [id number] Sudhir Zimmer MD IMG DIAGNOSTIC IMAGING ORDERAB LES Final Result * ECG 12 Lead (04/02/2025 8:56 AM EST) QT Interval 440 ms ECG QTC Interval 417 ms ECG 04/02/2025 8:56 AM EST 04/02/2025 5:01 PM EST Narrative ECG - 04/02/2025 5:01 PM EST Test Reason : preop Blood Pressure : */* mmHG Vent. Rate : 54 BPM Atrial Rate : 54 BPM P-R Int : 182 ms QRS Dur : 94 ms QT Int : 440 ms P-R-T Axes : 71 1 27 degrees QTcB Int : 417 ms Sinus bradycardia Otherwise normal ECG No previous ECGs available Confirmed by ROBSON LEÓN MD ([id number]) on 04/02/2025 5:01:03 PM Referred By: Confirmed By: ROBSON LEÓN MD Procedure Note Robson León MD - 04/02/2025 Test Reason : preop Blood Pressure : */* mmHG Vent. Rate : 54 BPM Atrial Rate : 54 BPM P-R Int : 182 ms QRS Dur : 94 ms QT Int : 440 ms P-R-T Axes : 71 1 27 degrees QTcB Int : 417 ms Sinus bradycardia Otherwise normal ECG No previous ECGs available Confirmed by ROBSON LEÓN MD ([id number]) on 04/02/2025 5:01:03 PM Referred By: Confirmed By: ROBSON LEÓN MD us Sudhir Zimmer MD ECG ORDERABLES Final Result BH ECG * (ABNORMAL) Comprehensive Metabolic Panel (04/02/2025 8:24 AM EST) Glucose 96 65 - 99 mg/dL 04/02/2025 10:57 AM EST [facility] BUN 11.0 8.0 - 23.0 mg/dL 04/02/2025 10:57 AM [facility] Creatinine 0.88 0.57 - 1.00 mg/dL 04/02/2025 10:57 AM [facility] Sodium 141 136 - 145 mmol/L 04/02/2025 10:57 AM [facility] Potassium 5.1 3.5 - 5.2 mmol/L 04/02/2025 10:57 AM [facility] Comment:Specimen hemolyzed. Result may be falsely elevated. Chloride 106 98 - 107 mmol/L 04/02/2025 10:57 AM [facility] CO2 25.5 22.0 - 29.0 mmol/L 04/02/2025 10:57 AM [facility] Calcium 10.8(H) 8.6 - 10.5 mg/dL 04/02/2025 10:57 AM [facility] Total Protein 7.2 6.0 - 8.5 g/dL 04/02/2025 10:57 AM [facility] Albumin 4.4 3.5 - 5.2 g/dL 04/02/2025 10:57 AM [facility] ALT (SGPT) 19 1 - 33 U/L 04/02/2025 10:57 AM [facility] AST (SGOT) 30 1 - 32 U/L 04/02/2025 10:57 AM [facility] Alkaline Phosphatase 139(H) 39 - 117 U/L 04/02/2025 10:57 AM [facility] Total Bilirubin 0.6 0.0 - 1.2 mg/dL 04/02/2025 10:57 AM EST [facility] Globulin 2.8 gm/dL 04/02/2025 10:57 AM EST [facility] Comment:Calculated Result A/G Ratio 1.6 g/dL 04/02/2025 10:57 AM EST [facility] BUN/Creatinine Ratio 12.5 7.0 - 25.0 04/02/2025 10:57 AM EST [facility] Anion Gap 9.5 5.0 - 15.0 mmol/L 04/02/2025 10:57 AM [facility] eGFR 69.9 >60.0 mL/min/1.7 3 04/02/2025 10:57 AM EST [facility] Blood Venipuncture / Unknown 04/02/2025 8:24 AM EST 04/02/2025 9:02 AM EST [facility] - 04/02/2025 10:57 AM EST GFR Categories in Chronic Kidney Disease (CKD) GFR Category GFR (mL/min/1.73) Interpretation G1 90 or greater Normal or high (1) G2 60-89 Mild decrease (1) G3a 45-59 Mild to moderate decrease G3b 30-44 Moderate to severe decrease G4 15-29 Severe decrease G5 14 or less Kidney failure (1)In the absence of evidence of kidney disease, neither GFR category G1 or G2 fulfill the criteria for CKD. eGFR calculation 2020 CKD-EPI creatinine equation, which does not include race as a factor us Sudhir Zimmer MD LAB BLOOD ORDERABLES Final Res ult [facility]
[address] [place] [address], * MRI Pelvis With & Without Contrast (04/02/2025 7:56 AM EST) Anatomical Region Laterality Modality Body, Pelvis N/A Magnetic Resonan ce 04/02/2025 4:4 9 PM EST Impressions 04/02/2025 5:02 PM EST Impression: 1. Motion-degraded exam. 2. Soft tissue mass centered in the left vulvar soft tissues measuring up to 3.6 cm suspicious for primary malignancy. Posteriorly it lesion abuts the anal sphincter complex, otherwise confined to the vulvar and adjacent perineal soft tissues. 3. Asymmetrically enlarged left inguinal chain lymph node highly suspicious for lili metastases. 4. Mild cystocele. 5. Other chronic/ancillary findings as above. Electronically Signed: Abdulaziz Martinez MD 04/02/2025 5:02 PM EST Workstation ID: [id number] Narrative 04/02/2025 5:02 PM EST MRI PELVIS W WO CONTRAST Date of Exam: 04/02/2025 7:25 AM EST Indication: vulvar cancer and palpable left groin mass. Comparison: CT abdomen pelvis 03/14/2025 Technique: Routine multiplanar/multisequence images of the pelvis were obtained before and after the uneventful intravenous administration of Vueway. Findings: Motion-degraded exam limiting accurate delineation of anatomic structures in the pelvis. Asymmetric soft tissue mass centered at the left vulvar soft tissues showing T2 intermediate signal and heterogeneous postcontrast enhancement suspicious for primary malignancy measuring approximately 3.1 x 2.2 x 3.6 cm AP, transverse and craniocaudal dimension. Posteriorly tumor abuts the anal sphincter complex without overt invasion image 49-50 of series 10 for example. No invasion of the urethra or vagina. Mass extends into the left perineal subcutaneous soft tissues inferiorly. No convincing involvement of skeletal muscle. Heterogeneous appearing asymmetrically enlarged left inguinal lymph node measuring 1.2 x 2 cm highly suspicious for lili metastases. Total hysterectomy. Urinary bladder extends 1.6 cm below pubococcygeal line suggesting mild cystocele. No suspicious adnexal mass. There is a T2 hyperintense 9 mm right ovarian cyst considered almost certainly benign. Minimal if any pelvic fluid without organized collection. No visualized peritoneal or omental nodule. Major pelvic vessels enhance as expected. Tiny fat-containing hernia at the umbilicus. Symmetric muscle bulk and signal intensity. Benign sacral Tarlov cysts. No suspicious osseous lesion or marrow replacing process. Benign sacral vertebral body hemangioma/venous vascular malformation. Procedure Note Abdulaziz Martinez MD - 04/02/2025 MRI PELVIS W WO CONTRAST Date of Exam: 04/02/2025 7:25 AM EST Indication: vulvar cancer and palpable left groin mass. Comparison: CT abdomen pelvis 03/14/2025 Technique: Routine multiplanar/multisequence images of the pelvis wereobtained before and after the uneventful intravenous administration ofVueway. Findings: Motion-degraded exam limiting accurate delineation of anatomic structuresin the pelvis. Asymmetric soft tissue mass centered at the left vulvar soft tissuesshowing T2 intermediate signal and heterogeneous postcontrast enhancementsuspicious for primary malignancy measuring approximately 3.1 x 2.2 x 3.6cm AP, transverse and craniocaudal dimension. Posteriorly tumor abuts the anal sphincter complex withoutovert invasion image 49-50 of series 10 for example. No invasion of theurethra or vagina. Mass extends into the left perineal subcutaneous softtissues inferiorly. No convincing involvement of skeletal muscle. Heterogeneous appearing asymmetricallyenlarged left inguinal lymph node measuring 1.2 x 2 cm highly suspiciousfor lili metastases. Total hysterectomy. Urinary bladder extends 1.6 cm below pubococcygealline suggesting mild cystocele. No suspicious adnexal mass. There is a [id number] 9 mm right ovarian cyst considered almost certainly benign.Minimal if any pelvic fluid without organized collection. No visualized peritoneal or omental nodule. Majorpelvic vessels enhance as expected. Tiny fat-containing hernia at theumbilicus. Symmetric muscle bulk and signal intensity. Benign sacralTarlov cysts. No suspicious osseous lesion or marrow replacing process. Benign sacral vertebral bodyhemangioma/venous vascular malformation. IMPRESSION: Impression: 1. Motion-degraded exam. 2. Soft tissue mass centered in the left vulvar soft tissues measuring upto 3.6 cm suspicious for primary malignancy. Posteriorly it lesion abutsthe anal sphincter complex, otherwise confined to the vulvar and adjacentperineal soft tissues. 3. Asymmetrically enlarged left inguinal chain lymph node highlysuspicious for lili metastases. 4. Mild cystocele. 5. Other chronic/ancillary findings as above. Electronically Signed: Abdulaziz Martinez MD 04/02/2025 5:02 PM EST Workstation ID: [id number] us Sudhir Zimmer MD IM MRI ORDERABLES Final Resul t documented in this encounter Visit Diagnoses Diagnosis Vulvar cancer- Primary Malignant neoplasm of vulva, unspecified site Vulvar cancer Malignant neoplasm of vulva, unspecified site Laboratory test- Primary Laboratory examination, unspecified Vulvar cancer Malignant neoplasm of vulva, unspecified site documented in this encounter Care Teams Extra Gang Supervisor Relationship Specialty Start Date End Date Sudhir Marie MD [address] [facility] [address] [facility] [address] [place] [address] PCP - General Family Medicine 03/27/25 documented as of this encounter
--- OUTSIDE RECORDS SUMMARY | 2025-04-02 06:45 | XMS_ITS | Encounter Summary ---
Author [facility] Address [address] [place] [address] Care Team Providers Care Fixed Wing Aircraft Flight Mechanic Name Role Phone Andres Marie MD Primary Care Provider [phone] [phone] Reason for Referral * MRI/CAT/PET Scan (Routine) - Closed Specialty Diagnoses / Procedures Referred By Ameliaac koki Referred To Contact Radiology Diagnoses Vulvar cancer Procedures MRI Pelvis With & Without Contrast Andres Allen MD [address] [facility] [address] [place] [address] Phone: tel: fax: Referral ID Status Reason Start Date Expiration Date Visits Re quested Visits Authorized [id number] Closed 04/01/2025 07/01/2026 1 1 Reason for Visit * MRI/CAT/PET Scan (Routine) - Closed Specialty Diagnoses / Procedures Referred By Naima telles Referred To Contact Radiology Diagnoses Vulvar cancer Procedures MRI Pelvis With & Without Contrast Andres Allen MD [address] [facility] [address] [place] [address] Phone: tel: fax: Referral ID Status Reason Start Date Expiration Date Visits Re quested Visits Authorized [id number] Closed 04/01/2025 07/01/2026 1 1 Encounter Details Date Type Department Care Team (Latest Contact Info) Description 04/02/2025 6:45 AM EST - 04/02/2025 11:59 PM EST Hospital Encounter [facility] MRI [address] [place] [address] Vulvar cancer Discharge Disposition: Home or Self [...] or training? Not on file Preferred Language Latvian 04/02/2025 PHQ-2 Answer Date Recorded Patient Health [...] Description 04/22/2025 2:00 PM EST Office Visit [facility] GYNECOLOGIC ONCOLOGY [address] [place] [address] Andres Allen MD [address] [place] [address] documented as of this encounter Procedures Procedure [...] MD 04/02/2025 5:02 PM EST Workstation ID: [id number] Narrative 04/02/2025 5:02 PM EST MRI PELVIS [...] No suspicious adnexal mass. There is a T2ihfogwghcyno 9 mm right ovarian cyst considered almost [...] left inguinal chain lymph node highlysuspicious for llii metastases. 4. Mild cystocele. 5. Other chronic/ancillary findings as above. Electronically Signed: Abdulaziz Martinez MD 04/02/2025 5:02 PM EST Workstation ID: [id number] us Andres Allen MD IMG MRI ORDERABLES Final Resul t [...] mL documented in this encounter Care Teams Fixed Wing Aircraft Flight Mechanic Relationship Specialty Start Date End Date Andres Marie MD [facility] [address] [facility] [address] [place] [address] PCP - General Family Medicine 03/27/25 documented as of this encounter
--- OUTSIDE RECORDS SUMMARY | 2025-04-02 09:19 | XMS_ITS | Encounter Summary ---
[facility] Organization [facility] Address [address] [place] [address] Care Team Providers Care Music Engraver Name Role Phone Andres Marie MD Primary Care Provider [phone] [phone] Reason for Visit * Diagnostic Imaging (Routine) - Closed Specialty Diagnoses / Procedures Referred By Contac t Referred To Contact Radiology Diagnoses Vulvar cancer Procedures XR Chest 1 View Andres Allen MD [address] [facility] [address] [place] [address] Phone: tel: fax: Referral ID Status Reason Start Date Expiration Date Visits Re quested Visits Authorized [id number] Closed 04/01/2025 07/01/2026 1 1 Encounter Details Date Type Department Care Team (Latest Contact Info) Description 04/02/2025 9:19 AM EST - 04/02/2025 11:59 PM EST Hospital Encounter [facility] XRAY [address] [place] [id number] Discharge Disposition: Home or Self Care Social [...] or training? Not on file Preferred Language Kenyan 04/02/2025 PHQ-2 Answer Date Recorded Patient Health [...] Description 04/22/2025 2:00 PM EST Office Visit [facility] GYNECOLOGIC ONCOLOGY [address] [facility] [address] [place] [address] Andres Allen MD [address] [facility] [address] [place] [address] documented as of this encounter Procedures Procedure [...] MD 04/02/2025 9:43 AM EST Workstation ID: [id number] Narrative 04/02/2025 9:43 AM EST XR CHEST [...] MD 04/02/2025 9:43 AM EST Workstation ID: [id number] Andres Allen MD IMG DIAGNOSTIC IMAGING ORDERAB LES Final Result documented in this encounter Visit Diagnoses Not on filedocumented in this encounter Care Teams Music Engraver Relationship Specialty Start Date End Date Andres Marie MD [facility]0 [facility] [address] [place] [address] PCP - General Family Medicine 03/27/25 documented as of this encounter
--- OUTSIDE RECORDS SUMMARY | 2025-04-02 09:30 | XMS_ITS | Encounter Summary ---
[facility] Address [address] [place] [address] Care Team Providers Care Software Validation Technician Name Role Phone Andres Marie MD Primary Care Provider [phone] [phone] Encounter Details Date Type Department Care Team (Latest Contact Info) Description 04/02/2025 9:30 AM EST Pre-Admission Testing [facility] PREADMISSION T [address] [place] [id number] Laboratory test (Primary Dx); Vulvar cancer Social History Tobacco Use Types Packs/Day Years [...] or training? Not on file Preferred Language Niuean 04/02/2025 PHQ-2 Answer Date Recorded Patient Health Questionnaire-2 Score 1 03/28/2025 Comments Unknown Sex and Gender Information Value Date Recorded Sex Assigned at Not on file Legal Sex Female 11:49 AM EDT Gender Identity Not on file Sexual Orientation Not on file documented as of this encounter Last Filed Vital Signs Vital Sign Reading Time Taken Comments Blood Pressure - - Pulse - - Temperature - - Respiratory Rate - - Oxygen Saturation - - Inhaled Oxygen Concentration - - Weight 64.4 kg (141 lb 15.6 oz) 04/02/2025 9:10 AM EST Height 167.6 cm (5' 6 ) 04/02/2025 9:10 AM EST Body Mass Index 22.92 04/02/2025 9:10 AM EST documented in this encounter OR Notes * PAT - Tari Green RN - 04/02/2025 9:30 AM EST Patient did not review general PAT education video as instructed in their preoperative information received from their surgeon. One-on-one Pre Admission Testing general education provided during PAT visit. Copies of [facility] general education handouts (Incentive Spirometry, Meds to Beds Program, Patient Belongings, Pre-op skin preparation instructions, Blood Glucose testing, Visitor policy, Surgery FAQ, Code H) distributed to patient if not viewed electronically on [facility] website. Encouraged patient/family to read [facility] general education handouts (electronic copies or hard copies) thoroughly and notify PAT staff with any questions or concerns. Patient instructed to bring PAT pass and completed skin prep sheet (if applicable) on the day of procedure. Patient verbalized understanding of all information and priority content. Patient to apply Chlorhexadine wipes to surgical area (as instructed) the night before procedure and the AM of procedure. Wipes provided. Per Anesthesia Request, patient instructed not to take their DANN/ARB medications on the AM of surgery. Too early to draw type and screen in PAT. Please obtain blood bank specimen in pre-op on the day ofsurgery. [place] top drawn in PAT. Patient directed to Radiology Department for CXR after Pre Admission Testing Appointment. Cardiology notes including Stress Test and Echo results on chart from 06/2024. documented in this encounter Plan of Treatment Upcoming Encounters Date Type Department Care Team (Late st Contact Info) Description 04/22/2025 2:00 PM EST Office Visit [facility] GYNECOLOGIC ONCOLOGY [address] [facility] [address] [place] [address] Andres Allen MD [address] [facility] [address] [place] [address] documented as of this encounter Procedures Procedure Name Priority Date/Time Associated Diagnosis Comments XR CHEST 1 VW STAT 04/02/2025 9:37 AM EST Vulvar cancer ECG 12-LEAD Routine 04/02/2025 8:56 AM EST Vulvar cancer ABORH 2ND SPECIMEN VERIFICATION Routine 04/02/2025 8:44 AM EST Laboratory test HEMOGLOBIN A1C Add-On 04/02/2025 8:25 AM EST CBC WITH AUTO DIFFERENTIAL Routine 04/02/2025 8:24 AM EST Vulvar cancer CBC AND DIFFERENTIAL Routine 04/02/2025 8:24 AM EST Vulvar cancer COMPREHENSIVE METABOLIC PANEL Routine 04/02/2025 8:24 AM EST Vulvar cancer SCANNED EKG 04/02/2025 documented in this encounter Results * XR Chest 1 View (04/02/2025 9:37 AM EST) Anatomical Region Laterality Modality Body N/A Radiographic Lisa ging 04/02/2025 9:42 AM EST Impressions 04/02/2025 9:43 AM EST Impression: No acute findings. Electronically Signed: Steven Lewis MD 04/02/2025 9:43 AM EST Workstation ID: [id number] Narrative 04/02/2025 9:43 AM EST XR CHEST [...] MD 04/02/2025 9:43 AM EST Workstation ID: [id number] Andres Allen MD IMG DIAGNOSTIC IMAGING ORDERAB LES Final Result * ECG 12 Lead (04/02/2025 8:56 AM EST) QT Interval 440 ms BH ECG QTC Interval 417 ms ECG 04/02/2025 8:56 AM EST 04/02/2025 5:01 PM EST Narrative BH ECG - 04/02/2025 5:01 PM EST Test [...] Referred By: Confirmed By: ROBSON LEÓN MD Andres Allen MD ECG ORDERABLES Final Result ECG * ABORH 2ND SPECIMEN VERIFICATION (04/02/2025 8:44 AM EST) ABO Type O 04/02/2025 10:35 PM EST [facility] RH type Positive 04/02/2025 10:35 PM EST [facility] Blood Venipuncture / Unknown 04/02/2025 8:44 AM EST 04/02/2025 9:19 AM EST Andres Allen MD BLOOD BANK TEST ORDERABLES Fin al Result Performing Organization Address [facility] Co de Phone Number [facility]
[address] [place] [address], * (ABNORMAL) Hemoglobin A1c (04/02/2025 8:25 AM EST) Hemoglobin A1C 5.94(H) 4.80 - 5.60 % 04/02/2025 11:17 AM EST [facility] Blood Venipuncture / Unknown 04/02/2025 8:25 AM EST 04/02/2025 9:02 AM EST Narrative [facility] - 04/02/2025 11:17 AM EST Hemoglobin A1C Ranges: Increased Risk for Diabetes 5.7% to 6.4% Diabetes >= 6.5% Diabetic Goal < 7.0% Andres Allen MD LAB BLOOD ORDERABLES Final Res ult Performing Organization Address City/[facility]/ZIP Co de Phone Number [facility]
[address] [place] [address], * CBC Auto Differential (04/02/2025 8:24 AM EST) WBC 6.29 3.40 - 10.80 10*3/mm3 04/02/2025 9:19 AM EST [facility] RBC 4.88 3.77 - 5.28 10*6/mm3 04/02/2025 9:19 AM [facility] Hemoglobin 13.3 12.0 - 15.9 g/dL 04/02/2025 9:19 AM [facility] Hematocrit 41.4 34.0 - 46.6 % 04/02/2025 9:19 AM [facility] MCV 84.8 79.0 - 97.0 fL 04/02/2025 9:19 AM [facility] MCH 27.3 26.6 - 33.0 pg 04/02/2025 9:19 AM [facility] MCHC 32.1 31.5 - 35.7 g/dL 04/02/2025 9:19 AM [facility] RDW 13.2 12.3 - 15.4 % 04/02/2025 9:19 AM [facility] RDW-SD 41.3 37.0 - 54.0 fl 04/02/2025 9:19 AM [facility] MPV 9.5 6.0 - 12.0 fL 04/02/2025 9:19 AM [facility] Platelets 285 140 - 450 10*3/mm3 04/02/2025 9:19 AM [facility] Neutrophil % 61.2 42.7 - 76.0 % 04/02/2025 9:19 AM [facility] Lymphocyte % 26.4 19.6 - 45.3 % 04/02/2025 9:19 AM [facility] Monocyte % 8.1 5.0 - 12.0 % 04/02/2025 9:19 AM [facility] Eosinophil % 3.2 0.3 - 6.2 % 04/02/2025 9:19 AM [facility] Basophil % 0.6 0.0 - 1.5 % 04/02/2025 9:19 AM [facility] Immature Grans % 0.5 0.0 - 0.5 % 04/02/2025 9:19 AM [facility] Neutrophils, Absolute 3.85 1.70 - 7.00 10*3/mm3 04/02/2025 9:19 AM EST [facility] Lymphocytes, Absolute 1.66 0.70 - 3.10 10*3/mm3 04/02/2025 9:19 AM EST [facility] Monocytes, Absolute 0.51 0.10 - 0.90 10*3/mm3 04/02/2025 9:19 AM EST [facility] Eosinophils, Absolute 0.20 0.00 - 0.40 10*3/mm3 04/02/2025 9:19 AM EST [facility] Basophils, Absolute 0.04 0.00 - 0.20 10*3/mm3 04/02/2025 9:19 AM EST [facility] Immature Grans, Absolute 0.03 0.00 - 0.05 10*3/mm3 04/02/2025 9:19 AM EST [facility] nRBC 0.0 0.0 - 0.2 /100 WBC 04/02/2025 9:19 AM EST [facility] Blood Venipuncture / Unknown 04/02/2025 8:24 AM EST 04/02/2025 9:02 AM EST Andres Allen MD LAB BLOOD ORDERABLES Final Res ult [facility]
[address] [place] [address], * (ABNORMAL) Comprehensive Metabolic Panel (04/02/2025 8:24 AM EST) Glucose 96 65 - 99 mg/dL 04/02/2025 10:57 AM EST [facility] BUN 11.0 8.0 - 23.0 mg/dL 04/02/2025 10:57 AM EST [facility] Creatinine 0.88 0.57 - 1.00 mg/dL 04/02/2025 10:57 AM EST [facility] Sodium 141 136 - 145 mmol/L 04/02/2025 10:57 AM [facility] Potassium 5.1 3.5 - 5.2 mmol/L 04/02/2025 10:57 AM [facility] Comment:Specimen hemolyzed. Result may be falsely elevated. Chloride 106 98 - 107 mmol/L 04/02/2025 10:57 AM [facility] CO2 25.5 22.0 - 29.0 mmol/L 04/02/2025 10:57 AM [facility] Calcium 10.8(H) 8.6 - 10.5 mg/dL 04/02/2025 10:57 AM [facility] Total Protein 7.2 6.0 - 8.5 g/dL 04/02/2025 10:57 AM [facility] Albumin 4.4 3.5 - 5.2 g/dL 04/02/2025 10:57 AM [facility] ALT (SGPT) 19 1 - 33 U/L 04/02/2025 10:57 AM [facility] AST (SGOT) 30 1 - 32 U/L 04/02/2025 10:57 AM [facility] Alkaline Phosphatase 139(H) 39 - 117 U/L 04/02/2025 10:57 AM [facility] Total Bilirubin 0.6 0.0 - 1.2 mg/dL 04/02/2025 10:57 AM [facility] Globulin 2.8 gm/dL 04/02/2025 10:57 AM [facility] Comment:Calculated Result A/G Ratio 1.6 g/dL 04/02/2025 10:57 AM [facility] BUN/Creatinine Ratio 12.5 7.0 - 25.0 04/02/2025 10:57 AM [facility] Anion Gap 9.5 5.0 - 15.0 mmol/L 04/02/2025 10:57 AM [facility] eGFR 69.9 >60.0 mL/min/1.7 3 04/02/2025 10:57 AM [facility] Blood Venipuncture / Unknown 04/02/2025 8:24 AM EST 04/02/2025 9:02 AM EST Narrative [facility] - 04/02/2025 10:57 AM EST GFR [...] does not include race as a factor Andres Allen MD LAB BLOOD ORDERABLES Final Res ult [facility]
[address] [place] [address], * ECG Scan (04/02/2025) [facility] ECG ORDERABLES Final Result documented in this encounter Visit Diagnoses Diagnosis Laboratory test- Primary Laboratory examination, unspecified Vulvar cancer Malignant neoplasm of vulva, unspecified site documented in this encounter Care Teams Software Validation Technician Relationship Specialty Start Date End Date Andres Marie MD [address] [place] [address] [address] [facility] [address] [place] [address] PCP - General Family Medicine 03/27/25 documented as of this encounter
--- OUTSIDE RECORDS SUMMARY | 2025-04-08 12:44 | XMS_ITS | Encounter Summary ---
Author Organization [facility] Address [address] [place] [address] Care Team Providers Care Shake Backboard Notcher Name Role Phone Andres Marie MD Primary Care Provider [phone] [phone] Reason for Referral * MRI/CAT/PET Scan (Routine) - Authorized Specialty Diagnoses / Procedures Referred By Naima telles Referred To Contact Radiology Diagnoses Vulvar cancer Procedures NM Pet Skull [place] [address] [place] [address] Phone: tel: fax: Referral ID Status Reason Start Date Expiration Date V isits Requested Visits Authorized [id number] Authorized 03/28/2025 06/27/2026 4 4 Reason for Visit * Auth/Cert Specialty Diagnoses / Procedures Referred By Naima telles Referred To Contact Diagnoses Vulvar cancer Vulvar cancer [C51.9] Procedures Injection of ICG for sentinel node detection, modified radical vulvectomy, possible flap Referral ID Status Reason Start Date Expiration Date Visits Re quested Visits Authorized [id number] 1 1 Encounter Details Date Type Department Care Team (Latest Contact Info) Description 04/08/2025 12:44 PM EST - 04/08/2025 11:59 PM EST Hospital Encounter [facility] [place] [address] [facility] [address] [place] [address] Vulvar cancer Discharge Disposition: Home or Self Care Social History Tobacco Use Types Packs/Day Years Used Date Smoking Tobacco: Former Cigarettes Smokeless Tobacco: Never Comments:Quit 22 years ago Alcohol Use Standard Drinks/Week Comments Not Currently 0 (1 standard drink = 0.6 oz pur e alcohol) AUDIT-C Answer Date Recorded Q1: How often do you have a drink containing alcohol? Never 04/09/2025 Q2: How many drinks containi ng alcohol do you have on a typical day when you are drinking? Patient does not drink Q3: How often do you have si x or more drinks on one occasion? Never 04/09/2025 Abuse Screen Answer Date Recorded Feels Unsafe at Home or Work/School no 04/09/2025 Feels Threatened by Someone no 03/30 Does Anyone Try to Keep You From Having Contact with Others or Doing Things Outside Your Home? no 04/09/2025 Physical Signs of Abuse Present no 04/09/2025 Housing Stability Answer Date Recorded Current Living Arrangements home 03/30 Potentially Unsafe Housing Conditions Not on annabel e 04/09/2025 Disabilities Answer Date Recorded Difficulty Concentrating, Remembering or Making Decisions no 04/09/2025 Difficulty Managing Errands Independently no 04/09/2025 Education Answer Date Recorded Help with school or training? Not on file Preferred Language Djiboutian 04/02/2025 PHQ-2 Answer Date Recorded Patient Health [...] Description 04/22/2025 2:00 PM EST Office Visit [facility] ONCOLOGY [address] [facility] [address] [place], [place] [id number] Andrse Allen MD [address] [facility] [address] [place], [place] [id number] documented as of this encounter Procedures Procedure Name Priority Date/Time Associated Diagnosis Comments NM PET/CT SKULL BASE TO MID THIGH Routine 04/08/2025 2:43 PM EST Vulvar cancer POCT GLUCOSE FINGERSTICK Routine 04/08/2025 1:06 PM EST documented in this encounter Results * NM [...] MD 04/10/2025 1:57 PM EST Workstation ID: [id number] Narrative 04/10/2025 1:57 PM EST FDG NM [...] MD 04/10/2025 1:57 PM EST Workstation ID: [id number] Vinayak Delgado MD IMG NM ORDERABLES Fi nal Result * POC Glucose Once (04/08/2025 1:06 PM EST) Glucose 99 70 - 130 mg/dL 04/08/2025 2:08 PM EST [facility] Comment:Serial Number: [id number]: [id number] Blood 04/08/2025 1:06 PM EST 04/08/2025 2:08 PM EST Vinayak Delgado MD POINT OF CARE TEST O RDERABLES Final Result [facility]
[address] [place] [address], documented in this encounter Visit Diagnoses Diagnosis Vulvar cancer Malignant neoplasm of vulva, unspecified site documented in this encounter Administered Medications Inactive Administered Medications - up to 3 most recent administrations Medication Order MAR Action Action Date Dose Rate Site fludeoxyglucose F18 injection 1 dose 1 dose, Intravenous, Once in Imaging, On 04/08/25 at 1415, For 1 dose, Millicuries: 13.05 Given 04/08/2025 1:05 PM EST 1 dose documented in this encounter Care Teams Shake Backboard Notcher Relationship Specialty Start Date End Date Andres Marie MD [address] [place] [facility] [address] [place] [address] PCP - General Family Medicine 03/27/25 documented as of this encounter
--- OUTSIDE RECORDS SUMMARY | 2025-04-08 12:44 | XMS_ITS | Encounter Summary ---
[facility] Organization [facility] Address [address] [place] [address] Care Team Providers Care Bilingual Operator Name Role Phone Andres Marie MD Primary Care Provider [phone] Reason for Visit * Auth/Cert Specialty Diagnoses / Procedures Referred By Naima telles Referred To Contact Diagnoses Vulvar cancer Vulvar cancer [C51.9] Procedures Injection of ICG for sentinel node detection, modified radical vulvectomy, possible flap Referral ID Status Reason Start Date Expiration Date Visits Re quested Visits Authorized [id number] 1 1 Encounter Details Date Type Department Care Team (Latest Contact Info) Description 04/08/2025 12:44 PM EST - 04/08/2025 11:59 PM [facility] Hospital Encounter [facility] [place] [address] [address] Discharge Disposition: Home or Self Care Social [...] or training? Not on file Preferred Language Qatari 04/02/2025 PHQ-2 Answer Date Recorded Patient Health [...] Description 04/22/2025 2:00 PM EST Office Visit [facility] [address] [facility] [address] [place] [address] Andres Allen MD [address] [facility] [address] [place] [address] documented as of this encounter Procedures Procedure Name Priority Date/Time Associated Diagnosis Comments NM PET/CT SKULL BASE TO MID THIGH Routine 04/08/2025 2:43 PM EST Vulvar cancer documented in this encounter Results * NM [...] MD 04/10/2025 1:57 PM EST Workstation ID: [id number] Narrative 04/10/2025 1:57 PM EST FDG NM [...] MD 04/10/2025 1:57 PM EST Workstation ID: [id number] us Vinayak Delgado MD IMG NM ORDERABLES Fi nal Result documented in this encounter Visit Diagnoses Not on filedocumented in this encounter Care Teams Bilingual Operator Relationship Specialty Start Date End Date Andres Marie MD [address] [place] [facility] [address] [place] [id number] PCP - General Family Medicine 03/27/25 documented as of this encounter
--- OUTSIDE RECORDS SUMMARY | 2025-04-09 09:34 | XMS_ITS | Encounter Summary ---
[facility] Address [address] [place] [address] Care Team Providers Care Male Impersonator Name Role Phone Andres Marie MD Primary Care Provider [phone] Reason for Visit * Auth/Cert Specialty Diagnoses / Procedures Referred By Naima telles Referred To Contact Diagnoses Vulvar cancer Vulvar cancer [C51.9] Procedures Injection of ICG for sentinel node detection, modified radical vulvectomy, possible flap Referral ID Status Reason Start Date Expiration Date Visits Re quested Visits Authorized [id number] 1 1 Encounter Details Date Type Department Care Team (Late st Contact Info) Description 04/09/2025 9:34 AM EST - 04/10/2025 12:59 PM [facility] [place] Hospital Encounter [address] [place] [phone] Andres Allen MD [address] [facility] [address] [place] [address] Vulvar cancer Discharge Disposition: Home or Self [...] or training? Not on file Preferred Language Indonesian 04/02/2025 PHQ-2 Answer Date Recorded Patient Health Questionnaire-2 Score 1 03/28/2025 Comments No Sex and Gender Information Value Date Recorded Sex Assigned at Not on file Legal Sex Female 11:49 AM EDT Gender Identity Not on file Sexual Orientation Not on file documented as of this encounter Last Filed Vital Signs Vital Sign Reading Time Taken Comments Blood Pressure 128/59 04/10/2025 11:27 AM EST Pulse 62 04/10/2025 11:27 AM EST Temperature 36.9 C (98.4 F) 04/10/2025 11:27 AM EST Respiratory Rate 16 04/10/2025 11:27 AM EST Oxygen Saturation 93% 04/10/2025 11:27 AM EST Inhaled Oxygen Concentration - - Weight 64 kg (141 lb) 04/09/2025 3:30 PM EST Height 167.6 cm (5' 6 ) 04/09/2025 3:30 PM EST Body Mass Index 22.76 04/09/2025 3:30 PM EST documented in this encounter Functional Status * Question Answer Date of Assessment Author 1. Wish to be (Past 1 Month) No 025 10:14 AM EST Abdi Smart RN 2. Non-Specific Active Suici sim Thoughts (Past 1 Month) No 04/09/2025 10:14 AM EST Abdi Smart RN * Calculated C-SSRS Risk Score (Lifetime/Recent) Answer Date of Assessment Author No Risk Indicated 04/09/2025 10:14 AM EST Abdi Smart RN * [place] Suicide Severity Rating Scale (Screener/Recent Self-Report) Question Answer Date of Assessment Author 6. Suicidal Behavior (Lifetime) No 10:14 AM EST Abdi Smart RN documented as of this encounter Discharge Summaries * Andres Allen MD - 04/10/2025 7:39 AM EST Date of Discharge: 04/10/2025 Discharge Diagnosis: Vulvar cancer Presenting Problem/History of Present Illness Active Hospital Problems Diagnosis POA Vulvar cancer [C51.9] Unknown Primary vulvar cancer [C51.9] Yes Resolved Hospital Problems No resolved problems to display. Hospital Course Patient is a 74 y.o. female presented with vulvar cancer and on 04/09/2025 patient underwent modified radical vulvectomy and bilateral sentinel inguinal lymph node dissection with suspected left groin metastasis. Patient tolerated procedure well and a postop day #1 ambulating without difficulty tolerating regular diet and adequate pain control. Patient's Fountain just recently removed and has not yet attempted spontaneous void. Procedures Performed Procedure(s): Injection of ICG for sentinel node detection, modified radical vulvectomy, Consults: Consults No orders found for last 30 day(s). Pertinent Test Results: Discussed operative findings in detail Condition on Discharge: Stable Vital Signs Temp: [97 ??F (36.1 ??C)-98.1 ??F (36.7 ??C)] 97.3 ??F (36.3 ??C) Heart Rate: [58-97] 86 Resp: [14-17] 17 BP: (97-174)/(51-75) 101/54 Physical Exam: Awake alert no acute distress, bilateral groins without lymphocyst nontender incisions intact Discharge Disposition Home Discharge Medications Discharge Medications ASK your doctor about these medications Instructions Start Date amLODIPine 5 MG tablet Commonly known as: NORVASC 5 mg, Nightly aspirin 81 MG EC tablet Every 24 Hours Colestid 1 g tablet Generic drug: colestipol Take by mouth. DULoxetine 30 MG capsule Commonly known as: CYMBALTA 30 mg, Nightly irbesartan 300 MG tablet Commonly known as: AVAPRO Oral, Daily levothyroxine sodium 50 MCG capsule Commonly known as: TIROSINT 1 capsule, Daily metoprolol succinate XL 50 MG 24 hr tablet Commonly known as: TOPROL-XL Take 1 tablet by mouth Every Night. pyridostigmine 60 MG tablet Commonly known as: MESTINON 3 Times Daily risedronate 35 MG tablet Commonly known as: ACTONEL Take 1 tablet by mouth Every 7 (Seven) Days. spironolactone 25 MG tablet Commonly known as: ALDACTONE Daily vitamin B-12 1000 MCG tablet Commonly known as: CYANOCOBALAMIN 1,000 mcg, Daily Discharge Diet: Regular Activity at Discharge: As tolerated Follow-up Appointments No future appointments. Test Results Pending at Discharge Pending Labs Order Current Status Tissue Pathology Exam In process Self care instruction for vulva and groins discussed in detail and all questions answered Patient declines IV pain medication Andres Allen MD 04/10/25 07:39 EST Time: documented in this encounter Discharge Instructions * Attachments The following attachments cannot be sent through Care Everywhere. * Vulvar Cancer (Indonesian) * Vulvectomy Care After (Indonesian) * BH OR SURGICAL SITE INFECTIONS FAQ * Biopsy of [place] Lymph Nodes: What to Know After (Indonesian) documented in this encounter Medications at Time of Discharge [...] mouth Daily. documented as of this encounter H&P Notes * Mesha Diaz APRN - 04/09/2025 9:55 AM EST [facility] Pre-op Full history and physical note from office is attached. VS: BP 174/75 HR 54 RR 16 T 97.9 Sat 97%RA Immunizations: Influenza: No Pneumococcal: UTD Tetanus: UTD Review of Systems: Constitutional-- No fever, chills or sweats. No fatigue. CV-- No chest pain, palpitation or syncope Resp-- No SOB, cough, hemoptysis Skin--No rashes or lesions Physical Exam: Heart: Regular rate and rhythm, S1 and S2 normal Lungs: Clear to auscultation bilaterally, respirations unlabored LAB Results: Lab Results Component Value Date WBC 6.29 04/02/2025 HGB 13.3 04/02/2025 HCT 41.4 04/02/2025 MCV 84.8 04/02/2025 PLT 285 04/02/2025 NEUTROABS 3.85 04/02/2025 GLUCOSE 96 04/02/2025 BUN 11.0 04/02/2025 CREATININE 0.88 04/02/2025 NA 141 04/02/2025 K 5.1 04/02/2025 CL 106 04/02/2025 CO2 25.5 04/02/2025 MG 2.1 09/27/2022 CALCIUM 10.8 (H) 04/02/2025 ALBUMIN 4.4 04/02/2025 AST 30 04/02/2025 ALT 19 04/02/2025 BILITOT 0.6 04/02/2025 PTT 44 (H) 09/22/2022 INR 1.3 (H) 09/22/2022 Cancer Staging (if applicable) Cancer Patient: __ yes __no __unknown__N/A; If yes, clinical stage T:__ N:__M:__, stage group or __N/A Impression: Vulvar cancer Plan: Injection of ICG for sentinel node detection, modified radical vulvectomy, possible flap Mesha Diaz APRN 04/09/2025 09:55 EST Cosigned by Andres Allen MD at 04/09/2025 10:49 AM EST Associated attestation - Andres Allen MD - 04/09/2025 10:49 AM EST Agree with evaluation assessment and plan Source Note - Andres Allen MD - 04/01/2025 10:45 AM EST Images from the original note were not included. Kathy Barron [id number] Reason for visit: Squamous of carcinoma [...] further discussion and evaluation. For new patients, [facility] intake form from patient patient's chart [...] BLADDER REPAIR 2006 CHOLECYSTECTOMY COLONOSCOPY HYSTERECTOMY 1993 1 ovary remains OTHER SURGICAL HISTORY Left reports [...] MD 04/02/2025 9:43 AM EST Workstation ID: [id number] Lab Results Component Value Date WBC 6.29 [...] Exam:: preop Release to patient: Routine Release [[id number]] MRI Pelvis With & Without Contrast Standing Status: Future Number of Occurrences: 1 Expected Date: 04/06/2025 Expiration Date: 04/01/2026 Release to patient: Routine Release [[id number]] Reason for Exam:: vulvar cancer and palpable left groin mass Comprehensive Metabolic Panel Standing Status: Future Number of Occurrences: 1 Expected Date: 04/06/2025 Expiration Date: 04/01/2026 Release to patient: Routine Release [[id number]] Verify NPO Status Standing Status: Future Expected [...] Exam:: preop Release to patient: Routine Release [[id number]] Type & Screen Standing Status: Future Expected Date: 04/01/2025 Expiration Date: 04/01/2026 Release to patient: Routine Release [[id number]] CBC & Differential Standing Status: Future Number of Occurrences: 1 Expected Date: 04/06/2025 Expiration Date: 04/01/2026 Manual Differential: No Release to patient: Routine Release [[id number]] FOLLOW UP: No follow-ups on file. I spent 65 minutes caring for Kathy on this date of service. This time includes time spent by me inthe following activities: preparing for the visit, reviewing tests, performing a medically appropriate examination and/or evaluation, counseling and educating the patient/family/caregiver, referring and communicating with other health health care liaison, documenting information in the medical record, ordering test(s), and ordering procedure(s) Electronically Signed by: Andres Allen MD Date: 04/02/2025 documented in this encounter Nursing Notes * Carisa Carranza RN - 04/10/2025 3:24 AM EST Goal Outcome Evaluation: Outcome Evaluation: VSS on RA. Fountain in place. Tolerating food and liquids. Pain well-controlled with scheduled tylenol, no PRN medications needed. Care ongoing. * Kenyon Woods RN - 04/09/2025 5:55 PM EST Goal Outcome Evaluation: Outcome Evaluation: VSS, po intake adequate, fountain in place, no prn medes given thus far, will continue POC documented in this encounter OR Notes * Op Note - Andres Allen MD - 04/09/2025 11:40 AM EST VULVECTOMY WITH INGUINOFEMORAL LYMPH NODE DISSECTION Procedure Report Patient Name: Kathy Barron Date of : 1950 Date of Surgery: 04/09/2025 Indications: Vulvar cancer Pre-op Diagnosis: Vulvar cancer [C51.9] Post-Op Diagnosis Codes: * Vulvar cancer [C51.9] Procedure(s): Injection of ICG for sentinel node detection, modified radical vulvectomy, bilateral inguinal sentinel lymph node dissection Staff: Surgeon(s): Andres Allen MD Anesthesia: General Estimated Blood Loss: 200ml Implants: Nothing was implanted during the procedure Specimen: Specimens ID Source Type Tests Collected By Collected At Frozen? A Groin, right Tissue TISSUE PATHOLOGY EXAM Andres Allen MD 04/09/25 1159 Description: RIGHT INGUINAL SENTINEL NODE B Groin, left Tissue TISSUE PATHOLOGY EXAM Andres Allen MD 04/09/25 1211 No Description: LEFT INGUINAL SENTINEL NODE C Perineum Tissue TISSUE PATHOLOGY EXAM Andres Allen MD 04/09/25 1318 No Description: Perineum, Stitch Tags Vaginal Margin Findings: Left groin lymph node enlarged and firm consistent with metastatic disease without any obvious extracapsular extension or other adenopathy consistent with preoperative PET scan Complications: None Description of Procedure: After informed consent was obtained the patient was taken back to the operating room placed under general esthesia and underwent an exam under anesthesia revealing a 3 cm perineal lesion as described preoperatively. The palpable right groin node was also noted. The vulvar lesion was outlined approximately 3 cm lateral and superior and also resection medially but towards the vagina and rectum limited to approximately 1 cm of visible margin. The patient is then prepped and draped in the usual fashion for a vulvar pelvic procedure. 2 cc of ICG were injected in 4 quadrants (0.5 cc per quadrant) around the tumor. Attention was first drawn to the patient's right side at which time a small incision was made and flaps develop with anterior and posterior layer. A sentinellymph node was noted on the medial aspect of the incision mirror-image to the palpable lymph node noted on the patient's left side. The spaces were developed a probable lymph node was identified removed and tested and noted to have ICG uptake consistent with a sentinel lymph node. Inspection of thegroin with the spy phi did not reveal any other obvious lymph nodes in the groin. This side was then complete. Alisa much of irrigation were performed. The deep tissues reapproximated Josep a 3-0 Vicryl. Skin edges were approximated with 4-0 Monocryl skin glue and pressure. Tensions indrawn to the left side an incision was made over the palpable lymph node. The spaces were developed and this lymphnode was removed and noted to be approximately 1-1/2 cm in diameter. It was then checked and noted to be a sentinel node. Additional smaller subcentimeter lymph nodes were also removed and also notedto be sentinel lymph nodes. Inspection with the spy phi did not reveal any other obvious ICG uptakein the left groin. Because much irrigation performed. The deep tissues were reapproximate using a 3-0 Vicryl. Skin edges were approximated single 4-0 Monocryl. Skin glue was also used. Attention was then now drawn to the vulva. The previously outlined area was then incised carried down sharply to the fascia and the deep perirectal tissues to get an adequate at least 2 cm deep margin. This dissection was then continued medially and included the entire outlined area. The dissection was done down to the sphincter though the sphincter maintained its integrity. Part of the sphincter capsule was removed in the dissection. This area was plicated using 3-0 Vicryl. The deep tissues were then irrigated multiple times getting stasis obtained with use of the Bovie dust mixer and individual sutures of3-0 Vicryl. The deep tissues were then reapproximated using interrupted 3-0 Vicryl sutures. Skin edges were approximated using mattress sutures of 3-0 Vicryl. The skin edge was further reapproximatedduring its entire length using a 3-0 Monocryl in a running mattress fashion. Hemostasis confirmed. Reapproximation was done without tension. Antibiotic ointment was then placed on the incision line. This concluded the case. Final instrument needle and sponge count were correct patient Toller the procedure well extubated in the operating room transferred to the PACU then the postoperative floor for the maid of her hospital stay Andres Allen MD Date: 04/09/2025 Time: 13:31 EST documented in this encounter Plan of Treatment Upcoming Encounters Date Type Department Care Team (Late st Contact Info) Description 04/22/2025 2:00 PM EST Office Visit [facility] [address] [place] [address] Andres Allen MD [address] [facility] [address] [place] [address] Scheduled Orders Name Type Priority Associated Diagnoses Order Schedule Echocardiogram Scan Echocardiography Once for 1 Occurrences starting 04/12/2025 until 04/12/2025 Nuclear Stress Scan Cardiac Services Once for 1 Occurrences starting 04/12/2025 until 04/12/2025 documented as of this encounter Procedures Procedure Name Priority Date/Time Associated Diagnosis Comments CBC WITH AUTO DIFFERENTIAL Routine 04/10/2025 3:31 AM EST CBC AND DIFFERENTIAL Routine 04/10/2025 3:31 AM EST BASIC METABOLIC PANEL Routine 04/10/2025 3:31 AM EST TISSUE PATHOLOGY EXAM Routine 04/09/2025 11:59 AM EST Vulvar cancer VULVECTOMY WITH INGUINOFEMORAL LYMPH NODE DISSECTION 04/09/2025 11:08 AM EST Vulvar cancer Special Needs SPYPHI * TYPE AND SCREEN Routine 04/09/2025 10:12 AM EST Vulvar cancer documented in this encounter Results * (ABNORMAL) CBC Auto Differential (04/10/2025 3:31 AM EST) WBC 13.73(H) 3.40 - 10.80 10*3/mm3 04/10/2025 4:49 AM EST [facility] RBC 3.97 3.77 - 5.28 10*6/mm3 04/10/2025 4:49 AM EST [facility] Hemoglobin 10.9(L) 12.0 - 15.9 g/dL 04/10/2025 4:49 AM EST [facility] Hematocrit 33.8(L) 34.0 - 46.6 % 04/10/2025 4:49 AM EST [facility] MCV 85.1 79.0 - 97.0 fL 04/10/2025 4:49 AM [facility] MCH 27.5 26.6 - 33.0 pg 04/10/2025 4:49 AM [facility] MCHC 32.2 31.5 - 35.7 g/dL 04/10/2025 4:49 AM [facility] RDW 13.2 12.3 - 15.4 % 04/10/2025 4:49 AM [facility] RDW-SD 41.1 37.0 - 54.0 fl 04/10/2025 4:49 AM [facility] MPV 10.5 6.0 - 12.0 fL 04/10/2025 4:49 AM [facility] Platelets 252 140 - 450 10*3/mm3 04/10/2025 4:49 AM [facility] Neutrophil % 89.7(H) 42.7 - 76.0 % 04/10/2025 4:49 AM [facility] Lymphocyte % 6.1(L) 19.6 - 45.3 % 04/10/2025 4:49 AM [facility] Monocyte % 3.5(L) 5.0 - 12.0 % 04/10/2025 4:49 AM [facility] Eosinophil % 0.0(L) 0.3 - 6.2 % 04/10/2025 4:49 AM [facility] Basophil % 0.2 0.0 - 1.5 % 04/10/2025 4:49 AM [facility] Immature Grans % 0.5 0.0 - 0.5 % 04/10/2025 4:49 AM [facility] Neutrophils, Absolute 12.31(H) 1.70 - 7.00 10*3/mm3 04/10/2025 4:49 AM [facility] Lymphocytes, Absolute 0.84 0.70 - 3.10 10*3/mm3 04/10/2025 4:49 AM [facility] Monocytes, Absolute 0.48 0.10 - 0.90 10*3/mm3 04/10/2025 4:49 AM EST [facility] Eosinophils, Absolute 0.00 0.00 - 0.40 10*3/mm3 04/10/2025 4:49 AM EST [facility] Basophils, Absolute 0.03 0.00 - 0.20 10*3/mm3 04/10/2025 4:49 AM EST [facility] Immature Grans, Absolute 0.07(H) 0.00 - 0.05 10*3/mm3 04/10/2025 4:49 AM EST [facility] nRBC 0.0 0.0 - 0.2 /100 WBC 04/10/2025 4:49 AM EST [facility] Blood Venipuncture / Unknown 04/10/2025 3:31 AM EST 04/10/2025 4:41 AM EST Andres Allen MD LAB BLOOD ORDERABLES Final Res ult [facility]
[address] [place] [address], * (ABNORMAL) Basic Metabolic Panel (04/10/2025 3:31 AM EST) Glucose 121(H) 65 - 99 mg/dL 04/10/2025 5:39 AM EST [facility] BUN 12.9 8.0 - 23.0 mg/dL 04/10/2025 5:39 AM EST [facility] Creatinine 0.82 0.57 - 1.00 mg/dL 04/10/2025 5:39 AM EST [facility] Sodium 139 136 - 145 mmol/L 04/10/2025 5:39 AM EST [facility] Potassium 5.6(H) 3.5 - 5.2 mmol/L 04/10/2025 5:39 AM EST [facility] Comment:Specimen hemolyzed. Result may be falsely elevated. Chloride 108(H) 98 - 107 mmol/L 04/10/2025 5:39 AM EST [facility] CO2 23.4 22.0 - 29.0 mmol/L 04/10/2025 5:39 AM EST [facility] Calcium 9.6 8.6 - 10.5 mg/dL 04/10/2025 5:39 AM EST [facility] BUN/Creatinine Ratio 15.7 7.0 - 25.0 04/10/2025 5:39 AM EST [facility] Anion Gap 7.6 5.0 - 15.0 mmol/L 04/10/2025 5:39 AM EST [facility] eGFR 76.1 >60.0 mL/min/1.7 3 04/10/2025 5:39 AM EST [facility] Blood Venipuncture / Unknown 04/10/2025 3:31 AM EST 04/10/2025 4:39 AM EST [facility] - 04/10/2025 5:39 AM EST GFR Categories in Chronic Kidney [...] MD LAB BLOOD ORDERABLES Final Res ult [facility]
[address] [place] [address], * Tissue Pathology Exam (04/09/2025 11:59 AM EST) Case Report Surgical Pathology Report Case: [id number] Authorizing Provider: Andres Allen MD Collected: 04/09/2025 11:59 AM Ordering Location: [facility] Received: 04/09/2025 01:50 PM OR Pathologist: Conrad Grullon MD Specimens: 1) - Groin, right, RIGHT INGUINAL SENTINEL NODE 2) - Groin, left, LEFT INGUINAL SENTINEL NODE 3) - Perineum, Perineum, Stitch Tags Vaginal Margin 04/12/2025 12:49 PM [facility] Clinical Information Vulvar cancer 04/12/2025 12:49 PM [facility] Final Diagnosis 1. LYMPH NODE, RIGHT INGUINAL, SENTINEL NODE EXCISION: 1 lymph node negative for metastatic carcinoma (0/1). 2. LYMPH NODE, LEFT INGUINAL, SENTINEL NODE EXCISION: 3 lymph nodes negative for metastatic carcinoma (0/3). 3. PERINEUM, MODIFIED RADICAL VULVECTOMY: Invasive well-differentiate d squamous cell carcinoma, 2.6 cm in maximum dimension. Lymphovascular invasion present. Surgical margins negative for invasive carcinoma. High-grade dysplasia extends to the vaginal margin, the margin opposite the vaginal margin and the left-sides margin (see comment). See tumor synoptic for additional details. 04/12/2025 12:49 PM [facility] at 1249 EST Synoptic Checklist VULVA VULVA - All Specimens 9th Edition - Protocol posted: 11/16/2023 SPECIMEN Procedure: Radical vulvectomy TUMOR Tumor Focality: Unifocal Tumor Site: Perineum Tumor Size: Greatest Dimension (Centimeters): 2.6 cm Additional Dimension (Centimeters): 2.6 cm Additional Dimension (Centimeters): 2.0 cm Histologic Type: Squamous cell carcinoma, HPV-associated Histologic Grade: G2, moderately differentiated Depth of Invasion (Millimeters) (FIGO 2021 method): at least 5 Other Tissue / Organ Involvement: Not applicable Lymphatic and / or Vascular Invasion: Present MARGINS Margin Status for Invasive Carcinoma: All margins negative for invasive carcinoma Margin Status for Precursor Lesions of Squamous Cell Carcinoma: High-grade squamous intraepithelial lesion (HSIL) present at margin Margin(s) Involved by HSIL: Peripheral: vaginal, opposite vaginal and left-sided margins REGIONAL LYMPH NODES Regional Lymph Node Status: : All regional lymph nodes negative for tumor cells Total Number of Lymph Nodes Examined: 4 Myranda Site(s) Examined: Right inguinal Myranda Site(s) Examined: Left inguinal Number of [place] Nodes Examined: 4 pTNM CLASSIFICATION (AJCC Version 9) Reporting of pT, pN, and (when applicable) pM categories is based on information available to the pathologist at the time the report is issued. As per the AJCC (Chapter 1, 8th Ed.) it is the managing physician's responsibility to establish the final pathologic stage based upon all pertinent information, including but potentially not limited to this pathology report. pT Category: pT1b pN Category: pN0 N Suffix: (sn) 04/12/2025 12:49 PM [facility] Comment Orienting the specimen with the vaginal suture considered 12:00, high-grade dysplasia seen involving the 12:00, 6:00 and 9:00 margins. 04/12/2025 12:49 PM [facility] Gross Description 1. Groin, right. Received in formalin labeled right inguinal sentinel node is a 2.5 x 1.0 x 0.9 cm lymph node with abundant surrounding fat. The excess fat is removed and the node is sectioned perpendicular to the long axis at 2 mm intervals. The node is submitted entirely in blocks 1A-1B. 2. Groin, left. Received in formalin labeled left inguinal sentinel node are 3 lymph nodes with surrounding fat. The excess fat is removed and the nodes range from 0.9 x 0.7 x 0.5 cm to 2.4 x 1.7 x 1.2 cm. The nodes are sectioned perpendicular to the long axis at 2 mm intervals and submitted entirely as follows: 2A-one node 2B-one node [id number] node. 3. Perineum. Received in formalin labeled perineum, stitch tags vaginal margin is a 6.0 x 4.3 cm irregularly-shaped portion of coleman skin with underlying soft tissue excised to an average depth of 1.1 cm. The specimen is oriented by the surgeon with a stitch designated vaginal margin (now redesignated 12:00). On the skin surface there is a 2.6 x 2.6 x 2.0 cm raised, nodular, ulcerated lesion that invades the underlying soft tissue and is 0.3 cm from the 12:00 margin, 1.0 cm from the 3:00 margin, 0.3 cm from the 6:00 margin, 0.6 cm from the 9:00 margin, and at least 0.2 cm from the deep margin. The margin is inked as follows: 12-3 o'clock-green, 3-6 o'clock-orange, 6-9 o'clock-blue, 9-12 o'clock-red. Sectioning reveals indurated underlying tissue. Program Research Specialist sections are submitted as follows: 3A-mass with nearest perpendicular 12:00 margin 3B-mass with nearest perpendicular 6:00 margin 3C-mass with nearest perpendicular 3:00 margin 3D-mass with nearest perpendicular 9:00 margin 3E-3H-mass with perpendicular deep margin. LDP 04/12/2025 12:49 PM EST [facility] Microscopic Description The slides are reviewed and demonstrate histopathologic features supporting the above rendered diagnosis. 04/12/2025 12:49 PM EST [facility] Tissue Right inguinal region structure / Unknown 04/09/2025 11:59 AM EST 04/09/2025 1:50 PM EST Tissue specimen (specimen) Left inguinal region structure / Unknown 04/09/2025 12:11 PM EST 04/09/2025 1:50 PM EST Tissue specimen (specimen) Perineal structure / Unknown 04/09/2025 1:18 PM EST 04/09/2025 1:50 PM EST Andres Allen MD PATHOLOGY/CYTOLOGY ORDERABLES Final Result [facility]
[address] [place] [address], * Type & Screen (04/09/2025 10:12 AM EST) ABO Type O 04/09/2025 11:39 AM EST [facility] RH type Positive 04/09/2025 11:39 AM EST [facility] Antibody Screen Negative 04/09/2025 11:39 AM EST [facility] T&S Expiration Date 04/12/2025 11:59:59 PM 04/09/2025 11:39 AM EST [facility] Blood 04/09/2025 10:1 2 AM EST 04/09/2025 10:26 AM EST us Andres Allen MD BLOOD BANK TEST ORDERABLES Manoj seferino Result - Final [facility]
[address] [place] [address], documented in this encounter Visit Diagnoses Diagnosis Vulvar cancer- Primary Malignant neoplasm of vulva, unspecified site Vulvar cancer Malignant neoplasm of vulva, unspecified site Primary vulvar cancer documented in this encounter Admitting Diagnoses Diagnosis Vulvar cancer Malignant neoplasm of vulva, unspecified site Primary vulvar cancer documented in this encounter Administered Medications Inactive Administered Medications - up to 3 most recent administrations Medication Order MAR Action Action Date Dose Rate Site acetaminophen (TYLENOL) tablet 1,000 mg 1,000 mg, Oral, Once, On Tue04/09/25 at 0954, For 1 dose, If given for fever, use fever parameter: fever greater than 100.4 F Based on patient request - if ordered for moderate or severe pain, provider allows for administration of a medication prescribed for a lower pain scale. Do not exceed 4 grams of acetaminophen in a 24 hr period. Max dose of 2gm for AST/ALT greater than 120 units/L. If given for pain, use the following pain scale: Mild Pain = Pain Score of 1-3, CPOT 1-2 Moderate Pain = Pain Score of 4-6, CPOT 3-4 Severe Pain = Pain Score of 7-10, CPOT 5-8 Given 04/09/2025 10:29 AM EST 1,000 mg acetaminophen (TYLENOL) tablet 650 mg 650 mg, Oral, Every 6 Hours Scheduled, First dose on Tue04/09/25 at 1800, Based on patient request - if ordered for moderate or severe pain, provider allows for administration of a medication prescribed for a lower pain scale. Do not exceed 4 grams of acetaminophen in a 24 hr period. Max dose of 2gm for AST/ALT greater than 120 units/L. If given for pain, use the following pain scale: Mild Pain = Pain Score of 1-3, CPOT 1-2 Moderate Pain = Pain Score of 4-6, CPOT 3-4 Severe Pain = Pain Score of 7-10, CPOT 5-8 Given 04/10/2025 5:46 AM EST 650 mg Given 04/09/2025 11:22 PM EST 650 mg Given 04/09/2025 5:23 PM EST 650 mg celecoxib (CeleBREX) capsule 200 mg 200 mg, Oral, Once, On Tue04/09/25 at 0954, For 1 dose, Take with food if GI upset occurs. Based on patient request - if ordered for moderate or severe pain, provider allows for administration of a medication prescribed for a lower pain scale. If given for pain, use the following pain scale: Mild Pain = Pain Score of 1-3, CPOT 1-2 Moderate Pain = Pain Score of 4-6, CPOT 3-4 Severe Pain = Pain Score of 7-10, CPOT 5-8 Given 04/09/2025 10:30 AM EST 200 mg famotidine (PEPCID) tablet 20 mg 20 mg, Oral, Once, On Tue04/09/25 at 0954, For 1 dose Given 04/09/2025 10:29 AM EST 20 mg heparin (porcine) 5000 UNIT/ML injection 5,000 Units 5,000 Units, Subcutaneous, Once, On Tue04/09/25 at 0954, For 1 dose, Give 30 minutes prior to surgery in pre-op, Indications: Prophylaxis of Venous ThromboembolismIndications:P rophylaxis of Venous Thromboembolism Given 04/09/2025 10:30 AM EST 5,000 Units Left Arm heparin (porcine) 5000 UNIT/ML injection 5,000 Units 5,000 Units, Subcutaneous, Every 8 Hours Scheduled, First dose on Tue04/10/25 at 0600, Indications: VTE ProphylaxisIndications:VTE Prophylaxis Given 04/10/2025 5:46 AM EST 5,000 Units Right Lower Abdomen HYDROcodone-acetaminophen (NORCO) 5-325 MG per tablet 1 tablet 1 tablet, Oral, Every 4 Hours PRN, Moderate Pain, Starting on Tue04/09/25 at 1529, For 5 days, Based on patient request - if ordered for moderate or severe pain, provider allows for administration of a medication prescribed for a lower pain scale. [ALANA] Do not exceed 4 grams of acetaminophen in a 24 hr period. Max dose of 2gm for AST/ALT greater than 120 units/L If given for pain, use the following pain scale: Mild Pain = Pain Score of 1-3, CPOT 1-2 Moderate Pain = Pain Score of 4-6, CPOT 3-4 Severe Pain = Pain Score of 7-10, CPOT 5-8 HYDROmorphone (DILAUDID) injection 0.5 mg 0.5 mg, Intravenous, Every 2 Hours PRN, Severe Pain, Starting on Tue04/09/25 at 1529, For 10 days, If given for pain, use the following pain scale: Mild Pain = Pain Score of 1-3, CPOT 1-2 Moderate Pain = Pain Score of 4-6, CPOT 3-4 Severe Pain = Pain Score of 7-10, CPOT 5-8 ibuprofen (ADVIL,MOTRIN) tablet 600 mg 600 mg, Oral, Every 6 Hours PRN, Mild Pain, Starting on Tue04/09/25 at 1529, If given for pain, use the following pain scale: Mild Pain = Pain Score of 1-3, CPOT 1-2 Moderate Pain = Pain Score of 4-6, CPOT 3-4 Severe Pain = Pain Score of 7-10, CPOT 5-8 lactated ringers infusion 9 mL/hr, Intravenous, Continuous, Starting on Tue04/09/25 at 0954, For 1 day, May switch to NS IV at [facility] if renal / if indicated New Bag 04/09/2025 12:14 PM EST Currently Infusing 04/09/2025 11:23 AM EST 9 mL /hr Restarted 04/09/2025 11:22 AM EST lactated ringers infusion 75 mL/hr, Intravenous, Continuous, Starting on Tue04/09/25 at 1615, For 2 days, HLIV when tolerating PO New Bag 04/09/2025 4:27 PM EST 75 mL/hr 75 mL/hr naloxone (NARCAN) injection 0.1 mg 0.1 mg, Intravenous, Every 5 Minutes PRN, Respiratory Depression, Starting on Tue04/09/25 at 1529, If respiratory rate is less than 8 breaths/minute or patient is difficult to arouse stop any narcotics and contact physician. Administer slow IV push. Repeat as ordered until patient's respiratory rate is greater than 12 breaths/minute. ondansetron (ZOFRAN) injection 4 mg 4 mg, Intravenous, Every 6 Hours PRN, Nausea, Vomiting, Starting on Tue04/09/25 at 1529 ondansetron ODT (ZOFRAN-ODT) disintegrating tablet 4 mg 4 mg, Oral, Every 6 Hours PRN, Nausea, Vomiting, Starting on Tue04/09/25 at 1529, Place on tongue and allow to dissolve. pregabalin (LYRICA) capsule 150 mg 150 mg, Oral, Once, On Tue04/09/25 at 0954, For 1 dose Given 04/09/2025 10:29 AM EST 150 mg promethazine (PHENERGAN) suppository 12.5 mg 12.5 mg, Rectal, Every 6 Hours PRN, Nausea, Vomiting, Starting on Tue04/09/25 at 1529, If BOTH ondansetron (ZOFRAN) and promethazine (PHENERGAN) are ordered use ondansetron first and THEN promethazine IF ondansetron is ineffective. promethazine (PHENERGAN) tablet 12.5 mg 12.5 mg, Oral, Every 6 Hours PRN, Nausea, Vomiting, Starting on Tue04/09/25 at 1529, If BOTH ondansetron (ZOFRAN) and promethazine (PHENERGAN) are ordered use ondansetron first and THEN promethazine IF ondansetron is ineffective. ([facility]) scopolamine patch 1 mg/72 hr 1 patch, Transdermal - scopolamine, Administer over 72 Hours, Continuous, Starting on Tue04/09/25 at 0954, For 72 hours, Do not apply if patient older than 65 or has history of glaucoma. ([facility]) documented in this encounter Active and Recently Administered Medications Times are shown in EST. Scheduled Medication Order 04/08/2025 04/09/2025 04/10/2025 acetaminophen (TYLENOL) tablet 1,000 mg (COMPLETED) 1,000 mg, Oral, Once, On Tue04/09/25 at 0954, For 1 dose, If given for fever, use fever parameter: fever greater than 100.4 F Based on patient request - if ordered for moderate or severe pain, provider allows for administration of a medication prescribed for a lower pain scale. Do not exceed 4 grams of acetaminophen in a 24 hr period. Max dose of 2gm for AST/ALT greater than 120 units/L. If given for pain, use the following pain scale: Mild Pain = Pain Score of 1-3, CPOT 1-2 Moderate Pain = Pain Score of 4-6, CPOT 3-4 Severe Pain = Pain Score of 7-10, CPOT 5-8 1029 (Given - Provider: Abdi Smart RN) acetaminophen (TYLENOL) tablet 650 mg 650 mg, Oral, Every 6 Hours Scheduled, First dose on Tue04/09/25 at 1800, Based on patient request - if ordered for moderate or severe pain, provider allows for administration of a medication prescribed for a lower pain scale. Do not exceed 4 grams of acetaminophen in a 24 hr period. Max dose of 2gm for AST/ALT greater than 120 units/L. If given for pain, use the following pain scale: Mild Pain = Pain Score of 1-3, CPOT 1-2 Moderate Pain = Pain Score of 4-6, CPOT 3-4 Severe Pain = Pain Score of 7-10, CPOT 5-8 1723 (Given - Provider: Kenyon Woods RN)2322 (Given - Provider: Carisa Carranza RN) 0546 (Given - Provider: Carisa Carranza RN)1200 (Due) ceFAZolin 2000 mg IVPB in 100 mL NS (MBP) (COMPLETED) 2,000 mg, Intravenous, Administer over 30 Minutes, Once, On Tue04/09/25 at 0954, For 1 dose, Administer within 1 hour of surgical incision. Redose 4 hours from pre-op dose if procedure ongoing or >1.5 L blood loss. Caution: Look alike/sound alike drug alert, Indications: Surgical Prophylaxis 1131 (New Bag - Provider: JEAN Loya) celecoxib (CeleBREX) capsule 200 mg (COMPLETED) 200 mg, Oral, Once, On Tue04/09/25 at 0954, For 1 dose, Take with food if GI upset occurs. Based on patient request - if ordered for moderate or severe pain, provider allows for administration of a medication prescribed for a lower pain scale. If given for pain, use the following pain scale: Mild Pain = Pain Score of 1-3, CPOT 1-2 Moderate Pain = Pain Score of 4-6, CPOT 3-4 Severe Pain = Pain Score of 7-10, CPOT 5-8 1030 (Given - Provider: Abdi Smart RN) famotidine (PEPCID) tablet 20 mg (COMPLETED) 20 mg, Oral, Once, On Tue04/09/25 at 0954, For 1 dose 1029 (Given - Provider: Abdi Smart RN) heparin (porcine) 5000 UNIT/ML injection 5,000 Units (COMPLETED) 5,000 Units, Subcutaneous, Once, On Tue04/09/25 at 0954, For 1 dose, Give 30 minutes prior to surgery in pre-op, Indications: Prophylaxis of Venous Thromboembolism 1030 (Given - Provider: Abdi Smart RN) heparin (porcine) 5000 UNIT/ML injection 5,000 Units 5,000 Units, Subcutaneous, Every 8 Hours Scheduled, First dose on Tue04/10/25 at 0600, Indications: VTE Prophylaxis 0546 (Given - Provid er: Carisa Carranza RN) pregabalin (LYRICA) capsule 150 mg (COMPLETED) 150 mg, Oral, Once, On Tue04/09/25 at 0954, For 1 dose 1029 (Given - Provider: Abdi Smart RN) Continuous Medication Order 04/08/2025 04/09/2025 04/10/2025 lactated ringers infusion 9 mL/hr, Intravenous, Continuous, Starting on Tue04/09/25 at 0954, For 1 day, May switch to NS IV at [facility] if renal / if indicated 1030 (New Bag - Provider: Abdi Smart RN)1121 (Paused - Provider: JEAN Loya - Comment: Switch to gravity)1122 (Restarted - Provider: JEAN Loya)1123 (Currently Infusing - Provider: JEAN Loya)1214 (New Bag - Provider: JEAN Loya) 1029 (Due: Order Ending - Provider: Abdi Smart RN - Comment: [Order ends at this time. Document the following action when infusion is complete: Stopped]) lactated ringers infusion 75 mL/hr, Intravenous, Continuous, Starting on Tue04/09/25 at 1615, For 2 days, HLIV when tolerating PO 1627 (New Bag - Provider: Kenyon Woods RN) 0416 (Stopped - Provider: Carisa Carranza RN) scopolamine patch 1 mg/72 hr 1 patch, Transdermal - scopolamine, Administer over 72 Hours, Continuous, Starting on Tue04/09/25 at 0954, For 72 hours, Do not apply if patient older than 65 or has history of glaucoma. ([facility]) 1030 (Not Given - Provider: Abdi Smart RN - Reason: Order parameters not met) PRN Medication Order 04/08/2025 04/09/2025 04/10/2025 bacitracin 500 UNIT/GM ointment (CANCELED) As Needed, Starting on Tue04/09/25 at 1311 1311 (Given - Provider: Andres Allen MD) bupivacaine (MARCAINE) 0.5 % injection (CANCELED) As Needed, Starting on Tue04/09/25 at 1225 1225 (Given - Provider: Andres Allen MD) HYDROcodone-acetaminophen (NORCO) 5-325 MG per tablet 1 tablet 1 tablet, Oral, Every 4 Hours PRN, Moderate Pain, Starting on Tue04/09/25 at 1529, For 5 days, Based on patient request - if ordered for moderate or severe pain, provider allows for administration of a medication prescribed for a lower pain scale. [ALANA] Do not exceed 4 grams of acetaminophen in a 24 hr period. Max dose of 2gm for AST/ALT greater than 120 units/L If given for pain, use the following pain scale: Mild Pain = Pain Score of 1-3, CPOT 1-2 Moderate Pain = Pain Score of 4-6, CPOT 3-4 Severe Pain = Pain Score of 7-10, CPOT 5-8 HYDROmorphone (DILAUDID) injection 0.5 mg(Linked Group 1) 0.5 mg, Intravenous, Every 2 Hours PRN, Severe Pain, Starting on Tue04/09/25 at 1529, For 10 days, If given for pain, use the following pain scale: Mild Pain = Pain Score of 1-3, CPOT 1-2 Moderate Pain = Pain Score of 4-6, CPOT 3-4 Severe Pain = Pain Score of 7-10, CPOT 5-8 ibuprofen (ADVIL,MOTRIN) tablet 600 mg 600 mg, Oral, Every 6 Hours PRN, Mild Pain, Starting on Tue04/09/25 at 1529, If given for pain, use the following pain scale: Mild Pain = Pain Score of 1-3, CPOT 1-2 Moderate Pain = Pain Score of 4-6, CPOT 3-4 Severe Pain = Pain Score of 7-10, CPOT 5-8 indocyanine green (IC-GREEN) injection (CANCELED) As Needed, Starting on Tue04/09/25 at 1140 1140 (Given - Provider: Andres Allen MD) naloxone (NARCAN) injection 0.1 mg(Linked Group 1) 0.1 mg, Intravenous, Every 5 Minutes PRN, Respiratory Depression, Starting on Tue04/09/25 at 1529, If respiratory rate is less than 8 breaths/minute or patient is difficult to arouse stop any narcotics and contact physician. Administer slow IV push. Repeat as ordered until patient's respiratory rate is greater than 12 breaths/minute. ondansetron (ZOFRAN) injection 4 mg(Linked Group 2) 4 mg, Intravenous, Every 6 Hours PRN, Nausea, Vomiting, Starting on Tue04/09/25 at 1529 ondansetron ODT (ZOFRAN-ODT) disintegrating tablet 4 mg(Linked Group 2) 4 mg, Oral, Every 6 Hours PRN, Nausea, Vomiting, Starting on Tue04/09/25 at 1529, Place on tongue and allow to dissolve. promethazine (PHENERGAN) suppository 12.5 mg(Linked Group 3) 12.5 mg, Rectal, Every 6 Hours PRN, Nausea, Vomiting, Starting on Tue04/09/25 at 1529, If BOTH ondansetron (ZOFRAN) and promethazine (PHENERGAN) are ordered use ondansetron first and THEN promethazine IF ondansetron is ineffective. promethazine (PHENERGAN) tablet 12.5 mg(Linked Group 3) 12.5 mg, Oral, Every 6 Hours PRN, Nausea, Vomiting, Starting on Tue04/09/25 at 1529, If BOTH ondansetron (ZOFRAN) and promethazine (PHENERGAN) are ordered use ondansetron first and THEN promethazine IF ondansetron is ineffective. ([facility]) sterile water irrigation solution (CANCELED) As Needed, Starting on Tue04/09/25 at 1225 1225 (Given - Provider: Andres Allen MD) Linked Groups Order Group 1: HYDROmorphone (DILAUDID) injection 0.5 mgJump to med 0.5 mg, Intravenous, Every 2 Hours PRN, Severe Pain, Starting on Tue04/09/25 at 1529, For 10 days, If given for pain, use the following pain scale: Mild Pain = Pain Score of 1-3, CPOT 1-2 Moderate Pain = Pain Score of 4-6, CPOT 3-4 Severe Pain = Pain Score of 7-10, CPOT 5-8 And naloxone (NARCAN) injection 0.1 mgJump to med 0.1 mg, Intravenous, Every 5 Minutes PRN, Respiratory Depression, Starting on Tue04/09/25 at 1529, If respiratory rate is less than 8 breaths/minute or patient is difficult to arouse stop any narcotics and contact physician. Administer slow IV push. Repeat as ordered until patient's respiratory rate is greater than 12 breaths/minute. Group 2: ondansetron ODT (ZOFRAN-ODT) disintegrating tablet 4 mgJump to med 4 mg, Oral, Every 6 Hours PRN, Nausea, Vomiting, Starting on Tue04/09/25 at 1529, Place on tongue and allow to dissolve. Or ondansetron (ZOFRAN) injection 4 mgJump to med 4 mg, Intravenous, Every 6 Hours PRN, Nausea, Vomiting, Starting on Tue04/09/25 at 1529 Group 3: promethazine (PHENERGAN) suppository 12.5 mgJump to med 12.5 mg, Rectal, Every 6 Hours PRN, Nausea, Vomiting, Starting on Tue04/09/25 at 1529, If BOTH ondansetron (ZOFRAN) and promethazine (PHENERGAN) are ordered use ondansetron first and THEN promethazine IF ondansetron is ineffective. Or promethazine (PHENERGAN) tablet 12.5 mgJump to med 12.5 mg, Oral, Every 6 Hours PRN, Nausea, Vomiting, Starting on Tue04/09/25 at 1529, If BOTH ondansetron (ZOFRAN) and promethazine (PHENERGAN) are ordered use ondansetron first and THEN promethazine IF ondansetron is ineffective. 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
--- OUTSIDE RECORDS SUMMARY | 2025-04-09 11:10 | XMS_ITS | Encounter Summary ---
[facility] Address [address] [place] [address] Care Team Providers Care Order Editor Name Role Phone Andres Marie MD Primary Care Provider [phone] Reason for Visit * Auth/Cert Specialty Diagnoses / Procedures Referred By Naima telles Referred To Contact Diagnoses Vulvar cancer Vulvar cancer [C51.9] Procedures Injection of ICG for sentinel node detection, modified radical vulvectomy, possible flap Referral ID Status Reason Start Date Expiration Date Visits Re quested Visits Authorized [id number] 1 1 Encounter Details Date Type Department Care Team (Late st Contact Info) Description 04/09/2025 11:10 AM EST - 04/09/2025 1:20 PM EST Surgery [facility] OR [address] [phone] Andres Allen MD [address] [facility] [address] [place] [address] Injection of ICG for sentinel node detection, [...] or training? Not on file Preferred Language Ivorian 04/02/2025 PHQ-2 Answer Date Recorded Patient Health [...] 04/09/2025 10:14 AM Abdi Lindsay RN * [place] Suicide Severity Rating Scale (Screener/Recent Self-Report) Question [...] sent through Care Everywhere. * Vulvar Cancer (Ivorian) * Vulvectomy Care After (Ivorian) * [facility] OR SURGICAL SITE INFECTIONS FAQ * Biopsy of [place] Lymph Nodes: What to Know After (Ivorian) documented in this encounter Medications at Time [...] Diaz APRN - 04/09/2025 9:55 AM EST [facility] Pre-op Full history and physical note [...] original note were not included. Kathy Barron [id number] Reason for visit: Squamous of carcinoma [...] further discussion and evaluation. For new patients, [facility] intake form from patient patient's chart [...] MD 04/02/2025 9:43 AM EST Workstation ID: [id number] Lab Results Component Value Date WBC 6.29 [...] Exam:: preop Release to patient: Routine Release [[id number]] MRI Pelvis With & Without Contrast Standing Status: Future Number of Occurrences: 1 Expected Date: 04/06/2025 Expiration Date: 04/01/2026 Release to patient: Routine Release [[id number]] Reason for Exam:: vulvar cancer and palpable left groin mass Comprehensive Metabolic Panel Standing Status: Future Number of Occurrences: 1 Expected Date: 04/06/2025 Expiration Date: 04/01/2026 Release to patient: Routine Release [[id number]] Verify NPO Status Standing Status: Future Expected [...] Exam:: preop Release to patient: Routine Release [[id number]] Type & Screen Standing Status: Future Expected Date: 04/01/2025 Expiration Date: 04/01/2026 Release to patient: Routine Release [[id number]] CBC & Differential Standing Status: Future Number of Occurrences: 1 Expected Date: 04/06/2025 Expiration Date: 04/01/2026 Manual Differential: No Release to patient: Routine Release [[id number]] FOLLOW UP: No follow-ups on file. I spent 65 minutes caring for Kathy on this date of service. This time includes time spent by me inthe following activities: preparing for the visit, reviewing tests, performing a medically appropriate examination and/or evaluation, counseling and educating the patient/family/caregiver, referring and communicating with other health hospice spiritual care coordinator, documenting information in the medical [...] stasis obtained with use of the Bovie cow puncher and individual sutures of3-0 Vicryl. The deep [...] Description 04/22/2025 2:00 PM EST Office Visit [facility] [address] [facility] [address] [place] [address] Andres Allen MD [address] [facility] [address] [place] [id number] Scheduled Orders Name Type Priority Associated Diagnoses [...] - 10.80 10*3/mm3 04/10/2025 4:49 AM EST [facility] RBC 3.97 3.77 - 5.28 10*6/mm3 04/10/2025 4:49 AM EST [facility] Hemoglobin 10.9(L) 12.0 - 15.9 g/dL 04/10/2025 4:49 AM EST [facility] Hematocrit 33.8(L) 34.0 - 46.6 % 04/10/2025 4:49 AM EST [facility] MCV 85.1 79.0 - 97.0 fL 04/10/2025 4:49 AM [facility] MCH 27.5 26.6 - 33.0 pg 04/10/2025 4:49 AM EST [facility] MCHC 32.2 31.5 - 35.7 g/dL 04/10/2025 4:49 AM [facility] RDW 13.2 12.3 - 15.4 % 04/10/2025 4:49 AM [facility] RDW-SD 41.1 37.0 - 54.0 fl 04/10/2025 4:49 AM [facility] MPV 10.5 6.0 - 12.0 fL 04/10/2025 4:49 AM [facility] Platelets 252 140 - 450 10*3/mm3 04/10/2025 4:49 AM [facility] Neutrophil % 89.7(H) 42.7 - 76.0 % 04/10/2025 4:49 AM [facility] Lymphocyte % 6.1(L) 19.6 - 45.3 % 04/10/2025 4:49 AM [facility] Monocyte % 3.5(L) 5.0 - 12.0 % 04/10/2025 4:49 AM [facility] Eosinophil % 0.0(L) 0.3 - 6.2 % 04/10/2025 4:49 AM [facility] Basophil % 0.2 0.0 - 1.5 % 04/10/2025 4:49 AM [facility] Immature Grans % 0.5 0.0 - 0.5 % 04/10/2025 4:49 AM [facility] Neutrophils, Absolute 12.31(H) 1.70 - 7.00 10*3/mm3 04/10/2025 4:49 AM [facility] Lymphocytes, Absolute 0.84 0.70 - 3.10 10*3/mm3 04/10/2025 4:49 AM [facility] Monocytes, Absolute 0.48 0.10 - 0.90 10*3/mm3 04/10/2025 4:49 AM [facility] Eosinophils, Absolute 0.00 0.00 - 0.40 10*3/mm3 04/10/2025 4:49 AM [facility] Basophils, Absolute 0.03 0.00 - 0.20 10*3/mm3 04/10/2025 4:49 AM EST [facility] Immature Grans, Absolute 0.07(H) 0.00 - 0.05 10*3/mm3 04/10/2025 4:49 AM EST [facility] nRBC 0.0 0.0 - 0.2 /100 WBC 04/10/2025 4:49 AM EST [facility] Blood Venipuncture / Unknown 04/10/2025 3:31 AM EST 04/10/2025 4:41 AM EST Andres Allen MD LAB BLOOD ORDERABLES Final Res ult [facility]
[address] [place] [address], * (ABNORMAL) Basic Metabolic Panel (04/10/2025 3:31 AM EST) Glucose 121(H) 65 - 99 mg/dL 04/10/2025 5:39 AM [facility] BUN 12.9 8.0 - 23.0 mg/dL 04/10/2025 5:39 AM [facility] Creatinine 0.82 0.57 - 1.00 mg/dL 04/10/2025 5:39 AM EST [facility] Sodium 139 136 - 145 mmol/L 04/10/2025 5:39 AM EST [facility] Potassium 5.6(H) 3.5 - 5.2 mmol/L 04/10/2025 5:39 AM EST [facility] Comment:Specimen hemolyzed. Result may be falsely elevated. Chloride 108(H) 98 - 107 mmol/L 04/10/2025 5:39 AM EST [facility] CO2 23.4 22.0 - 29.0 mmol/L 04/10/2025 5:39 AM EST [facility] Calcium 9.6 8.6 - 10.5 mg/dL 04/10/2025 5:39 AM EST [facility] BUN/Creatinine Ratio 15.7 7.0 - 25.0 04/10/2025 5:39 AM EST [facility] Anion Gap 7.6 5.0 - 15.0 mmol/L 04/10/2025 5:39 AM EST [facility] eGFR 76.1 >60.0 mL/min/1.7 3 04/10/2025 5:39 AM EST [facility] Blood Venipuncture / Unknown 04/10/2025 3:31 AM EST 04/10/2025 4:39 AM EST [facility] - 04/10/2025 5:39 AM [...] MD LAB BLOOD ORDERABLES Final Res ult [facility]
[address] [place] [address], * Tissue Pathology Exam (04/09/2025 11:59 AM EST) Case Report Surgical Pathology Report Case: [id number] Authorizing Provider: Andres Allen MD Collected: 04/09/2025 11:59 AM Ordering Location: [facility] Received: 04/09/2025 01:50 PM OR Pathologist: Conrad Grullon MD Specimens: 1) - Groin, right, RIGHT INGUINAL SENTINEL NODE 2) - Groin, left, LEFT INGUINAL SENTINEL NODE 3) - Perineum, Perineum, Stitch Tags Vaginal Margin 04/12/2025 12:49 PM [facility] Clinical Information Vulvar cancer 04/12/2025 12:49 PM [facility] Final Diagnosis 1. LYMPH NODE, RIGHT [...] synoptic for additional details. 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 04/12/2025 12:49 PM [facility] Gross Description 1. Groin, right. Received [...] entirely as follows: 2A-one node 2B-one node 2U-6B-ltayvzl node. 3. Perineum. Received in formalin labeled [...] 9-12 o'clock-red. Sectioning reveals indurated underlying tissue. Box Builder sections are submitted as follows: 3A-mass with nearest perpendicular 12:00 margin 3B-mass with nearest perpendicular 6:00 margin 3C-mass with nearest perpendicular 3:00 margin 3D-mass with nearest perpendicular 9:00 margin 3E-3H-mass with perpendicular deep margin. LDP 04/12/2025 12:49 PM EST [facility] Microscopic Description The slides are reviewed and demonstrate histopathologic features supporting the above rendered diagnosis. 04/12/2025 12:49 PM EST [facility] Tissue Right inguinal region structure / Unknown 04/09/2025 11:59 AM EST 04/09/2025 1:50 PM EST Tissue specimen (specimen) Left inguinal region structure / Unknown 04/09/2025 12:11 PM EST 04/09/2025 1:50 PM EST Tissue specimen (specimen) Perineal structure / Unknown 04/09/2025 1:18 PM EST 04/09/2025 1:50 PM EST Andres Allen MD PATHOLOGY/CYTOLOGY ORDERABLES Final Result [facility]
[address] [phone] * Type & Screen (04/09/2025 10:12 AM EST) ABO Type O 04/09/2025 11:39 AM EST [facility] RH type Positive 04/09/2025 11:39 AM EST [facility] Antibody Screen Negative 04/09/2025 11:39 AM EST [facility] T&S Expiration Date 04/12/2025 11:59:59 PM 04/09/2025 11:39 AM EST [facility] Blood 04/09/2025 10:1 2 AM EST 04/09/2025 10:26 AM EST Andres Allen MD BLOOD BANK TEST ORDERABLES Manoj seferino Result - Final [facility]
[address] [place] [address], documented in this encounter Visit Diagnoses Diagnosis [...] and THEN promethazine IF ondansetron is ineffective. ([facility]) scopolamine patch 1 mg/72 hr 1 patch, Transdermal - scopolamine, Administer over 72 Hours, Continuous, Starting on Tue04/09/25 at 0954, For 72 hours, Do not apply if patient older than 65 or has history of glaucoma. ([facility]) sterile water irrigation solution As Needed, Starting [...] than 65 or has history of glaucoma. ([facility]) 1030 (Not Given - Provider: Abdi Smart [...] THEN promethazine IF ondansetron is ineffective. ([facility]) sterile water irrigation solution (CANCELED) As Needed, [...] and THEN promethazine IF ondansetron is ineffective. ([facility]) documented in this encounter Care Teams Order Editor Relationship Specialty Start Date End Date Andres Marie MD [address] [facility] [address] [place] [address] PCP - General Family Medicine 03/27/25 documented as of this encounter
--- OUTSIDE RECORDS SUMMARY | 2025-04-09 11:23 | XMS_ITS | Encounter Summary ---
Author Organization [facility] Address [address] [place] [address] Care Team Providers Care Flat Optical Element Maker Name Role Phone Andres Marie MD Primary Care Provider [phone] Reason for Visit * Auth/Cert Specialty Diagnoses / Procedures Referred By Naima telles Referred To Contact Diagnoses Vulvar cancer Vulvar cancer [C51.9] Procedures Injection of ICG for sentinel node detection, modified radical vulvectomy, possible flap Referral ID Status Reason Start Date Expiration Date Visits Re quested Visits Authorized [id number] 1 1 Encounter Details Date Type Department Care Team (Late st Contact Info) Description 04/09/2025 11:23 AM EST Anesthesia Event [facility] OR [address] [place] [address] Connor Nick Jr., MD [address] [place] [address] Edwin James MD [address] [place] [address] Anesthesia Record Procedure Summary Procedure Name Responsible [...] RN Wound 04/09/25; 1150; groi n; Surgical; [place] Node Excision Groin 04/09/25 1150 by Danyelle [...] or training? Not on file Preferred Language Citizen Of [place] 04/02/2025 PHQ-2 Answer Date Recorded Patient Health [...] 04/09/2025 10:14 AM Abdi Lindsay RN * [place] Suicide Severity Rating Scale (Screener/Recent Self-Report) Question Answer Date of Assessment Author 6. Suicidal Behavior (Lifetime) No 10:14 AM Abdi Lindsay RN documented as of this encounter OR Notes * Anesthesia Postprocedure Evaluation - Stuart Emmanuel SRNA - 04/09/2025 1:39 PM EST Patient: Kathy Barron Procedure Summary Date: 04/09/25 Room / Location: [facility] OR [address] [place] [address] EMI OR Anesthesia Start: 1123 Anesthesia Stop: [...] thyroid problem hypothyroidism Musculoskeletal Abdominal Substance History [employer] DIRECTOR Other history of cancer active Anesthesia Plan ASA 3 general intravenous induction Anesthetic plan, risks, benefits, and alternatives have been provided, discussed and informed consent has been obtained with: patient. Pre-procedure education provided Plan discussed with VALVE ASSEMBLER. CODE STATUS: documented in this encounter Plan of Treatment Upcoming Encounters Date Type Department Care Team (Late st Contact Info) Description 04/22/2025 2:00 PM EST Office Visit [facility] GYNECOLOGIC ONCOLOGY [address] [place] [address] Andres Allen MD [address] [place] [address] documented as of this encounter Procedures Procedure [...] mg documented in this encounter Care Teams Flat Optical Element Maker Relationship Specialty Start Date End Date Andres Marie MD [address] [facility] [address] [facility] [address] [place] [address] PCP - General Family Medicine 03/27/25 documented as of this encounter
[2025-04-19 20:13] VITALS: BP 146/73; PULSE 67; RESP 17; TEMP 36.5; O2SAT 98; BMI 22.6
--- OUTSIDE RECORDS SUMMARY | 2025-04-19 20:22 | XMS_ITS | Encounter Summary ---
Author Organization [facility] Address [address] [place] [address] Care Team Providers Care Police Communications Dispatcher Name Role Phone Andres Marie MD Primary Care Provider [phone] Encounter Details Date Type Department Care Team (Late st Contact Info) Description 04/08/2025 Telephone [facility] GYNECOLOGIC ONCOLOGY [address] [place] [address] Andres Allen MD [address] [facility] [address] [place], [place] [id number] Social History Tobacco Use Types Packs/Day Years [...] or training? Not on file Preferred Language Icelandic 04/02/2025 PHQ-2 Answer Date Recorded Patient Health Questionnaire-2 Score 1 03/28/2025 Comments Unknown Sex and Gender Information Value Date Recorded Sex Assigned at Not on file Legal Sex Female 11:49 AM EDT Gender Identity Not on file Sexual Orientation Not on file documented as of this encounter Miscellaneous Notes * Telephone Encounter - Keturah Shi - 04/08/2025 11:42 AM EST Called patient and confirmed arrival time of 930 for surgery on 04/09/2025. Left VM for pt to call back and confirm. documented in this encounter Plan of Treatment Upcoming Encounters Date Type Department Care Team (Late st Contact Info) Description 04/22/2025 2:00 PM EST Office Visit [facility] GYNECOLOGIC ONCOLOGY [address] [place] [address] Andres Allen MD [address] [facility] [address] [place] [address] documented as of this encounter Visit Diagnoses Not on filedocumented in this encounter Care Teams Police Communications Dispatcher Relationship Specialty Start Date End Date Andres Marie MD [address] [facility] [address] [place] [address] PCP - General Family Medicine 03/27/25 documented as of this encounter
--- OUTSIDE RECORDS SUMMARY | 2025-04-19 20:22 | XMS_ITS | Encounter Summary ---
Author Organization [facility] Address [address] [place] [address] Care Team Providers Care Operations Specialist Name Role Phone Andres Marie MD Primary Care Provider [phone] [phone] Encounter Details Date Type Department Care Team (Late st Contact Info) Description 04/04/2025 Patient rounding ([facility]) [facility] G[facility]OLOGIC ONCOLOGY [address] [facility] [address] [place] [address] Keturah Mendes Social History Tobacco Use Types Packs/Day Years [...] or training? Not on file Preferred Language Malian 04/02/2025 PHQ-2 Answer Date Recorded Patient Health Questionnaire-2 Score 1 03/28/2025 Comments Unknown Sex and Gender Information Value Date Recorded Sex Assigned at Not on file Legal Sex Female 11:49 AM EDT Gender Identity Not on file Sexual Orientation Not on file documented as of this encounter Progress Notes * Keturah Mendes - 04/04/2025 8:[address] [facility] message has been sent to the patient for PATIENT ROUNDING with [facility]. documented in this encounter Plan of Treatment Upcoming Encounters Date Type Department Care Team (Late st Contact Info) Description 04/22/2025 2:00 PM EST Office Visit [facility] GYNECOLOGIC ONCOLOGY [address] [place] [address] Andres Allen MD [address] [place] [address] documented as of this encounter Visit Diagnoses Not on filedocumented in this encounter Care Teams Operations Specialist Relationship Specialty Start Date End Date Andres Marie MD [address] [facility] [address] [facility] [address] [place] [address] PCP - General Family Medicine 03/27/25 documented as of this encounter
--- OUTSIDE RECORDS SUMMARY | 2025-04-19 20:22 | XMS_ITS | Clinical Summary ---
Author Organization [facility] Address [address] [place] [address] Care Team Providers Care Clean Energy Policy Analyst Name Role Phone Andres Marie MD Primary Care Provider [phone] Quintin Dahl PA Unavailable Allergies Active [...] preop MYKE Now s/p AVR on 09/22 Encounters Date Type Department Care Team Description 04/04/2025 [facility] Practice [address] [place] [phone] Mamie Thao MD MG (myasthenia gravis) (Primary Dx) from Last 3 Months Family History 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 Relation Name Comments [...] Former Cigarettes 2 40 1 963 - 2002 Smokeless Tobacco: Never Tobacco Cessation:Counseling Given: Not [...] 08/26/2022 10:54 AM EDT Plan of Treatment Upcoming Encounters Date Type Department Care Team (Late st Contact Info) Description 04/23/2025 11:00 AM EST Consult [place] [facility] [address] [place] [address] Yola Mora MD [address] [place] [address] Health Maintenance Due Date Last Done Comments [facility]-Bone Density Scan 1952 [facility]-Depression Screening 1952 [facility]-Hepatitis C Screening 1952 [facility]-Medicare Annual Wellness (AWV) 1952 [facility]-Infant/Child/Adol SDOH Screenings 1952 [facility]- SDOH Screenings 1970 [facility]-Adult SDOH Screenings 1970 [facility]-DTaP,Tdap,and Td Vaccine s (1 - Tdap) 1971 CT Colonography 1997 Colonoscopy 1997 FIT-DNA 1997 FIT 1997 FOBT 1997 Sigmoidoscopy 1997 [facility]-Colorectal Cancer Screening 1997 [facility]-Breast Cancer Screening 2002 [facility]-RSV Vaccine: 60+ Years o r (1 - Risk 60-74 years 1-dose series) 2012 XSS-JXCQE-14 Vaccine (2024- season) 2025 06/03/2021, 09/24/2020, 08/27/2020 [facility]-Influenza Vaccine (#1) 2025 03/21/2020 [facility]-Zoster Vaccines Completed 06/10/2020, 03/21/2020 [facility]-Pneumococcal Vaccine: 50 + Years Completed 06/08/2024, 03/21/2020 HPV Vaccines Aged Out No longer [...] this topic Medical Devices Implanted Type Area Optical Instruments Supervisor Device Identifier Shelf Expiration Date Model / Serial / Lot Valve Aortic Epic Plus Supra Porcine 21mm - [id number] - [id number] Implanted:Qty: 1 on 09/22/2022 by Garth Fish MD at [facility] [id number] 01/14/2025 [id number] / [id number] / [id number] Description:2 rinses, 10 sec onds each. Insurance [employer] MEDICARE Advance Directives * Full Code (Latest Code Status on File) Date Activated Date Inactivated Comments 09/22/2022 2:41 PM 09/27/2022 3:02 PM Question Answer Comments Patient has decision-making capacity? Yes Care Teams Clean Energy Policy Analyst Relationship Specialty Start Date End Date Andres Marie MD [address] [facility] [address] [place] [address] PCP - General 10/10/20 Quintin Dahl PA [address] [place] [id number] Referring Physician Cardiology 08/23/22
--- OUTSIDE RECORDS SUMMARY | 2025-04-19 20:22 | XMS_ITS | Encounter Summary ---
Author Organization [facility] Address [address] [place] [address] Care Team Providers Care Road Inspector Name Role Phone Andres Marie MD Primary Care Provider [phone] Reason for Visit * Reason Onset Date Comments Vaughni:post op calls 04/10/2025 Encounter Details Date Type Department Care Team (Late st Contact Info) Description 04/10/2025 Telephone [facility] HEMATOLOGY & ONCOLOGY [address] [facility] [address] [place] [id number] Andres Allen MD [address] [facility] [address] [place] [address] Viniciusaskdilcia:post op calls Social History Tobacco Use Types Packs/Day Years [...] or training? Not on file Preferred Language Tajik 04/02/2025 PHQ-2 Answer Date Recorded Patient Health Questionnaire-2 Score 1 03/28/2025 Comments No Sex and Gender Information Value Date Recorded Sex Assigned at Not on file Legal Sex Female 11:49 AM EDT Gender Identity Not on file Sexual Orientation Not on file documented as of this encounter Miscellaneous Notes * Telephone Encounter - Keyana Shi LPN - 04/10/2025 1:58 PM EST Called patient for post op f/u, states is swollen around anal area from sitting and she is hurting pretty bad with that. She hasn't had any real pain she states until now. Encouraged to take pain meds and apply ice to area, is going to get a squirty bottle to assist with cleaning after elimination,offered to mail her one but says she will get one. Explained she could allow soapy water over incisions to just rinse well. Encouraged for increased protein and water and to call with any questions or concerns. documented in this encounter Plan of Treatment Upcoming Encounters Date Type Department Care Team (Late st Contact Info) Description 04/22/2025 2:00 PM EST Office Visit [facility] GYNECOLOGIC ONCOLOGY [address] [facility] [address] [place] [address] Andres Allen MD [address] [facility] [address] [place] [address] documented as of this encounter Visit Diagnoses Not on filedocumented in this encounter Care Teams Road Inspector Relationship Specialty Start Date End Date Andres Marie MD [address] [facility] [address] [place] [address] PCP - General Family Medicine 03/27/25 documented as of this encounter
--- OUTSIDE RECORDS SUMMARY | 2025-04-19 20:22 | XMS_ITS | Encounter Summary ---
Author Organization [facility] Address [address] [place] [address] Care Team Providers Care Calculator Operator Name Role Phone Andres Marie MD Primary Care Provider [phone] Encounter Details Date Type Department Care Team (Latest Contact Info) Description 04/08/2025 Travel Social History Tobacco Use Types Packs/Day Years [...] or training? Not on file Preferred Language Cypriot 04/02/2025 PHQ-2 Answer Date Recorded Patient Health [...] Description 04/22/2025 2:00 PM EST Office Visit [facility] GYNECOLOGIC ONCOLOGY [address] [facility] [address] [place] [address] Andres Allen MD [address] [facility] [address] [place] [address] documented as of this encounter Visit Diagnoses Not on filedocumented in this encounter Care Teams Calculator Operator Relationship Specialty Start Date End Date Andres Marie MD [address] [facility] [address] [facility] [address] [place] [address] PCP - General Family Medicine 03/27/25 documented as of this encounter
--- OUTSIDE RECORDS SUMMARY | 2025-04-19 20:22 | XMS_ITS | Encounter Summary ---
Author Organization [facility] Address [address] [place] [address] Care Team Providers Care Rental Car Deliverer Name Role Phone Andres Marie MD Primary Care Provider [phone] Quintin Dahl PA Unavailable Encounter Details Date Type Department Care Team (Late st Contact Info) Description 08/11/2022 Orders Only External Location [address] [place] [address] Provider, External Social History Tobacco Use Types [...] Info) Description 04/23/2025 11:00 AM EST Consult [facility] [address] [place] [address] Yola Mora MD [address] [place] [address] documented as of this encounter Procedures Procedure Name Priority Date/Time Associated Diagnosis Comments IR CHEST OUTSIDE IMAGES 08/11/2022 12:00 AM EDT documented in this encounter Results * IR CHEST OUTSIDE IMAGES (08/11/2022 12:00 AM EDT) Anatomical Region Laterality Modality X-Ray Angiograph y 08/11/2022 External Provider IMG IR PROCEDURES Final Result documented in this encounter Visit Diagnoses Not on filedocumented in this encounter Care Teams Rental Car Deliverer Relationship Specialty Start Date End Date Andres Marie MD [address] [place] [address] [address] PCP - General 10/10/20 Quintin Dahl PA [address] [place] [address] [place] [address] Referring Physician Cardiology 08/23/22 documented as of this encounter
--- OUTSIDE RECORDS SUMMARY | 2025-04-19 20:22 | XMS_ITS | Encounter Summary ---
Author Organization [facility] Address [address] [place] [address] Care Team Providers Care Telephone Exchange Operator Name Role Phone Andres Marie MD Primary Care Provider [phone] Quintin Dahl PA Unavailable Reason for Referral * Consultation (Routine) - Authorized Specialty Diagnoses / Procedures Referred By Naima telles Referred To Contact Neurology Diagnoses MG (myasthenia gravis) Mamie Thao MD [address] [place] [address] [place] [address] Phone: tel: fax: Referral ID Status Reason Start Date Expiration Date Visits Requested Visits Authorized [id number] Authorized Specialty Services Required 04/04/2025 10/04/2026 1 1 Encounter Details Date Type Department Care Team (Late st Contact Info) Description 04/04/2025 [facility] [address] [place] [address] Mamie Thao MD [address] [place] [address] [place] [address] MG (myasthenia gravis) (Primary Dx) Social History Tobacco Use Types Packs/Day Years Used Date Smoking Tobacco: Former Cigarettes 2 40 1 963 - 2002 Smokeless Tobacco: Never Alcohol Use Standard Drinks/Week Comments Not Currently [...] Consult [place] [facility] [address] [place] [address] Yola Mora MD [address] [place] [address] Scheduled Referrals Name Type Priority Associated Diagnoses Order Schedule Ambulatory referral to Neurology Outpatient Referral Routine MG (myasthenia gravis) (CMS/[facility]) Expected: 04/04/2025 (Approximate), Expires: 10/02/2026 documented as of this encounter Visit Diagnoses Diagnosis MG (myasthenia gravis)- Primary Myasthenia gravis without exacerbation documented in this encounter Additional Health Concerns Assessment Noted Time A fall risk assessment has been complete d for the patient 10/14/2022 2:23 PM EDT documented as of this encounter Care Teams Telephone Exchange Operator Relationship Specialty Start Date End Date Andres Marie MD [address] [facility] [address] [facility] [address] [place], [place] [id number] PCP - General 10/10/20 Quintin Dahl PA [address] [facility] [address] [place], [place] [id number] Referring Physician Cardiology 08/23/22 documented as of this encounter
--- OUTSIDE RECORDS SUMMARY | 2025-04-19 20:22 | XMS_ITS | Encounter Summary ---
Author Organization [facility] Address [address] [place] [address] Care Team Providers Care Nurse Sane Name Role Phone Andres Marie MD Primary Care Provider [phone] Reason for Visit * Reason Onset Date Comments DR ZIMMER - CLINICAL 04/04/2025 Encounter Details Date Type Department Care Team (Late st Contact Info) Description 04/04/2025 Telephone [facility] GYNECOLOGIC ONCOLOGY [address] [facility] [address] [place] [address] Andres Zimmer MD [address] [facility] [address] [place] [address] DR ZIMMER - CLINICAL Social History Tobacco Use Types Packs/Day Years [...] or training? Not on file Preferred Language Colombian 04/02/2025 PHQ-2 Answer Date Recorded Patient Health Questionnaire-2 Score 1 03/28/2025 Comments Unknown Sex and Gender Information Value Date Recorded Sex Assigned at Not on file Legal Sex Female 11:49 AM EDT Gender Identity Not on file Sexual Orientation Not on file documented as of this encounter Miscellaneous Notes * Telephone Encounter - Ran Guzmán RN - 04/04/2025 9:50 AM EST RN returned pt call. She is inquiring if she needs to keep pulmonary appt today. RN inquired which provider placed referral as it is not viewable in chart. Pt states it was MD at [facility] and she doesn'tremember why he told he she needed to be seen as she was referred to so many things. RN advised pt we are unable to view those notes but advised pt MD is not currently in office but as I review office notes, it appears she should keep today's appt to follow up on scans. Pt V/U and appreciative of call. * Telephone Encounter - Evita Cam RegSched Rep - 04/04/2025 8:53 AM EST Caller: Kathy Barron Relationship: Self Best call back number: [phone] What is the best time to reach you: ANYTIME Who are you requesting to speak with (clinical staff, provider, specific staff member): CLINICAL What was the call regarding: PT IS SCHEDULED TODAY WITH A SIDE HEMMER, ORDERED BY ANOTHER PROVIDER AND WANTS TO ASK DR ZIMMER IF SHE NEEDS TO KEEP THAT APPOINTMENT. PLEASE ADVISE documented in this encounter Plan of Treatment Upcoming Encounters Date Type Department Care Team (Late st Contact Info) Description 04/22/2025 2:00 PM EST Office Visit [facility] GYNECOLOGIC ONCOLOGY [address] [facility] [address] [place] [address] Andres Zimmer MD [address] [facility] [address] [place] [address] documented as of this encounter Visit Diagnoses Not on filedocumented in this encounter Care Teams Nurse Sane Relationship Specialty Start Date End Date Andres Marie MD [address] [facility] [address] [place] [address] PCP - General Family Medicine 03/27/25 documented as of this encounter
--- OUTSIDE RECORDS SUMMARY | 2025-04-19 20:22 | XMS_ITS | Clinical Summary ---
Author Organization [facility] Address [address] [place] [address] Care Team Providers Care Calender Worker Helper Name Role Phone Andres Marie MD Primary Care Provider [phone] Allergies Active Allergy Reactions Criticality Noted Date Comments Iodinated Contrast Media Rash Low 08/23/2022 States has had contrast recently and did not have a reaction, stated x2 Medications amLODIPine (NORVASC) 5 MG tablet Take 1 tablet by mouth Every Night. Active aspirin 81 MG EC tablet Daily. Active Colestid 1 g tablet Take by mouth. 02/21/2025 Active DULoxetine (CYMBALTA) 30 MG capsule Take 1 capsule by mouth Every Night. Active irbesartan (AVAPRO) 300 MG tablet Take by mouth Daily. Active levothyroxine sodium (TIROSINT) 50 MCG capsule Take 1 capsule by mouth Daily. Active metoprolol succinate XL (TOPROL-XL) 50 MG 24 hr tablet Take 1 tablet by mouth Every Night. 01/01/2025 Active pyridostigmine (MESTINON) 60 MG tablet Take by mouth 3 (Three) Times a Day. Active spironolactone (ALDACTONE) 25 MG tablet Take by mouth Daily. Active risedronate (ACTONEL) 35 MG tablet Take 1 tablet by mouth Every 7 (Seven) Days. 03/27/2025 Active vitamin B-12 (CYANOCOBALAMIN ) 1000 MCG tablet Take 1 tablet by mouth Daily. Active Active Problems Problem Noted Date Diagnosed Date Primary vulvar cancer 04/01/2025 Vulvar cancer 03/28/2025 Cancer Staging:Clinical stage from 03/28/2025:FIGO Stage II(cT2, cN0, cM0) - Signed by Vinayak Delgado MD on 03/28/2025 Encounters Date Type Department Care Team Description 04/15/2025 Results Follow-Up [facility] OR [address] [place] [address] Ran Guzmán RN 04/10/2025 Telephone [facility] HEMATOLOGY & ONCOLOGY [address] COUNT INCLUDES [facility] [address] [place] [address] Andres Allen MD [place]:post op calls 04/09/2025 11:23 AM EST Anesthesia Event [facility] OR [address] [place] [address] Connor Nick Jr., MD Addis, Dylan, MD 04/09/2025 11:10 AM EST - 04/09/2025 1:20 PM EST Surgery [facility] OR [address] [place] [address] Andres Allen MD Injection of ICG for sentinel node detection, modified radical vulvectomy 04/09/2025 9:34 AM EST - 04/10/2025 12:59 PM EST Hospital Encounter [facility] 5B [address] [place] [address] Andres Allen MD Vulvar cancer Discharge Disposition: Home or Self Care 04/08/2025 12:44 PM EST - 04/08/2025 11:59 PM EST Hospital Encounter [facility] [place] [address] [address] Discharge Disposition: Home or Self Care 04/08/2025 12:44 PM EST - 04/08/2025 11:59 PM EST Hospital Encounter [facility] [place] [address] [facility] [address] [place] [address] Vulvar cancer Discharge Disposition: Home or Self Care 04/08/2025 Travel 04/08/2025 Telephone [facility] [address] [facility] [address] [place] [address] Andres Allen MD 04/04/2025 Telephone [facility] GYNECOLOGIC ONCOLOGY [address] [facility] [address] [place] [address] [place] - CLINICAL 04/04/2025 Patient rounding ([facility] only) [facility] GYNECOLOGIC ONCOLOGY [address] [facility] [address] [place] [address] Vaughn Keturah Jessy 04/02/2025 9:30 AM EST Pre-Admission Testing [facility] PREADMISSION T [address] [place] [address] Laboratory test (Primary Dx); Vulvar cancer 04/02/2025 9:19 AM EST - 04/02/2025 11:59 PM EST Hospital Encounter [facility] XRAY [address] [place] [address] Discharge Disposition: Home or Self Care 04/02/2025 6:45 AM EST - 04/02/2025 11:59 PM EST Hospital Encounter [facility] MRI [address] [place] [address] Vulvar cancer Discharge Disposition: Home or Self Care 04/01/2025 10:45 AM EST Office Visit [facility] GYNECOLOGIC ONCOLOGY [address] COUNT INCLUDES [facility] [address] [place] [address] Andres Allen MD Vulvar cancer (Primary Dx) 04/01/2025 Travel 03/28/2025 3:00 PM EDT Office Visit [facility] [address] [place] [address] Vinayak Delgado MD Vulvar cancer (Primary Dx) 03/28/2025 Travel from Last 3 Months Immunizations Immunization Administration Dates Next Due Fluzone High-Dose 65+YRS 04/10/2025 Family History 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 Relation Name Comments Leukemia Brother Heart disease Father Heart disease Mother Breast cancer Sister 1 Lung cancer Sister 2 Relation Name Status Comments Brother Father Mother Sister 1 Alive Sister 2 Social History Tobacco Use Types Packs/Day Years [...] or training? Not on file Preferred Language Mongolian 04/02/2025 PHQ-2 Answer Date Recorded Patient Health [...] Mass Index 22.76 04/09/2025 3:30 PM EST Plan of Treatment Upcoming Encounters Date Type Department Care Team (Late st Contact Info) Description 04/22/2025 2:00 PM EST Office Visit [facility] GYNECOLOGIC ONCOLOGY [address] [place] [address] Andres Allen MD [address] [facility] [address] [place] [address] Health Maintenance Due Date Last Done Comments DXA SCAN 1952 Pneumococcal Vaccine 50+ (1 of 2 - PCV) 1971 TDAP/TD VACCINES (1 - Tdap) 1971 MAMMOGRAM 1992 COLOGUARD 1997 COLON CANCER SCREENING 5 YEA R SIGMOIDOSCOPY 1997 [address] COLONOGRAPHY 1997 FECAL OCCULT BLOOD TEST 1997 FIT Testing (1 year) 1997 ZOSTER VACCINE (1 of 2) 2002 COVID-19 Vaccine (3 - Modern a risk series) 07/01/2021 06/03/2021, 09/24/2020, 08/27/2020 ANNUAL WELLNESS VISIT 03/28/2025 HEPATITIS C SCREENING 03/28/2025 COLONOSCOPY 03/28/2035 03/28/2025, 11/27, 12/14/2024 COLORECTAL CANCER SCREENING 03/28/2035 INFLUENZA VACCINE Completed 04/10/2025 Procedures Procedure Name Priority Date/Time Associated Diagnosis Comments CBC AND DIFFERENTIAL Routine 04/10/2025 3:31 AM EST CBC WITH AUTO DIFFERENTIAL Routine 04/10/2025 3:31 AM EST BASIC METABOLIC PANEL Routine 04/10/2025 3:31 AM EST TISSUE PATHOLOGY EXAM Routine 04/09/2025 11:59 AM EST Vulvar cancer ANESTHESIA INTUBATION Routine 04/09/2025 11:41 AM EST VULVECTOMY WITH INGUINOFEMORAL LYMPH NODE DISSECTION 04/09/2025 11:08 AM EST Vulvar cancer Special Needs SPYPHI * TYPE AND SCREEN Routine 04/09/2025 10:12 AM EST Vulvar cancer NM PET/CT SKULL BASE TO MID THIGH Routine 04/08/2025 2:43 PM EST Vulvar cancer POCT GLUCOSE FINGERSTICK Routine 04/08/2025 1:06 PM EST XR CHEST 1 VW STAT 04/02/2025 9:37 AM EST Vulvar cancer ECG 12-LEAD Routine 04/02/2025 8:56 AM EST Vulvar cancer ABORH 2ND SPECIMEN VERIFICATION Routine 04/02/2025 8:44 AM EST Laboratory test HEMOGLOBIN A1C Add-On 04/02/2025 8:25 AM EST CBC AND DIFFERENTIAL Routine 04/02/2025 8:24 AM EST Vulvar cancer CBC WITH AUTO DIFFERENTIAL Routine 04/02/2025 8:24 AM EST Vulvar cancer COMPREHENSIVE METABOLIC PANEL Routine 04/02/2025 8:24 AM EST Vulvar cancer MRI PELVIS W WO CONTRAST Routine 04/02/2025 7:56 AM EST Vulvar cancer SCANNED EKG 04/02/2025 SCANNED PATHOLOGY 03/28/2025 SCANNED - LABS 03/28/2025 SCANNED - IMAGING 03/28/2025 SCANNED - IMAGING 03/28/2025 SCANNED - IMAGING 03/28/2025 SCANNED - COLONOSCOPY 03/28/2025 CT OUTSIDE CHEST Routine 03/14/2025 12:[address] OUTSIDE ABD/PELVIS Routine 03/14/2025 12:00 AM EDT SCANNED - IMAGING 03/14/2025 SCANNED - IMAGING 03/14/2025 SCANNED - LABS 03/13/2025 SCANNED PATHOLOGY 02/25/2025 from Last 3 Months Results * (ABNORMAL) CBC Auto Differential (04/10/2025 3:31 AM EST) Only the most recent of2 resultswithin the time period is included. WBC 13.73(H) 3.40 - 10.80 10*3/mm3 04/10/2025 4:49 AM EST [facility] RBC 3.97 3.77 - 5.28 10*6/mm3 04/10/2025 4:49 AM EST [facility] Hemoglobin 10.9(L) 12.0 - 15.9 g/dL 04/10/2025 4:49 AM [facility] Hematocrit 33.8(L) 34.0 - 46.6 % 04/10/2025 4:49 AM [facility] MCV 85.1 79.0 - 97.0 fL 04/10/2025 4:49 AM [facility] MCH 27.5 26.6 - 33.0 pg 04/10/2025 4:49 AM [facility] MCHC 32.2 31.5 - 35.7 g/dL 04/10/2025 4:49 AM [facility] RDW 13.2 12.3 - 15.4 % 04/10/2025 4:49 AM [facility] RDW-SD 41.1 37.0 - 54.0 fl 04/10/2025 4:49 AM [facility] MPV 10.5 6.0 - 12.0 fL 04/10/2025 4:49 AM [facility] Platelets 252 140 - 450 10*3/mm3 04/10/2025 4:49 AM [facility] Neutrophil % 89.7(H) 42.7 - 76.0 % 04/10/2025 4:49 AM EST [facility] Lymphocyte % 6.1(L) 19.6 - 45.3 % 04/10/2025 4:49 AM [facility] Monocyte % 3.5(L) 5.0 - 12.0 % 04/10/2025 4:49 AM EST [facility] Eosinophil % 0.0(L) 0.3 - 6.2 % 04/10/2025 4:49 AM EST [facility] Basophil % 0.2 0.0 - 1.5 % 04/10/2025 4:49 AM [facility] Immature Grans % 0.5 0.0 - 0.5 % 04/10/2025 4:49 AM EST [facility] Neutrophils, Absolute 12.31(H) 1.70 - 7.00 10*3/mm3 04/10/2025 4:49 AM EST [facility] Lymphocytes, Absolute 0.84 0.70 - 3.10 10*3/mm3 04/10/2025 4:49 AM [facility] Monocytes, Absolute 0.48 0.10 - 0.90 10*3/mm3 04/10/2025 4:49 AM EST [facility] Eosinophils, Absolute 0.00 0.00 - 0.40 10*3/mm3 04/10/2025 4:49 AM [facility] Basophils, Absolute 0.03 0.00 - 0.20 10*3/mm3 04/10/2025 4:49 AM [facility] Immature Grans, Absolute 0.07(H) 0.00 - 0.05 10*3/mm3 04/10/2025 4:49 AM [facility] nRBC 0.0 0.0 - 0.2 /100 WBC 04/10/2025 4:49 AM [facility] Blood Venipuncture / Unknown 04/10/2025 3:31 AM EST 04/10/2025 4:41 AM EST us Andres Allen MD LAB BLOOD ORDERABLES Final Res ult [facility]
[address] [place] [address], * (ABNORMAL) Basic Metabolic Panel (04/10/2025 3:31 AM EST) Glucose 121(H) 65 - 99 mg/dL 04/10/2025 5:39 AM EST [facility] BUN 12.9 8.0 - 23.0 mg/dL 04/10/2025 5:39 AM EST [facility] Creatinine 0.82 0.57 - 1.00 mg/dL 04/10/2025 5:39 AM EST [facility] Sodium 139 136 - 145 mmol/L 04/10/2025 5:39 AM EST [facility] Potassium 5.6(H) 3.5 - 5.2 mmol/L 04/10/2025 5:39 AM [facility] Comment:Specimen hemolyzed. Result may be falsely elevated. Chloride 108(H) 98 - 107 mmol/L 04/10/2025 5:39 AM EST [facility] CO2 23.4 22.0 - 29.0 mmol/L 04/10/2025 5:39 AM EST [facility] Calcium 9.6 8.6 - 10.5 mg/dL 04/10/2025 5:39 AM [facility] BUN/Creatinine Ratio 15.7 7.0 - 25.0 04/10/2025 5:39 AM [facility] Anion Gap 7.6 5.0 - 15.0 mmol/L 04/10/2025 5:39 AM [facility] eGFR 76.1 >60.0 mL/min/1.7 3 04/10/2025 5:39 AM [facility] Blood Venipuncture / Unknown 04/10/2025 3:31 AM EST 04/10/2025 4:39 AM EST [facility] LAB[facility] - 04/10/2025 5:39 AM EST [...] MD LAB BLOOD ORDERABLES Final Res ult [facility]
[address] [place] [address], * Tissue Pathology Exam (04/09/2025 11:59 AM EST) Case Report Surgical Pathology Report Case: [id number] Authorizing Provider: Andres Allen MD Collected: 04/09/2025 11:59 AM Ordering Location: [facility] Received: 04/09/2025 01:50 PM OR Pathologist: Conrad Grullon MD Specimens: 1) - Groin, right, RIGHT INGUINAL SENTINEL NODE 2) - Groin, left, LEFT INGUINAL SENTINEL NODE 3) - Perineum, Perineum, Stitch Tags Vaginal Margin 04/12/2025 12:49 PM EST [facility] Clinical Information Vulvar cancer 04/12/2025 12:49 PM EST [facility] Final Diagnosis 1. LYMPH [...] for additional details. 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 04/12/2025 12:49 PM [facility] Gross Description 1. Groin, [...] entirely as follows: 2A-one node 2B-one node [id number]-[id number] node. 3. Perineum. Received in formalin labeled [...] 9-12 o'clock-red. Sectioning reveals indurated underlying tissue. Customer Technical Services Manager sections are submitted as follows: 3A-mass with nearest perpendicular 12:00 margin 3B-mass with nearest perpendicular 6:00 margin 3C-mass with nearest perpendicular 3:00 margin 3D-mass with nearest perpendicular 9:00 margin 3E-3H-mass with perpendicular deep margin. [facility] 04/12/2025 12:49 PM [facility] Microscopic Description The slides are reviewed and demonstrate histopathologic features supporting the above rendered diagnosis. 04/12/2025 12:49 PM EST [facility] Tissue Right inguinal region structure / Unknown 04/09/2025 11:59 AM EST 04/09/2025 1:50 PM EST Tissue specimen (specimen) Left inguinal region structure / Unknown 04/09/2025 12:11 PM EST 04/09/2025 1:50 PM EST Tissue specimen (specimen) Perineal structure / Unknown 04/09/2025 1:18 PM EST 04/09/2025 1:50 PM EST us Andres Allen MD PATHOLOGY/CYTOLOGY ORDERABLES Final Result [facility]
[address] [place] [address], * BH AN ETT AIRWAY (04/09/2025 11:41 [...] bilaterally with symmetric chest rise and fall Edwin James MD ANESTHESIA ORDERABLES Final Resu lt * Type & Screen (04/09/2025 10:12 AM EST) ABO Type O 04/09/2025 11:39 AM EST [facility] RH type Positive 04/09/2025 11:39 AM EST [facility] Antibody Screen Negative 04/09/2025 11:39 AM EST [facility] T&S Expiration Date 04/12/2025 11:59:59 PM 04/09/2025 11:39 AM EST [facility] Blood 04/09/2025 10:1 2 AM EST 04/09/2025 10:26 AM EST Andres Allen MD BLOOD BANK TEST ORDERABLES Manoj seferino Result - Final [facility]
[address] [place] [address], * NM PET/CT Skull Base to Mid [...] MD 04/10/2025 1:57 PM EST Workstation ID: [id number] Narrative 04/10/2025 1:57 PM EST FDG NM [...] MD 04/10/2025 1:57 PM EST Workstation ID: [id number] Vinayak Delgado MD IMG NM ORDERABLES Fi nal Result * POC Glucose Once (04/08/2025 1:06 PM EST) Glucose 99 70 - 130 mg/dL 04/08/2025 2:08 PM EST [facility] Comment:Serial Number: [id number]: [id number] Blood 04/08/2025 1:06 PM EST 04/08/2025 2:08 PM EST Vinayak Delgado MD POINT OF CARE TEST O RDERABLES Final Result [facility]
[address] [place] [address], * XR Chest 1 View (04/02/2025 9:37 AM EST) Anatomical Region Laterality Modality Body N/A Radiographic Lisa ging 04/02/2025 9:42 AM EST Impressions 04/02/2025 9:43 AM EST Impression: No acute findings. Electronically Signed: Steven Lewis MD 04/02/2025 9:43 AM EST Workstation ID: [id number] Narrative 04/02/2025 9:43 AM EST XR CHEST [...] MD 04/02/2025 9:43 AM EST Workstation ID: [id number] Andres Allen MD IMG DIAGNOSTIC IMAGING ORDERAB [...] ABO Type O 04/02/2025 10:35 PM EST [facility] RH type Positive 04/02/2025 10:35 PM EST [facility] Blood Venipuncture / Unknown 04/02/2025 8:44 AM EST 04/02/2025 9:19 AM EST Andres Allen MD BLOOD BANK TEST ORDERABLES Fin al Result Performing Organization Address City/[facility]/ZIP Co de Phone Number [facility]
[address] [place] [address], * (ABNORMAL) Hemoglobin A1c (04/02/2025 8:25 AM EST) Hemoglobin A1C 5.94(H) 4.80 - 5.60 % 04/02/2025 11:17 AM EST [facility] Blood Venipuncture / Unknown 04/02/2025 8:25 AM EST 04/02/2025 9:02 AM EST Narrative [facility] - 04/02/2025 11:17 AM EST Hemoglobin A1C Ranges: Increased Risk for Diabetes 5.7% to 6.4% Diabetes >= 6.5% Diabetic Goal < 7.0% Andres Allen MD LAB BLOOD ORDERABLES Final Res ult Performing Organization Address City/[facility]/ZIP Co de Phone Number [facility]
[address] [place] [address], * (ABNORMAL) Comprehensive Metabolic Panel (04/02/2025 8:24 AM EST) Glucose 96 65 - 99 mg/dL 04/02/2025 10:57 AM EST [facility] BUN 11.0 8.0 - 23.0 mg/dL 04/02/2025 10:57 AM EST [facility] Creatinine 0.88 0.57 - 1.00 mg/dL 04/02/2025 10:57 AM EST [facility] Sodium 141 136 - 145 mmol/L 04/02/2025 10:57 AM [facility] Potassium 5.1 3.5 - 5.2 mmol/L 04/02/2025 10:57 AM [facility] Comment:Specimen hemolyzed. Result may be falsely elevated. Chloride 106 98 - 107 mmol/L 04/02/2025 10:57 AM [facility] CO2 25.5 22.0 - 29.0 mmol/L 04/02/2025 10:57 AM [facility] Calcium 10.8(H) 8.6 - 10.5 mg/dL 04/02/2025 10:57 AM [facility] Total Protein 7.2 6.0 - 8.5 g/dL 04/02/2025 10:57 AM [facility] Albumin 4.4 3.5 - 5.2 g/dL 04/02/2025 10:57 AM [facility] ALT (SGPT) 19 1 - 33 U/L 04/02/2025 10:57 AM [facility] AST (SGOT) 30 1 - 32 U/L 04/02/2025 10:57 AM [facility] Alkaline Phosphatase 139(H) 39 - 117 U/L 04/02/2025 10:57 AM [facility] Total Bilirubin 0.6 0.0 - 1.2 mg/dL 04/02/2025 10:57 AM [facility] Globulin 2.8 gm/dL 04/02/2025 10:57 AM [facility] Comment:Calculated Result A/G Ratio 1.6 g/dL 04/02/2025 10:57 AM [facility] BUN/Creatinine Ratio 12.5 7.0 - 25.0 04/02/2025 10:57 AM [facility] Anion Gap 9.5 5.0 - 15.0 mmol/L 04/02/2025 10:57 AM [facility] eGFR 69.9 >60.0 mL/min/1.7 3 04/02/2025 10:57 AM [facility] Blood Venipuncture / Unknown 04/02/2025 8:24 AM EST 04/02/2025 9:02 AM EST Narrative [facility] - 04/02/2025 10:57 AM EST GFR [...] MD LAB BLOOD ORDERABLES Final Res ult [facility]
[address] [place] [address], * MRI Pelvis With & Without Contrast [...] MD 04/02/2025 5:02 PM EST Workstation ID: [id number] Narrative 04/02/2025 5:02 PM EST MRI PELVIS [...] No suspicious adnexal mass. There is a [id number] 9 mm right ovarian cyst considered almost [...] MD 04/02/2025 5:02 PM EST Workstation ID: [id number] Result [facility] Andres Allen MD IMG MRI ORDERABLES Final Resul t * ECG Scan (04/02/2025) Result [facility] ECG ORDERABLES Final Result * Colonoscopy, Scan (03/28/2025) [facility] BH CHART REVIEW TABS Final Re sult * SCANNED PATHOLOGY (03/28/2025) Only the most recent of2 resultswithin the time period is included. Result [facility] PATHOLOGY/CYTOLOGY ORDERABLES Final Result * IMAGING SCANNED (03/28/2025) Only the most recent of5 resultswithin the time period is included. Anatomical Region Laterality Modality Radiographic Lisa ging Result [facility] IMG DIAGNOSTIC IMAGING ORDERA BLES Final Result * LABS SCANNED (03/28/2025) Only the most recent of2 resultswithin the time period is included. Result [facility] LAB BLOOD ORDERABLES Final Re sult * CT Outside Chest (03/14/2025 12:05 AM EDT) Narrative SYSTEMGENERATED, DOCUMENTATION - 03/27/2025 3:36 PM EDT This procedure was auto-finalized with no dictation required. Result [facility] Vinayak Delgado MD [facility] CT ORDERABLES Fi nal Result * CT Outside Abd/Pelvis (03/14/2025 12:00 AM EDT) Narrative SYSTEMGENERATED, DOCUMENTATION - 03/27/2025 3:36 PM EDT This procedure was auto-finalized with no dictation required. Result [facility] Vinayak Delgado MD [facility] CT ORDERABLES Fi nal Result from Last 3 Months Insurance [facility] MEDICARE ADVANTAGE PPO Advance Directives * CPR (Attempt to Resuscitate) (Latest Code Status on File) Date Activated Date Inactivated Comments 04/09/2025 3:29 PM 04/10/2025 3:09 PM Question Answer Comments Code Status (Patient has no pulse and is not breathing): CPR (Attempt to Resuscitate) Medical Interventions (Patie nt has pulse or is breathing): Full Support Care Teams Calender Worker Helper Relationship Specialty Start Date End Date Andres Marie MD [address] [place] [address] [address] [facility] [address] [place] [address] PCP - General Family Medicine 03/27/25
--- OUTSIDE RECORDS SUMMARY | 2025-04-19 20:22 | XMS_ITS | Encounter Summary ---
[facility] Address [address] [place] [id number] Care Team Providers Care Processing Spec Name Role Phone Andres Marie MD Primary Care Provider [phone] Encounter Details Date Type Department Care Team (Latest Contact Info) Description 03/28/2025 Travel Social History Tobacco Use Types Packs/Day [...] documented as of this encounter Functional Status documented as of this encounter Plan of Treatment Upcoming Encounters Date Type Department Care Team (Late st Contact Info) Description 04/22/2025 2:00 PM EST Office Visit [facility]Y [address] [facility] [address] [place] [address] Andres Allen MD [address] [facility] [address] [place] [address] documented as of this encounter Visit Diagnoses Not on filedocumented in this encounter Care Teams Processing Spec Relationship Specialty Start Date End Date Andres Marie MD [address] [facility] [address] [place] [address] PCP - General Family Medicine 03/27/25 documented as of this encounter
--- OUTSIDE RECORDS SUMMARY | 2025-04-19 20:22 | XMS_ITS | Encounter Summary ---
[facility] Address [address] [place] [address] Care Team Providers Care Financial Director Name Role Phone Andres Marie MD Primary Care Provider [phone] Encounter Details Date Type Department Care Team (Latest Contact Info) Description 04/01/2025 Travel Social History Tobacco Use Types Packs/Day [...] or training? Not on file Preferred Language Fijian 04/02/2025 PHQ-2 Answer Date Recorded Patient Health [...] Description 04/22/2025 2:00 PM EST Office Visit [facility] GYNECOLOGIC ONCOLOGY [address] [facility] [address] [place] [address] Andres Allen MD [address] [facility] [address] [place] [address] documented as of this encounter Visit Diagnoses Not on filedocumented in this encounter Care Teams Financial Director Relationship Specialty Start Date End Date Andres Marie MD [address] [place] [facility] [address] [facility] [address] [place] [address] PCP - General Family Medicine 03/27/25 documented as of this encounter
--- OUTSIDE RECORDS SUMMARY | 2025-04-19 20:22 | XMS_ITS | Encounter Summary ---
[facility] Address [address] [place] [address] Care Team Providers Care Landscaping Specialist Name Role Phone Andres Marie MD Primary Care Provider [phone] Encounter Details Date Type Department Care Team (Late st Contact Info) Description 04/15/2025 Results Follow-Up [facility] OR [address] [place] [id number] Ran Guzmán RN Social History Tobacco Use Types Packs/Day Years [...] or training? Not on file Preferred Language Lithuanian 04/02/2025 PHQ-2 Answer Date Recorded Patient Health Questionnaire-2 Score 1 03/28/2025 Comments No Sex and Gender Information Value Date Recorded Sex Assigned at Not on file Legal Sex Female 11:49 AM EDT Gender Identity Not on file Sexual Orientation Not on file documented as of this encounter Miscellaneous Notes * Telephone Encounter - Ran Guzmán RN - 04/15/2025 1:49 PM EST RN called pt at MD request regarding pathology results. Advised pt her surgical pathology was: lymph nodes negative, no invasive cancer, margin showed dysplasia (abnormal cells). Plan is to monitor closely w/potential local resection of margin. Pt states she has blisters and is really red and hurting. RN spoke w/MD and advised pt to continue to rinse w/H2O only, use cold compress, and apply only Cetaphil cream to area for comfort measures. Pt V/U and appreciative of care. * Telephone Encounter - Ran Guzmán RN - 04/15/2025 1:48 PM EST ----- Message from Andres Allen sent at 04/14/2025 9:45 AM EST ----- Please give the patient the following message: ----- Results -----lymph nodes negative and margins negative for invasive cancer. Edge with dysplasia. No radiation needed at this time. Possible local resection of margin at later date. Will discuss further at post op visit. ----- Message ----- From: Lab, Background User Sent: 04/12/2025 12:49 PM EST To: Andres Allen MD documented in this encounter Plan of Treatment Upcoming Encounters Date Type Department Care Team (Late st Contact Info) Description 04/22/2025 2:00 PM EST Office Visit [facility] [address] [facility] [address] [place] [phone] Andres Allen MD [address] [facility] [address] [place] [address] documented as of this encounter Visit Diagnoses Not on filedocumented in this encounter Care Teams Landscaping Specialist Relationship Specialty Start Date End Date Andres Marie MD [address] [facility] [address] [place] [address] PCP - General Family Medicine 03/27/25 documented as of this encounter
--- OUTSIDE RECORDS SUMMARY | 2025-04-19 20:24 | XMS_ITS | Patient Health Record ---
[facility] [address] [place] [id number] Care Team Providers Care Outside Contractor Sales Name Role Phone Mallorie Marie Primary Care Provider Kee Gaspar Unavailable [phone] Maggie Ramos Unavailable [phone] Melodie Ponce Unavailable [phone] Allergies Allergen (clinical drug ingredient) Drug/Non Drug [...] 10.7 Performing Lab: Notes/Report: Test performed by [employer] [employer] [address] [place] [address] , [address], [place] [address] Kenneth Mcrae MD, [employer] St[employer] CLIA: [id number] Sodium 138 135-145 mmol/L Potassium 4.9 3.5-5.3 mmol/L Chloride 104 97-108 mmol/L CO2 24 22-32 mmol/L Glucose 91 65-99 mg/dL BUN 16 8-23 mg/dL Creatinine 0.92 0.50-1.00 mg/dL Calcium 10.7 8.6-10.4 mg/dL eGFR by Creatinine 66 >59 mL/min/1.73m2 P-CPK Reviewed date:08/22/2024 05:54:01 PM Interpretation:247 Performing Lab: Notes/Report: Test performed by [employer] , [address], [place] [address] Kenneth Mcrae MD, [employer] Stitcher CLIA: [id number] Creatine Kinase 247 20-180 U/L V-E-Eeaquuff Protein (CRP) Reviewed date:08/22/2024 05:54:01 PM Interpretation:0.81 Performing Lab: Notes/Report: Test performed by [facility] [employer] , [address], [place] [address] Kenneth Mcrae MD, Box Toe Stitcher CLIA: [id number] C-Reactive Protein (CRP) 0.81 <0.50 mg/dL P-Sed Rate (ESR) Reviewed date:08/22/2024 05:54:01 PM Interpretation:Normal Performing Lab: Notes/Report: [facility] , [facility] [address], [place] [address] Kenneth Mcrae MD, Box Toe Stitcher CLIA: [id number] Erythrocyte Sedimentation Rate (ESR), Automated 7 <31 mm/hr P-Magnesium Reviewed date:08/22/2024 05:54:01 PM Interpretation:Normal Performing Lab: Notes/Report: Test performed by [employer] , [address], [place] [address] Kenneth Mcrae MD, [employer] St[employer]cher CLIA: [id number] Magnesium 2.2 1.6-2.4 mg/dL P-Phosphorus Reviewed date:08/22/2024 05:54:01 PM Interpretation:Normal Performing Lab: Notes/Report: [facility] performed [facility] , [address], [place] [address] Kenneth Mcrae MD, [employer] CLIA: [id number] Phosphorus 3.2 2.5-4.5 mg/dL CBC Fingerstick (in [...] a day as needed 11/24/2022 Active pyRIDostigmine Sumner 30 MG 1 tablet Or ally Five times a day; Duration: 30 day(s) Active Metoprolol Succinate 50 MG 1 capsule Ora lly Once a day Active DULoxetine HCl 30 MG 1 capsule Orally tw ice a day; Duration: 90 days Active Levothyroxine Sodium 50 MCG TAKE 1 TABLE T EVERY OTHER DAY ALTERNATE WITH 1/2 TABLET EVERY OTHER DAY; Duration: 90 Active amLODIPine Besylate 5 MG 1 tablet Orally Once a day; Duration: 90 days Active tiZANidine HCl 4 MG 1 tablet Orally 3 times a day As needed 01/17/2025 Active Spironolactone 25 MG 1 tablet Orally [...] Status W/U Status Risk Notes Problem Hypothyroidism (40364785) Hypothyroidism (acquired) (E03.9) Active confirmed Problem Vitamin D deficiency (16344771) Vitamin D deficiency (E55.9) Active confirmed Problem Essential hypertension (69568653) Essential hypertension (I10) Active confirmed Problem Hypertriglyceridemia (360370870) Hypertriglyceridemia (E78.1) Active confirmed Problem Anxiety (07382723) Anxiety (F41.9) Active confi rmed Problem Osteopenia (723148606) Osteopenia (M85.80) Active confirmed Problem Mixed anxiety and depressive disorder (297721584) Depression with anxiety (F41.8) Active confirmed Problem Memory loss (62245238) Memory loss (R41.3) Active confirmed Problem Paroxysmal hemicrani a (608067964) Episodic paroxysmal hemicrania, 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) Active confirmed Problem Chronic pain (76785528) Other chronic pain (G89.29) Active confirmed Problem Thyroid nodule (326371252) Thyroid nodule (E04.1) Active confirmed Problem Chronic pain (82098318) Other chronic pain (G89.29) Active confirmed Problem Reactive depression (situational) (79814638) Situational depression (F43.21) Active confirmed Problem Mammography abnormal (538265851) Abnormal mammogram of left breast (R92.8) Active confirmed Problem New daily persistent headache (619604412531796) New daily persistent headache (G44.52) Active confirmed Problem Abnormal gait (42383660) Imbalance (R26.89) Active confirmed Problem History of heart valve repair with prosthesis (641227944534612) Status post aortic valve replacement (Z95.2) Active confirmed Problem Ultrasonography of breast abnormal (11518590569563266) Abnormal ultrasound of breast (R92.8) Active confirmed Problem Mixed hyperlipidemia (665494424) Elevated triglycerides with high cholesterol (E78.2) Active confirmed Problem Memory deficit (561013739) Memory deficit (R41.3) Active confirmed Problem Aortic valve sclerosis (00539032) Aortic valve sclerosis (I35.8) Active confirmed Problem Hypertensive urgency (475021252) Hypertensive urgency (I16.0) Active confirmed Problem Loss of balance (700654857) Loss of balance (R26.89) Active confirmed Problem Contracture of smith r fascia (919901847) Dupuytren's contracture of left hand (M72.0) Active confirmed Problem Age-related osteoporosis (414063666) Osteoporosis, unspecified osteoporosis type, unspecified pathological fracture presence (M81.0) Active confirmed Problem Disorder of kidney and/or ureter (913088123) Left renal mass (N28.89) Active confirmed Problem Disorder of skin pigmentation (90666935) Pigmented skin lesion suspicious for malignant neoplasm (L81.9) Active confirmed Problem Basal cell carcinoma of truncal skin (776943527) Basal cell carcinoma of skin of trunk (C44.519) Active confirmed Problem Vitreous floaters of both eyes (695413570176797) Vitreous floaters of both eyes (H43.393) Active confirmed Problem Myasthenia gravis without exacerbation (06468953149142) MG (myasthenia gravis) (G70.00) Active confirmed Vital Signs Heart Rate 62 /min 01/12/2025 Blood pressure diastolic 70 mm Hg 01/12/2025 Height 66.50 in 01/12/2025 Blood pressure systolic 130 mm Hg 01/12/2025 Weight 140.8 lbs 01/12/2025 BMI 22.38 kg/m2 01/12/2025 Encounters Encounter Location Date Provider Diagnosis [facility] [address] [facility] [address] [place] [id number] 08/21/2024 Kee Whittier Cramp in lower leg R25.2 ; Myalgia M79.10 and MG (myasthenia gravis) G70.00 [facility] [address] [facility] [address] [place] [id number] 11/26/2024 Maggie Ramos Acute upper respiratory infection 465.9 ; Rectal mass K62.89 ; Essential hypertension I10 ; Imbalance R26.89 and BMI 22.0-22.9, adult Z68.22 [facility] [address] [place], [place] [id number] 01/12/2025 Kee Whittier Muscle spasm of back M62.830 [facility] [address] [place], [place] [id number] 06/08/2024 Mallorie Marie [facility] [address] [place], [place] [id number] 08/22/2024 Kee Whittier [facility] [address] [place], [place] [id number] 09/17/2024 Mallorie Marie [facility] [address] [place], [place] [id number] 12/10/2024 Mallorie Marie Screening for osteoporosis Z13.820 [facility] [address] [place], [place] [id number] 01/07/2025 Mallorie Marie [facility] [address] [place], [place] [id number] 01/14/2025 Kee Whittier [facility] [address] [place], [place] [id number] 01/16/2025 Kee Whittier Muscle spasm of back M62.830 [facility] [address] [place], [place] [id number] 02/28/2025 Mallorie Marie Assessments Encounter Date Diagnosis (ICD Code) Assessment Notes Treatment Notes Treatment Clinical Notes Section Notes 08/21/2024 Cramp in lower leg (ICD-10 - R25.2) 08/21/2024 Myalgia (ICD-10 - M79.10) 11/26/2024 Acute upper respiratory infection (ICD-10 - [...] 12/10/2024 Screening for osteoporosis (ICD-10 - Z13.820) 01/16/2025 Muscle spasm of back (ICD-10 - M62.830) 01/12/2025 Muscle spasm of back (ICD-10 - M62.830) Home exercise program provided to patient heating pad to affected areas 2 to 3 times a day TENS unit OTC recommended 08/21/2024 MG (myasthenia gravis) (ICD-10 - G70.00) Note from Dr. Thao reviewed, keep f/u appt. in 2 weeks 11/26/2024 Essential hypertension (ICD-10 - I10) 11/26/2024 Imbalance (ICD-10 - R26.89) 11/26/2024 BMI 22.0-22.9, adult (ICD-10 - Z68.22) Plan Of Treatment Pending Test Test Name Order Date Mammogram 11/18/2023 Cologuard 11/18/2023 Next Appt Details Provider Name:Mallorie Beebe Alberto er, 04/29/2025 02:15:00 PM, [address], [address], [place], [place], [id number], Insurance Providers Payer Name Payer Address Payer Phone Subscriber Number Group Number Insured Name Patient Relationship to Insured Coverage Start Date Coverage End Date [employer] (MEDICAR E) [address] [address] [place] [phone] [id number] ANISHA DUBON Self - patient is the [...] anemia; COPD with hypoxia 09/22-09/27/2022 Chest Pain- [facility] 08/2010
--- NOTE | 2025-04-19 20:32 | HMH.EDGENADL ---
Discharge Plan Disposition Patient Disposition: Home, Self-Care Condition: Good Prescriptions Prescriptions: New amoxicillin-pot clavulanate 875-125 mg tablet 1 tab PO BID 7 Days Qty: 14 0RF No Action levothyroxine [Synthroid] 50 mcg tablet 50 mcg PO DAILY amlodipine 5 mg tablet 5 mg PO DAILY pyridostigmine bromide 60 mg tablet 60 mg PO TID Qty: 90 6RF duloxetine 30 mg capsule,delayed release(DR/EC) 30 mg PO BID irbesartan 300 mg tablet 300 mg PO DAILY aspirin [Adult Aspirin Regimen] 81 mg tablet,delayed release (DR/EC) 81 mg PO DAILY spironolactone [Aldactone] 25 mg tablet 25 mg PO DAILY Qty: 90 3RF metoprolol succinate 50 mg tablet extended release 24 hr 50 mg PO DAILY Rx Instructions: Take 1 tablet by mouth once daily Referrals Follow up/Referrals: Neha Marie MD [Primary Care Provider, Medical] - See instructions Clinical Impressions Clinical Impression: Dehiscence of wound Instructions Patient Instructions: DI for Urinary Tract Infection (UTI), DI for Urinary Tract Infection in Children Print Language Print Language: Taiwanese Discharge ED Provider: Archie Recio Adult HPI <Vivi Solis APRN - Last Filed: 04/19/25 21:32> General Chief complaint: Urogenital-Female Stated complaint: Surgery 04/10 on private area, feels infected Time Seen by Provider: 04/19/25 20:22 History of Present Illness HPI narrative: patient is a 74-year-old female with PMHx vulvar neoplasm with recent surgery as of 04/10/2025 at [facility] by Dr. Allen, who presents to the ED for complaints of surgical dehiscence, increasing pain, edema and erythema. Patient reports she has not followed up with her surgeon, has not called or notified him of issues. Related Data Home Medications ?Medication ?Instructions ?Recorded ?Confirmed levothyroxine 50 mcg tablet 50 mcg PO DAILY thyroid 06/20/19 04/04/25 (Synthroid) duloxetine 30 mg capsule,delayed 30 mg PO BID mood 11/19/21 04/04/25 release aspirin 81 mg tablet,delayed 81 mg PO DAILY 10/05/22 04/04/25 release (Adult Aspirin Regimen) irbesartan 300 mg tablet 300 mg PO DAILY 06/28/24 04/04/25 amlodipine 5 mg tablet 5 mg PO DAILY 10/02/24 04/04/25 metoprolol succinate 50 mg 50 mg PO DAILY 12/12/24 04/04/25 tablet,extended release 24 hr Previous Rx's ?Medication ?Instructions ?Recorded spironolactone 25 mg tablet 25 mg PO DAILY #90 tabs 06/05/24 (Aldactone) pyridostigmine bromide 60 mg tablet 60 mg PO TID Myasthenia gravis #90 10/02/24 tabs amoxicillin 875 mg-potassium 1 tab PO BID 7 days #14 tabs 04/19/25 clavulanate 125 mg tablet Allergies Allergy/AdvReac Type Severity Reaction Status Date / Time Iodinated Contrast Media Allergy Mild Rash and Verified 04/04/25 10:09 (Iodinated Contrast Media - itching IV Dye) VODKA Allergy Severe Severe Uncoded 04/04/25 10:09 swelling [facility] <Vivi Solis APRN - Last Filed: 04/19/25 21:32> [facility] Disclaimer: The information contained in this section may have been updated after the patient was seen, as this information can be updated by other users. 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 (Updated 04/19/25 @ 22:09 by Archie Recio DO) Lung nodule Myasthenia gravis Drooping eyelid Abdominal bloating Dyspareunia in female Lichen sclerosus of vulva Hypertension Hyperlipemia Mild tricuspid regurgitation Mild mitral regurgitation Dyspnea on exertion Stopped smoking with greater than 30 pack year history COPD (chronic obstructive pulmonary disease) Moderate aortic regurgitation Surgical History History of colonoscopy Hx of bladder repair surgery Heart valve replaced Hx of cholecystectomy Hx of vaginal hysterectomy Family History Other Hypertension Social History Smoking Status: Former smoker alcohol intake: never substance use type: denies use current occupational status: retired and other Travel in the last 8 weeks?: None household members: spouse housing: house number of children: 5 Have you lived/traveled outside US in past 30 days?: No Contact w/someone who lives/traveled outside US past 30 days?: No Exposure to someone with infectious disease in past 14 days?: No Do you have a fever (greater than 100.4 F or 38 C)?: No Have you tested positive for COVID-19?: No Exposed to someone with COVID-19 in past 14 days?: No Do you have a sore throat?: No Do you have a cough?: No Do you have any weakness?: No Do you have any diarrhea?: No Are you experiencing any unusual bleeding?: No Do you have any muscle aches/pain?: Yes Do you have any abdominal pain?: No Are you experiencing loss of taste or smell?: No Other 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 Have you received the Flu Vaccine for this season: Yes Have you received the Pneumonia Vaccine: Yes <Vivi Solis APRN - Last Filed: 04/19/25 21:32> ROS Obtained: Yes Systems reviewed as appropriate & no additional complaints except as documented Physical Exam <Vivi Solis APRN - Last Filed: 04/19/25 21:32> General General appearance: alert Head Head exam: normocephalic Eye Eye exam: Present PERRL Neck Neck exam: Present full ROM Respiratory Respiratory exam: Present normal lung sounds bilaterally Cardiovascular Cardiovascular exam: Present regular rate Abdominal Exam Abdominal exam: Present soft Expanded Exam OB exam: Present other (MUKESH Yu guest relation officer in room.) Female Image:  1. Erythematous, edematous, tender, dehisced area 2. Sutures, healing incision Extremities Exam Extremities exam: Present full ROM Back Exam Back exam: Present full ROM Neurological Exam Neurological exam: Present alert and oriented X3 Skin Skin exam: Present dry Medical Decision Making <Vivi Solis APRN - Last Filed: 04/19/25 21:32> Medical Records Screening: Per USPSTF and CDC recommendations, given the prevalence of disease in our region, it is our hospital?s policy to screen for HIV and viral Hepatitis for all patients aged 18 and over and those with ongoing risk factors. Isac Inquiry Pt receiving controlled substance: No Vital Signs: 04/19/25 20:13 Temperature 97.7 F Temperature Source Oral Pulse Rate [Right] 67 Respiratory Rate 17 Blood Pressure [Right Arm] 146/73 H Blood Pressure Mean [Right Arm] 97 Blood Pressure Source [Right Arm] Automatic Cuff 02 Sat by Pulse Oximetry 98 Oxygen Delivery Method Room Air Lab Data Lab Results 04/19/25 20:40: WBC 5.7, RBC 3.78 L, Hgb 10.5 L, Hct 32.3 L, MCV 85.4, MCH 27.8, MCHC 32.5, RDW 13.6, Plt Count 296, MPV 9.7, Neut % (Auto) 47.4, Lymph % (Auto) 35.2, Toole % (Auto) 11.1 H, Eos % (Auto) 4.9, Baso % (Auto) 0.9, Neut # (Auto) 2.7, Lymph # (Auto) 2.0, Toole # (Auto) 0.6, Eos # (Auto) 0.3, Baso # (Auto) 0.1, Sodium 135 L, Potassium 3.8, Chloride 108 H, Carbon Dioxide 26, Anion Gap 4.8 L, BUN 12, Creatinine 0.90, Estimated GFR 62, Est GFR ( Amer) 74, Glucose 96, Lactate 0.7, Calcium 10.1, Total Bilirubin 0.5, AST 28, ALT 18, Alkaline Phosphatase 122, Total Protein 7.2, Albumin 4.1, Globulin 3.1, Albumin/Globulin Ratio 1.3 04/19/25 20:40 04/19/25 20:40 Orders (Tests/Meds): ORDERS Category Date Time Status CBC w/Auto Diff [Complete Blood Count Auto Diff] Stat Lab 04/19/25 20:40 Completed CMP [Comprehensive Metabolic Panel] Stat Lab 04/19/25 20:40 Completed HIV Combo Stat Lab 04/19/25 21:26 Ordered Hepatitis C Ab Qual. W/ RFX Stat Lab 04/19/25 21:26 Ordered Lactic Acid Stat Lab 04/19/25 20:40 Completed Urinalysis and Microscopic Stat Lab 04/19/25 20:30 Ordered Medical Decision Narrative: In summary, patient is a 74-year-old female with PMHx vulvar neoplasm with recent surgery as of 04/10/2025 at [facility] by Dr. Allen, who presents to the ED for complaints of surgical dehiscence, increasing pain, edema and erythema. Patient reports she has not followed up with her surgeon, has not called or notified him of issues. She states these issues have occurred over the past 2 days. Patient denies fever, chills, body aches. Upon initial evaluation she is alert, oriented and cooperative. She is hemodynamically stable. Physical exam remarkable for an erythematous, tender, swollen vaginal area, open dehiscence on the left inner vaginal area. Differential diagnosis includes sepsis, necrotizing fasc, wound dehiscence, among others. CBC unremarkable for any leukocytosis, stable H&H. CMP unremarkable for any actionable abnormalities. Care transferred to Dr. Recio. <Archie Recio, DO - Last Filed: 04/19/25 22:10> Medical Records Medical records reviewed: Yes I reviewed the patient's medical records. Vital Signs: 04/19/25 20:13 Temperature 97.7 F Temperature Source Oral Pulse Rate [Right] 67 Respiratory Rate 17 Blood Pressure [Right Arm] 146/73 H Blood Pressure Mean [Right Arm] 97 Blood Pressure Source [Right Arm] Automatic Cuff 02 Sat by Pulse Oximetry 98 Oxygen Delivery Method Room Air Lab Data Lab Results 04/19/25 20:40: WBC 5.7, RBC 3.78 L, Hgb 10.5 L, Hct 32.3 L, MCV 85.4, MCH 27.8, MCHC 32.5, RDW 13.6, Plt Count 296, MPV 9.7, Neut % (Auto) 47.4, Lymph % (Auto) 35.2, Toole % (Auto) 11.1 H, Eos % (Auto) 4.9, Baso % (Auto) 0.9, Neut # (Auto) 2.7, Lymph # (Auto) 2.0, Toole # (Auto) 0.6, Eos # (Auto) 0.3, Baso # (Auto) 0.1, Sodium 135 L, Potassium 3.8, Chloride 108 H, Carbon Dioxide 26, Anion Gap 4.8 L, BUN 12, Creatinine 0.90, Estimated GFR 62, Est GFR ( Amer) 74, Glucose 96, Lactate 0.7, Calcium 10.1, Total Bilirubin 0.5, AST 28, ALT 18, Alkaline Phosphatase 122, Total Protein 7.2, Albumin 4.1, Globulin 3.1, Albumin/Globulin Ratio 1.3 Orders (Tests/Meds): ORDERS Category Date Time Status CBC w/Auto Diff [Complete Blood Count Auto Diff] Stat Lab 04/19/25 20:40 Completed CMP [Comprehensive Metabolic Panel] Stat Lab 04/19/25 20:40 Completed HIV Combo Stat Lab 04/19/25 21:26 Ordered Hepatitis C Ab Qual. W/ RFX Stat Lab 04/19/25 21:26 Ordered Lactic Acid Stat Lab 04/19/25 20:40 Completed Urinalysis and Microscopic Stat Lab 04/19/25 20:30 Ordered Medical Decision Narrative: In summary, patient is a 74-year-old female with PMHx vulvar neoplasm with recent surgery as of 04/10/2025 at [facility] by Dr. Allen, who presents to the ED for complaints of surgical dehiscence, increasing pain, edema and erythema. Patient reports she has not followed up with her surgeon, has not called or notified him of issues. She states these issues have occurred over the past 2 days. Patient denies fever, chills, body aches. Upon initial evaluation she is alert, oriented and cooperative. She is hemodynamically stable. Physical exam remarkable for an erythematous, tender, swollen vaginal area, open dehiscence on the left inner vaginal area. Differential diagnosis includes wound dehiscence, cellulitis, deep space infection, among other CBC unremarkable for any leukocytosis, stable H&H. CMP unremarkable for any actionable abnormalities. Care transferred to Dr. Recio. I was consulted by the RELL, and we discussed the complexity of problems being addressed. I approved the treatment and management plan for this patient's care in the emergency department, thus performing a substantive portion of the medical decision making. Archie Recio, DO This is Dr. Recio. This is a 74-year-old female patient who I independently evaluated and obtained collateral history on. She has a diagnosis of vulvar cancer and had surgery on 04/10/2025 at [facility] with Dr. Allen. The patient underwent a vulvar cancer resection and had currently been doing well until this evening when she took a picture for monitoring wound progress and found that the wound had dehisced. She presented here for further evaluation. On my evaluation of the wound I do appreciate a dehiscence that tracks deep. There is granulation tissue and there is discharge from the wound. The discharge is not overtly purulent but it is somewhat thick and slimy in appearance. There is an deterioration around the wound and no evidence of subcutaneous crepitus. The patient is nontoxic in appearance and demonstrates no signs of sepsis. I had an interactive discussion with Dr. Allen at [facility] in [place]. I specifically asked multiple questions to Dr. Allen. He tells me that if the patient is nontoxic in appearance and has no elevation of her white blood cell count he does not feel that she necessitates further workup with a CT scan. He states that these wounds look absolutely horrible and will dehisce 25% of the time with the surgery that he performed. He tells me that he does not feel the patient needs to be transferred to his center for further evaluation and that if we did decide to transfer her that he would discharge her immediately and it would be a waste of medical resources. He states that if we have concern for developing infection he feels it would be reasonable to start her on antibiotics, but otherwise he would like to see her in the clinic on Tuesday to establish wound care as he does not repair these dehisced wounds and allows them to heal by secondary intention. Given that the patient is nontoxic, has no fevers, no tachycardia, and no leukocytosis on my independent interpretation of her labs I do not feel that she is experiencing a systemic or life-threatening infection. Given the appearance of this fluid it could be possible that she is beginning to develop an infection. Therefore we will start her on Augmentin for the next 7 days and have her follow-up in the clinic with Dr. Allen as previously scheduled on Tuesday morning Patient acknowledged understanding that she should return to the emergency department if she develops fever, streaking erythema, umesh purulence from the wound, or constitutional symptoms. At this time all questions were answered and all parties were agreeable with the decision to discharge home Critical Care <Vivi Solis APRN - Last Filed: 04/19/25 21:32> Critical Care Time Critical Care Time: No
[2025-04-19 21:06] LABS: Alanine Aminotransferase 18 U/L (12-78); Albumin Level 4.1 g/dl (3.5-5.0); Albumin/Globulin Ratio 1.3 (1.1-1.8); Alkaline Phosphatase 122 U/L (38-126); Anion Gap 4.8 mEq/L (5-15); Aspartate Amino Transferase 28 U/L (14-36); Bilirubin,Total 0.5 mg/dl (0.2-1.3); Blood Urea Nitrogen 12 mg/dl (7-17); Calcium 10.1 mg/dl (8.4-10.2); Carbon Dioxide 26 mmol/L (22.0-30.0); Chloride 108 mmol/L (98-107); Creatinine,Serum 0.90 mg/dl (0.52-1.04); Estimated Glomerular Filt Rate 62 ml/min (>60); GFR (African American) 74 ML/MIN (>60); Globulin 3.1 g/dL (1.3-3.2); Glucose 96 mg/dl (74-100); Potassium 3.8 mmoL/L (3.5-5.1); Sodium 135 mmol/L (136-145); Total Protein,Serum 7.2 g/dl (6.3-8.2)
--- NOTE | 2025-04-19 21:06 | PC.NURSE ---
Called [facility] for possible pt xfer
[2025-04-19 21:14] LABS: Hematocrit 32.3 % (37.0-47.0); Hemoglobin 10.5 g/dL (12.2-16.2); Immature Granulocytes % 0.5 %; Mean Corpuscular HGB Conc 32.5 g/dL (31.8-35.4); Mean Corpuscular Hemoglobin 27.8 pg (27.0-31.2); Mean Corpuscular Volume 85.4 fl (81-99); Nucleated Red Blood Cells % 0 %; Platelet Count 296 K/mm3 (142-424); Red Blood Count 3.78 M/mm3 (4.20-5.40); Red Cell Distribution Width-SD 41.9 fL; White Blood Count 5.7 K/mm3 (4.8-10.8)
[2025-04-19 22:15] VITALS: BP 128/78; PULSE 74; RESP 18; TEMP 36.6; O2SAT 98
[2025-04-19 23:39] LABS: Hepatitis C Ab Qual. W/ RFX NEGATIVE (Negative)
== END 2025-04-19 22:22 | disposition home or self-care (01) ==
PROVIDERS: Nurse Practitioner; Emergency Provider Student in an Organized Health Care Education/Training Program; PCP Family Medicine
DX: T81.31XA Disruption of external operation (surgical) wound, not elsewhere classified, initial encounter (principal); C51.9 Malignant neoplasm of vulva, unspecified; I10 Essential (primary) hypertension; E78.5 Hyperlipidemia, unspecified; J44.9 Chronic obstructive pulmonary disease, unspecified; Z87.891 Personal history of nicotine dependence
CPT/HCPCS: 80053; 83605; 85025; 86803; 87389; 99284; 99285

== ENCOUNTER 2025-05-14 13:45 | Outpatient (CLI) | payer MEDICARE, SELFPAY ==
--- OUTSIDE RECORDS SUMMARY | 2024-02-21 08:45 | XMS_ITS ---
Author Organization [facility] Address [address] [facility] [address] [facility] [address] [place] [id number] Care Team Providers Care Industrial Renderer Name Role Phone Mallorie Marie Primary Care Provider Maggie Ramos [phone] Allergies Allergen (clinical drug ingredient) Drug/Non Drug Allergy documented on EMR Reaction Allergy Type Onset Date Status Iodinated contrast media (substance) Iodinated Contrast Media Unknown Drug Allergy Active REASON FOR VISIT 2 WEEK FU Encounters Encounter Location Date Provider Diagnosis [facility] [address] [facility] [address] [place] [id number] 02/21/2024 Maggie Ramos Plan Of Treatment Next Appt Details Provider Name:Mallorie Dominguez er, 06/21/2025 08:00:00 AM, [address] [facility], [address], [place], [place], [id number], Progress Notes * Kathy DUBONDOB: 2 (74 yo F)Acc No.[id number]:02/21/2024 Progress Notes Patient: Arin LANGDAISY Kathy Provider: KO Lewis :1950 A ge:73 Y S ex:Female Date:02/21/2024 Address:[address] [place] [address] [id number] Pcp:Mallorie Marie Subjective: * Chief Complaints: * 1 . 2 WEEK FU. * HPI: N eurology: 73 year old female presents with c/o memory loss P t is here today for a 2 week f/u on memory loss. Pt sts that it is . Denies : head injury. P sychology: Pt sts her mood has been. * ROS: R ESPIRATORY: Positive for r [...] AVR 09/22/2022. * Hospitalization/Major Diagno stic Procedure: Sade Roca- [facility] 08/2010, : AVR for severe aortic [...] PPD. Alcohol: No. Sexually active: yes. * Allergies: I odinated Contrast Media. Objective: * Vitals: Assessment: Plan: * Treatment: * Images: Billing Information: * Visit Code: * Procedure Codes: * Electronic signature of Jillian Ramos APRN on 05/14/2025 at 01:52 PM EST Sign off status: Pending * Provider: KO Lewis Date: 0 02/21/2024 Generated for Lou turner/Hakeem/Langsmcirilo on: 1 07/15/2024 01:52 PM EST History and Physical Notes * HPI (History of Present Illness) Category Sub-Category Detail Notes Category Not es Neurology head injury memory loss Pt is here today for a 2 week f/u on memory loss. Pt sts that it is Psychology Pt sts her mood has been
--- OUTSIDE RECORDS SUMMARY | 2024-03-21 09:15 | XMS_ITS ---
[facility] Address [address] [place] [id number] Care Team Providers Care Sap Pp Consultant Name Role Phone Mallorie Marie Primary Care Provider Melodie Ponce Unavailable [phone] Allergies Allergen (clinical drug ingredient) Drug/Non Drug [...] W/U Status Risk Notes Problem Hypertensive urgency (733601564) Hypertensive urgency (I16.0) Active confirmed Vital Signs Weight 136.8 lbs 03/21/2024 Blood pressure systolic 186 mm Hg 03/21/20 24 Blood pressure diastolic 90 mm Hg 024 Heart Rate 65 /min 03/21/2024 Height 66.50 in 03/21/2024 BMI 21.75 kg/m2 03/21/2024 Encounters Encounter Location Date Provider Diagnosis [facility] 1210 [facility] 36 [facility] [address] [place] [id number] 03/21/2024 Melodie Ponce Essential hypertensi on I10 [...] 2 Weeks, Reason: Provider Name:Mallorie Dominguez , 06/21/2025 08:00:00 AM, 1210 [facility] 36 [facility], [address], [place], [id number], Progress Notes * Kathy DUBONDOB: 2 (74 yo F)Acc No.[id number]:03/21/2024 Progress Notes Patient: Kathy ORTIZ Provider: ZACH Humphreys :1950 A ge:73 Y S ex:Female Date:03/21/2024 Address:[address] [place] [address] D, [id number] Pcp:Mallorie Marie Subjective: * Chief Complaints: * 1 . High blood pressure reading. * HPI: C ardiology: The patient is here today with c/o elevated BP. Pt states she checked her BP at [facility] today and it was 200/89. Pt states [...] 09/22/2022. * Hospitalization/Major Diagno stic [facility]: [facility] 08/2010, : AVR for severe aortic regurgitation [...] * Images: Billing Information: * Visit Code: 42280 Office Visit, Est Pt., Level 4. * Procedure Codes: 52184 PULSE OX. * Electronic signature of ZACH Pat on 05/14/2025 at 01:50 PM EST Sign off status: Pending * Provider: ZACH Humphreys Date: Generated for Saltyi johnny/Hakeem/eTransmitting on: 07/15/2024 01:50 PM EST History and Physical Notes * [...]
--- OUTSIDE RECORDS SUMMARY | 2024-04-04 04:15 | XMS_ITS ---
[facility] [address] [place] [id number] Care Team Providers Care Senior Design Engineering Specialist Name Role Phone Mallorie Marie Primary Care Provider [phone] Melodie Ponce Unavailable [phone] Allergies Allergen (clinical drug ingredient) Drug/Non Drug Allergy documented on EMR Reaction Allergy Type Onset Date Status Iodinated contrast media (substance) Iodinated Contrast Media Unknown Drug Allergy Active REASON FOR VISIT 2 week f/u Medications Medication SIG (Take, Route, Frequency, Duration) Notes Start Date End Date Status DULoxetine HCl 30 MG 1 capsule Orally Tw ice a day Active Levothyroxine Sodium 50 MCG TAKE 1 TABLE T EVERY OTHER DAY ALTERNATE WITH 1/2 TABLET EVERY OTHER DAY; Duration: 90 Active Aspirin 81 MG 1 tab(s) orally once a day; Duration: 30 day(s) Active Albuterol Sulfate HFA 108 (90 Base) MCG/ACT 2 inhalations Inhalation four times a day as needed 11/24/2022 Active Spironolactone 25 MG 1 tablet Orally Active amLODIPine Besylate 5 MG 1 tablet Orally Once a day at night 03/21/2024 Active Irbesartan 300 MG 1 tablet Orally Once a day in the morning 03/21/2024 Active Metoprolol Succinate 50 MG 1 capsule Ora lly Once a day Active Problems Problem Type SNOMED Code ICD Code Onset Dates Problem Status W/U Status Risk Notes Problem Vitreous floaters of both eyes (0926860493233 01) Vitreous floaters of both eyes (H43.393) Active confirmed Vital Signs Weight 137.2 lbs 04/04/2024 Blood pressure systolic 114 mm Hg 04/04/20 24 Blood pressure diastolic 70 mm Hg 024 Heart Rate 63 /min 04/04/2024 Height 66.50 in 04/04/2024 BMI 21.81 kg/m2 04/04/2024 Encounters Encounter Location Date Provider Diagnosis [facility] 36 [facility] [address] [place] [id number] 04/04/2024 Melodie Kris Essential hypertensi on I10 and Vitreous floaters of both eyes H43.393 Assessments Encounter Date Diagnosis (ICD Code) Assessment Notes Treatment Notes Treatment Clinical Notes Section Notes 04/04/2024 Essential hypertension (ICD-10 - I10) BP is much better today. Readings are still elevated at night at home. Will give it a few more weeks and see if BP continues to improve. She has a f/u with cardiology next month. 04/04/2024 Vitreous floaters of both eyes (ICD-10 - H43.393) Will make an appt to see her eye doctor. Plan Of Treatment Medication Medication Name Sig Start Date Stop Date Notes Spironolactone 25 MG 1 tablet Orally amLODIPine Besylate 5 MG 1 tablet Orally Once a day at night 03/21/2024 Irbesartan 300 MG 1 tablet Orally Once a day in the morning 03/21/2024 Metoprolol Succinate 50 MG 1 capsule Orally Once a day Treatment Notes Assessment Notes Essential hypertension BP is much better today. Readings are still elevated at night at home. Will give it a few more weeks and see if BP continues to improve. She has a f/u with cardiology next month. Vitreous floaters of both eyes Will make an appt to see her eye doctor. Next Appt Details Follow Up: via phone to aaron bates progress, Reason: Provider Name:Mallorie Dominguez er, 06/21/2025 08:00:00 AM, [address] [facility], [address], [place], [id number], Progress Notes * Julito DUBONB: (74 yo F)Acc No.[id number]:04/04/2024 Progress Notes Patient: Arin CARRERA Kathy Provider: ZACH Humphreys :1950 A ge:73 Y S ex:Female Date:04/04/2024 Address:[facility] [place], [id number] Pcp:Mallorie Marie Subjective: * Chief Complaints: * 1 . 2 week f/u. * HPI: C ardiology: The patient is here for a follow up on elevated BP and medication change. Pt states she has been checking her BP and it is running in the 110's/-170/60-80's in the morning but running higher at night. Pt states she is having shortness of breath and dizziness. Pt states she is also having issues with floaters in her eyes. 73 year old female presents with c/o Short of Breath. c/o Dizziness. c/o Fatigue. Denies : Chest Pain. D enies : Palpitations. * ROS: D [...] 09/22/2022. * Hospitalization/Major Diagno stic Procedure: C veinta [facility]- [facility] 08/2010, : AVR for severe aortic [...] Sexually active: yes. * Medications: T aking Aspirin 81 MG Tablet Delayed Release 1 tab(s) orally once a day , Taking Albuterol Sulfate HFA 108 (90 Base) MCG/ACT Aerosol Solution 2 inhalations Inhalation four times a day as needed , Taking DULoxetine HCl 30 MG Capsule Delayed Release Particles 1 capsule Orally Twice a day , Taking Levothyroxine Sodium 50 MCG Tablet TAKE 1 TABLET EVERY OTHER DAY ALTERNATE WITH 1/2 TABLET EVERY OTHER DAY , Taking Spironolactone 25 MG Tablet 1 tablet Orally , Taking Metoprolol Succinate 50 MG Capsule ER 24 Hour Sprinkle 1 capsule Orally Once a day , Taking Irbesartan 300 MG Tablet 1 tablet Orally Once a day in the morning , Taking amLODIPine Besylate 5 MG Tablet 1 tablet Orally Once a day at night , Medication List reviewed and reconciled with the patient * Allergies: I odinated Contrast Media. Objective: * Vitals: W t:137.2, Temp:98.1, BP:114/70, HR:63, O2 Sat:99% on RA, Nurse:RODRÍGUEZ, Ht: 66.50, Repeat BP:110/60, BMI:21.81. * Examination: G eneral Examination: General Appearance: N AD. H EENT: sclera and conjunctiva clear, PERRLA, TM's normal, translucent, EOM's with normal ROM. O ral cavity: n o lesions, mucosa moist and WNL, no erythema. N mychal: s upple, no lymphadenopathy. C hest: normal shape and expansion. H eart: R SR. L ungs: c lear to auscultation. A bdomen: bowel sounds present, soft and nontender, no organomegaly or masses, no guarding or rigidity. N eurologic Exam: I ntact, gait normal. S kin: n ormal, no rash. P eripheral pulses: n ormal (2+) bilaterally. E xtremities: n o leg edema. ? Assessment: * Assessment: 1. E ssential hypertension - I10 (Primary) 2 . V itreous floaters of both eyes - H43.393 Plan: * Treatment: 2. V itreous floaters of both eyes Notes: Will make an appt to see her eye doctor. * Procedure Codes: 9 4760 PULSE OX * Follow Up: v ia phone to report progress * Images: Billing Information: * Visit Code: 04111 Office Visit, Est Pt., Level 4. * Procedure Codes: 67816 PULSE OX. * Electronic signature of ZACH Pat on 05/14/2025 at 01:51 PM EST Sign off status: Pending * Provider: ZACH Humphreys Date: 06/04/2023 Generated for [employer] ng/Fajohng/eTransmitting on: 07/15/2024 01:51 PM EST History and Physical Notes * HPI (History of Present Illness) Category Sub-Category Detail Notes Category Not es Cardiology Short of Breath Chest Pain Palpitations Dizziness Fatigue Examination Category Sub-Category Detail Notes Category Not es General Examination HEENT: sclera and c onjunctiva clear, PERRLA, TM's normal, translucent, EOM's with normal ROM Heart: RSR Lungs: clear to auscultatio n [...]
--- OUTSIDE RECORDS SUMMARY | 2024-05-16 04:45 | XMS_ITS ---
Author Organization [facility] Address 1210 [facility] 36 [facility] [address] [place] [id number] Care Team Providers Care Brand Ambassador Name Role Phone Mallorie Marie Primary Care Provider Melodie Ponce [phone] Allergies Allergen (clinical drug ingredient) Drug/Non Drug Allergy documented on EMR Reaction Allergy Type Onset Date Status Iodinated contrast media (substance) Iodinated Contrast Media Unknown Drug Allergy Active REASON FOR VISIT dizzy tried all the time Encounters Encounter Location Date Provider Diagnosis [facility] [address] [facility] [address] [place] [id number] 05/16/2024 Melodie Ponce Plan Of Treatment Next Appt Details Provider Name:Mallorie Dominguez er, 06/21/2025 08:00:00 AM, [address] [facility], [address], [place], [id number], Progress Notes * Kathy DUBONDOB: 2 (74 yo F)Acc No.[id number]:05/16/2024 Progress Notes Patient: Sharon ORTIZty Provider: ZACH Humphreys :1950 A ge:73 Y S ex:Female Date:05/16/2024 Address:[address] [place] [address] [phone] Pcp:Mallorie Marie Subjective: * Chief Complaints: * 1 . Dizzy tried all the time. * ROS: D ERMATOLOGY: no R cecilia. [...] * Hospitalization/Major Diagno stic Procedure: C [facility] 08/2010, : AVR for severe aortic [...] * Vitals: Assessment: Plan: * Treatment: * Procedure Codes: G 2211 Complex e/m visit add on * Images: Billing Information: * Visit Code: * Procedure Codes: G2211 Complex e/m visit add on. * Electronic signature of ZACH Pat on 05/14/2025 at 01:49 PM EST Sign off status: Pending * Provider: ZACH Humphreys Date: 07/17/2023 Generated for Lou turner/Hakeem/eTransmitting on: 07/15/2024 01:49 PM EST
--- OUTSIDE RECORDS SUMMARY | 2024-08-21 06:30 | XMS_ITS ---
Author Organization [facility] Address [address] [place] [id number] Care Team Providers Care Tape Coater Name Role Phone Mallorie Marie Primary Care Provider Kee Gaspar Unavailable [phone] Allergies Allergen (clinical drug ingredient) Drug/Non Drug [...] PM Interpretation:Calcium 10.7 Performing Lab: Notes/Report: CLIA: [id number] Kenneth Mcrae MD, Zig Zag Stitcher [facility] , [address], [place] [address] Test performed by [facility], [facility] Sodium 138 135-145 mmol/L Potassium 4.9 3.5-5.3 mmol/L Chloride 104 97-108 mmol/L CO2 24 22-32 mmol/L Glucose 91 65-99 mg/dL BUN 16 8-23 mg/dL Creatinine 0.92 0.50-1.00 mg/dL Calcium 10.7 8.6-10.4 mg/dL eGFR by Creatinine 66 >59 mL/min/1.73m2 P-CPK Reviewed date:08/22/2024 05:54:01 PM Interpretation:247 Performing Lab: Notes/Report: Test performed by [facility] , [address], [place] [address] Kenneth Mcrae MD, Zig Zag Stitcher CLIA: [id number] Creatine Kinase 247 20-180 U/L X-O-Bsmfopil Protein (CRP) Reviewed date:08/22/2024 05:54:01 PM Interpretation:0.81 Performing Lab: Notes/Report: [facility] , [facility], [place] [address] Kenneth Mcrae MD, Zig Zag Stitcher CLIA: [id number] C-Reactive Protein (CRP) 0.81 <0.50 mg/dL P-Sed Rate (ESR) Reviewed date:08/22/2024 05:54:01 PM Interpretation:Normal Performing Lab: Notes/Report: [facility] , [address], [place] [address] Kenneth Mcrae MD, Zig Zag Stitcher CLIA: [id number] Erythrocyte Sedimentation Rate (ESR), Automated 7 <31 mm/hr P-Magnesium Reviewed date:08/22/2024 05:54:01 PM Interpretation:Normal Performing Lab: Notes/Report: Test performed by [facility] , [address], [place] [address] Kenneth Mcrae MD, Zig Zag Stitcher CLIA: [id number] Magnesium 2.2 1.6-2.4 mg/dL P-Phosphorus Reviewed date:08/22/2024 05:54:01 PM Interpretation:Normal Performing Lab: Notes/Report: Test performed by [facility] [address] , [address], [place] [address] Kenneth Mcrae MD, Zig Zag Stitcher CLIA: [id number] Phosphorus 3.2 2.5-4.5 mg/dL REASON FOR VISIT [...] 25 MG 1 tablet Orally Active pyRIDostigmine [place] 30 MG 1 tablet Or ally Five times a day; Duration: 30 day(s) Active Aspirin 81 MG 1 tab(s) orally once a day; Duration: 30 day(s) Active Problems Problem Type SNOMED Code ICD Code Onset Dates Problem Status W/U Status Risk Notes Problem Myasthenia gravis without exacerbation (22512971699768) MG (myastheni a gravis) (G70.00) Active confirmed Vital Signs Weight 140 lbs 08/21/2024 Blood pressure systolic 132 mm Hg 08/22/19 Blood pressure diastolic 70 mm Hg 025 Heart Rate 66 /min 08/21/2024 Height 66.50 in 08/21/2024 BMI 22.26 kg/m2 08/21/2024 Encounters Encounter Location Date Provider Diagnosis [facility] [address], [place] [id number] 08/21/2024 Kee [place] Cramp in lower leg R25.2 ; Myalgia [...] test results, Reason: Provider Name:Mallorie Dominguez er, 06/21/2025 08:00:00 AM, [address], [address], [place], [place], [id number], Progress Notes * Kathy DUBONDOB: 2 (74 yo F)Acc No.[id number]:08/21/2024 Progress Notes Patient: Kathy ORTIZ Provider: Kam Gaspar M.D. :1950 A ge:74 Y S ex:Female Date:08/21/2024 Address:[address] [place] [address] [place], [id number] Pcp:Mallorie Marie Subjective: * Chief Complaints: * [...] Hospitalization/Major Diagno stic Procedure: C hest Pain- [facility] 08/2010, [place]: AVR for severe aortic regurgitation [...] active: yes. * Medications: T aking pyRIDostigmine [place] 30 MG Tablet 1 tablet Orally Five [...] 53:49 PM > see phone encounter ?LAB: N-E-Uzwnmhim Protein (CRP) (Collection Date & Time - [...] G 2211 Complex e/[place], [address] CBC WITH AUTO DIFF, 3075F SYST BP GE 130 - 139MM HG, 3078F DIAST BP < 80 MM HG * Follow Up: v ia phone to report test results * Images: Billing Information: * Visit Code: 13873 Office Visit, Est Pt., Level 4. * Procedure Codes: G2211 Complex e/[place]. [address] CBC WITH AUTO DIFF. 3075F SYST BP GE 130 - 139MM HG. 3078F DIAST BP < 80 MM HG. * Electronic signature of Tara Gaspar MD on 05/14/2025 at 01:50 PM EST Sign off status: Pending * Provider: Kam Gaspar M.D. Date: 0 08/21/2024 Generated for Saltyi ng/Fajohng/eTransmitting on: 1 07/15/2024 01:50 PM EST History and Physical [...]
--- OUTSIDE RECORDS SUMMARY | 2024-11-26 08:30 | XMS_ITS ---
Author Organization [facility] Address [address] [place] [id number] Care Team Providers Care Electric Freight Car Operator Name Role Phone Mallorie Marie Primary Care Provider aMggie Ramos Unavailable [phone] Allergies Allergen (clinical drug ingredient) Drug/Non Drug Allergy documented on EMR Reaction Allergy Type Onset Date Status Iodinated contrast media (substance) Iodinated Contrast Media Unknown Drug Allergy Active Results Component Value Reference Range Notes CBC Fingerstick (in house) Reviewed date:11/26/2024 04:02:27 PM Interpretation: Performing Lab: Notes/Report: wbc 5.6 3.5 - 10 lym 35.5 15 - 50 mid 9.8 2 - 15 gran 54.7 35 - 80 rbc 4.84 3.5 - 5.5 hgb 13.4 11.5 - 16.5 hct 39.8 35 - 55 mcv 82.1 75 - 100 mch 27.7 25 - 35 mchc 33.7 31 - 38 plat 184 100 - 400 Covid test (in house) Reviewed date:11/26/2024 04:02:50 PM Interpretation:neg Performing Lab: Notes/Report: neg Result: neg Reason For Referral Reason rectal mass per pt p icture; appears to be 1-2 cm; rectal exam indicates internal rectal mass; no tenderness; no bleeding Diagnosis 1 Rectal mass (K62.89) [facility] Referring Provider First Name Maggie Referring Provider Last Name Rachel Referring Provider Speciality Family Pra ctice Referred Provider RADHA MATSON Referred Provider Specialty General Surg charlie General Notes Julieta Encarnacion 2024 09:51:31 AM > 11/29/2024 at 2:30pm; patient informed Referral Priority Routine REASON FOR VISIT knot on buttocks, RSV and covid test Medications Medication SIG (Take, Route, Frequency, Duration) Notes Start Date End Date Status Spironolactone 25 MG 1 tablet Orally Active amLODIPine Besylate 5 MG 1 tablet Orally Once a day; Duration: 30 days Active Metoprolol Succinate 50 MG 1 capsule Ora lly Once a day Active Irbesartan 300 MG TAKE 1 TABLET EVERY MORNING; Duration: 90 days Active Levothyroxine Sodium 50 MCG TAKE 1 TABLE T EVERY OTHER DAY ALTERNATE WITH 1/2 TABLET EVERY OTHER DAY; Duration: 90 Active Albuterol Sulfate HFA 108 (90 Base) MCG/ACT 2 inhalations Inhalation four times a day as needed 11/24/2022 Active DULoxetine HCl 30 MG TAKE 1 CAPSULE TWIC E DAILY; Duration: 90 Active pyRIDostigmine [place] 30 MG 1 tablet Or ally Five times a day; Duration: 30 day(s) Active Aspirin 81 MG 1 tab(s) orally once a day; Duration: 30 day(s) Active Vital Signs Weight 139.4 lbs 11/26/2024 Blood pressure systolic 110 mm Hg 11/27/19 25 Blood pressure diastolic 60 mm Hg 025 Heart Rate 80 /min 11/26/2024 Height 66.50 in 11/26/2024 BMI 22.16 kg/m2 11/26/2024 Encounters Encounter Location Date Provider Diagnosis [facility] [address] [id number] 11/26/2024 Maggie Ramos Acute upper respiratory infection 465.9 ; Rectal mass K62.89 ; Essential hypertension I10 ; Imbalance R26.89 and BMI 22.0-22.9, adult Z68.22 Assessments Encounter Date Diagnosis (ICD Code) Assessment Notes Treatment Notes Treatment Clinical Notes Section Notes 11/26/2024 Acute upper respiratory infection (ICD-10 - 465.9) Inpatient labs negative. Continue to stay away from sister and others as long as symptoms continue. fluids, rest, supportive measures for fever/symptom relief 11/26/2024 Rectal mass (ICD-10 - K62.89) Sent a referral to surgery to make sure this is not cancer. Told her to make srue she shows the surgeon that photo she showed us. 11/26/2024 Essential hypertension (ICD-10 - I10) 11/26/2024 Imbalance (ICD-10 - R26.89) 11/26/2024 BMI 22.0-22.9, adult (ICD-10 - Z68.22) Plan Of Treatment Treatment Notes Assessment Notes Acute upper respiratory infection Inpati ent labs negative. Continue to stay away from sister and others as long as symptoms continue. fluids, rest, supportive measures for fever/symptom relief Rectal mass Sent a referral to william ortega to make sure this is not cancer. Told her to make srue she shows the surgeon that photo she showed us. Referrals Referral Date Details 11/26/2024 11/26/2024, rectal m ass per pt picture; appears to be 1-2 cm; rectal exam indicates internal rectal mass; no tenderness; no bleeding, RADHA MATSON Next Appt Details Follow Up: prn, Reason: Provider Name:Mallorie Dominguez er, 06/21/2025 08:00:00 AM, [address] [facility] [address] [facility], [address], [place], [place], [id number], Progress Notes * Kathy BARRONDOB: 2 (74 yo F)Acc No.[id number]:11/26/2024 Progress Notes Patient: Kathy ORTIZ Provider: KO Lewis :1950 A ge:74 Y S ex:Female Date:11/26/2024 Address:[address] [place] [address] [id number] Pcp:Mallorie Marie Subjective: * Chief Complaints: * 1 . knot on buttocks, RSV and covid test. * HPI: D ermatology: 74 year old female presents with c/o knot P t is here today for c/o knot on her buttocks. Pt sts the knot has been there for 6-7 months. Pt sts that every once in a while she does feel a lot of pressure in the area, but sts other than that she does not have any pain. Pt sts corbin does have incontient bm's and sts she is unsunsure if it is the knot that causes that, not enlarging. E NT/respiratory: c/o sore throat. c/o cough P t sts she has a cough mostly when laying down. c/o Fever P t sts she has had a bit of a fever . c/o ear pain. c/o Short of Breath. c/o headache P t sts she has had a very bad headache.? Denies : smoking. D enies : body aches. Pt would like covid and RSV test done. Pt sts one of her grandkids has RSV and sts the other has covid and sts she would like to be tested before going to see her sister soon; drinking OK. * ROS: R ESPIRATORY: no S hortness of breath. C ough y es. ? D ERMATOLOGY: no R cecilia. n o H adonis. E NT: Cough y es. S ore throat y es. G ASTROENTEROLOGY: no N ausea. n o [...] * Hospitalization/Major Diagno stic Procedure: C [facility]- [facility] 08/2010, : AVR for severe aortic [...] active: yes. * Medications: T aking pyRIDostigmine [place] 30 MG Tablet 1 tablet Orally Five [...] Tablet 1 tablet Orally Once a day , Taking Levothyroxine Sodium 50 MCG Tablet TAKE 1 TABLET EVERY OTHER DAY ALTERNATE WITH 1/2 TABLET EVERY OTHER DAY , Taking Irbesartan 300 MG Tablet TAKE 1 TABLET EVERY MORNING , Taking DULoxetine HCl 30 MG Capsule Delayed Release Particles TAKE 1 CAPSULE TWICE DAILY , Medication List reviewed and reconciled with the patient * Allergies: I odinated Contrast Media. Objective: * Vitals: W t: 139.4, Temp: 97.9, BP: 110/60, HR: 80, O2 Sat: 96% on RA, Nurse: luzmaria, Ht: 66.50, BMI:22.16. * Examination: G eneral Examination: General Appearance: N AD, appears healthy. H EENT: n ormal. O ral cavity: m ild erythema. N mychal: n o lymphadenopathy. C hest: n ormal. H eart: R RR. L ungs: c lear to auscultation, normal. A bdomen: n ormal, bowel sounds present. S kin: n ormal, no rash. G enitalia: i nternal mass of rectum, painless, no bleeding. Anal canal open, decreased sphincter tone. Assessment: * Assessment: 1. A cute upper respiratory infection - 465.9 (Primary) 2 . R ectal mass - K62.89 3 . E ssential hypertension - I10 4 . I mbalance - R26.89 5 . B OH 22.0-22.9, adult - Z68.22 Plan: * Treatment: Value Reference Range w bc 5.6 3.5 - 10 * l ym 35.5 15 - 50 * m id 9.8 2 - 15 * g ran 54.7 35 - 80 * r bc 4.84 3.5 - 5.5 * h gb 13.4 11.5 - 16.5 * h ct 39.8 35 - 55 * m cv 82.1 75 - 100 * m ch 27.7 25 - 35 * m chc 33.7 31 - 38 * p lat 184 100 - 400 * Guerda Vann 11/26/2024 02:0 4:52 PM EDT > Provider reviewed results while patient in office.Maggie Ramos 11/26/2024 04:02:23 PM EDT > ?LAB: Covid test (in house) (Collection Date & Time - 11/26/2024)?neg* Value Reference Range R esult: neg * Guerda Vann 11/26/2024 02:0 6:05 PM EDT > Provider reviewed results while patient in office.Maggie Ramos 11/26/2024 04:02:45 PM EDT > Notes: Inpatient labs negative. Continue to stay away from sister and others as long as symptoms continue. fluids, rest, supportive measures for fever/symptom relief??2.?Rectal mass? Notes: Sent a referral to surgery to make sure this is not cancer. Told her to make srue she shows the surgeon that photo she showed us.? Referral To:RADHA MATSON??General Surgery ?Reason:rectal mass per pt picture; appears to be 1-2 cm; rectal exam indicates internal rectal mass; no tenderness;no bleeding * Procedure Codes: G 2211 Complex e/[place], [address] CAPILLARY BLOOD DRAW, 13258 CBC WITH AUTO DIFF, 90241 COVID TEST IN HOUSE, Modifiers: QW , 1036F TOBACCO NON-USER, G8420 BMI<30 AND >=22 CALC & DOCU, G8783 BP SCR PRFRM RCMDD DEFIND SCR INTVL, G8752 MOST RECENT SYSTOLIC BP < 140MM HG, G8754 MOST RECENT DIASTOLIC BP < 90MM HG * Follow Up: p rn * Images: Billing Information: * Visit Code: 38214 Office Visit, Est Pt., Level 3. * Procedure Codes: G2211 Complex e/[place]. [address] CAPILLARY BLOOD DRAW. 41818 CBC WITH AUTO DIFF. 84477 COVID TEST IN HOUSE. Modifiers: QW 1036F TOBACCO NON-USER. G8420 BMI<30 AND >=22 CALC & DOCU. G8783 BP SCR PRFRM RCMDD DEFIND SCR INTVL. G8752 MOST RECENT SYSTOLIC BP < 140MM HG. G8754 MOST RECENT DIASTOLIC BP < 90MM HG. * Electronic signature of Jillian Ramos APRN on 05/14/2025 at 01:52 PM EST Sign off status: Pending * Provider: KO Lewis Date: 0 11/26/2024 Generated for Lou turner/Hakeem/Kenyattaitting on: 1 07/15/2024 01:52 PM EST History and Physical Notes * HPI (History of Present Illness) Category Sub-Category Detail Notes Category Not es ENT/respiratory sore throat Pt would like covid and RSV test done. Pt sts one of her grandkids has RSV and sts the other has covid and sts she would like to be tested before going to see her sister soon; drinking OK ear pain Short of Breath cough Pt sts she has a cou gh mostly when laying down Fever Pt sts she has had a bit of a fever headache Pt sts she has had a very bad headache smoking body aches Dermatology knot Pt is here today for c/o knot on her buttocks. Pt sts the knot has been there for 6-7 months. Pt sts that every once in a while she does feel a lot of pressure in the area, but sts other than that she does not have any pain. Pt sts corbin does have incontient bm's and sts she is unsunsure if it is the knot that causes that, not enlarging Examination Category Sub-Category Detail Notes Category Not es General Examination HEENT: normal Heart: RRR Lungs: clear to auscultatio n, normal Abdomen: normal, bowel sounds present General Appearance: NAD, appears healthy Skin: normal, no rash Neck: no lymphadenopathy Oral cavity: mild erythema Genitalia: internal mass of rec koki, painless, no bleeding. Anal canal open, decreased sphincter tone Chest: normal Consultation Request Notes Referral Date Referring Provider Referred Provider Not es 11/26/2024 Maggie Ramos CHARLES rectal mass per pt picture; appears to be 1-2 cm; rectal exam indicates internal rectal mass; no tenderness; no bleeding
--- OUTSIDE RECORDS SUMMARY | 2025-01-12 06:15 | XMS_ITS ---
[facility] Organization [facility] Address [address] [place] [id number] Care Team Providers Care High Climber Name Role Phone Malloire Marie Primary Care Provider [phone] Kee Gaspar Unavailable [phone] Allergies Allergen (clinical drug ingredient) Drug/Non Drug Allergy documented on EMR Reaction Allergy Type Onset Date Status Iodinated contrast media (substance) Iodinated Contrast Media Unknown Drug Allergy Active REASON FOR VISIT neck and shoulder Medications Medication SIG (Take, Route, Frequency, Duration) Notes Start Date End Date Status Levothyroxine Sodium 50 MCG TAKE 1 TABLE T EVERY OTHER DAY ALTERNATE WITH 1/2 TABLET EVERY OTHER DAY; Duration: 90 Active Cyclobenzaprine HCl 5 MG 1 tablet Orally 3 times a day As needed 01/12/2025 Active Irbesartan 300 MG TAKE 1 TABLET EVERY MORNING; Duration: 90 days Active DULoxetine HCl 30 MG TAKE 1 CAPSULE TWIC E DAILY; Duration: 90 Active amLODIPine Besylate 5 MG 1 tablet Orally Once a day; Duration: 30 days Active Aspirin 81 MG 1 tab(s) orally once a day; Duration: 30 day(s) Active Albuterol Sulfate HFA 108 (90 Base) MCG/ACT 2 inhalations Inhalation four times a day as needed 11/24/2022 Active pyRIDostigmine [place] 30 MG 1 tablet Or ally Five times a day; Duration: 30 day(s) Active Metoprolol Succinate 50 MG 1 capsule Ora lly Once a day Active Spironolactone 25 MG 1 tablet Orally Active Vital Signs Weight 140.8 lbs 01/12/2025 Blood pressure systolic 130 mm Hg 01/13/20 25 Blood pressure diastolic 70 mm Hg 025 Heart Rate 62 /min 01/12/2025 Height 66.50 in 01/12/2025 BMI 22.38 kg/m2 01/12/2025 Encounters Encounter Location Date Provider Diagnosis [facility] [address] [place] [id number] 01/12/2025 Kee [place] Muscle spasm of back M62.830 Assessments Encounter Date Diagnosis (ICD Code) Assessment Notes Treatment Notes Treatment Clinical Notes Section Notes 01/12/2025 Muscle spasm of back (ICD-10 - M62.830) Home exercise program provided to patient heating pad to affected areas 2 to 3 times a day TENS unit OTC recommended Plan Of Treatment Medication Medication Name Sig Start Date Stop Date Notes Cyclobenzaprine HCl 5 MG 1 tablet Orally 3 times a day Treatment Notes Assessment Notes Muscle spasm of back Home exercise progr am provided to patient heating pad to affected areas 2 to 3 times a day TENS unit OTC recommended Next Appt Details Follow Up: via phone to repo rt progress, Reason: Provider Name:Mallorie Dominguez er, 06/21/2025 08:00:00 AM, 1210 [facility], [address], [place], [id number], Progress Notes * Kathy DUBONDOB: 2 (74 yo F)Acc No.[id number]:01/12/2025 Progress Notes Patient: Kathy ORTIZ Provider: Kam Gaspar M.D. :1950 A ge:74 Y S ex:Female Date:01/12/2025 Address:[address] [place] [address] [phone] Pcp:Mallorie Marie Subjective: * Chief Complaints: * 1 . Neck and shoulder. * HPI: S houlder/Upper arm: 74 year old female presents with c/o shoulder pain T he pt is here today with c/o pain in the right shoulder that radiates into her neck. Pt states this started about 4 days ago and has gotten worse. Pt states she has been taking Tylenol without much relief.? * ROS: D ERMATOLOGY: no R cecilia. [...] * Hospitalization/Major Diagno stic Procedure: C [facility] 08/2010, : AVR for severe aortic regurgitation [...] active: yes. * Medications: T aking pyRIDostigmine [place] 30 MG Tablet 1 tablet Orally Five [...] Particles TAKE 1 CAPSULE TWICE DAILY , Taking amLODIPine Besylate 5 MG Tablet 1 tablet Orally Once a day , Taking Levothyroxine Sodium 50 MCG Tablet TAKE 1 TABLET EVERY OTHER DAY ALTERNATE WITH 1/2 TABLET EVERY OTHER DAY , Medication List reviewed and reconciled with the patient * Allergies: I odinated Contrast Media. Objective: * Vitals: W t: 140.8, Temp: 97.9, BP: 130/70, HR: 62, Nurse: RODRÍGUEZ, Ht: 66.50, BMI:22.38. * Examination: G eneral Examination: General Appearance: N AD. U pper Back: Vertebral spine tenderness: a bsent. P araspinal muscle spasm: p resent on right side. T rapezius muscles d iffusely tender on r ight side.? Assessment: * Assessment: 1. M uscle spasm of back - M62.830 (Primary) Plan: * Treatment: * Procedure Codes: G 2211 Complex e/m visit add on * Follow Up: v ia phone to report progress * Images: Billing Information: * Visit Code: 24290 Office Visit, Est Pt., Level 3. * Procedure Codes: G2211 Complex e/m visit add on. * Electronic signature of Tara Gaspar MD on 05/14/2025 at 01:52 PM EST Sign off status: Pending * Provider: Kam Gaspar M.D. Date: 0 01/12/2025 Generated for Lou turner/Hakeem/Kenyattaitting on: 1 07/15/2024 01:52 PM EST History and Physical Notes * HPI (History of Present Illness) Category Sub-Category Detail Notes Category Not es Shoulder/Upper arm shoulder pain The pt is her e today with c/o pain in the right shoulder that radiates into her neck. Pt states this started about 4 days ago and has gotten worse. Pt states she has been taking Tylenol without much relief Examination Category Sub-Category Detail Notes Category Not es General Examination General Appearance: NAD Upper Back Vertebral spine tenderness: absent Paraspinal muscle spasm: present on righ t side Trapezius muscles diffusely tender on right side
--- OUTSIDE RECORDS SUMMARY | 2025-01-17 11:00 | XMS_ITS ---
Author Organization [facility] Address 1210 [facility] 36 [facility] [address] [place] [phone] Care Team Providers Care Safety Representative Name Role Phone Mallorie Marie Primary Care Provider Melodie Ponce [phone] Allergies Allergen (clinical drug ingredient) Drug/Non Drug Allergy documented on EMR Reaction Allergy Type Onset Date Status Iodinated contrast media (substance) Iodinated Contrast Media Unknown Drug Allergy Active REASON FOR VISIT Pain not Improving Encounters Encounter Location Date Provider Diagnosis [facility] [address] [facility] [address] [place] [id number] 01/17/2025 Melodie Ponce Plan Of Treatment Next Appt Details Provider Name:Mallorie Dominguez er, 06/21/2025 08:00:00 AM, [address] [facility], [address], [place], [id number], Progress Notes * Kathy DUBONDOB: 2 (74 yo F)Acc No.[id number]:01/17/2025 Progress Notes Patient: Arin CARRERA Kathy Provider: ZACH Humphreys :1950 A ge:74 Y S ex:Female Date:01/17/2025 Address:[address] [place] [address] [phone] Pcp:Mallorie Marie Subjective: * Chief Complaints: * 1 . Pain not Improving. * ROS: D ERMATOLOGY: no R cecilia. [...] 09/22/2022. * Hospitalization/Major Diagno stic [facility] 08/2010, [place]: AVR for severe aortic [...] * Procedure Codes: * Electronic signature of ZACH Pat on 05/14/2025 at 01:52 PM EST Sign off status: Pending * Provider: ZACH Humphreys Date: 0 01/17/2025 Generated for Lou turner/Hakeem/Kenyattaitting on: 1 07/15/2024 01:52 PM EST
--- OUTSIDE RECORDS SUMMARY | 2025-03-28 14:00 | XMS_ITS | Encounter Summary ---
[facility] Address [address] [place] [address] Care Team Providers Care Finance Assistant Name Role Phone Andres Marei MD Primary Care Provider [phone] Reason for Referral * MRI/CAT/PET Scan (Routine) - Authorized Specialty Diagnoses / Procedures Referred By Naima telles Referred To Contact Radiology Diagnoses Vulvar cancer Procedures NM Pet Skull Base To Mid Thigh Vinayak Delgado MD [address] [place] [address] Phone: tel: fax: Referral ID Status Reason Start Date Expiration Date V isits Requested Visits Authorized [id number] Authorized 03/28/2025 06/27/2026 4 4 Reason for Visit * Reason Comments Vulvar Cancer * Consultation (Urgent) - Closed Specialty Diagnoses / Procedures Referred By Naima telles Referred To Contact Radiation Oncology Diagnoses Squamous cell carcinoma of anal skin Connor Nava MD [address] [facility] [place] [address] Phone: tel: [place]: [place] [address] [place] [address] Phone: tel: fax: Referral ID Status Reason Start Date Expiration Date V isits Requested Visits Authorized [id number] Closed Specialty Services Required 03/27/2025 06/26/2026 1 1 Encounter Details Date Type Department Care Team (Late st Contact Info) Description 03/28/2025 3:00 PM EDT Office [facility] [address] [place] [address] Vinayak Delgado MD [address] [place] [address] Vulvar cancer (Primary Dx) Social History Tobacco Use Types Packs/Day Years Used Date Smoking Tobacco: Former Cigarettes Smokeless Tobacco: Never Tobacco Cessation:Counseling Given: Not Answered Comments:Quit 22 years ago Alcohol Use Standard Drinks/Week Comments Not Currently 0 (1 standard drink = 0.6 oz pur e alcohol) Abuse Screen Answer Date Recorded Feels Unsafe at Home or Work/School no 03/28/2025 Feels Threatened by Someone no 03/01 Does Anyone Try to Keep You From Having Contact with Others or Doing Things Outside Your Home? no 03/28/2025 Physical Signs of Abuse Present no 03/28/2025 PHQ-2 Answer Date Recorded Patient Health Questionnaire-2 Score 1 03/28/2025 Comments Unknown Sex and Gender Information Value Date Recorded Sex Assigned at Not on file Legal Sex Female 11:49 AM EDT Gender Identity Not on file Sexual Orientation Not on file documented as of this encounter Last Filed Vital Signs Vital Sign Reading Time Taken Comments Blood Pressure 144/66 03/28/2025 3:19 PM EDT Pulse 63 03/28/2025 3:19 PM EDT Temperature 35.9 C (96.7 F) 03/28/2025 3:19 PM EDT Respiratory Rate 18 03/28/2025 3:19 PM EDT Oxygen Saturation 99% 03/28/2025 3:19 PM EDT Inhaled Oxygen Concentration - - Weight 64.6 kg (142 lb 8 oz) 03/28/2025 3:19 PM EDT Height - - Body Mass Index - - documented in this encounter Functional Status documented as of this encounter Progress Notes * Vinayak Delgado MD - 03/28/2025 3:00 PM EDT CONSULTATION NOTE : 1950 DATE OF CONSULTATION: 03/28/2025 REQUESTING PHYSICIAN: Connor Nava MD REASON FOR CONSULTATION: Squamous Cell Carcinoma of the Perineum Thank you for requesting my services in evaluation of this pleasant individual. I am seeing them inoutpatient consultation regarding a diagnosis of a squamous cell carcinoma of the perineum. BRIEF HISTORY: The patient is a very pleasant 74 y.o. female with no significant past medical history other than myasthenia gravis and hypothyroidism, who had concern that she had a nodule prolapsingfrom her anus. She was referred to colorectal surgery and underwent a colonoscopy in November which identified this mass to be a prolapsed hemorrhoid. During that timeframe, she has been experiencing an enlarging plaque-like mass on the left perineal body and posterior vagina. This is continued to enlarge and a biopsy was obtained at the end of November which is consistent with a p16 positive squamous cell carcinoma. She reports that she has discomfort and tenderness with sitting, and occasionally she notices a small amount of bleeding and discharge. She denies any other symptoms or complaints. She has been referred to my clinic for consideration of definitive chemoradiation therapy. She previously underwent a hysterectomy in 1993. Allergy: Allergies Allergen Reactions Iodinated Contrast Media Rash States has had contrast recently and did not have a reaction Social History: Social History Socioeconomic History Marital status: Tobacco Use Smoking status: Former Types: Cigarettes Tobacco comments: Quit 22 years ago Substance and Sexual Activity Alcohol use: Not Currently Drug use: Never Sexual activity: Defer Past 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: Past 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: Diagnosis Date Anal cancer Disease of thyroid gland Hypertension Myasthenia gravis Osteoporosis Family History: family history includes Breast cancer in her sister; Heart disease in her father and mother; Leukemia in her brother; Lung cancer in her sister. Surgical History: Past Surgical History: Procedure Laterality Date AORTIC VALVE REPAIR/REPLACEMENT non-mechanical CHOLECYSTECTOMY COLONOSCOPY OTHER SURGICAL HISTORY Left reports clip in left breast Review of Systems: Review of Systems Gastrointestinal: Positive for diarrhea. Genitourinary: Reports small intermittent bleeding-vulva- reports pain with sitting All other systems reviewed and are negative. Objective VITAL SIGNS: Vitals: 03/28/25 1519 BP: 144/66 Pulse: 63 Resp: 18 Temp: 96.7 ??F (35.9 ??C) TempSrc: Temporal SpO2: 99% Weight: 64.6 kg (142 lb 8 oz) PainSc: 2 PainLoc: Vagina Karnofsky score: 80 Physical Exam: Physical Exam Vitals and nursing note reviewed. Constitutional: General: She is not in acute distress. Appearance: She is well-developed. HENT: Head: Normocephalic and atraumatic. Eyes: Conjunctiva/sclera: Conjunctivae normal. Pupils: Pupils are equal, round, and reactive to light. Cardiovascular: Rate and Rhythm: Normal rate and regular rhythm. Heart sounds: No murmur heard. No friction rub. Pulmonary: Effort: Pulmonary effort is normal. Breath sounds: Normal breath sounds. No wheezing. Abdominal: General: Bowel sounds are normal. There is no distension. Palpations: Abdomen is soft. There is no mass. Tenderness: There is no abdominal tenderness. Genitourinary: Comments: 2x3cm plaque-like lesion involving the posterior left labia, extending into the vaginal lumen at the 4:00-6:00 position. There is induration extending posteriorly into the perineal body, and relative clearing of the anal orifice. Speculum exam within the vagina reveals no abnormalities beyond the introitus with a normal upper vaginal cuff. No inguinal adenopathy bilaterally. Musculoskeletal: General: Normal range of motion. Cervical back: Normal range of motion and neck supple. Lymphadenopathy: Cervical: No cervical adenopathy. Skin: General: Skin is warm and dry. Neurological: Mental Status: She is alert and oriented to person, place, and time. Psychiatric: Behavior: Behavior normal. Thought Content: Thought content normal. Judgment: Judgment normal. PATHOLOGY Perineal Biopsy 02/25/2025: Invasive squamous leon, moderately differentiated P16+ COLONOSCOPY 12/14/2024 Circumferential, prolapsing hemorrhoids. Rectal mass appears to be likely prolapsing hemorrhoid. IMAGING I have personally reviewed the relevant imaging studies, as follows: CT Chest/Abdomen/Pelvis 03/14/2025: There are no mediastinal, hilar, or axillary adenopathy. There is no pleural effusion or pericardial effusion. Heart size is normal. There are changes of emphysema. There is a tiny right lower lobe medial subpleural nodule, measuring 4 mm, best seen on image 53 of series 4. No additional nodules ormasses are identified. There is a lesion in the medial segment of the left lobe of the liver, currently measuring 5 mm which is slightly decreased in size since the prior exam. Stable hepatic cyst inthe lateral segment of the left lobe. Stable small hypodense lesion in the upper pole of the left kidney which has been seen on prior CT scans from 2023 and is unchanged. Uterus is absent. No lymphade nopathy. No free fluid. No acute osseous abnormality. The following portions of the patient's history were reviewed and updated as appropriate: allergies, current medications, past family history, past medical history, past social history, past surgicalhistory, and problem list. Assessment: Assessment Mrs. Barron is a 74-year-old female who presents with a primary tumor that appears to localize to the left posterior vulva with extension into the lower vaginal introitus. There is no evidence of inguinal adenopathy. She will benefit from completing staging, and I recommend that we obtain a PET/CT scan which has been ordered. I also personally contacted Dr. Allen to discuss further with him. Her original colonoscopy identified that the prolapsing tissue at the anus was related to internal hemorrhoids, and on exam her primary tumor seems to localize more to the posterior vulva. This raises the question whether she would be a suitable candidate for neoadjuvant therapy followed by a planned surgery, and I would like to await Dr. Allen's decision whether she is a candidate for surgical resection. I briefly discussed the typical course of chemoradiation therapy to Ms. Barron, and will wait until she can be examined by Dr. Allen to make formal treatment recommendat ions. RECOMMENDATIONS: 1. Await examination with Dr. Allen with [employer] oncology regarding potential for surgery 2. If she is a candidate for surgery, then we will discuss neoadjuvant chemotherapy versus neoadjuvant chemoradiation therapy 3. Will discuss in a multidisciplinary format with Dr. Badillo and Dr. Allen I spent a total of 60 minutes on todays visit, with more than 45 minutes in direct face to face communication, and the remainder of the time spent in reviewing the relevant history, records, available imaging, and for documentation. Follow Up: Return in about 4 days (around 04/01/2025) for Telehealth. Diagnoses and all orders for this visit: 1. Vulvar cancer (Primary) - NM Pet Skull Base To Mid Thigh; Future Thank you for allowing me to participate in the care of this individual. Sincerely, Vinayak Delgado MD documented in this encounter Plan of Treatment Upcoming Encounters Date Type Department Care Team (Late st Contact Info) Description 06/25/2025 10:30 AM EST Appointment [facility] [address] [place] [address] 06/25/2025 11:30 AM EST Appointment [facility] [address] [place] [address] 06/27/2025 11:30 AM EST Office Visit [facility]EC[facility] [address] [place] [address] Andres Allen MD [address] [facility] [address] [place], [place] [id number] documented as of this encounter Procedures Procedure Name Priority Date/Time Associated Diagnosis Comments SCANNED - COLONOSCOPY 03/28/2025 SCANNED PATHOLOGY 03/28/2025 SCANNED - IMAGING 03/28/2025 SCANNED - IMAGING 03/28/2025 SCANNED - IMAGING 03/28/2025 SCANNED - LABS 03/28/2025 documented in this encounter Results * NM PET/CT Skull Base to Mid Thigh (04/08/2025 2:43 PM EST) Anatomical Region Laterality Modality Head and Neck, Spine, Abdome n, Chest, Pelvis, Lower Leg, Thigh N/A Nuclear Medicine 04/10/2025 1:43 PM EST Impressions 04/10/2025 1:57 PM EST Impression: 1.Hypermetabolic left vulvar mass consistent with known carcinoma. 2.Enlarged hypermetabolic left inguinal lymph node consistent with metastatic disease. 3.7 mm lytic bone lesion in the posterior elements at L2 with mild FDG activity. This does raise concern for metastasis, but is too small to definitively characterize and as a solitary bone lesion, this has a differential including benign entities, as well. 4.Small area of mildly increased FDG activity in the upper outer left breast with a small calcification. Recommend correlation with mammogram and correlation with this specific area. Electronically Signed: True Goel MD 04/10/2025 1:57 PM EST Workstation ID: [id number] Narrative 04/10/2025 1:57 PM EST FDG NM PET/CT SKULL BASE TO MID THIGH Date of Exam: 04/08/2025 12:58 PM EST Indication: New vulvar cancer, staging. Comparison: MRI pelvis 04/02/[address] abdomen and pelvis and chest 03/14/2025. Technique: 13.05 mCi of F-18 FDG was administered intravenously. PET imaging was obtained from skull base to mid-thigh approximately 60 minutes after radiotracer injection. A low dose non contrast CT was obtained for attenuation correction and anatomic localization. Fused PET-CT and 3D MIP reconstructions were utilized for image interpretation. Fasting blood glucose level: 99 mg/dl. Reference uptake values: Mediastinum: 1.7 SUVmax Liver: 2.8 SUVmax Normalization method: Body Weight Findings: Head and neck: No FDG avid disease. No lymphadenopathy or mass. No acute findings. Chest: No FDG avid disease. No lymphadenopathy or mass. No acute findings. There is mild generalized activity within the glandular tissue in both breasts achieving a maximum SUV of 2.4 on the right. There is an area of mildly increased FDG activity within the upper outer left breast at the periphery of the glandular tissue best seen on CT image 108 in the axial series where there is a small calcification. Maximum SUV in this region measures 2.9. Recommend correlation with mammogram and correlation with this specific area. Abdomen and pelvis: There is redemonstration of a left vulvar mass measuring up to 3.1 x 1.2 cm. This area corresponds to the abnormality on MRI and demonstrates a maximum SUV of 18.5 consistent with known carcinoma. There is an enlarged hypermetabolic left inguinal lymph node seen best on axial image 208 with focal cortical thickening. The lymph node measures 18 x 10 mm and exhibits a maximum SUV of 6.6. There are additional bilateral morphologically normal-appearing inguinal lymph nodes with low-grade likely physiologic activity. No additional abnormal FDG accumulation in the abdomen or the pelvis. Patient is status post cholecystectomy. There is mild aortic atherosclerosis with no acute findings. Musculoskeletal and extremities: There is a very small lytic bone lesion in the posterior elements at L2 at the medial right lamina. On CT axial image 147, this measures 7 mm diameter and exhibits a maximum SUV of 3.8. This does raise concern for metastasis, but is too small to definitively characterize and as a solitary bone lesion, this has a differential including benign entities, as well. Procedure Note True Goel MD - 04/10/2025 FDG NM PET/CT SKULL BASE TO MID THIGH Date of Exam: 04/08/2025 12:58 PM EST Indication: New vulvar cancer, staging. Comparison: MRI pelvis 04/02/[address] abdomen and pelvis and chest03/14/2025. Technique: 13.05 mCi of F-18 FDG was administered intravenously. PETimaging was obtained from skull base to mid-thigh approximately 60 minutesafter radiotracer injection. A low dose non contrast CT was obtained forattenuation correction and anatomic localization. Fused PET-CT and 3D MIP reconstructions were utilized forimage interpretation. Fasting blood glucose level: 99 mg/dl. Reference uptake values: Mediastinum: 1.7 SUVmax Liver: 2.8 SUVmax Normalization method: Body Weight Findings: Head and neck: No FDG avid disease. No lymphadenopathy or mass. No acutefindings. Chest: No FDG avid disease. No lymphadenopathy or mass. No acute findings.There is mild generalized activity within the glandular tissue in bothbreasts achieving a maximum SUV of 2.4 on the right. There is an area ofmildly increased FDG activity within the upper outer left breast at the periphery of the glandulartissue best seen on CT image 108 in the axial series where there is asmall calcification. Maximum SUV in this region measures 2.9. Recommendcorrelation with mammogram and correlation with this specific area. Abdomen and pelvis: There is redemonstration of a left vulvar massmeasuring up to 3.1 x 1.2 cm. This area corresponds to the abnormality onMRI and demonstrates a maximum SUV of 18.5 consistent with knowncarcinoma. There is an enlarged hypermetabolic left inguinal lymph node seen best on axial image 208 with focal corticalthickening. The lymph node measures 18 x 10 mm and exhibits a maximum SUVof 6.6. There are additional bilateral morphologically normal-appearinginguinal lymph nodes with low-grade likely physiologic activity. No additional abnormal FDGaccumulation in the abdomen or the pelvis. Patient is status postcholecystectomy. There is mild aortic atherosclerosis with no acutefindings. Musculoskeletal and extremities: There is a very small lytic bone lesionin the posterior elements at L2 at the medial right lamina. On CT axialimage 147, this measures 7 mm diameter and exhibits a maximum SUV of 3.8.This does raise concern for metastasis, but is too small to definitively characterize and as asolitary bone lesion, this has a differential including benign entities,as well. IMPRESSION: Impression: 1.Hypermetabolic left vulvar mass consistent with known carcinoma. 2.Enlarged hypermetabolic left inguinal lymph node consistent withmetastatic disease. 3.7 mm lytic bone lesion in the posterior elements at L2 with mild FDGactivity. This does raise concern for metastasis, but is too small todefinitively characterize and as a solitary bone lesion, this has adifferential including benign entities, as well. 4.Small area of mildly increased FDG activity in the upper outer leftbreast with a small calcification. Recommend correlation with mammogramand correlation with this specific area. Electronically Signed: True Goel MD 04/10/2025 1:57 PM EST Workstation ID: [id number] Result [facility] Vinayak Delgado MD IMG NM ORDERABLES Fi nal Result * Colonoscopy, Scan (03/28/2025) Result [facility] CHART REVIEW TABS Final Re sult * LABS SCANNED (03/28/2025) Result [facility] LAB BLOOD ORDERABLES Final Re sult * SCANNED PATHOLOGY (03/28/2025) Result [facility] PATHOLOGY/CYTOLOGY ORDERABLES Final Result * IMAGING SCANNED (03/28/2025) Anatomical Region Laterality Modality [facility]A BLES Final Result * IMAGING SCANNED (03/28/2025) Anatomical Region Laterality Modality Radiographic Lisa ging [facility] IMG DIAGNOSTIC IMAGING ORDERA BLES Final Result * IMAGING SCANNED (03/28/2025) Anatomical Region Laterality Modality Radiographic Lisa ging [facility] IMG DIAGNOSTIC IMAGING ORDERA BLES Final Result documented in this encounter Visit Diagnoses Diagnosis Vulvar cancer- Primary Malignant neoplasm of vulva, unspecified site Vulvar cancer Malignant neoplasm of vulva, unspecified site documented in this encounter Care Teams Finance Assistant Relationship Specialty Start Date End Date Andres Marie MD [facility] [address] [facility] [address] [place] [address] PCP - General Family Medicine 03/27/25 documented as of this encounter
--- OUTSIDE RECORDS SUMMARY | 2025-04-01 10:45 | XMS_ITS | Encounter Summary ---
[facility] Address [address] [place] [id number] Care Team Providers Care Professor Of Biological Sciences Name Role Phone Sudhir Marie MD Primary Care Provider +1 [phone] Reason for Referral * MRI/CAT/PET Scan (Routine) - Closed Specialty Diagnoses / Procedures Referred By Naima telles Referred To Contact Radiology Diagnoses Vulvar cancer Procedures MRI Pelvis With & Without Contrast Sudhir Zimmer MD [address] [facility] At [facility] [address] [place] [address] Phone: tel: fax: Referral ID Status Reason Start Date Expiration Date Visits Re quested Visits Authorized [id number] Closed 04/01/2025 07/01/2026 1 1 * Diagnostic Imaging (Routine) - Closed Specialty Diagnoses / Procedures Referred By Naima telles Referred To Contact Radiology Diagnoses Vulvar cancer Procedures XR Chest 1 View Sudhir Zimmer MD [address] [address] [place] [address] Phone: tel: fax: Referral ID Status Reason Start Date Expiration Date Visits Re quested Visits Authorized [id number] Closed 04/01/2025 07/01/2026 1 1 Encounter Details Date Type Department Care Team (Late st Contact Info) Description 04/01/2025 10:45 AM EST Office Visit [facility] GYNECOLOGIC ONCOLOGY 1700 [facility] [address] [place] [address] Sudhir Zimmer MD [address] At [facility] [address] [place] [address] [id number] Vulvar cancer (Primary Dx) Social History Tobacco [...] or training? Not on file Preferred Language Thai 04/02/2025 PHQ-2 Answer Date Recorded Patient Health [...] were not included. Surgery Instructions Kathy Barron [id number] 1950 SURGEON: SUDHIR ZIMMER Surgery Coordinator: Kiara Humphrey Gynecological Oncology 1700 [facility] [address] [place] [address], [phone] Pre-Admission Testing Appointment You have a Pre-Admission [...] All medications in the original bottles including ybqn-kvu-xvbaixi medications (not a list) Copy of living will or power of traffic law attorney documents Copy of recent test results (EKG, stress test, echo, heart cath, etc.) Copy of pacemaker or ICD cards and date of last interrogation Copy of cardiac clearance letter from your machinery rigger or primary care physician if history of heart problems Name and phone number of your pharmacy, primary care physician and/or machinery rigger CPAP or BiPAP settings Surgery Appointment Your surgery has been scheduled on 04/09/2025. You will need to go to Main Registration to check inat 7:30 AM. Then you will be sent to the [address] [place] [address] second floor surgery registration desk to check [...] delays Please note: you MUST have a truck driver teamster over the age of 18 to drive you home from the hospital. You maynot use Uber, Lyft or a taxi. Please remember to bring: Photo ID and current medical insurance card Advanced directives, living will or power of traffic law attorney (if applicable) Current list of all [...] team can answer your questions. Directions to [facility] [address] [facility] ? [place], [place] [address] ? From [address] and [address] [facility]: Take [address] South to the [place] exit. Go right on [address] to [address]. Right on [address] to [facility]. Left on [address] to [facility] which is on the left. From [address] [facility]: Get off [address] at the [place] exit. Go left on [address] to [address]. Right on [address] [facility]. Left on [facility] to [facility] which is on the left. From the South ([place] [address]): Follow [facility] to approximately one mile inside [facility]. [facility] is on the right at [facility] and [facility]. Parking: Free Hospital Product Specialist Parking - Take Entrance [address] and go straight ahead to [address] [place] [address]. Self Parking - Take Entrance [address], bear left and follow the road to [facility]. Directions to Registration: If entering through front of [address] (audio visual design engineer parking), take a right and proceed up the hallwayconnecting 17[address] building to [address]. Registration is on the left about [facility] up the [place]. If entering from [facility], take garage elevator to first floor (1), exit to the right and proceed through the doors to outside, follow the covered sidewalk to entrance of [facility], follow signs to [address] [place] [address], this leads to the [facility] lobby and information desk. Proceed past the information desk to the hallway that connects [address] [place] [address] to the [facility]. Registration is on the left about [facility] up the [place]. Directions to Pre-admission Testing: [...] all forms completed and signed to the SPECIAL EDUCATION EDUCATIONAL ASSISTANT ONCOLOGY office. FORM FOR AUHTHORIZATION FOR USE AND/OR DISCLOSURE OF PROCTED HEALTH INFORMATION CAN BE PROVIDED UPON REQUEST. Preoperative Evaluation and Optimization If your doctor tells you to get a preoperative evaluation from your primary care provider, machinery rigger, or other specialist, it is your responsibility [...] areas. Please note: you MUST have a truck driver teamster over the age of 18 to drive [...] and we canlet you talk with our unit control worker, Kayla Bates. Post-Operative Visit You will [...] the office and let us know at [phone] Reduce the number and frequency of opioids [...] any questions or need assistance, contact your [facility] financial counseling office from 8:30 a.m.-4:30 p.m. Tuesday through Tuesday. Closed weekends. [place]: [phone] or, or visit at [address] [place] [address], [address], near the entrance. Financial Assistance Application available upon request Patient Payments and Correspondence Customer service representatives are available to assist you from 8:00 a.m. to 6:00 p.m. Eastern Standard Time by calling Tuesday through Tuesday. You can also contact us through i[employer]imen. [facility] [address] [place] [address] documented in this encounter Progress Notes * Sudhir Zimmer MD - 04/01/2025 10:45 AM EST Images from the original note were not included. Kathy Barron [id number] Reason for visit: Squamous of carcinoma [...] further discussion and evaluation. For new patients, [facility] intake form from patient patient's chart [...] MD 04/02/2025 9:43 AM EST Workstation ID: [id number] Lab Results Component Value Date WBC 6.29 [...] Exam:: preop Release to patient: Routine Release [[id number]] MRI Pelvis With & Without Contrast Standing Status: Future Number of Occurrences: 1 Expected Date: 04/06/2025 Expiration Date: 04/01/2026 Release to patient: Routine Release [[id number]] Reason for Exam:: vulvar cancer and palpable left groin mass Comprehensive Metabolic Panel Standing Status: Future Number of Occurrences: 1 Expected Date: 04/06/2025 Expiration Date: 04/01/2026 Release to patient: Routine Release [[id number]] Verify NPO Status Standing Status: Future Expected [...] Exam:: preop Release to patient: Routine Release [[id number]] Type & Screen Standing Status: Future Expected Date: 04/01/2025 Expiration Date: 04/01/2026 Release to patient: Routine Release [[id number]] CBC & Differential Standing Status: Future Number of Occurrences: 1 Expected Date: 04/06/2025 Expiration Date: 04/01/2026 Manual Differential: No Release to patient: Routine Release [[id number]] FOLLOW UP: No follow-ups on file. I spent 65 minutes caring for Kathy on this date of service. This time includes time spent by me inthe following activities: preparing for the visit, reviewing tests, performing a medically appropriate examination and/or evaluation, counseling and educating the patient/family/caregiver, referring and communicating with other health managed care liaison, documenting information in the medical record, ordering test(s), and ordering procedure(s) Electronically Signed by: Sudhir Zimmer MD Date: 04/02/2025 documented in this encounter Plan of Treatment Upcoming Encounters Date Type Department Care Team (Late st Contact Info) Description 06/25/2025 10:30 AM EST [address]ment [address] [place] [address] 06/25/2025 11:30 AM EST Appointment [facility] [place] [address] [facility] [address] [place] [address] 06/27/2025 11:30 AM EST Office Visit [facility] GYNECOLOGIC ONCOLOGY [address] [place] [address] Sudhir Zimmer MD [address] At [facility] [address] [place] [address] documented as of this encounter Results * Type & Screen (04/09/2025 10:12 AM EST) ABO Type O 04/09/2025 11:39 AM EST [facility] BB LABORATORY RH type Positive 04/09/2025 11:39 AM EST [facility] Antibody Screen Negative 04/09/2025 11:39 AM EST [facility] T&S Expiration Date 04/12/2025 11:59:59 PM 04/09/2025 11:39 AM EST [facility] Blood 04/09/2025 10:1 2 AM EST 04/09/2025 10:26 AM EST Sudhir Zimmer MD BLOOD BANK TEST ORDERABLES Manoj seferino Result - Final [facility] BB LABORATORY
[address] [place] [address], * XR Chest 1 View (04/02/2025 9:37 AM EST) Anatomical Region Laterality Modality Body N/A Radiographic Lisa ging 04/02/2025 9:42 AM EST Impressions 04/02/2025 9:43 AM EST Impression: No acute findings. Electronically Signed: Steven Lewis MD 04/02/2025 9:43 AM EST Workstation ID: [id number] Narrative 04/02/2025 9:43 AM EST XR CHEST [...] MD 04/02/2025 9:43 AM EST Workstation ID: [id number] Sudhir Zimmer MD IMG DIAGNOSTIC IMAGING ORDERAB [...] Referred By: Confirmed By: ROBSON LEÓN MD Sudhir Zimmer MD ECG ORDERABLES Final Result ECG * (ABNORMAL) Comprehensive Metabolic Panel (04/02/2025 8:24 AM EST) Glucose 96 65 - 99 mg/dL 04/02/2025 10:57 AM EST [facility] BUN 11.0 8.0 - 23.0 mg/dL 04/02/2025 10:57 AM EST [facility] Creatinine 0.88 0.57 - 1.00 mg/dL 04/02/2025 10:57 AM [facility] Sodium 141 136 - 145 mmol/L 04/02/2025 10:57 AM EST [facility] Potassium 5.1 3.5 - 5.2 mmol/L 04/02/2025 10:57 AM [facility] Comment:Specimen hemolyzed. Result may be falsely elevated. Chloride 106 98 - 107 mmol/L 04/02/2025 10:57 AM EST [facility] CO2 25.5 22.0 - 29.0 mmol/L 04/02/2025 10:57 AM [facility] Calcium 10.8(H) 8.6 - 10.5 mg/dL 04/02/2025 10:57 AM EST [facility] Total Protein 7.2 6.0 - 8.5 g/dL 04/02/2025 10:57 AM EST [facility] Albumin 4.4 3.5 - 5.2 g/dL 04/02/2025 10:57 AM EST [facility] ALT (SGPT) 19 1 - 33 U/L 04/02/2025 10:57 AM [facility] AST (SGOT) 30 1 - 32 U/L 04/02/2025 10:57 AM [facility] Alkaline Phosphatase 139(H) 39 - 117 U/L 04/02/2025 10:57 AM [facility] Total Bilirubin 0.6 0.0 - 1.2 mg/dL 04/02/2025 10:57 AM [facility] Globulin 2.8 gm/dL 04/02/2025 10:57 AM [facility] Comment:Calculated Result A/G Ratio 1.6 g/dL 04/02/2025 10:57 AM [facility] BUN/Creatinine Ratio 12.5 7.0 - 25.0 04/02/2025 10:57 AM [facility] Anion Gap 9.5 5.0 - 15.0 mmol/L 04/02/2025 10:57 AM [facility] eGFR 69.9 >60.0 mL/min/1.7 3 04/02/2025 10:57 AM [facility] Blood Venipuncture / Unknown 04/02/2025 8:24 AM EST 04/02/2025 9:02 AM EST [facility] LABORATORY - 04/02/2025 10:57 AM EST [...] MD LAB BLOOD ORDERABLES Final Res ult [facility]
[address] [place] [address], * MRI Pelvis With & Without Contrast (04/02/2025 7:56 AM EST) Anatomical Region Laterality Modality Body, Pelvis N/A Magnetic Resonan ce 04/02/2025 4:49 PM EST Impressions 04/02/2025 5:02 PM EST [...] MD 04/02/2025 5:02 PM EST Workstation ID: [id number] Narrative 04/02/2025 5:02 PM EST MRI PELVIS [...] No suspicious adnexal mass. There is a R0unkazagkaftj 9 mm right ovarian cyst considered almost [...] MD 04/02/2025 5:02 PM EST Workstation ID: [id number] Sudhir Zimmer MD IMG MRI ORDERABLES Final Resul t documented in this encounter Visit Diagnoses Diagnosis Vulvar cancer- Primary Malignant neoplasm of vulva, unspecified site Vulvar cancer Malignant neoplasm of vulva, unspecified site Laboratory test- Primary Laboratory examination, unspecified Vulvar cancer Malignant neoplasm of vulva, unspecified site documented in this encounter Care Teams Professor Of Biological Sciences Relationship Specialty Start Date End Date Sudhir Marie MD [address] [facility] [address] [facility] [address] [place] [address] PCP - General Family Medicine 03/27/25 documented as of this encounter
--- OUTSIDE RECORDS SUMMARY | 2025-04-02 06:45 | XMS_ITS | Encounter Summary ---
[facility] Address [address] [place] [address] Care Team Providers Care Can Sterilizer Name Role Phone Andres Marie MD Primary Care Provider [phone] [phone] Reason for Referral * MRI/CAT/PET Scan (Routine) - Closed Specialty Diagnoses / Procedures Referred By Ameliaac koki Referred To Contact Radiology Diagnoses Vulvar cancer Procedures MRI Pelvis With & Without Contrast Andres Allen MD [address] [facility] [address] [place] [address] Phone: tel: fax: Referral ID Status Reason Start Date Expiration Date Visits Re quested Visits Authorized [id number] Closed 04/01/2025 07/01/2026 1 1 Reason for Visit * MRI/CAT/PET Scan (Routine) - Closed Specialty Diagnoses / Procedures Referred By Naima telles Referred To Contact Radiology Diagnoses Vulvar cancer Procedures MRI Pelvis With & Without Contrast Andres Allen MD [address] [facility] [address] [place] [address] Phone: tel: fax: Referral ID Status Reason Start Date Expiration Date Visits Re quested Visits Authorized [id number] Closed 04/01/2025 07/01/2026 1 1 Encounter Details Date Type Department Care Team (Latest Contact Info) Description 04/02/2025 6:45 AM EST - 04/02/2025 11:59 PM EST Hospital Encounter [facility] MRI [address] [place] [address] Vulvar cancer Discharge Disposition: Home or Self Care Social History Tobacco Use Types Packs/Day Years Used Date Smoking Tobacco: Former Cigarettes Smokeless Tobacco: Never Comments:Quit 22 years ago Alcohol Use Standard [...] or training? Not on file Preferred Language Burkinan 04/02/2025 PHQ-2 Answer Date Recorded Patient Health Questionnaire-2 Score 1 03/28/2025 Comments Unknown Sex and Gender Information Value Date Recorded Sex Assigned at Not on file Legal Sex Female 11:49 AM EDT Gender Identity Not on file Sexual Orientation Not on file documented as of this encounter Medications at Time of Discharge amLODIPine (NORVASC) 5 MG tablet Take 1 tablet by mouth Every Night. aspirin 81 MG EC tablet Daily. Colestid 1 g tablet Take by mouth. 02/21/2025 DULoxetine (CYMBALTA) 30 MG capsule Take 1 capsule by mouth Every Night. irbesartan (AVAPRO) 300 MG tablet Take by mouth Daily. levothyroxine sodium (TIROSINT) 50 MCG capsule Take 1 capsule by mouth Daily. metoprolol succinate XL (TOPROL-XL) 50 MG 24 hr tablet Take 1 tablet by mouth Every Night. 01/01/2025 pyridostigmine (MESTINON) 60 MG tablet Take by mouth 3 (Three) Times a Day. risedronate (ACTONEL) 35 MG tablet Take 1 tablet by mouth Every 7 (Seven) Days. 03/27/2025 spironolactone (ALDACTONE) 25 MG tablet Take by mouth Daily. vitamin B-12 (CYANOCOBALAMIN) 1000 MCG tablet Take 1 tablet by mouth Daily. documented as of this encounter Plan of Treatment Upcoming Encounters Date Type Department Care Team (Late st Contact Info) Description 06/25/2025 10:30 AM EST Appointment [facility] PET [place] [address] [facility] [address] [place] [address] 06/25/2025 11:30 AM EST Appointment [facility] [place] [address] [facility] [address] [place] [address] 06/27/2025 11:30 AM EST Office Visit [facility] GYNECOLOGIC ONCOLOGY [address] [facility] [address] [place] [address] Andres Allen MD [address] [facility] [address] [place] [address] documented as of this encounter Procedures Procedure Name Priority Date/Time Associated Diagnosis Comments MRI PELVIS W WO CONTRAST Routine 04/02/2025 7:56 AM EST Vulvar cancer documented in this encounter Results * MRI Pelvis With & Without Contrast [...] MD 04/02/2025 5:02 PM EST Workstation ID: [id number] Narrative 04/02/2025 5:02 PM EST MRI PELVIS [...] No suspicious adnexal mass. There is a U5rbwrvkdnabce 9 mm right ovarian cyst considered almost [...] MD 04/02/2025 5:02 PM EST Workstation ID: [id number] Andres Allen MD IM MRI ORDERABLES Final Resul t documented in this encounter Visit Diagnoses Diagnosis Vulvar cancer Malignant neoplasm of vulva, unspecified site documented in this encounter Administered Medications Inactive Administered Medications - up to 3 most recent administrations Medication Order MAR Action Action Date Dose Rate Site Gadopiclenol (VUEWAY) injection 7.5 mL 7.5 mL, Intravenous, Once in Imaging, On 04/02/25 at 0731, For 1 dose, Administer undiluted as intravenous bolus at 2 ml/sec. Flush with NS after injection. Given 04/02/2025 7:55 AM EST 6 mL documented in this encounter Care Teams Can Sterilizer Relationship Specialty Start Date End Date Andres Marie MD [address] [place] [facility] [address] [place] [address] PCP - General Family Medicine 03/27/25 documented as of this encounter
--- OUTSIDE RECORDS SUMMARY | 2025-04-02 09:19 | XMS_ITS | Encounter Summary ---
[facility] Address [address] [place] [address] Care Team Providers Care Drapery Inspector Name Role Phone Andres Marie MD Primary Care Provider [phone] Reason for Visit * Diagnostic Imaging (Routine) - Closed Specialty Diagnoses / Procedures Referred By Contac t Referred To Contact Radiology Diagnoses Vulvar cancer Procedures XR Chest 1 View Andres Allen MD [address] [facility] [address] [place] [address] Phone: tel: fax: Referral ID Status Reason Start Date Expiration Date Visits Re quested Visits Authorized [id number] Closed 04/01/2025 07/01/2026 1 1 Encounter Details Date Type Department Care Team (Latest Contact Info) Description 04/02/2025 9:19 AM EST - 04/02/2025 11:59 PM EST Hospital Encounter [facility] XRAY [address] [place] [id number] Discharge Disposition: Home or Self Care Social [...] or training? Not on file Preferred Language Honduran 04/02/2025 PHQ-2 Answer Date Recorded Patient Health [...] Info) Description 06/25/2025 10:30 AM EST Appointment [facility] PET [address] [address] 06/25/2025 11:30 AM EST Appointment [facility] PET [place] [address] [facility] [address] [place] [address] 06/27/2025 11:30 AM EST Office Visit [facility] GYN[facility]OLOG[facility] ONCOLOGY [address] [facility] [address] [place] [address] Andres Allen MD [address] [facility] [address] [place] [address] documented as of this encounter Procedures Procedure Name Priority Date/Time Associated Diagnosis Comments XR CHEST 1 VW STAT 04/02/2025 9:37 AM EST Vulvar cancer documented in this encounter Results * XR Chest 1 View (04/02/2025 9:37 AM EST) Anatomical Region Laterality Modality Body N/A Radiographic Lisa ging 04/02/2025 9:42 AM EST Impressions 04/02/2025 9:43 AM EST Impression: No acute findings. Electronically Signed: Steven Lewis MD 04/02/2025 9:43 AM EST Workstation ID: [id number] Narrative 04/02/2025 9:43 AM EST XR CHEST [...] MD 04/02/2025 9:43 AM EST Workstation ID: [id number] us Andres Allen MD IMG DIAGNOSTIC IMAGING ORDERAB LES Final Result documented in this encounter Visit Diagnoses Not on filedocumented in this encounter Care Teams Drapery Inspector Relationship Specialty Start Date End Date Andres Marie MD [facility] [facility] [address] [place] [address] PCP - General Family Medicine 03/27/25 documented as of this encounter
--- OUTSIDE RECORDS SUMMARY | 2025-04-02 09:30 | XMS_ITS | Encounter Summary ---
[facility] Address [address] [place] [address] Care Team Providers Care Flight Operations Inspector Name Role Phone Andres Marie MD Primary Care Provider [phone] [phone] Encounter Details Date Type Department Care Team (Latest Contact Info) Description 04/02/2025 9:30 AM EST Pre-Admission Testing [facility] PREADMISSION T [address] [place] [id number] Laboratory test (Primary Dx); Vulvar cancer Social [...] or training? Not on file Preferred Language Hong Konger 04/02/2025 PHQ-2 Answer Date Recorded Patient Health [...] education provided during PAT visit. Copies of [facility] general education handouts (Incentive Spirometry, Meds to Beds Program, Patient Belongings, Pre-op skin preparation instructions, Blood Glucose testing, Visitor policy, Surgery FAQ, Code H) distributed to patient if not viewed electronically on [facility] website. Encouraged patient/family to read [facility] general education handouts (electronic copies or [...] specimen in pre-op on the day ofsurgery. [place] top drawn in PAT. Patient directed to Radiology Department for CXR after Pre Admission Testing Appointment. Cardiology notes including Stress Test and Echo results on chart from 06/2024. documented in this encounter Plan of Treatment Upcoming Encounters Date Type Department Care Team (Late st Contact Info) Description 06/25/2025 10:30 AM EST Appointment [facility] [place] [address] [facility] [address] [place] [address] 06/25/2025 11:30 AM EST Appointment [facility] [place] [address] [facility] [address] [place] [address] 06/27/2025 11:30 AM EST Office Visit [facility] GYNECOLOGIC ONCOLOGY [address] [place] [address] Andres Allen MD [address] [place] [address] documented as of this encounter Procedures Procedure [...] MD 04/02/2025 9:43 AM EST Workstation ID: [id number] Narrative 04/02/2025 9:43 AM EST XR CHEST [...] MD 04/02/2025 9:43 AM EST Workstation ID: [id number] Andres Allen MD IMG DIAGNOSTIC IMAGING ORDERAB [...] Andres Allen MD ECG ORDERABLES Final Result Performing Organization Address [facility] Co de Phone Number ECG * ABORH 2ND SPECIMEN VERIFICATION (04/02/2025 8:44 AM EST) ABO Type O 04/02/2025 10:35 PM EST [facility] RH type Positive 04/02/2025 10:35 PM EST [facility] Blood Venipuncture / Unknown 04/02/2025 8:44 AM EST 04/02/2025 9:19 AM EST Andres Allen MD BLOOD BANK TEST ORDERABLES Fin al Result Performing Organization Address [facility] de Phone Number [facility]
[address] [place] [address], * (ABNORMAL) Hemoglobin A1c (04/02/2025 8:25 AM EST) Hemoglobin A1C 5.94(H) 4.80 - 5.60 % 04/02/2025 11:17 AM EST [facility] Blood Venipuncture / Unknown 04/02/2025 8:25 AM EST 04/02/2025 9:02 AM EST Narrative [facility] - 04/02/2025 11:17 AM EST Hemoglobin A1C Ranges: Increased Risk for Diabetes 5.7% to 6.4% Diabetes >= 6.5% Diabetic Goal < 7.0% Andres Allen MD LAB BLOOD ORDERABLES Final Res ult Performing Organization Address City/[facility] Co de Phone Number [facility]
[address] [place] [address], * CBC Auto Differential (04/02/2025 8:24 AM EST) WBC 6.29 3.40 - 10.80 10*3/mm3 04/02/2025 9:19 AM EST [facility] RBC 4.88 3.77 - 5.28 10*6/mm3 04/02/2025 9:19 AM [facility] Hemoglobin 13.3 12.0 - 15.9 g/dL 04/02/2025 9:19 AM [facility] Hematocrit 41.4 34.0 - 46.6 % 04/02/2025 9:19 AM [facility] MCV 84.8 79.0 - 97.0 fL 04/02/2025 9:19 AM [facility] MCH 27.3 26.6 - 33.0 pg 04/02/2025 9:19 AM [facility] MCHC 32.1 31.5 - 35.7 g/dL 04/02/2025 9:19 AM [facility] RDW 13.2 12.3 - 15.4 % 04/02/2025 9:19 AM [facility] RDW-SD 41.3 37.0 - 54.0 fl 04/02/2025 9:19 AM [facility] MPV 9.5 6.0 - 12.0 fL 04/02/2025 9:19 AM [facility] Platelets 285 140 - 450 10*3/mm3 04/02/2025 9:19 AM [facility] Neutrophil % 61.2 42.7 - 76.0 % 04/02/2025 9:19 AM [facility] Lymphocyte % 26.4 19.6 - 45.3 % 04/02/2025 9:19 AM [facility] Monocyte % 8.1 5.0 - 12.0 % 04/02/2025 9:19 AM [facility] Eosinophil % 3.2 0.3 - 6.2 % 04/02/2025 9:19 AM EST [facility] Basophil % 0.6 0.0 - 1.5 % 04/02/2025 9:19 AM EST [facility] Immature Grans % 0.5 0.0 - 0.5 % 04/02/2025 9:19 AM EST [facility] Neutrophils, Absolute 3.85 1.70 - 7.00 10*3/mm3 04/02/2025 9:19 AM EST [facility] Lymphocytes, Absolute 1.66 0.70 - 3.10 10*3/mm3 04/02/2025 9:19 AM EST [facility] Monocytes, Absolute 0.51 0.10 - 0.90 10*3/mm3 04/02/2025 9:19 AM [facility] Eosinophils, Absolute 0.20 0.00 - 0.40 10*3/mm3 04/02/2025 9:19 AM [facility] Basophils, Absolute 0.04 0.00 - 0.20 10*3/mm3 04/02/2025 9:19 AM [facility] Immature Grans, Absolute 0.03 0.00 - 0.05 10*3/mm3 04/02/2025 9:19 AM [facility] nRBC 0.0 0.0 - 0.2 /100 WBC 04/02/2025 9:19 AM [facility] Blood Venipuncture / Unknown 04/02/2025 8:24 AM EST 04/02/2025 9:02 AM EST us Andres Allen MD LAB BLOOD ORDERABLES Final Res ult [facility]
[address] [place] [id number], * (ABNORMAL) Comprehensive Metabolic Panel (04/02/2025 8:24 AM EST) [facility] Glucose 96 65 - 99 mg/dL 04/02/2025 10:57 AM [facility] BUN 11.0 8.0 - 23.0 mg/dL 04/02/2025 10:57 AM [facility] Creatinine 0.88 0.57 - 1.00 mg/dL 04/02/2025 10:57 AM [facility] Sodium 141 136 - 145 mmol/L 04/02/2025 10:57 AM [facility] Potassium 5.1 3.5 - 5.2 mmol/L 04/02/2025 10:57 AM [facility] Comment:Specimen hemolyzed. Result may be falsely elevated. Chloride 106 98 - 107 mmol/L 04/02/2025 10:57 AM [facility] CO2 25.5 22.0 - 29.0 mmol/L 04/02/2025 10:57 AM [facility] Calcium 10.8(H) 8.6 - 10.5 mg/dL 04/02/2025 10:57 AM [facility] Total Protein 7.2 6.0 - 8.5 g/dL 04/02/2025 10:57 AM [facility] Albumin 4.4 3.5 - 5.2 g/dL 04/02/2025 10:57 AM [facility] ALT (SGPT) 19 1 - 33 U/L 04/02/2025 10:57 AM [facility] AST (SGOT) 30 1 - 32 U/L 04/02/2025 10:57 AM [facility] Alkaline Phosphatase 139(H) 39 - 117 U/L 04/02/2025 10:57 AM [facility] Total Bilirubin 0.6 0.0 - 1.2 mg/dL 04/02/2025 10:57 AM [facility] Globulin 2.8 gm/dL 04/02/2025 10:57 AM [facility] Comment:Calculated Result A/G Ratio 1.6 g/dL 04/02/2025 10:57 AM [facility] BUN/Creatinine Ratio 12.5 7.0 - 25.0 04/02/2025 10:57 AM EST [facility] Anion Gap 9.5 5.0 - 15.0 mmol/L 04/02/2025 10:57 AM EST [facility] eGFR 69.9 >60.0 mL/min/1.7 3 04/02/2025 10:57 AM EST [facility] Blood Venipuncture / Unknown 04/02/2025 8:24 AM EST 04/02/2025 9:02 AM EST Narrative [facility] - 04/02/2025 10:57 AM EST [...] MD LAB BLOOD ORDERABLES Final Res ult [facility]
[address] [place] [address], * ECG Scan (04/02/2025) [facility] ECG ORDERABLES Final Result documented in this encounter Visit Diagnoses Diagnosis Laboratory test- Primary Laboratory examination, unspecified Vulvar cancer Malignant neoplasm of vulva, unspecified site documented in this encounter Care Teams Flight Operations Inspector Relationship Specialty Start Date End Date Andres Marie MD [address] [facility] [address] [place] [address] PCP - General Family Medicine 03/27/25 documented as of this encounter
--- OUTSIDE RECORDS SUMMARY | 2025-04-08 12:44 | XMS_ITS | Encounter Summary ---
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 Name Role Phone Andres Marie MD Primary Care Provider [phone] Reason for Referral * MRI/CAT/PET Scan (Routine) - Authorized Specialty Diagnoses / Procedures Referred By Naima telles Referred To Contact Radiology Diagnoses Vulvar cancer Procedures NM Pet Skull [place] [address] [place] [address] Phone: tel: fax: Referral ID Status Reason Start Date Expiration Date V isits Requested Visits Authorized [id number] Authorized 03/28/2025 06/27/2026 4 4 Reason for Visit * Auth/Cert Specialty Diagnoses / Procedures Referred By Naima telles Referred To Contact Diagnoses Vulvar cancer Vulvar cancer [C51.9] Procedures Injection of ICG for sentinel node detection, modified radical vulvectomy, possible flap Referral ID Status Reason Start Date Expiration Date Visits Re quested Visits Authorized [id number] 1 1 Encounter Details Date Type Department Care Team (Latest Contact Info) Description 04/08/2025 12:44 PM EST - 04/08/2025 11:59 PM EST Hospital Encounter [facility] [place] [address] [facility] [address] [place] [address] Vulvar cancer Discharge Disposition: Home [...] or training? Not on file Preferred Language Guinean 04/02/2025 PHQ-2 Answer Date Recorded Patient Health [...] Info) Description 06/25/2025 10:30 AM EST Appointment [facility] [place] [address] [place] [address] 06/25/2025 11:30 AM EST Appointment [facility] [place] [address] [place] [address] 06/27/2025 11:30 AM EST Office [facility]COLOG[facility] [address] [place] [address] Andres Allen MD [address] [facility] [address] [place] [address] documented as of this encounter Procedures Procedure [...] MD 04/10/2025 1:57 PM EST Workstation ID: [id number] [facility] 04/10/2025 1:57 PM EST FDG NM PET/CT [...] MD 04/10/2025 1:57 PM EST Workstation ID: [id number] Vinayak Delgado MD [facility] NM ORDERABLES Fi nal Result * POC Glucose Once (04/08/2025 1:06 PM EST) Glucose 99 70 - 130 mg/dL 04/08/2025 2:08 PM EST [facility] Comment:Serial Number: [id number]: [id number] Blood 04/08/2025 1:06 PM EST 04/08/2025 2:08 PM EST Vinayak Delgado MD POINT OF CARE TEST O RDERABLES Final Result [facility]
[address] [place] [address], documented in this encounter Visit Diagnoses Diagnosis [...] dose documented in this encounter Care Teams Die Casting Machine Setter Relationship Specialty Start Date End Date Andres Marie MD [facility] [address] [facility] [address] [place] [address] PCP - General Family Medicine 03/27/25 documented as of this encounter
--- OUTSIDE RECORDS SUMMARY | 2025-04-08 12:44 | XMS_ITS | Encounter Summary ---
[facility] Address [address] [place] [address] Care Team Providers Care Radar Systems Engineer Name Role Phone Andres Marie MD Primary Care Provider [phone] Reason for Visit * Auth/Cert Specialty Diagnoses / Procedures Referred By Naima telles Referred To Contact Diagnoses Vulvar cancer Vulvar cancer [C51.9] Procedures Injection of ICG for sentinel node detection, modified radical vulvectomy, possible flap Referral ID Status Reason Start Date Expiration Date Visits Re quested Visits Authorized [id number] 1 1 Encounter Details Date Type Department Care Team (Latest Contact Info) Description 04/08/2025 12:44 PM EST - 04/08/2025 11:59 PM [facility] Hospital Encounter [facility] [place] [address] [address] Discharge Disposition: Home or Self [...] or training? Not on file Preferred Language Maltese 04/02/2025 PHQ-2 Answer Date Recorded Patient Health [...] Info) Description 06/25/2025 10:30 AM EST Appointment [facility] [place] [address] [facility] [address] [place] [address] 06/25/2025 11:30 AM EST Appointment [facility] [address] [facility] [address] [place] [address] 06/27/2025 11:30 AM EST Office Visit [facility]YNEC[facility] ONCOLOGY [address] [place] [address] Andres Allne MD [address] [facility] [address] [place] [address] documented as of this encounter Procedures Procedure [...] MD 04/10/2025 1:57 PM EST Workstation ID: [id number] Narrative 04/10/2025 1:57 PM EST FDG NM [...] MD 04/10/2025 1:57 PM EST Workstation ID: [id number] us Vinayak Delgado MD IMG NM ORDERABLES Fi nal Result documented in this encounter Visit Diagnoses Not on filedocumented in this encounter Care Teams Radar Systems Engineer Relationship Specialty Start Date End Date Andres Marie MD [address] [place] [facility] [address] [place] [address] PCP - General Family Medicine 03/27/25 documented as of this encounter
--- OUTSIDE RECORDS SUMMARY | 2025-04-09 09:34 | XMS_ITS | Encounter Summary ---
[facility] Organization [facility] Address [address] [place] [address] Care Team Providers Care Weatherstrip Machine Operator Name Role Phone Andres Marie MD Primary Care Provider [phone] Reason for Visit * Auth/Cert Specialty Diagnoses / Procedures Referred By Naima telles Referred To Contact Diagnoses Vulvar cancer Vulvar cancer [C51.9] Procedures Injection of ICG for sentinel node detection, modified radical vulvectomy, possible flap Referral ID Status Reason Start Date Expiration Date Visits Re quested Visits Authorized [id number] 1 1 Encounter Details Date Type Department Care Team (Late st Contact Info) Description 04/09/2025 9:34 AM EST - 04/10/2025 12:59 PM [facility] Hospital Encounter [address] [place] [phone] Andres Allen MD [address] [facility] [address] [place] [address] Vulvar cancer Discharge Disposition: Home or Self [...] or training? Not on file Preferred Language Zambian 04/02/2025 PHQ-2 Answer Date Recorded Patient Health [...] 10:14 AM EST Abdi Smart RN * [place] Suicide Severity Rating Scale (Screener/Recent Self-Report) Question [...] sent through Care Everywhere. * Vulvar Cancer (Zambian) * Vulvectomy Care After (Zambian) * BH OR SURGICAL SITE INFECTIONS FAQ * Biopsy of [place] Lymph Nodes: What to Know After ([place]ian) documented in this encounter Medications at Time [...] Diaz APRN - 04/09/2025 9:55 AM EST [facility] Pre-op Full history and physical note from [...] original note were not included. Kathy Barron [id number] Reason for visit: Squamous of carcinoma [...] further discussion and evaluation. For new patients, [facility] intake form from patient patient's chart [...] MD 04/02/2025 9:43 AM EST Workstation ID: [id number] Lab Results Component Value Date WBC 6.29 [...] Exam:: preop Release to patient: Routine Release [[id number]] MRI Pelvis With & Without Contrast Standing Status: Future Number of Occurrences: 1 Expected Date: 04/06/2025 Expiration Date: 04/01/2026 Release to patient: Routine Release [[id number]] Reason for Exam:: vulvar cancer and palpable left groin mass Comprehensive Metabolic Panel Standing Status: Future Number of Occurrences: 1 Expected Date: 04/06/2025 Expiration Date: 04/01/2026 Release to patient: Routine Release [[id number]] Verify NPO Status Standing Status: Future Expected [...] Exam:: preop Release to patient: Routine Release [[id number]] Type & Screen Standing Status: Future Expected Date: 04/01/2025 Expiration Date: 04/01/2026 Release to patient: Routine Release [[id number]] CBC & Differential Standing Status: Future Number of Occurrences: 1 Expected Date: 04/06/2025 Expiration Date: 04/01/2026 Manual Differential: No Release to patient: Routine Release [[id number]] FOLLOW UP: No follow-ups on file. I spent 65 minutes caring for Kathy on this date of service. This time includes time spent by me inthe following activities: preparing for the visit, reviewing tests, performing a medically appropriate examination and/or evaluation, counseling and educating the patient/family/caregiver, referring and communicating with other health personal care aide, documenting information in the medical record, ordering [...] stasis obtained with use of the Bovie head of design and individual sutures of3-0 Vicryl. The deep [...] Info) Description 06/25/2025 10:30 AM EST Appointment [address] [place] [address] 06/25/2025 11:30 AM EST Appointment [facility] [address] [place] [address] 06/27/2025 11:30 AM EST Office Visit [facility] [address] [place] [address] Andres Allen MD [address] [place] [address] Scheduled Orders Name Type Priority Associated Diagnoses [...] - 10.80 10*3/mm3 04/10/2025 4:49 AM EST [facility] RBC 3.97 3.77 - 5.28 10*6/mm3 04/10/2025 4:49 AM [facility] Hemoglobin 10.9(L) 12.0 - 15.9 g/dL 04/10/2025 4:49 AM [facility] Hematocrit 33.8(L) 34.0 - 46.6 % 04/10/2025 4:49 AM [facility] MCV 85.1 79.0 - 97.0 fL 04/10/2025 4:49 AM [facility] MCH 27.5 26.6 - 33.0 pg 04/10/2025 4:49 AM [facility] MCHC 32.2 31.5 - 35.7 g/dL 04/10/2025 4:49 AM [facility] RDW 13.2 12.3 - 15.4 % 04/10/2025 4:49 AM [facility] RDW-SD 41.1 37.0 - 54.0 fl 04/10/2025 4:49 AM [facility] MPV 10.5 6.0 - 12.0 fL 04/10/2025 4:49 AM [facility] Platelets 252 140 - 450 10*3/mm3 04/10/2025 4:49 AM [facility] Neutrophil % 89.7(H) 42.7 - 76.0 % 04/10/2025 4:49 AM [facility] Lymphocyte % 6.1(L) 19.6 - 45.3 % 04/10/2025 4:49 AM [facility] Monocyte % 3.5(L) 5.0 - 12.0 % 04/10/2025 4:49 AM [facility] Eosinophil % 0.0(L) 0.3 - 6.2 % 04/10/2025 4:49 AM [facility] Basophil % 0.2 0.0 - 1.5 % 04/10/2025 4:49 AM [facility] Immature Grans % 0.5 0.0 - 0.5 % 04/10/2025 4:49 AM [facility] Neutrophils, Absolute 12.31(H) 1.70 - 7.00 10*3/mm3 04/10/2025 4:49 AM EST [facility] Lymphocytes, Absolute 0.84 0.70 - 3.10 10*3/mm3 04/10/2025 4:49 AM EST [facility] Monocytes, Absolute 0.48 0.10 - 0.90 10*3/mm3 04/10/2025 4:49 AM EST [facility] Eosinophils, Absolute 0.00 0.00 - 0.40 10*3/mm3 04/10/2025 4:49 AM EST [facility] Basophils, Absolute 0.03 0.00 - 0.20 10*3/mm3 04/10/2025 4:49 AM EST [facility] Immature Grans, Absolute 0.07(H) 0.00 - 0.05 10*3/mm3 04/10/2025 4:49 AM EST [facility] nRBC 0.0 0.0 - 0.2 /100 WBC 04/10/2025 4:49 AM EST [facility] Blood Venipuncture / Unknown 04/10/2025 3:31 AM EST 04/10/2025 4:41 AM EST Andres Allen MD LAB BLOOD ORDERABLES Final Res ult [facility]
[address] [place] [address], * (ABNORMAL) Basic Metabolic Panel (04/10/2025 3:31 AM EST) Glucose 121(H) 65 - 99 mg/dL 04/10/2025 5:39 AM EST [facility] BUN 12.9 8.0 - 23.0 mg/dL 04/10/2025 5:39 AM EST [facility] Creatinine 0.82 0.57 - 1.00 mg/dL 04/10/2025 5:39 AM EST [facility] Sodium 139 136 - 145 mmol/L 04/10/2025 5:39 AM EST [facility] Potassium 5.6(H) 3.5 - 5.2 mmol/L 04/10/2025 5:39 AM EST [facility] Comment:Specimen hemolyzed. Result may be falsely elevated. Chloride 108(H) 98 - 107 mmol/L 04/10/2025 5:39 AM EST [facility] CO2 23.4 22.0 - 29.0 mmol/L 04/10/2025 5:39 AM EST [facility] Calcium 9.6 8.6 - 10.5 mg/dL 04/10/2025 5:39 AM EST [facility] BUN/Creatinine Ratio 15.7 7.0 - 25.0 04/10/2025 5:39 AM [facility] Anion Gap 7.6 5.0 - 15.0 mmol/L 04/10/2025 5:39 AM [facility] eGFR 76.1 >60.0 mL/min/1.7 3 04/10/2025 5:39 AM [facility] Blood Venipuncture / Unknown 04/10/2025 3:31 AM EST 04/10/2025 4:39 AM EST [facility] - 04/10/2025 5:39 AM EST GFR [...] not include race as a factor us Andres Allen MD LAB BLOOD ORDERABLES Final Res ult [facility]
[address] [place] [address], * Tissue Pathology Exam (04/09/2025 11:59 AM EST) Case Report Surgical Pathology Report Case: [id number] Authorizing Provider: Andres Allen MD Collected: 04/09/2025 11:59 AM Ordering Location: [facility] Received: 04/09/2025 01:50 PM OR Pathologist: Conrad Grullon MD Specimens: 1) - Groin, right, RIGHT INGUINAL SENTINEL NODE 2) - Groin, left, LEFT INGUINAL SENTINEL NODE 3) - Perineum, Perineum, Stitch Tags Vaginal Margin 04/12/2025 12:49 PM EST [facility] Clinical Information Vulvar cancer 04/12/2025 12:49 PM EST [facility] Final Diagnosis 1. LYMPH NODE, RIGHT [...] synoptic for additional details. 04/12/2025 12:49 PM EST [facility] at 1249 EST Synoptic Checklist VULVA [...] Myranda Site(s) Examined: Left inguinal Number of [place] Nodes Examined: 4 pTNM CLASSIFICATION (AJCC Version [...] pN0 N Suffix: (sn) 04/12/2025 12:49 PM [facility] Comment Orienting the specimen with the vaginal suture considered 12:00, high-grade dysplasia seen involving the 12:00, 6:00 and 9:00 margins. 04/12/2025 12:49 PM [facility] Gross Description 1. Groin, right. Received in [...] entirely as follows: 2A-one node 2B-one node 2V-4V-rlmhgpc node. 3. Perineum. Received in formalin labeled [...] 9-12 o'clock-red. Sectioning reveals indurated underlying tissue. [employer] sections are submitted as follows: 3A-mass with nearest perpendicular 12:00 margin 3B-mass with nearest perpendicular 6:00 margin 3C-mass with nearest perpendicular 3:00 margin 3D-mass with nearest perpendicular 9:00 margin 3E-3H-mass with perpendicular deep margin. LDP 04/12/2025 12:49 PM EST [facility] Microscopic Description The slides are reviewed and demonstrate histopathologic features supporting the above rendered diagnosis. 04/12/2025 12:49 PM EST [facility] Tissue Right inguinal region structure / Unknown 04/09/2025 11:59 AM EST 04/09/2025 1:50 PM EST Tissue specimen (specimen) Left inguinal region structure / Unknown 04/09/2025 12:11 PM EST 04/09/2025 1:50 PM EST Tissue specimen (specimen) Perineal structure / Unknown 04/09/2025 1:18 PM EST 04/09/2025 1:50 PM EST Andres Allen MD PATHOLOGY/CYTOLOGY ORDERABLES Final Result [facility]
[address] [place] [address], * Type & Screen (04/09/2025 10:12 AM EST) ABO Type O 04/09/2025 11:39 AM EST [facility] RH type Positive 04/09/2025 11:39 AM EST [facility] Antibody Screen Negative 04/09/2025 11:39 AM EST [facility] T&S Expiration Date 04/12/2025 11:59:59 PM 04/09/2025 11:39 AM EST [facility] Blood 04/09/2025 10:1 2 AM EST 04/09/2025 10:26 AM EST Andres Allen MD BLOOD BANK TEST ORDERABLES Manoj seferino Result - Final [facility]
[address] [place] [address], documented in this encounter Visit Diagnoses Diagnosis [...] at K[facility] if renal / if indicated New Bag [...] and THEN promethazine IF ondansetron is ineffective. ([facility]) scopolamine patch 1 mg/72 hr 1 patch, Transdermal - scopolamine, Administer over 72 Hours, Continuous, Starting on Tue04/09/25 at 0954, For 72 hours, Do not apply if patient older than 65 or has history of glaucoma. ([facility]) documented in this encounter Active and Recently [...] day, May switch to NS IV at O if renal / if indicated 1030 (New [...] than 65 or has history of glaucoma. ([facility]) 1030 (Not Given - Provider: Abdi Smart [...] and THEN promethazine IF ondansetron is ineffective. ([facility]) sterile water irrigation solution (CANCELED) As Needed, [...] and THEN promethazine IF ondansetron is ineffective. ([facility]) documented in this encounter Care Teams Weatherstrip Machine Operator Relationship Specialty Start Date End Date Andres Marie MD [facility] [address] [facility] [address] [place] [address] PCP - General Family Medicine 03/27/25 documented as of this encounter
--- OUTSIDE RECORDS SUMMARY | 2025-04-09 11:10 | XMS_ITS | Encounter Summary ---
Author Organization [facility] [place] Address [address] [place] [address] Care Team Providers Care Vascular Tech Name Role Phone Andres Marie MD Primary Care Provider [phone] Reason for Visit * Auth/Cert Specialty Diagnoses / Procedures Referred By Naima telles Referred To Contact Diagnoses Vulvar cancer Vulvar cancer [C51.9] Procedures Injection of ICG for sentinel node detection, modified radical vulvectomy, possible flap Referral ID Status Reason Start Date Expiration Date Visits Re quested Visits Authorized [id number] 1 Encounter Details Date Type Department Care Team (Late st Contact Info) Description 04/09/2025 11:10 AM EST - 04/09/2025 1:20 PM EST Surgery [facility] OR [address] [id number] Andres Allen MD [address] [facility] [address] [place] [address] Injection of ICG for sentinel node detection, modified radical vulvectomy Social History Tobacco Use Types Packs/Day Years [...] or training? Not on file Preferred Language Emirati 04/02/2025 PHQ-2 Answer Date Recorded Patient Health Questionnaire-2 Score 1 03/28/2025 Comments No Sex and Gender Information Value Date Recorded Sex Assigned at Not on file Legal Sex Female 11:49 AM EDT Gender Identity Not on file Sexual Orientation Not on file documented as of this encounter Last Filed Vital Signs Vital Sign Reading Time Taken Comments Blood Pressure 174/75 04/09/2025 10:06 AM EST Pulse 97 04/09/2025 10:06 AM EST Temperature 36.6 C (97.9 F) 04/09/2025 10:06 AM EST Respiratory Rate 16 04/09/2025 10:06 AM EST Oxygen Saturation 97% 04/09/2025 10:06 AM EST Inhaled Oxygen Concentration - - Weight - - Height - - Body Mass Index - - documented in this encounter Functional Status * Question Answer Date of Assessment Author 1. Wish to be (Past 1 Month) No 025 10:14 AM EST Abdi Smart RN 2. Non-Specific Active Suici sim Thoughts (Past 1 Month) No 04/09/2025 10:14 AM EST Abdi Smart RN * Calculated C-SSRS Risk Score (Lifetime/Recent) Answer Date of Assessment Author No Risk Indicated 04/09/2025 10:14 AM Abdi Lindsay RN * Hemphill Suicide Severity Rating Scale (Screener/Recent Self-Report) Question Answer Date of Assessment Author 6. Suicidal Behavior (Lifetime) No 10:14 AM Abdi Lindsay RN documented as of this encounter Discharge [...] sent through Care Everywhere. * Vulvar Cancer (Emirati) * Vulvectomy Care After (Emirati) * BH OR SURGICAL SITE INFECTIONS FAQ * Biopsy of Lawrence Lymph Nodes: What to Know After (Emirati) documented in this encounter Medications at Time [...] Diaz APRN - 04/09/2025 9:55 AM EST [facility] Pre-op Full history and [...] original note were not included. Kathy Barron [id number] Reason for visit: Squamous of carcinoma [...] further discussion and evaluation. For new patients, [facility] intake form from patient patient's chart and [...] valve BLADDER REPAIR 2006 CHOLECYSTECTOMY COLONOSCOPY HYSTERECTOMY 1994 1 ovary remains OTHER SURGICAL HISTORY Left [...] MD 04/02/2025 9:43 AM EST Workstation ID: [id number] Lab Results Component Value Date WBC 6.29 [...] Exam:: preop Release to patient: Routine Release [[id number]] MRI Pelvis With & Without Contrast Standing Status: Future Number of Occurrences: 1 Expected Date: 04/06/2025 Expiration Date: 04/01/2026 Release to patient: Routine Release [[id number]] Reason for Exam:: vulvar cancer and palpable left groin mass Comprehensive Metabolic Panel Standing Status: Future Number of Occurrences: 1 Expected Date: 04/06/2025 Expiration Date: 04/01/2026 Release to patient: Routine Release [[id number]] Verify NPO Status Standing Status: Future Expected [...] Exam:: preop Release to patient: Routine Release [[id number]] Type & Screen Standing Status: Future Expected Date: 04/01/2025 Expiration Date: 04/01/2026 Release to patient: Routine Release [[id number]] CBC & Differential Standing Status: Future Number of Occurrences: 1 Expected Date: 04/06/2025 Expiration Date: 04/01/2026 Manual Differential: No Release to patient: Routine Release [[id number]] FOLLOW UP: No follow-ups on file. I spent 65 minutes caring for Kathy on this date of service. This time includes time spent by me inthe following activities: preparing for the visit, reviewing tests, performing a medically appropriate examination and/or evaluation, counseling and educating the patient/family/caregiver, referring and communicating with other health healthcare science specialist, documenting information in the medical record, ordering [...] stasis obtained with use of the Bovie roofing layer and individual sutures of3-0 Vicryl. The deep [...] Info) Description 06/25/2025 10:30 AM EST Appointment [address] [phone] 06/25/2025 11:30 AM EST Appointment [address] [place] [address] 06/27/2025 11:30 AM EST Office Visit [facility]COL[facility]Y [address] [place] [address] Andres Allen MD [address] [place] [address] Scheduled Orders Name Type Priority Associated Diagnoses [...] - 10.80 10*3/mm3 04/10/2025 4:49 AM EST [facility] RBC 3.97 3.77 - 5.28 10*6/mm3 04/10/2025 4:49 AM EST [facility] Hemoglobin 10.9(L) 12.0 - 15.9 g/dL 04/10/2025 4:49 AM EST [facility] Hematocrit 33.8(L) 34.0 - 46.6 % 04/10/2025 4:49 AM [facility] MCV 85.1 79.0 - 97.0 fL 04/10/2025 4:49 AM [facility] MCH 27.5 26.6 - 33.0 pg 04/10/2025 4:49 AM [facility] MCHC 32.2 31.5 - 35.7 g/dL 04/10/2025 4:49 AM [facility] RDW 13.2 12.3 - 15.4 % 04/10/2025 4:49 AM [facility] RDW-SD 41.1 37.0 - 54.0 fl 04/10/2025 4:49 AM [facility] MPV 10.5 6.0 - 12.0 fL 04/10/2025 4:49 AM [facility] Platelets 252 140 - 450 10*3/mm3 04/10/2025 4:49 AM [facility] Neutrophil % 89.7(H) 42.7 - 76.0 % 04/10/2025 4:49 AM [facility] Lymphocyte % 6.1(L) 19.6 - 45.3 % 04/10/2025 4:49 AM [facility] Monocyte % 3.5(L) 5.0 - 12.0 % 04/10/2025 4:49 AM [facility] Eosinophil % 0.0(L) 0.3 - 6.2 % 04/10/2025 4:49 AM [facility] Basophil % 0.2 0.0 - 1.5 % 04/10/2025 4:49 AM [facility] Immature Grans % 0.5 0.0 - 0.5 % 04/10/2025 4:49 AM [facility] Neutrophils, Absolute 12.31(H) 1.70 - 7.00 10*3/mm3 04/10/2025 4:49 AM [facility] Lymphocytes, Absolute 0.84 0.70 - 3.10 10*3/mm3 04/10/2025 4:49 AM EST [facility] Monocytes, Absolute 0.48 0.10 - 0.90 10*3/mm3 04/10/2025 4:49 AM EST [facility] Eosinophils, Absolute 0.00 0.00 - 0.40 10*3/mm3 04/10/2025 4:49 AM EST [facility] Basophils, Absolute 0.03 0.00 - 0.20 10*3/mm3 04/10/2025 4:49 AM EST [facility] Immature Grans, Absolute 0.07(H) 0.00 - 0.05 10*3/mm3 04/10/2025 4:49 AM EST [facility] nRBC 0.0 0.0 - 0.2 /100 WBC 04/10/2025 4:49 AM EST [facility] Blood Venipuncture / Unknown 04/10/2025 3:31 AM EST 04/10/2025 4:41 AM EST us Andres Allen MD LAB BLOOD ORDERABLES Final Res ult [facility]
[address] [place] [address], * (ABNORMAL) Basic Metabolic Panel (04/10/2025 3:31 AM EST) Glucose 121(H) 65 - 99 mg/dL 04/10/2025 5:39 AM EST [facility] BUN 12.9 8.0 - 23.0 mg/dL 04/10/2025 5:39 AM EST [facility] Creatinine 0.82 0.57 - 1.00 mg/dL 04/10/2025 5:39 AM EST [facility] Sodium 139 136 - 145 mmol/L 04/10/2025 5:39 AM EST [facility] Potassium 5.6(H) 3.5 - 5.2 mmol/L 04/10/2025 5:39 AM EST [facility] Comment:Specimen hemolyzed. Result may be falsely elevated. Chloride 108(H) 98 - 107 mmol/L 04/10/2025 5:39 AM EST [facility] CO2 23.4 22.0 - 29.0 mmol/L 04/10/2025 5:39 AM EST [facility] Calcium 9.6 8.6 - 10.5 mg/dL 04/10/2025 5:39 AM EST [facility] BUN/Creatinine Ratio 15.7 7.0 - 25.0 04/10/2025 5:39 AM EST [facility] Anion Gap 7.6 5.0 - 15.0 mmol/L 04/10/2025 5:39 AM EST [facility] eGFR 76.1 >60.0 mL/min/1.7 3 04/10/2025 5:39 AM EST [facility] Blood Venipuncture / Unknown 04/10/2025 3:31 AM EST 04/10/2025 4:39 AM EST [facility] - 04/10/2025 5:39 AM [...] MD LAB BLOOD ORDERABLES Final Res ult [facility]
[address] [id number], * Tissue Pathology Exam (04/09/2025 11:59 AM EST) Case Report Surgical Pathology Report Case: [id number] Authorizing Provider: Andres Allen MD Collected: 04/09/2025 11:59 AM Ordering Location: [facility] Received: 04/09/2025 01:50 PM OR Pathologist: Conrad Grullon MD Specimens: 1) - Groin, right, RIGHT INGUINAL SENTINEL NODE 2) - Groin, left, LEFT INGUINAL SENTINEL NODE 3) - Perineum, Perineum, Stitch Tags Vaginal Margin 04/12/2025 12:49 PM EST [facility] Clinical Information Vulvar cancer 04/12/2025 12:49 PM EST [facility] Final Diagnosis 1. LYMPH NODE, RIGHT [...] synoptic for additional details. 04/12/2025 12:49 PM [facility] at 1249 EST Synoptic Checklist VULVA [...] Myranda Site(s) Examined: Left inguinal Number of Lawrence Nodes Examined: 4 pTNM CLASSIFICATION (AJCC Version [...] pN0 N Suffix: (sn) 04/12/2025 12:49 PM [facility] Comment Orienting the specimen with the vaginal suture considered 12:00, high-grade dysplasia seen involving the 12:00, 6:00 and 9:00 margins. 04/12/2025 12:49 PM [facility] Gross Description 1. Groin, right. Received [...] entirely as follows: 2A-one node 2B-one node 2U-0I-buktaff node. 3. Perineum. Received in formalin labeled [...] 9-12 o'clock-red. Sectioning reveals indurated underlying tissue. Tso sections are submitted as follows: 3A-mass with nearest perpendicular 12:00 margin 3B-mass with nearest perpendicular 6:00 margin 3C-mass with nearest perpendicular 3:00 margin 3D-mass with nearest perpendicular 9:00 margin 3E-3H-mass with perpendicular deep margin. LDP 04/12/2025 12:49 PM EST [facility] Microscopic Description The slides are reviewed and demonstrate histopathologic features supporting the above rendered diagnosis. 04/12/2025 12:49 PM EST [facility] Tissue Right inguinal region structure / Unknown 04/09/2025 11:59 AM EST 04/09/2025 1:50 PM EST Tissue specimen (specimen) Left inguinal region structure / Unknown 04/09/2025 12:11 PM EST 04/09/2025 1:50 PM EST Tissue specimen (specimen) Perineal structure / Unknown 04/09/2025 1:18 PM EST 04/09/2025 1:50 PM EST Andres Allen MD PATHOLOGY/CYTOLOGY ORDERABLES Final Result [facility]
[address] [place] [address], * Type & Screen (04/09/2025 10:12 AM EST) ABO Type O 04/09/2025 11:39 AM EST [facility] RH type Positive 04/09/2025 11:39 AM EST [facility] Antibody Screen Negative 04/09/2025 11:39 AM EST [facility] T&S Expiration Date 04/12/2025 11:59:59 PM 04/09/2025 11:39 AM EST [facility] Blood 04/09/2025 10:1 2 AM EST 04/09/2025 10:26 AM EST Andres Allen MD BLOOD BANK TEST ORDERABLES Manoj seferino Result - Final [facility]
[address] [place] [address], documented in this encounter Visit Diagnoses Diagnosis Vulvar cancer- Primary Malignant neoplasm of vulva, unspecified site Vulvar cancer Malignant neoplasm of vulva, unspecified site Primary vulvar cancer Vulvar cancer Malignant neoplasm of vulva, unspecified site documented in this encounter Admitting Diagnoses Diagnosis Vulvar cancer Malignant neoplasm of vulva, unspecified site Primary vulvar cancer documented in this encounter Administered Medications Inactive Administered Medications - up to 3 most recent administrations Medication Order MAR Action Action Date Dose Rate Site acetaminophen (TYLENOL) tablet 650 mg 650 mg, [...] Given 04/09/2025 5:23 PM EST 650 mg bacitracin 500 UNIT/GM ointment As Needed, Starting on Tue04/09/25 at 1311 Given 04/09/2025 1:11 PM EST 1 Application Perineum bupivacaine (MARCAINE) 0.5 % injection As Needed, Starting on Tue04/09/25 at 1225 Given 04/09/2025 12:25 PM EST 20 mL Perineum heparin (porcine) 5000 UNIT/ML injection 5,000 Units 5,000 Units, Subcutaneous, Every 8 Hours Scheduled, First dose on Tue04/10/25 at 0600, Indications: VTE ProphylaxisIndications:V TE Prophylaxis Given 04/10/2025 5:46 AM EST 5,000 Units Right Lower Abdomen HYDROcodone-acetaminophe n (NORCO) 5-325 MG per tablet 1 tablet [...] 7-10, CPOT 5-8 indocyanine green (IC-GREEN) injection As Needed, Starting on Tue04/09/25 at 1140 Given 04/09/2025 11:40 AM EST 25 mg Perineum lactated ringers infusion 75 mL/hr, Intravenous, Continuous, [...] allow to dissolve. promethazine (PHENERGAN) suppository 12.5 mg 12.5 mg, [...] and THEN promethazine IF ondansetron is ineffective. (BK) scopolamine patch 1 mg/72 hr 1 patch, Transdermal - scopolamine, Administer over 72 Hours, Continuous, Starting on Tue04/09/25 at 0954, For 72 hours, Do not apply if patient older than 65 or has history of glaucoma. (BK) sterile water irrigation solution As Needed, Starting on Tue04/09/25 at 1225 Given 04/09/2025 12:25 PM EST 1,000 mL Perineum documented in this encounter Active and Recently [...] 65 or has history of glaucoma. ([facility]) 1030 (Not Given - Provider: Abdi Smart [...] THEN promethazine IF ondansetron is ineffective. ([facility]) sterile water irrigation solution (CANCELED) As Needed, [...] THEN promethazine IF ondansetron is ineffective. ([facility]) documented in this encounter Care Teams Vascular Tech Relationship Specialty Start Date End Date Andres Marie MD [address] [facility] [address] [facility] [address] [address] PCP - General Family Medicine 03/27/25 documented as of this encounter
--- OUTSIDE RECORDS SUMMARY | 2025-04-09 11:23 | XMS_ITS | Encounter Summary ---
Author Organization [facility] Address [address] [place] [address] Care Team Providers Care Internet Project Manager Name Role Phone Andres Marie MD Primary Care Provider [phone] Reason for Visit * Auth/Cert Specialty Diagnoses / Procedures Referred By Naima telles Referred To Contact Diagnoses Vulvar cancer Vulvar cancer [C51.9] Procedures Injection of ICG for sentinel node detection, modified radical vulvectomy, possible flap Referral ID Status Reason Start Date Expiration Date Visits Re quested Visits Authorized [id number] 1 1 Encounter Details Date Type Department Care Team (Late st Contact Info) Description 04/09/2025 11:23 AM EST Anesthesia Event [facility] OR [address] [place] [address] Connor Nick Jr., MD [address] [place] [address] Edwin James MD [address] [place] [address] Anesthesia Record Procedure Summary Procedure Name Responsible Anesthesiologist Anesthesia Start Time Anesthesia Stop Time Injection of ICG for sentinel node detection, modified radical vulvectomy (Groin) Connor Nick Jr., MD 04/09/25 1123 04/09/25 1339 Events Date Time Event Comment 04/09/2025 1033 1109 AN Equip Check 1123 An Start The patient was reevaluated immediately before moderate or deep sedation use and before anesthesia induction. 1123 An Start Data 1128 An Induction 1130 An Intubation 1331 An Extubation 1331 an stop data 1339 Handoff to RN The following has been completed: 1. Identification of Patient, izaguirre family member(s) or patient surrogate 2. Identification of the responsible Practitioner (primary service) 3. Discussion of the pertinent/attainable medical history 4. Discussion of the surgical/procedure course (procedure, reason for surgery, procedure performed) 5. Intraoperative anesthetic management and issue/concerns to include things such as airway, hemodynamics, narcotic, sedation level and paralytic management and intravenous fluids/blood products and urine output during the procedure 6. Expectations/Plans for the early post-procedure period to include things such as anticipated course (anticipatory guidance), complications, need for laboratory or ECG and medication administration 7. Opportunity for questions and acknowledgment of understanding of report from the receiving PACU/ICU team 1339 An Stop Meds Name Total propofol 10 MG/ML 150 mg rocuronium 50 MG/5ML 70 mg lidocaine PF 1% 1 % 100 mg phenylephrine 1000 MCG/10ML 50 mcg dexAMETHasone 4 MG/ML 8 mg ondansetron 2 mg/mL 4 mg sugammadex 200 MG/2ML 200 mg ePHEDrine Sulfate (Pressors) 50 MG/ML 20 mg ceFAZolin 2000 mg IVPB in 100 mL NS (MBP ) 2,000 mg fentaNYL citrate (PF) 50 mcg/mL 50 mcg lactated ringers infusion 1,000 mL * Agents Name O2 N2O Air Sevoflurane Inspired Sevoflurane * Blood No blood administrations on file. Lines, Drains, and Airways Type Details Placement Removal Peripheral IV Placement Date: 04/09/25; Placement Time: 1012; Catheter Size: 20 G; Orientation: Posterior, Right; Location: Hand; Site Prep: Chlorhexidine; Local Anes: Injectable; Technique: Anatomical landmarks; Insertion Attempts: 1; Patient Tolerance: Tolerated well 04/09/25 1012 by Abdi Smart RN Wound 04/09/25; 1150; groi n; Surgical; [place] Node Excision Groin 04/09/25 1150 by Danyelle Kay RN Wound 04/09/25; 1200; labi a; Surgical; Vulvectomy 04/09/25 1200 by Danyelle Kay RN ETT Placement Date: 04/09/25; Placement Time: 1130 (created via procedure documentation); Blade Size: 3; Location: Oral; Removal Date: 04/09/25; Removal Time: 1331 04/09/25 1130 by Edwin James MD 04/09/25 1331 by Stuart Emmanuel SRNA Urethral Catheter Placement Date: 04/09/25; Placement Time: 1321; Inserted by: Lalita SERRANO; Type: Double-lumen, Silicone; Size: 16 Fr.; Balloon Size: 10 mL; Urine Returned: Yes; Removal Date: 04/10/25; Removal Time: 0553; Removal Reason: Per order 04/09/25 1321 by Danyelle Kay RN 04/10/25 0553 by Carisa Carranza RN documented in this encounter Social History Tobacco Use Types Packs/Day Years [...] or training? Not on file Preferred Language Angolan 04/02/2025 PHQ-2 Answer Date Recorded Patient Health Questionnaire-2 Score 1 03/28/2025 Comments No Sex and Gender Information Value Date Recorded Sex Assigned at Not on file Legal Sex Female 11:49 AM EDT Gender Identity Not on file Sexual Orientation Not on file documented as of this encounter Functional Status * Question Answer Date of Assessment Author 1. Wish to be (Past 1 Month) No 025 10:14 AM EST Abdi Smart RN 2. Non-Specific Active Suici sim Thoughts (Past 1 Month) No 04/09/2025 10:14 AM Abdi Lindsay RN * Calculated C-SSRS Risk Score (Lifetime/Recent) Answer Date of Assessment Author No Risk Indicated 04/09/2025 10:14 AM Abdi Lindsay RN * [place] Suicide Severity Rating Scale (Screener/Recent Self-Report) Question Answer Date of Assessment Author 6. Suicidal Behavior (Lifetime) No 10:14 AM Abdi Lindsay RN documented as of this encounter OR Notes * Anesthesia Postprocedure Evaluation - Stuart Emmanuel SRNA - 04/09/2025 1:39 PM EST Patient: Kathy Barron Procedure Summary Date: 04/09/25 Room / Location: [facility] OR [address] [place] [address] EMI OR Anesthesia Start: 1123 Anesthesia Stop: 1339 Procedure: Injection of ICG for sentinel node detection, modified radical vulvectomy, (Groin) Diagnosis: Vulvar cancer (Vulvar cancer [C51.9]) Surgeons: Andres Allen MD Provider: Connor Nick Jr., MD Anesthesia Type: general ASA Status: 3 Anesthesia Type: general Vitals Vitals Value Taken Time BP Temp Pulse 64 04/09/25 13:39 Resp SpO2 98 % 04/09/25 13:39 Vitals shown include unfiled device data. Post Anesthesia Care and Evaluation Patient location during evaluation: PACU Patient participation: complete - patient participated Level of consciousness: sleepy but conscious Pain score: 0 Pain management: adequate Airway patency: patent Anesthetic complications: No anesthetic complications PONV Status: none Cardiovascular status: hemodynamically stable and acceptable Respiratory status: nonlabored ventilation, acceptable and nasal cannula Hydration status: acceptable Cosigned by Haley Luu CRNA at 04/10/2025 10:27 AM EST Associated attestation - Haley Luu CRNA - 04/10/2025 10:27 AM EST Present * Anesthesia Procedure Notes - Alejandro Duncan CRNA - 04/09/2025 11:41 AM EST Associated Order(s): Airway Airway Reason: elective Date/Time: 04/09/2025 11:30 AM Airway not difficult General Information and Staff Patient location during procedure: OR Indications and Patient Condition Indications for airway management: airway protection Preoxygenated: yes MILS not maintained throughout Mask difficulty assessment: 1 - vent by mask Final Airway Details Final airway type: endotracheal airway Successful airway: ETT Cuffed: yes Successful intubation technique: direct laryngoscopy Endotracheal tube insertion site: oral Blade: Waters Blade size: 3 ETT size (mm): 7.0 Cormack-Lehane Classification: grade I - full view of glottis Placement verified by: chest auscultation and capnometry Cuff volume (mL): 8 Measured from: lips ETT/EBT to lips (cm): 19 Number of attempts at approach: 1 Assessment: lips, teeth, and gum same as pre-op and atraumatic intubation Additional Comments Negative epigastric sounds, Breath sound equal bilaterally with symmetric chest rise and fall * Anesthesia Preprocedure Evaluation - Connor Nick Jr., MD - 04/09/2025 10:32 AM EST Anesthesia Evaluation Patient summary reviewed and Nursing notes reviewed history of anesthetic complications: PONV NPO Solid Status: > 8 hours NPO Liquid Status: > 2 hours Airway Mallampati: II TM distance: >3 FB Neck ROM: full No difficulty expected Dental (+) upper dentures and partials Pulmonary (+) COPD, Cardiovascular ECG reviewed (+) hypertension, valvular problems/murmurs (h/o AVR 2022) ROS comment: Normal stress in June 2024 ECHO at that time with well seated bioprosthetic AV. Mean PG is 13mmHg. Normal biventricular systolic function. 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 Pre-procedure education provided Plan discussed with ASSISTANT COMMISSIONER. CODE STATUS: documented in this encounter Plan of Treatment Upcoming Encounters Date Type Department Care Team (Late st Contact Info) Description 06/25/2025 10:30 AM EST Appointment [facility] [place] [address] [facility] [address] [place] [address] 06/25/2025 11:30 AM EST Appointment [facility] [place] [address] [place] [address] 06/27/2025 11:30 AM EST Office Visit [facility] GYNECOLOGIC ONCOLOGY [address] [place] [address] Andres Allen MD [address] [facility] [address] [place] [address] documented as of this encounter Procedures Procedure Name Priority Date/Time Associated Diagnosis Comments ANESTHESIA INTUBATION Routine 04/09/2025 11:41 AM EST documented in this encounter Results * BH AN ETT AIRWAY (04/09/2025 11:41 AM EST) Narrative Alejandro Duncan CRNA - 04/09/2025 11:41 AM EST Alejandro Duncan CRNA 04/09/2025 12:05 PM Airway Reason: elective Date/Time: 04/09/2025 11:30 AM Airway not difficult General Information and Staff Patient location during procedure: OR Indications and Patient Condition Indications for airway management: airway protection Preoxygenated: yes MILS not maintained throughout Mask difficulty assessment: 1 - vent by mask Final Airway Details Final airway type: endotracheal airway Successful airway: ETT Cuffed: yes Successful intubation technique: direct laryngoscopy Endotracheal tube insertion site: oral Blade: Waters Blade size: 3 ETT size (mm): 7.0 Cormack-Lehane Classification: grade I - full view of glottis Placement verified by: chest auscultation and capnometry Cuff volume (mL): 8 Measured from: lips ETT/EBT to lips (cm): 19 Number of attempts at approach: 1 Assessment: lips, teeth, and gum same as pre-op and atraumatic intubation Additional Comments Negative epigastric sounds, Breath sound equal bilaterally with symmetric chest rise and fall us Edwin James MD ANESTHESIA ORDERABLES Final Resu lt documented in this encounter Visit Diagnoses Not on filedocumented in this encounter Administered Medications Inactive Administered Medications - up to 3 most recent administrations Medication Order MAR Action Action Date Dose Rate Site ceFAZolin 2000 mg IVPB in 100 mL NS (MBP) 2,000 mg, Intravenous, Administer over 30 Minutes, Once, On Tue04/09/25 at 0954, For 1 dose, Administer within 1 hour of surgical incision. Redose 4 hours from pre-op dose if procedure ongoing or >1.5 L blood loss. Caution: Look alike/sound alike drug alert, Indications: Surgical ProphylaxisIndications:Surgical Prophylaxis New Bag 04/09/2025 11:31 AM EST 2,000 mg dexAMETHasone (DECADRON) injection Intravenous, As Needed, Starting on Tue04/09/25 at 1134 Given 04/09/2025 11:34 AM EST 8 mg ePHEDrine Sulfate (Pressors) Intravenous, As Needed, Starting on Tue04/09/25 at 1152 Given 04/09/2025 1:01 PM EST 5 mg Given 04/09/2025 12:44 PM EST 10 mg Given 04/09/2025 11:52 AM EST 5 mg fentaNYL citrate (PF) (SUBLIMAZE) injection Intravenous, As Needed, Starting on Tue04/09/25 at 1229 Given 04/09/2025 12:29 PM EST 50 mcg lactated ringers infusion 9 mL/hr, Intravenous, Continuous, Starting on Tue04/09/25 at 0954, For 1 day, May switch to NS IV at KVO if renal / if indicated New Bag 04/09/2025 12:14 PM EST Currently Infusing 04/09/2025 11:23 AM EST 9 mL /hr Restarted 04/09/2025 11:22 AM EST lidocaine PF 1% (XYLOCAINE) injection Intravenous, As Needed, Starting on Tue04/09/25 at 1128 Given 04/09/2025 11:28 AM EST 100 mg ondansetron (ZOFRAN) injection Intravenous, As Needed, Starting on Tue04/09/25 at 1134 Given 04/09/2025 11:34 AM EST 4 mg phenylephrine (KYLE-SYNEPHRINE) 1000 MCG/10ML injection Intravenous, As Needed, Starting on Tue04/09/25 at 1301 Given 04/09/2025 1:01 PM EST 50 mcg propofol (DIPRIVAN) injection Intravenous, As Needed, Starting on Tue04/09/25 at 1128 Given 04/09/2025 11:28 AM EST 150 mg rocuronium (ZEMURON) injection Intravenous, As Needed, Starting on Tue04/09/25 at 1128 Given 04/09/2025 12:45 PM EST 10 mg Given 04/09/2025 11:28 AM EST 60 mg sugammadex (BRIDION) injection Intravenous, As Needed, Starting on Tue04/09/25 at 1319 Given 04/09/2025 1:19 PM EST 200 mg documented in this encounter Care Teams Internet Project Manager Relationship Specialty Start Date End Date Andres Marie MD [facility] [address] [facility] [address] [place] [address] PCP - General Family Medicine 03/27/25 documented as of this encounter
--- OUTSIDE RECORDS SUMMARY | 2025-04-22 14:00 | XMS_ITS | Encounter Summary ---
Author Organization [facility] Address [address] [place] [address] Care Team Providers Care Microgrinder Operator Name Role Phone Andres Marie MD Primary Care Provider [phone] Reason for Referral * MRI/CAT/PET Scan (Routine) - Pending Review Specialty Diagnoses / Procedures Referred By Naima t Referred To Contact Radiology Diagnoses Primary vulvar cancer Procedures NM PET/CT Skull Base to Mid Thigh Andres Allen MD [address] [place] [id number] Phone: tel: fax: [facility] [address] [place] [address] Phone: tel: Referral ID Status Reason Start Date Expiration Date V isits Requested Visits Authorized [id number] Pending Review 04/22/2025 07/22/2026 2 2 Encounter Details Date Type Department Care Team (Late st Contact Info) Description 04/22/2025 2:00 PM EST Office Visit [facility] GYNECOLOGIC ONCOLOGY [address] [facility] [address] [place], [place] [id number] Andres Allen MD [address] [facility] [address] [place], [place] [id number] Primary vulvar cancer (Primary Dx); Complex sclerosing lesion of left breast Social History Tobacco Use Types Packs/Day Years [...] or training? Not on file Preferred Language Panamanian 04/02/2025 PHQ-2 Answer Date Recorded Patient Health Questionnaire-2 Score 1 03/28/2025 Comments No Sex and Gender Information Value Date Recorded Sex Assigned at Not on file Legal Sex Female 11:49 AM EDT Gender Identity Not on file Sexual Orientation Not on file documented as of this encounter Last Filed Vital Signs Vital Sign Reading Time Taken Comments Blood Pressure 129/61 04/22/2025 2:05 PM EST NATALIE Pulse 70 04/22/2025 2:05 PM EST Temperature 36.5 C (97.7 F) 04/22/2025 2:05 PM EST Respiratory Rate 17 04/22/2025 2:05 PM EST Oxygen Saturation 96% 04/22/2025 2:05 PM EST Inhaled Oxygen Concentration - - Weight 64 kg (141 lb) 04/22/2025 2:05 PM EST Height 167.6 cm (5' 5.98 ) 04/22/2025 2:05 PM ES T Body Mass Index 22.77 04/22/2025 2:05 PM EST documented in this encounter Progress Notes * Andres Allen MD - 04/22/2025 2:00 PM EST 1. LYMPH NODE, RIGHT INGUINAL, SENTINEL NODE EXCISION: 1 lymph node negative for metastatic carcinoma (0/1). 2. LYMPH NODE, LEFT INGUINAL, SENTINEL NODE EXCISION: 3 lymph nodes negative for metastatic carcinoma (0/3). 3. PERINEUM, MODIFIED RADICAL VULVECTOMY: Invasive well-differentiated squamous cell carcinoma, 2.6 cm in maximum dimension. Lymphovascular invasion present. Surgical margins negative for invasive carcinoma. High-grade dysplasia extends to the vaginal margin, the margin opposite the vaginal margin and the left-sides margin (see comment). See tumor synoptic for additional details. Tumor size 2.6 cm Depth of invasion at least 5 mm Positive lymph-vascular space involvement Margins negative for carcinoma High-grade dysplasia present at margin Preoperative PET scan April 08, 2025: 1.Hypermetabolic left vulvar mass consistent with known [...] mammogram and correlation with this specific area. This lymph node measured 1.8 cm on PET scan. Lymph node removed from left groin measured 2.4 cm in greatest diameter Subjective: Kathy Barron presents to the clinic 2 weeks following modified radical vulvectomy and bilateralsentinel inguinal node dissection with findings as above. Eating a regular diet without difficulty.Bowel movements are Normal. The patient is not having any pain.. Objective: BP 129/61 Comment: NATALIE Pulse 70 Temp 97.7 ??F (36.5 ??C) (Temporal) Resp 17 Ht 167.6 cm (65.98 ) Wt 64 kg (141 lb) SpO2 96% BMI 22.77 kg/m?? General: alert, appears stated age, and cooperative Abdomen: soft, bowel sounds active, non-tender Incision: Suture separation in the vulva without significant induration or evidence of cellulitis Assessment: Doing well postoperatively. Plan: 1. Continue any current medications. 2. Wound care discussed. 3. Pt is to increase activities as tolerated. 4. Follow up: 3 weeks for wound check. Discussed pathology and operative findings in detail. Pathology is not consistent with preoperative PET scan findings though size of lymph node appears to be equivalent. Plan on repeating PET scan in 6 to 8 weeks. If no evidence of abnormal lymph node we will proceed forward with continued monitoring. On the other hand if concerning lymph node presentwe will proceed forward with percutaneous biopsy. documented in this encounter Plan of Treatment Upcoming Encounters Date Type Department Care Team (Late st Contact Info) Description 06/25/2025 10:30 AM EST Appointment [facility] [address] [facility] [address] [place] [address] 06/25/2025 11:30 AM EST Appointment [facility] [place] [address] [facility] [address] [place] [address] 06/27/2025 11:30 AM EST Office Visit [facility] GYNECOLOGIC ONCOLOGY [address] [facility] [address] [place] [address] Andres Allen MD [address] [facility] [address] [place] [address] Scheduled Orders Name Type Priority Associated Diagnoses Orde r Schedule NM PET/CT Skull Base to Mid Thigh Imaging Routine Primary vulvar cancer Expected: 06/25/2025, Expires: 07/23/2026 documented as of this encounter Visit Diagnoses Diagnosis Primary vulvar cancer- Primary Complex sclerosing lesion of left breast documented in this encounter Care Teams Microgrinder Operator Relationship Specialty Start Date End Date Andres Marie MD [address] [facility] [address] [place] [address] PCP - General Family Medicine 03/27/25 documented as of this encounter
--- OUTSIDE RECORDS SUMMARY | 2025-04-23 11:00 | XMS_ITS | Encounter Summary ---
Author Organization [facility] Address [address] [place] [address] Care Team Providers Care Cut And Print Machine Operator Name Role Phone Andres Marie MD Primary Care Provider [phone] Quintin Dahl Unavailable Yola Mora MD Unavailable [phone] Reason for Visit * Consultation (Routine) - Closed Specialty Diagnoses / Procedures Referred By Contac t Referred To Contact Neurology Diagnoses MG (myasthenia gravis) Mamie Thao MD [address] [facility] [address] [place] [address] Phone: tel: fax: Referral ID Status Reason Start Date Expiration Date V isits Requested Visits Authorized [id number] Closed Specialty Services Required 04/04/2025 10/04/2026 1 1 Encounter Details Date Type Department Care Team (Late st Contact Info) Description 04/23/2025 11:00 AM EST Consult [place] [facility] [address], [address] [place] [address] Yola Mora MD [address] [place] [address] Myasthenia gravis (Primary Dx) Social History Tobacco Use Types Packs/Day Years Used Date Smoking Tobacco: Former Cigarettes 2 40 1 963 - 2002 Smokeless Tobacco: Never Alcohol Use Standard Drinks/Week Comments Not Currently 0 (1 standard drink = 0.6 oz pur e alcohol) PHQ-2 Answer Date Recorded Patient Health Questionnaire-2 Score 2 04/23/2025 PHQ-9 Answer Date Recorded Patient Health Questionnaire-9 Score 7 04/23/2025 Comments No Sex and Gender Information Value Date Recorded Sex Assigned at Not on file Legal Sex Female 7:53 PM EDT Gender Identity Not on file Sexual Orientation Not on file documented as of this encounter Last Filed Vital Signs Vital Sign Reading Time Taken Comments Blood Pressure 112/60 04/23/2025 11:15 AM EST Pulse 56 04/23/2025 11:15 AM EST Temperature - - Respiratory Rate - - Oxygen Saturation 96% 04/23/2025 11:15 AM EST Inhaled Oxygen Concentration - - Weight 63.5 kg (140 lb) 04/23/2025 11:15 AM EST Height - - Body Mass Index 22.6 08/26/2022 10:54 AM EDT documented in this encounter Functional Status * Over the past 2 weeks, how often have you been bothered by any of the following problems? Question Answer Date of Assessment Author Little interest or pleasure in doing things Several days 04/23/2025 11:15 AM Dimple España Feeling down, depressed, or hopeless Several days 04/23/2025 11:15 AM Jessy Cramer Patient Health Questionnaire-2 Score 2 04/23/2025 11:15 AM Dimple Cramer * Question Answer Date of Assessment Author Trouble falling or staying asleep, or sleeping too much Not at all 04/23/2025 11:15 AM Jessy Cramer Feeling tired or having little energy Several days 04/23/2025 11:15 AM Jessy Cramer Poor appetite or overeating Not at all 04/23/2025 11 :15 AM Dimple Cramer Feeling bad about yourself - or that you are a failure or have let yourself or your family down Several days 04/23/2025 11:15 AM Jessy Cramer Trouble concentrating on things, such as reading the newspaper or watching television Several days 04/23/2025 11:15 AM Jessy Cramer Moving or speaking so slowly that other people could have noticed. Or the opposite - being so fidgety or restless that you have been moving around a lot more than usual Several days 04/23/2025 11:15 AM Jessy Cramer Thoughts that you would be better off or hurting yourself in some way Several days 04/23/2025 11:15 AM Dimple Cramer Patient Health Questionnaire-9 Score 7 04/23/2025 11:15 AM Dimple Cramer * How difficult have these problems made it for you to do your work, take care of things at home, or get along with other people? Answer Date of Assessment Author Somewhat difficult 04/23/2025 11:15 AM Dimple Bowie documented as of this encounter Miscellaneous Notes * Progress Notes - Yola Mora MD - 04/23/2025 11:00 AM EST Neuromuscular Neurology Consult Chief complaint: Weakness and fatigue secondary to myasthenia gravis Referring provider: Mamie hTao MD Subjective History of Present Illness Kathy Barron is a 74 y.o. female with myasthenia gravis for the past year. Patient is from [facility] and is accompanied by her to today's visit. Severe fatigue Blurred vision Patient has history of or tic valve replacement and recent vulva cancer requiring resection. She suffers from chronic fatigue. [id number]: Patient developed gradual worsening of her fatigue followed by blurred vision and ptosisbilaterally, more pronounced with exertion. She developed hoarseness of her voice with exertion andfatigue with chewing. Her head would sometimes feel heavy. She denied drooling. She has chronic dysphagia that did not change. She was evaluated by a neurologist to reportedly checked for myasthenia gravis antibodies and per patient it was positive. Patient was not able to clarify whether this is acetyl choline receptor antibodies, Anti- MuSK antibodies or LRP 4. She was started on Mestinon 60 mg up titrated to 4 times daily with some improvement of symptoms but without improvement of fatigue. She also experiences blurred vision intermittently. She has never tried prednisone or other immune suppressants. Review of systems Patient denies all review of systems except as mentioned in HPI above. 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 Problem List[1] Treatment History Mestinon 60 mg q.i.d. Family History Children: Daughter with lupus Social History Reviewed with patient. No relevant history. Objective Workup Studies from available current and prior visits were reviewed and interpreted by myself as below. EMG None Labs Limited labs available for review, I do not have access to her myasthenia gravis panel results HbA1c 5.94 Imaging PET-CT March 2025 1.Hypermetabolic left vulvar mass consistent with known [...] mammogram and correlation with this specific area. Physical Examination Visit Vitals OB Status Hysterectomy Smoking Status Former Neurological Exam Mental Status Awake, alert and oriented to person, place and time. Cranial Nerves CN II: Visual acuity is normal. Visual gipson full to confrontation. CN III, IV, : Extraocular movements intact bilaterally. Normal lids and orbits bilaterally. Pupils equal round and reactive to light bilaterally. CN V: Facial sensation is normal. CN VII: Full and symmetric facial movement. CN VIII: Hearing is normal. CN IX, X: Palate elevates symmetrically. Normal gag reflex. CN XI: Shoulder shrug strength is normal. CN XII: Tongue midline without atrophy or fasciculations. Eli eyelid twitch positive No clear ptosis even with upgaze Blurred vision at rest, but no worsening to diplopia despite upgaze Counts to 20 in a single breath. Motor Normal muscle bulk throughout. Normal muscle tone. Strength is 5/5 throughout all four extremities. Sensory Sensation is intact to light touch, pinprick, vibration and proprioception in all four extremities. Coordination Tgwaae-vq-urzf, rapid alternating movements and bqdc-sa-vfbq normal bilaterally without dysmetria. Gait Normal casual, toe, heel and tandem gait. Assessment and Plan Kathy Barron is a 74 y.o. female with the following neurological diagnoses and/or complaints: Ocular myasthenia gravis, reportedly seropositive Unfortunately, I do not have access to her antibody testing results. She appears to be doing relatively well with mild weakness, however the fatigue appears to be overwhelming and is a common featureof myasthenia gravis. She has not previously tried prednisone and I would like to start her on low-dose with down or up titration as needed. Low-dose was selected due to prediabetes. I would expect reasonable benefit to fatigue, blurred vision and chewing fatigue over the next few weeks. Typically, if myasthenia gravis will convert from bulbar to generalized form it will occur within the first 1-2 years after onset. We will be able to predict long-term outcome better in another year.However, given her relatively mild symptoms at this time, I am confident that we will be able to get her symptoms under control. I am uncertain that the fatigue is entirely caused by her myasthenia gravis given that she has recently been through cancer and aortic valve replacement surgeries. I am hopeful that prednisone will lead to significant benefit if the myasthenia gravis is predominant responsible for the fatigue. Recommendations Workup None at this time Treatment Start prednisone 10 mg daily. If symptoms improve, plan to wean by 2.5 mg every 3 months. Low-dose prednisone does not typically lead to long-term side effects, although I am aware her HGB A1c is in the prediabetic range and we will need to be monitored closely by her PCP. Continue Mestinon 60 mg q.i.d.. Patient to adjust as needed based on response to prednisone. Follow up In 3 months Kathy Barron was counseled regarding instructions for management. Education was provided via verbal counseling. Additional time was spent in care coordination including medical record review. The total time of encounter was 53 minutes and greater than 50% of the visit was spent in counseling/coordination of care. Santos Leone Secondary Set Up Man of Neuromuscular Neurology [facility] [1] Patient Active Problem List Diagnosis COPD (chronic obstructive pulmonary disease) Hypertension Hyperlipidemia Left bundle branch block Hypothyroid Grade I diastolic dysfunction Pleural effusion Depression Hypertriglyceridemia Hypoalphalipoproteinemia Beta-blockers contraindicated Postoperative anemia due to acute blood loss BMI 20.0-20.9, adult documented in this encounter Plan of Treatment Upcoming Encounters Date Type Department Care Team (Late st Contact Info) Description 07/26/2025 1:30 PM EST Office Visit [place] [facility] Clinic [address], [address] [place] [address] Yola Mora MD [address] [facility] [place] [address] documented as of this encounter Visit Diagnoses Diagnosis Myasthenia gravis- Primary Myasthenia gravis without exacerbation documented in this encounter Additional Health Concerns Assessment Noted Time PHQ-9 Depression Total Score: 7 04/23/20 11:15 AM EST A fall risk assessment has been complete d for the patient 04/23/2025 11:15 AM EST A Body Mass Index follow-up plan has been documented for the patient 04/23/2025 12:52 PM EST documented as of this encounter Care Teams Cut And Print Machine Operator Relationship Specialty Start Date End Date Andres Marie MD [address] [facility] [address] [address] PCP - General 10/10/20 Quintin Dahl PA [address] [place] [facility] [place] [address] [place] [address] Referring Physician Cardiology 08/23/22 Yola Mora MD [address] [facility] [place] [address] Consulting Physician Neurology 04/23/25 documented as of this encounter
--- OUTSIDE RECORDS SUMMARY | 2025-04-29 09:15 | XMS_ITS ---
[facility] Address [address] [place] [id number] Care Team Providers Care Repairer Hairspring Name Role Phone Mallorie Marie Primary Care Provider [phone] Allergies Allergen (clinical drug ingredient) Drug/Non Drug Allergy documented on EMR Reaction Allergy Type Onset Date Status Iodinated contrast media (substance) Iodinated Contrast Media Unknown Drug Allergy Active REASON FOR VISIT 2 Spots She wants Checked for Possible Removal Medications Medication SIG (Take, Route, Frequency, Duration) Notes Start Date End Date Status tiZANidine HCl 4 MG 1 tablet Orally 3 times a day As needed 01/17/2025 Not-Taking Metoprolol Succinate 50 MG 1 capsule Ora lly Once a day Active Spironolactone 25 MG 1 tablet Orally Active Albuterol Sulfate HFA 108 (90 Base) MCG/ACT 2 inhalations Inhalation four times a day as needed 11/24/2022 Active Aspirin 81 MG 1 tab(s) orally once a day; Duration: 30 day(s) Active pyRIDostigmine [place] 30 MG 1 tablet Orally Five times a day; Duration: 30 day(s) Active predniSONE 10 MG 1 tablet with food o r milk Orally Once a day Active Magnesium 300 MG 1 capsule with a maria victoria l Orally Once a day Active DULoxetine HCl 30 MG 1 capsule Orally tw ice a day; Duration: 90 days Active Irbesartan 300 MG 1 tablet Orally Once a day; Duration: 90 days Active Levothyroxine Sodium 50 MCG TAKE 1 TABLET EVERY OTHER DAY ALTERNATE WITH 1/2 TABLET EVERY OTHER DAY; Duration: 90 Active amLODIPine Besylate 5 MG 1 tablet Orally Once a day; Duration: 90 days Active Vital Signs Weight 140.0 lbs 04/29/2025 Blood pressure systolic 110 mm Hg 04/29/20 25 Blood pressure diastolic 70 mm Hg 025 Heart Rate 58 /min 04/29/2025 Height 66.50 in 04/29/2025 BMI 22.26 kg/m2 04/29/2025 Encounters Encounter Location Date Provider Diagnosis [facility] [address] [place] [facility] [address] [facility] [address] [place] [id number] 04/29/2025 Mallorie Marie Neoplasm of skin of face D49.2 and Neoplasm of arm D49.89 Assessments Encounter Date Diagnosis (ICD Code) Assessment Notes Treatment Notes Treatment Clinical Notes Section Notes 04/29/2025 Neoplasm of skin of face (ICD-10 - D49.2) 04/29/2025 Neoplasm of arm (ICD-10 - D49.89) Plan Of Treatment Next Appt Details Follow Up: office surgery, Debra oconnor: Provider Name:Mallorie Dominguez er, 06/21/2025 08:00:00 AM, [address] [place] [facility] [address] [facility], [address], [place], [id number], Progress Notes * Kathy DUBONDOB: 2 (74 yo F)Acc No.[id number]:04/29/2025 Progress Notes Patient: Kathy ORTIZ Provider: Mallorie Marie M.D. :1950 A ge:74 Y S ex:Female Date:04/29/2025 Address:[address] [place] [address] [place] Subjective: * Chief Complaints: * 1 . 2 Spots She wants Checked for Possible Removal. * HPI: D ermatology: 74 year old female presents with c/o skin lesion h ead. Pt states she has a spot on the right anabaptism that has been there for a couple years. Pt states she also has a spot on the left upper arm that comes and goes. * ROS: C ONSTITUTIONAL: Positive for A marieher physician seen since last visit? Yes, Change in medication since last visit? Yes, Are you taking antibiotics? No, Are you taking steroids? Yes. D ERMATOLOGY: no R cecilia. n o [...] * Hospitalization/Major Diagno stic Procedure: C [facility] 08/2010, : AVR for severe aortic regurgitation [...] Sexually active: yes. * Medications: T aking Magnesium 300 MG Capsule 1 capsule with a meal Orally Once a day , Taking predniSONE 10 MG Tablet 1 tablet with food or milk Orally Once a day , Taking pyRIDostigmine [place] 30 MG Tablet 1 tablet Orally Five [...] DAY , Taking Irbesartan 300 MG Tablet 1 tablet Orally Once a day , Taking DULoxetine HCl 30 MG Capsule Delayed Release Particles 1 capsule Orally twice a day , Not-Taking tiZANidine HCl 4 MG Tablet 1 tablet Orally 3 times a day As needed, Medication List reviewed and reconciled with the patient * Allergies: I odinated Contrast Media. Objective: * Vitals: W t: 140.0, Temp: 98.1, BP: 110/70, HR: 58, Nurse: RODRÍGUEZ, Ht: 66.50, BMI:22.26. * Examination: G eneral Examination: General Appearance: N AD, appears healthy. H EENT: r ight anabaptism with 1.25cm lesion, raised and excoriated, looks possibly seborrheic, but quite irritated.. E xtremities: T he lesion of the dorsum of the left forearm is quite subtle, linear, pink, about 2 cm. Assessment: * Assessment: 1. N eoplasm of skin of face - D49.2 (Primary) 2 . N eoplasm of arm - D49.89 Plan: * Treatment: * Procedure Codes: G 2211 Complex e/m visit add on, G8783 BP SCR PRFRM RCMDD DEFIND SCR INTVL, G8752 MOST RECENT SYSTOLIC BP < 140MM HG, G8754 MOST RECENT DIASTOLIC BP < 90MM HG, 3074F SYST BP LT 130 MM HG, 3078F DIAST BP < 80 MM HG * Follow Up: o ffice surgery * Images: Billing Information: * Visit Code: 26932 Office Visit, Est Pt., Level 3. * Procedure Codes: G2211 Complex e/m visit add on. G8783 BP SCR PRFRM RCMDD DEFIND SCR INTVL. G8752 MOST RECENT SYSTOLIC BP < 140MM HG. G8754 MOST RECENT DIASTOLIC BP < 90MM HG. 3074F SYST BP LT 130 MM HG. 3078F DIAST BP < 80 MM HG. * Electronic signature of Mallorie Marie MD on 05/14/2025 at 01:50 PM EST Sign off status: Pending * Provider: Mallorie Marie M.D. Date: 06/30/2024 Generated for Lou turner/Hakeem/eTransmitting on: 07/15/2024 01:50 PM EST History and Physical Notes * HPI (History of Present Illness) Category Sub-Category Detail Notes Category Not es Dermatology skin lesion head. Pt states she has a spot on the right anabaptism that has been there for a couple years. Pt states she also has a spot on the left upper arm that comes and goes Examination Category Sub-Category Detail Notes Category Not es General Examination HEENT: right anabaptism with 1.25cm lesion, raised and excoriated, looks possibly seborrheic, but quite irritated. Extremities: The lesion of the do rsum of the left forearm is quite subtle, linear, pink, about 2 cm General Appearance: NAD, appears healthy
--- OUTSIDE RECORDS SUMMARY | 2025-05-09 11:30 | XMS_ITS | Encounter Summary ---
Author Organization [facility] y[facility] Address [address] [place] [address] Care Team Providers Care Abstract Clerk Name Role Phone Andres Marie MD Primary Care Provider [phone] Encounter Details Date Type Department Care Team (Late st Contact Info) Description 05/09/2025 11:30 AM EST Office Visit [facility]OLOG[facility] [address] [place], [place] [id number] Andres Allen MD [address] [facility] [address] [place], [place] [id number] Primary vulvar cancer (Primary Dx); Anxiety associated with cancer diagnosis Social History Tobacco Use Types Packs/Day Years [...] or training? Not on file Preferred Language Tongan 04/02/2025 PHQ-2 Answer Date Recorded Patient Health Questionnaire-2 Score 1 03/28/2025 Comments No Sex and Gender Information Value Date Recorded Sex Assigned at Not on file Legal Sex Female 11:49 AM EDT Gender Identity Not on file Sexual Orientation Not on file documented as of this encounter Last Filed Vital Signs Vital Sign Reading Time Taken Comments Blood Pressure 126/62 05/09/2025 10:57 AM EST LUE Pulse 61 05/09/2025 10:57 AM EST Temperature 36.2 C (97.1 F) 05/09/2025 10:57 AM EST Respiratory Rate 17 05/09/2025 10:5 7 AM EST Oxygen Saturation 98% 05/09/2025 10: 57 AM EST Inhaled Oxygen Concentration - - Weight 63.8 kg (140 lb 11.2 oz) 025 10:57 AM EST Height 167.6 cm (5' 5.98 ) 05/09/2025 1 0:57 AM EST Body Mass Index 22.72 05/09/2025 10:57 AM EST documented in this encounter Progress Notes * Andres Allen MD - 05/09/2025 11:30 AM EST 1. LYMPH NODE, RIGHT INGUINAL, SENTINEL [...] groin measured 2.4 cm in greatest diameter Patient was seen 2 weeks ago but returns today for repeat wound check. She complains of being valle and anxious but she has significant stresses in her life including a handicapped child that she is 100% care and recent diagnosis of cancer. Patient also has a recent diagnosis of myasthenia gravis recently put on steroids. Subjective: Kathy Barron presents to the clinic 4 weeks following partial vulvectomy and lymph nodes. Eating a regular diet without difficulty. Bowel movements are Normal. The patient is not having any pain.. Objective: BP 126/62 Comment: LUE Pulse 61 Temp 97.1 ??F (36.2 ??C) (Temporal) Resp 17 Ht 167.6 cm (65.98 ) Wt 63.8 kg (140 lb 11.2 oz) SpO2 98% BMI 22.72 kg/m?? General: alert, appears stated age, and cooperative Abdomen: soft, bowel sounds active, non-tender Incision: healing well, no drainage, no erythema, no hernia, no seroma, no swelling, no dehiscence,incision well approximated Assessment: Doing well postoperatively. Plan: 1. Continue any current medications. 2. Wound care discussed. 3. Pt is to increase activities as tolerated. 4. Follow up: 3 weeks for wound check and to discuss PET scan results. I discussed my concerns about long-term steroids in view of cancer diagnosis and need to relay thisto treating physicians. Also discussed potential issues with prolonged healing As discussed at last visit,Pathology is not consistent with preoperative PET scan findings though size of lymph node appears to be equivalent. Plan on repeating PET scan in 3 weeks. If no evidence ofabnormal lymph node we will proceed forward with continued monitoring. On the other hand if concerning lymph node present we will proceed forward with percutaneous biopsy. documented in this encounter Plan of Treatment Upcoming Encounters Date Type Department Care Team (Late st Contact Info) Description 06/25/2025 10:30 AM EST Appointment [facility] [address] [facility] [address] [place] [address] 06/25/2025 11:30 AM EST Appointment [facility] [address] [facility] [address] [place] [address] 06/27/2025 11:30 AM EST Office Visit [facility] [address] [facility] [address] [place] [address] Andres Allen MD [address] [facility] [address] [place] [address] documented as of this encounter Visit Diagnoses Diagnosis Primary vulvar cancer- Primary Anxiety associated with cancer diagnosis documented in this encounter Care Teams Abstract Clerk Relationship Specialty Start Date End Date Andres Marie MD [address] [facility] [address] [place] [address] PCP - General Family Medicine 03/27/25 documented as of this encounter
--- NOTE | 2025-05-14 13:48 | MM_ITS ---
PROCEDURE INFORMATION: Exam: MG Bilateral Diagnostic Breast Tomosynthesis Exam date and time: 05/14/2025 1:55 PM Age: 74 years old Clinical indication: History of vulvar cancer. Region of FDG uptake in the left upper-outer quadrant noted on recent PET-CT. TECHNIQUE: Imaging protocol: Bilateral Diagnostic tomosynthesis and 2D mammography including computer-aided detection (CAD) when performed. Unilateral or bilateral exam. COMPARISON: 1. CT NM PET SKULL BASE TO MID THIGH 04/08/2025 1:30 PM 2. MG MM DIG SCREENING MAMM BI W/CAD 06/08/2024 10:08 AM 3. MG MM CLIP PLACEMENT LT 12/12/2023 11:28 AM FINDINGS: MAMMOGRAPHY: Breast composition: The breasts are heterogeneously dense, which may obscure small masses. Breast mammogram findings: Bilateral full field CC and MLO tomosynthesis views were obtained. Mass: No suspicious masses. Architectural distortion: Postbiopsy changes are noted in the left upper-outer quadrant at the site of increased FDG activity on recent PET-CT. Calcifications: No suspicious calcifications. Asymmetric density: None. Skin thickening: None. Axillary adenopathy: None. IMPRESSION: The region of increased FDG uptake noted on recent PET-CT corresponds to the site of recent biopsy. Recommend further evaluation with left breast ultrasound. ASSESSMENT: BI-RADS Category 0: Incomplete- Need Additional Imaging Evaluation.
--- OUTSIDE RECORDS SUMMARY | 2025-05-14 13:49 | XMS_ITS | Encounter Summary ---
[facility] Address [address] [place] [address] Care Team Providers Care Mechanical Repair Worker Name Role Phone Andres Marie MD Primary Care Provider [phone] [phone] Encounter Details Date Type Department Care Team (Latest Contact Info) Description 04/22/2025 Travel Social History Tobacco Use Types Packs/Day [...] or training? Not on file Preferred Language Palestinian 04/02/2025 PHQ-2 Answer Date Recorded Patient Health [...] Info) Description 06/25/2025 10:30 AM EST Appointment [facility] [place] [address] [facility] [address] [place] [address] 06/25/2025 11:30 AM EST Appointment [facility] [place] 3000 [facility] [address] [place] [address] 06/27/2025 11:30 AM EST Office Visit [facility] GYNECOLOGIC ONCOLOGY 1700 [facility] [address] [place] [address] Andres Allen MD 1700 [facility] [address] [place] [address] documented as of this encounter Visit Diagnoses Not on filedocumented in this encounter Care Teams Mechanical Repair Worker Relationship Specialty Start Date End Date Andres Marie MD 1210 [facility] [address] [place] [address] PCP - General Family Medicine 03/27/25 documented as of this encounter
--- OUTSIDE RECORDS SUMMARY | 2025-05-14 13:49 | XMS_ITS | Encounter Summary ---
[facility] [address] [place] [address] Care Team Providers Care Steam Hand Name Role Phone Andres Marie MD Primary Care Provider [phone] [phone] Encounter Details Date Type Department Care Team (Latest Contact Info) Description 05/09/2025 Travel Social History Tobacco Use Types Packs/Day [...] Info) Description 06/25/2025 10:30 AM EST Appointment [facility] [place] 3000 [facility] [address] [place] [address] 06/25/2025 11:30 AM EST Appointment [facility] [place] 3000 [facility] [address] [place] [address] 06/27/2025 11:30 AM EST Office Visit [facility] GYNECOLOGIC ONCOLOGY 1700 [facility] [address] [place] [address] Andres Allen MD 1700 [facility] [address] [place] [address] documented as of this encounter Visit Diagnoses Not on filedocumented in this encounter Care Teams Steam Hand Relationship Specialty Start Date End Date Andres Marie MD 1210 [facility] [address] [place] [address] PCP - General Family Medicine 03/27/25 documented as of this encounter
--- OUTSIDE RECORDS SUMMARY | 2025-05-14 13:50 | XMS_ITS | Encounter Summary ---
Author Organization Healthcare Address [address] [id number] Care Team Providers Care Bronzer Name Role Phone Andres Marie MD Primary Care Provider [phone]- [phone] Quintin Dahl Unavailable Yola Mora MD Unavailable [phone] Encounter Details Date Type Department Care Team (Latest Contact Info) Description 04/23/2025 Travel Social History Tobacco Use Types Packs/Day [...] as of this encounter Functional Status * Over the [...] Dimple Bowie documented as of this encounter Plan of Treatment Upcoming Encounters Date Type Department Care Team (Late st Contact Info) Description 07/26/2025 1:30 PM EST Office Visit [place] [facility] [address] [place] [address] Yola Mora MD [address] [place] [address] documented as of this encounter Visit Diagnoses Not on filedocumented in this encounter Additional Health Concerns Assessment Noted Time PHQ-9 Depression Total Score: 7 04/23/20 11:15 AM JONATAHN Jiménez fall risk assessment has been complete d for the patient 04/23/2025 11:15 AM EST A Body Mass Index follow-up plan has been documented for the patient 04/23/2025 12:52 PM EST documented as of this encounter Care Teams Bronzer Relationship Specialty Start Date End Date Andres Marie MD 1210 [facility] [address] [address] PCP - General 10/10/20 Quintin Dahl PA 1210 [facility] [address] [place], [place] [id number] Referring Physician Cardiology 08/23/22 Yola Mora MD [address] [facility] [address] [place] [address] Consulting Physician Neurology 04/23/25 documented as of this encounter
--- OUTSIDE RECORDS SUMMARY | 2025-05-14 13:51 | XMS_ITS | Encounter Summary ---
Author Organization [facility] Address [address] [place] [address] Care Team Providers Care Mobile Solutions Architect Name Role Phone Andres Marie MD Primary Care Provider [phone] [phone] Encounter Details Date Type Department Care Team [...] or training? Not on file Preferred Language Tanzanian 04/02/2025 PHQ-2 Answer Date Recorded Patient Health [...] Info) Description 06/25/2025 10:30 AM EST Appointment [facility] [place] 3000 [facility] [address] [place] [address] 06/25/2025 11:30 AM EST Appointment [facility] [place] 3000 [facility] [address] [place] [address] 06/27/2025 11:30 AM EST Office [facility] G[facility] ONCOLOGY 1700 [facility] [address] [place] [address] Andres Allen MD [address] [facility] [address] [place] [address] documented as of this encounter Visit Diagnoses Not on filedocumented in this encounter Care Teams Mobile Solutions Architect Relationship Specialty Start Date End Date Andres Marie MD 1210 [facility] [address] [place] [address] PCP - General Family Medicine 03/27/25 documented as of this encounter
--- OUTSIDE RECORDS SUMMARY | 2025-05-14 13:51 | XMS_ITS | Encounter Summary ---
[facility] Address [address] [place] [address] Care Team Providers Care Secured Entrance Monitor Name Role Phone Andres Marie MD Primary Care Provider [phone] Encounter Details Date Type Department Care Team (Late st Contact Info) Description 04/15/2025 Results Follow-Up [facility] OR [address] [place] [address] Ran Guzmán RN Social History Tobacco [...] or training? Not on file Preferred Language Micronesian 04/02/2025 PHQ-2 Answer Date Recorded Patient Health [...] Info) Description 06/25/2025 10:30 AM EST Appointment [facility] [address] [phone] 06/25/2025 11:30 AM EST Appointment [facility] 3000 [facility] [address] [place] [address] 06/27/2025 11:30 AM EST Office Visit [facility] GYNECOLOGIC ONCOLOGY [address] [place] [address] Andres Allen MD [address] [place] [address] documented as of this encounter Visit Diagnoses Not on filedocumented in this encounter Care Teams Secured Entrance Monitor Relationship Specialty Start Date End Date Andres Marie MD 1210 [facility] [address] [place] [address] PCP - General Family Medicine 03/27/25 documented as of this encounter
--- OUTSIDE RECORDS SUMMARY | 2025-05-14 13:51 | XMS_ITS | Encounter Summary ---
[facility] Address [address] [place] [address] Care Team Providers Care Shredding Machine Tender Name Role Phone Andres Marie MD Primary Care Provider [phone] [phone] Reason for Visit * Reason Onset Date Comments Vaughni:post op calls 04/10/2025 Encounter Details Date Type Department Care Team (Late st Contact Info) Description 04/10/2025 Telephone [facility] [address]00 [facility] [address] [place] [phone] Andres Allen MD 1700 [facility] [address] [place] [address] Viniciusaskdilcia:post op calls Social History Tobacco Use [...] or training? Not on file Preferred Language Ecuadorean 04/02/2025 PHQ-2 Answer Date Recorded Patient Health [...] Info) Description 06/25/2025 10:30 AM EST Appointment [facility] [place] 3000 [facility] [address] [place] [address] 06/25/2025 11:30 AM EST Appointment [facility] [place] 3000 [facility] [address] [place] [address] 06/27/2025 11:30 AM EST Office Visit [facility] G[facility] ONCOLOGY [address]00 [facility] [address] [place] [address] Andres Allen MD [address] [place] [address] documented as of this encounter Visit Diagnoses Not on filedocumented in this encounter Care Teams Shredding Machine Tender Relationship Specialty Start Date End Date Andres Marie MD 1210 [facility] [address] [facility] 2 [place] [address] PCP - General Family Medicine 03/27/25 documented as of this encounter
--- OUTSIDE RECORDS SUMMARY | 2025-05-14 13:51 | XMS_ITS | Encounter Summary ---
[facility] Address [address] [place] [address] Care Team Providers Care Suede Brusher Name Role Phone Andres Marie MD Primary Care Provider [phone] [phone] Encounter Details Date Type Department Care Team [...] or training? Not on file Preferred Language Bruneian 04/02/2025 PHQ-2 Answer Date Recorded Patient Health [...] Info) Description 06/25/2025 10:30 AM EST Appointment [facility] [place] [address] [facility] [address] [place] [address] 06/25/2025 11:30 AM EST Appointment [facility] [place] [address] [facility] [address] [place] [address] 06/27/2025 11:30 AM EST Office Visit [facility] GYNECOLOGIC ONCOLOGY [address] [place] [address] Andres Allen MD [address] [place] [address] documented as of this encounter Visit Diagnoses Not on filedocumented in this encounter Care Teams Suede Brusher Relationship Specialty Start Date End Date Andres Marie MD 1210 [facility] [address] [place] [address] PCP - General Family Medicine 03/27/25 documented as of this encounter
--- OUTSIDE RECORDS SUMMARY | 2025-05-14 13:51 | XMS_ITS | Encounter Summary ---
Author Organization [facility] Address [address] [place] [address] Care Team Providers Care Knuckler Name Role Phone Andres Marie MD Primary Care Provider +1 [phone] Encounter Details Date Type Department Care Team (Late st Contact Info) Description 04/08/2025 Telephone [facility] GYNECOLOGIC ONCOLOGY [address] [place] [address] Andres Allen MD 1700 [facility] [address] [place], [place] [id number] Social History Tobacco Use Types Packs/Day Years [...] or training? Not on file Preferred Language Finnish 04/02/2025 PHQ-2 Answer Date Recorded Patient Health [...] Info) Description 06/25/2025 10:30 AM EST Appointment [facility] [place] 3000 [facility] [address] [place] [address] 06/25/2025 11:30 AM EST Appointment [facility] [address] [facility] [address] [place] [address] 06/27/2025 11:30 AM EST Office Visit [facility] GYN[facility] ONCOLOGY 1700 [facility] [address] [place] [address] Andres Allen MD 1700 [facility] [address] [place] [id number] documented as of this encounter Visit Diagnoses Not on filedocumented in this encounter Care Teams Knuckler Relationship Specialty Start Date End Date Andres Marie MD 1210 [facility] [address] [place] [address] PCP - General Family Medicine 03/27/25 documented as of this encounter
--- OUTSIDE RECORDS SUMMARY | 2025-05-14 13:51 | XMS_ITS | Clinical Summary ---
Author Organization [facility] Address [address] [place] [address] Care Team Providers Care Sales Correspondence Clerk Name Role Phone Andres Marie MD Primary Care Provider [phone] Allergies Active Allergy Reactions Criticality Noted Date [...] Take 1 tablet by mouth Daily. Active predniSONE (DELTASONE) 10 MG tablet Daily. Active Active Problems Problem Noted Date Diagnosed Date Primary vulvar cancer 04/01/2025 Vulvar cancer 03/28/2025 Cancer Staging:Clinical stage from 03/28/2025:FIGO Stage II(cT2, cN0, cM0) - Signed by Vinayak Delgado MD on 03/28/2025 Encounters Date Type Department Care Team Description 05/09/2025 11:30 AM EST Office Visit [facility] GYNECOLOGIC ONCOLOGY [address] [place] [address] Andres Allen MD Primary vulvar cancer (Primary Dx); Anxiety associated with cancer diagnosis 05/09/2025 Travel 04/22/2025 2:00 PM EST Office Visit [facility] GYNECOLOGIC ONCOLOGY [address] [place] [address] Andres Allen MD Primary vulvar cancer (Primary Dx); Complex sclerosing lesion of left breast 04/22/2025 Travel 04/15/2025 Results Follow-Up [facility] OR [address] [place] [address] Ran Guzmán RN 04/10/2025 Telephone [facility] HEMATOLOGY & ONCOLOGY [address] [address] Andres Allen MD [place]:post op calls 04/09/2025 11:23 AM EST Anesthesia Event [facility] OR [address] [place] [address] Connor iNck Jr., MD Addis, Dylan, MD 04/09/2025 11:10 AM EST - 04/09/2025 1:20 PM EST Surgery [facility] OR [address] [place] [address] Andres Allen MD Injection of ICG for sentinel node detection, modified radical vulvectomy 04/09/2025 9:34 AM EST - 04/10/2025 12:59 PM EST Hospital Encounter [facility] 5B [address] [place] [address] Andres Allen MD Vulvar cancer Discharge Disposition: Home or Self Care 04/08/2025 12:44 PM EST - 04/08/2025 11:59 PM EST Hospital Encounter [facility] [address] [facility] [address] [place] [address] Discharge Disposition: Home or Self Care 04/08/2025 12:44 PM EST - 04/08/2025 11:59 PM EST Hospital Encounter [facility] [place] [address] [facility] [address] [place] [address] Vulvar cancer Discharge Disposition: Home or Self Care 04/08/2025 Travel 04/08/2025 Telephone [facility] [address] [facility] [address] [place] [address] Andres Allen MD 04/04/2025 Telephone [facility]OLOG[facility]COL[facility]Y [address] [facility] [address] [place] [address] [place] - CLINICAL 04/04/2025 Patient rounding ([facility] only) [facility]COL[facility]Y [address] [facility] [address] [place] [address] Keturah Mendes 04/02/2025 9:30 AM EST Pre-Admission Testing [facility] PREAD[facility]ION T [address] [place] [address] Laboratory test (Primary Dx); Vulvar cancer 04/02/2025 9:19 AM EST - 04/02/2025 11:59 PM EST Hospital Encounter [facility] XRAY [address] [place] [address] Discharge Disposition: Home or Self Care 04/02/2025 6:45 AM EST - 04/02/2025 11:59 PM EST Hospital Encounter [facility] MRI [address] [place] [address] Vulvar cancer Discharge Disposition: Home or Self Care 04/01/2025 10:45 AM EST Office Visit [facility] ONCOL[facility]Y [address] [facility] [address] [place] [address] Andres Allen MD Vulvar cancer (Primary Dx) 04/01/2025 Travel 03/28/2025 3:00 PM EDT Office Visit [facility] [place] [id number] Vinayak Delgado MD Vulvar cancer (Primary Dx) [...] or training? Not on file Preferred Language Hungarian 04/02/2025 PHQ-2 Answer Date Recorded Patient Health [...] Mass Index 22.72 05/09/2025 10:57 AM EST Plan of Treatment Upcoming Encounters Date Type Department Care Team (Late st Contact Info) Description 06/25/2025 10:30 AM EST Appointment [facility] [place] [address] [facility] [address] [place] [address] 06/25/2025 11:30 AM EST Appointment [facility] [address] [facility] [address] [place] [address] 06/27/2025 11:30 AM EST Office Visit [facility] GYN[facility] ONCOLOGY [address] [place] [phone] Andres Allen MD [address] [facility] [address] [place] [phone] Health Maintenance Due Date Last Done Comments DXA SCAN 1950 Pneumococcal Vaccine 50+ (1 of 2 - PCV) 1971 TDAP/TD VACCINES (1 - Tdap) 1971 MAMMOGRAM 1992 COLON CANCER SCREENING 5 YEA R SIGMOIDOSCOPY [address] COLONOGRAPHY 1997 FECAL OCCULT BLOOD TEST 1997 FIT Testing (1 year) 1997 ZOSTER VACCINE (1 of 2) 2002 COVID-19 Vaccine (3 - Modern a risk series) 07/01/2021 06/03/2021, 09/24/2020, 08/27/2020 ANNUAL WELLNESS VISIT 03/28/2025 HEPATITIS C SCREENING 03/28/2025 COLOGUARD 11/28/2026 11/29/2023, 11/24/2020 COLONOSCOPY 03/28/2035 03/28/2025, 11/27, 12/14/2024 COLORECTAL CANCER [...] 10*3/mm3 04/10/2025 4:49 AM EST [facility] RBC 3.97 3.77 - 5.28 10*6/mm3 04/10/2025 4:49 AM EST [facility] Hemoglobin 10.9(L) 12.0 - 15.9 g/dL 04/10/2025 4:49 AM EST [facility] Hematocrit 33.8(L) 34.0 - 46.6 % 04/10/2025 4:49 AM EST [facility] MCV 85.1 79.0 - 97.0 fL 04/10/2025 4:49 AM EST [facility] MCH 27.5 26.6 - 33.0 pg 04/10/2025 4:49 AM [facility] MCHC 32.2 31.5 - 35.7 g/dL 04/10/2025 4:49 AM [facility] RDW 13.2 12.3 - 15.4 % 04/10/2025 4:49 AM [facility] RDW-SD 41.1 37.0 - 54.0 fl 04/10/2025 4:49 AM [facility] MPV 10.5 6.0 - 12.0 fL 04/10/2025 4:49 AM [facility] Platelets 252 140 - 450 10*3/mm3 04/10/2025 4:49 AM [facility] Neutrophil % 89.7(H) 42.7 - 76.0 % 04/10/2025 4:49 AM [facility] Lymphocyte % 6.1(L) 19.6 - 45.3 % 04/10/2025 4:49 AM [facility] Monocyte % 3.5(L) 5.0 - 12.0 % 04/10/2025 4:49 AM [facility] Eosinophil % 0.0(L) 0.3 - 6.2 % 04/10/2025 4:49 AM [facility] Basophil % 0.2 0.0 - 1.5 % 04/10/2025 4:49 AM [facility] Immature Grans % 0.5 0.0 - 0.5 % 04/10/2025 4:49 AM [facility] Neutrophils, Absolute 12.31(H) 1.70 - 7.00 10*3/mm3 04/10/2025 4:49 AM [facility] Lymphocytes, Absolute 0.84 0.70 - 3.10 10*3/mm3 04/10/2025 4:49 AM [facility] Monocytes, Absolute 0.48 0.10 - 0.90 10*3/mm3 04/10/2025 4:49 AM [facility] Eosinophils, Absolute 0.00 0.00 - 0.40 10*3/mm3 04/10/2025 4:49 AM EST [facility] Basophils, Absolute 0.03 0.00 - 0.20 10*3/mm3 04/10/2025 4:49 AM EST [facility] Immature Grans, Absolute 0.07(H) 0.00 - 0.05 10*3/mm3 04/10/2025 4:49 AM EST [facility] nRBC 0.0 0.0 - 0.2 /100 WBC 04/10/2025 4:49 AM EST [facility] Blood Venipuncture / Unknown 04/10/2025 3:31 AM EST 04/10/2025 4:41 AM EST us Andres Allen MD LAB BLOOD ORDERABLES Final Res ult [facility]
[address] [place] [address], * (ABNORMAL) Basic Metabolic Panel (04/10/2025 3:31 AM EST) Glucose 121(H) 65 - 99 mg/dL 04/10/2025 5:39 AM [facility] BUN 12.9 8.0 - 23.0 mg/dL 04/10/2025 5:39 AM EST [facility] Creatinine 0.82 0.57 - 1.00 mg/dL 04/10/2025 5:39 AM EST [facility] Sodium 139 136 - 145 mmol/L 04/10/2025 5:39 AM EST [facility] Potassium 5.6(H) 3.5 - 5.2 mmol/L 04/10/2025 5:39 AM [facility] Comment:Specimen hemolyzed. Result may be falsely elevated. Chloride 108(H) 98 - 107 mmol/L 04/10/2025 5:39 AM EST [facility] CO2 23.4 22.0 - 29.0 mmol/L 04/10/2025 5:39 AM EST [facility] Calcium 9.6 8.6 - 10.5 mg/dL 04/10/2025 5:39 AM EST [facility] BUN/Creatinine Ratio 15.7 7.0 - 25.0 04/10/2025 5:39 AM EST [facility] Anion Gap 7.6 5.0 - 15.0 mmol/L 04/10/2025 5:39 AM EST [facility] eGFR 76.1 >60.0 mL/min/1.7 3 04/10/2025 5:39 AM EST [facility] Blood Venipuncture / Unknown 04/10/2025 3:31 AM EST 04/10/2025 4:39 AM EST [facility] - 04/10/2025 5:39 AM EST [...] BLOOD ORDERABLES Final Res ult [facility]
[address] [place] [address], * Tissue Pathology Exam (04/09/2025 11:59 AM EST) Case Report Surgical Pathology Report Case: [id number] Authorizing Provider: Andres Allen MD Collected: 04/09/2025 11:59 AM Ordering Location: [facility] Received: 04/09/2025 01:50 PM OR Pathologist: Conrad Grullon MD Specimens: 1) - Groin, right, RIGHT INGUINAL SENTINEL NODE 2) - Groin, left, LEFT INGUINAL SENTINEL NODE 3) - Perineum, Perineum, Stitch Tags Vaginal Margin 04/12/2025 12:49 PM [facility] Clinical Information Vulvar cancer 04/12/2025 12:49 PM [facility] Final Diagnosis 1. LYMPH NODE, [...] synoptic for additional details. 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 04/12/2025 12:49 PM [facility] Gross Description 1. Groin, right. [...] entirely as follows: 2A-one node 2B-one node 3P-4X-mvxaebx node. 3. Perineum. Received in formalin labeled [...] 9-12 o'clock-red. Sectioning reveals indurated underlying tissue. Paper Handler sections are submitted as follows: 3A-mass with nearest perpendicular 12:00 margin 3B-mass with nearest perpendicular 6:00 margin 3C-mass with nearest perpendicular 3:00 margin 3D-mass with nearest perpendicular 9:00 margin 3E-3H-mass with perpendicular deep margin. LDP 04/12/2025 12:49 PM EST [facility] Microscopic Description The slides are reviewed and demonstrate histopathologic features supporting the above rendered diagnosis. 04/12/2025 12:49 PM EST [facility] Tissue Right inguinal region structure / Unknown 04/09/2025 11:59 AM EST 04/09/2025 1:50 PM EST Tissue specimen (specimen) Left inguinal region structure / Unknown 04/09/2025 12:11 PM EST 04/09/2025 1:50 PM EST Tissue specimen (specimen) Perineal structure / Unknown 04/09/2025 1:18 PM EST 04/09/2025 1:50 PM EST Andres Allen MD PATHOLOGY/CYTOLOGY ORDERABLES Final Result [facility]
[address] [place] [address], * BH AN ETT AIRWAY (04/09/2025 11:41 [...] O 04/09/2025 11:39 AM EST [facility] RH type Positive 04/09/2025 11:39 AM EST [facility] Antibody Screen Negative 04/09/2025 11:39 AM EST [facility] T&S Expiration Date 04/12/2025 11:59:59 PM 04/09/2025 11:39 AM EST [facility] Blood 04/09/2025 10:1 2 AM EST 04/09/2025 10:26 AM EST Andres Allen MD BLOOD BANK TEST ORDERABLES Manoj seferino Result - Final [facility]
[address] [place] [address], * NM PET/CT Skull Base to Mid [...] MD 04/10/2025 1:57 PM EST Workstation ID: [id number] Sonia 04/10/2025 1:57 PM EST FDG NM PET/CT [...] MD 04/10/2025 1:57 PM EST Workstation ID: [id number] Vinayak Delgado MD [facility] NM ORDERABLES Fi nal Result * POC Glucose Once (04/08/2025 1:06 PM EST) Glucose 99 70 - 130 mg/dL 04/08/2025 2:08 PM EST [facility] Comment:Serial Number: [id number] Blood 04/08/2025 1:06 PM EST 04/08/2025 2:08 PM EST Vinayak Delgado MD POINT OF CARE TEST O RDERABLES Final Result [facility]
[address] [place] [address], * XR Chest 1 View (04/02/2025 9:37 AM EST) Anatomical Region Laterality Modality Body N/A Radiographic Lisa ging 04/02/2025 9:42 AM EST Impressions 04/02/2025 9:43 AM EST Impression: No acute findings. Electronically Signed: Steven Lewis MD 04/02/2025 9:43 AM EST Workstation ID: [id number] Narrative 04/02/2025 9:43 AM EST XR CHEST [...] MD 04/02/2025 9:43 AM EST Workstation ID: [id number] Andres Allen MD IMG DIAGNOSTIC IMAGING ORDERAB [...] ECG ORDERABLES Final Result Performing Organization Address City/[facility]/ZIP Co de Phone Number ECG * ABORH 2ND SPECIMEN VERIFICATION (04/02/2025 8:44 AM EST) ABO Type O 04/02/2025 10:35 PM EST [facility] RH type Positive 04/02/2025 10:35 PM EST [facility] Blood Venipuncture / Unknown 04/02/2025 8:44 AM EST 04/02/2025 9:19 AM EST Andres Allen MD BLOOD BANK TEST ORDERABLES Fin al Result Performing Organization Address City/State/[facility] Co de Phone Number [facility]
[address] [place] [address], * (ABNORMAL) Hemoglobin A1c (04/02/2025 8:25 AM EST) Hemoglobin A1C 5.94(H) 4.80 - 5.60 % 04/02/2025 11:17 AM EST [facility] Blood Venipuncture / Unknown 04/02/2025 8:25 AM EST 04/02/2025 9:02 AM EST Narrative [facility] - 04/02/2025 11:17 AM EST Hemoglobin A1C Ranges: Increased Risk for Diabetes 5.7% to 6.4% Diabetes >= 6.5% Diabetic Goal < 7.0% us Andres Allen MD LAB BLOOD ORDERABLES Final Res ult [facility]
[address] [place] [address], * (ABNORMAL) Comprehensive Metabolic Panel (04/02/2025 8:24 AM EST) Glucose 96 65 - 99 mg/dL 04/02/2025 10:57 AM EST [facility] BUN 11.0 8.0 - 23.0 mg/dL 04/02/2025 10:57 AM EST [facility] Creatinine 0.88 0.57 - 1.00 mg/dL 04/02/2025 10:57 AM EST [facility] Sodium 141 136 - 145 mmol/L 04/02/2025 10:57 AM EST [facility] Potassium 5.1 3.5 - 5.2 mmol/L 04/02/2025 10:57 AM EST [facility] Comment:Specimen hemolyzed. Result may be falsely elevated. Chloride 106 98 - 107 mmol/L 04/02/2025 10:57 AM EST [facility] CO2 25.5 22.0 - 29.0 mmol/L 04/02/2025 10:57 AM [facility] Calcium 10.8(H) 8.6 - 10.5 mg/dL 04/02/2025 10:57 AM EST [facility] Total Protein 7.2 6.0 - 8.5 g/dL 04/02/2025 10:57 AM EST [facility] Albumin 4.4 3.5 - 5.2 g/dL 04/02/2025 10:57 AM EST [facility] ALT (SGPT) 19 1 - 33 U/L 04/02/2025 10:57 AM EST [facility] AST (SGOT) 30 1 - 32 U/L 04/02/2025 10:57 AM [facility] Alkaline Phosphatase 139(H) 39 - 117 U/L 04/02/2025 10:57 AM [facility] Total Bilirubin 0.6 0.0 - 1.2 mg/dL 04/02/2025 10:57 AM [facility] Globulin 2.8 gm/dL 04/02/2025 10:57 AM [facility] Comment:Calculated Result A/G Ratio 1.6 g/dL 04/02/2025 10:57 AM [facility] BUN/Creatinine Ratio 12.5 7.0 - 25.0 04/02/2025 10:57 AM [facility] Anion Gap 9.5 5.0 - 15.0 mmol/L 04/02/2025 10:57 AM [facility] eGFR 69.9 >60.0 mL/min/1.7 3 04/02/2025 10:57 AM [facility] Blood Venipuncture / Unknown 04/02/2025 8:24 AM EST 04/02/2025 9:02 AM EST [facility] - 04/02/2025 10:57 AM EST [...] BLOOD ORDERABLES Final Res ult [facility]
[address] [place] [address], * MRI Pelvis With & Without Contrast [...] MD 04/02/2025 5:02 PM EST Workstation ID: [id number] Narrative 04/02/2025 5:02 PM EST MRI PELVIS [...] No suspicious adnexal mass. There is a [id number] 9 mm right ovarian cyst considered almost [...] MD 04/02/2025 5:02 PM EST Workstation ID: [id number] Result [facility] Andres Allen MD IMG MRI ORDERABLES Final Resul t * ECG Scan (04/02/2025) Result [facility] ECG ORDERABLES Final Result * Colonoscopy, Scan (03/28/2025) Result [facility] BH CHART REVIEW TABS Final Re sult * SCANNED PATHOLOGY (03/28/2025) Only the most recent of2 resultswithin the time period is included. Result [facility] PATHOLOGY/CYTOLOGY ORDERABLES Final Result * IMAGING SCANNED (03/28/2025) Only the most recent of5 resultswithin the time period is included. Anatomical Region Laterality Modality Radiographic Lisa ging [facility] ORDERA BLES Final Result * LABS SCANNED (03/28/2025) Only the most recent of2 resultswithin the time period is included. Result [facility] LAB BLOOD ORDERABLES Final Re sult * CT Outside Chest (03/14/2025 12:05 AM EDT) Narrative SYSTEMGENERATED, DOCUMENTATION - 03/27/2025 3:36 PM EDT This procedure was auto-finalized with no dictation required. Result [facility] Vinayak Delgado MD IMG CT ORDERABLES Fi nal Result * CT Outside Abd/Pelvis (03/14/2025 12:00 AM EDT) Narrative SYSTEMGENERATED, DOCUMENTATION - 03/27/2025 3:36 PM EDT This procedure was auto-finalized with no dictation required. Vinayak Delgado MD IM CT ORDERABLES Fi nal Result from Last 3 Months Insurance [facility] MEDICARE ADVANTAGE PPO Advance Directives * CPR (Attempt to Resuscitate) (Latest Code Status on File) Date Activated Date Inactivated Comments 04/09/2025 3:29 PM 04/10/2025 3:09 PM Question Answer Comments Code Status (Patient has no pulse and is not breathing): CPR (Attempt to Resuscitate) Medical Interventions (Patie nt has pulse or is breathing): Full Support Care Teams Sales Correspondence Clerk Relationship Specialty Start Date End Date Andres Marie MD [address] [facility] [address] [place] [address] PCP - General Family Medicine 03/27/25
--- OUTSIDE RECORDS SUMMARY | 2025-05-14 13:52 | XMS_ITS | Clinical Summary ---
Author Organization [facility] Address [address] [place] [address] Care Team Providers Care Human Factors Specialist Name Role Phone Andres Marie MD Primary Care Provider [phone] Quintin Dahl Unavailable Yola Mora MD Unavailable [phone] Allergies Active Allergy Reactions Criticality Noted Date [...] times a day. 60 tablet 3 Active Additional Information Patient not taking.Reported on 04/23/2025 amLODIPine (Norvasc) 5 MG tablet Take 1 tablet by mouth daily. Active aspirin 81 MG EC tablet Take 1 tablet by mouth daily. Active irbesartan (Avapro) 300 MG tablet Take 1 tablet by mouth daily. Active pyridostigmine (Mestinon) 60 MG tablet Take 1 tablet by mouth 1 time per week. Active metoprolol succinate XL (Toprol-XL) 50 MG 24 hr tablet Take 1 tablet by mouth daily. Active risedronate (Actonel) 35 MG tablet Take 1 tablet by mouth once a week. Active spironolactone (Aldactone) 25 MG tablet Take 1 tablet by mouth daily. Active cyanocobalamin 1000 MCG tablet Take 1 tablet by mouth daily. Active predniSONE (Deltasone) 10 MG tabletIndicatio ns:Myasthenia gravis Take 1 tablet by mouth daily. 30 tablet 3 5 08/22/19 26 Active Active Problems Problem Noted Date Diagnosed [...] - Bowel regimen BMI 21.0-21.9, adult 09/01/2022 023 Severe aortic insufficiency 08/23/2022 09/27/2022 Overview (09/22/2022): Severe AI noted on preop MYKE Now s/p AVR on 09/22 Encounters Date Type Department Care Team Description 04/23/2025 11:00 AM EST Consult [place] [facility] [address] [place] [address] Yola Mora MD Myasthenia gravis (Primary Dx) 04/23/2025 Travel 04/04/2025 Community [facility] [address] [place] [address] Mamie Thao MD MG (myasthenia gravis) (Primary [...] Pulse 56 04/23/2025 11:15 AM EST Temperature 36.6 C (97.9 F) 09/27/2022 11:35 AM EDT Respiratory Rate 18 09/27/2022 11:35 AM EDT Oxygen Saturation 96% 04/23/2025 11:15 AM EST Inhaled Oxygen Concentration - - Weight 63.5 kg (140 lb) 04/23/2025 11:15 AM EST Height 167.6 cm (5' 6 ) 08/26/2022 10:54 AM EDT Body Mass Index 22.6 08/26/2022 10:54 AM EDT Plan of Treatment Upcoming Encounters Date Type Department Care Team (Late st Contact Info) Description 07/26/2025 1:30 PM EST Office Visit [place] [facility] [address] [place] [address] Yola Mora MD [address] [place] [address] Health Maintenance Due Date Last Done Comments [facility]-Bone Density Scan 1950 [facility]-Hepatitis C Screening 1950 [facility]-Medicare Annual Wellness (AWV) 1950 [facility]-/Child/Adol SDOH Screenings 1950 [facility]- SDOH Screenings 1970 [facility]-Adult SDOH Screenings 1970 [facility]-DTaP,Tdap,and Td Vaccines (1 - Tdap) 1971 CT Colonography 1997 Colonoscopy 1997 FIT 1997 FOBT 1997 Sigmoidoscopy 1997 [facility]-Breast Cancer Screening 2002 [facility]-RSV Vaccine: 60+ Years or (1 - Risk 50-74 years 1-dose series) 2002 [id number] Vaccine ( season) 2025 06/03/2021, 09/24/2020, 08/27/2020 [facility]-Diabetes: Hemoglobin A1C 04/02/2026 04/02/2025, 08/26/2022 [facility]-Depression Screening 04/23/2026 04/23/2025, 03/31 FIT-DNA 11/28/2026 11/29/2023, 11/24/2020 [facility]-Colorectal Cancer Screening 11/28/2026 [facility]-Zoster Vaccines Completed 06/10/2020, [facility]-Pneumococcal Vaccine: 50+ Years Completed 06/08/2024, 03/21/2020 [facility]-Influenza Vaccine Completed 04/10/2025 , 03/21/2020, 04/12/2019, Additional history exists HPV Vaccines (No Doses Required) Completed [facility]-HIB Vaccines Aged Out No longer e [...] this topic Medical Devices Implanted Type Area Lab Nurse Device Identifier Shelf Expiration Date Model / Serial / Lot Valve Aortic Epic Plus Supra Porcine 21mm - [id number] - [id number] Implanted:Qty: 1 on 09/22/2022 by Garth Fish MD at [facility] [id number] 01/14/2025 [id number] / [id number] / [id number] Description:2 rinses, 10 sec onds each. Procedures Procedure Name Priority Date/Time Associated Diagnosis Comments HEMOGLOBIN A1C Routine 08/26/2022 1:10 PM EDT Severe aortic insufficiency from Last 3 Months or Most Recently Relevant to Health Maintenance Insurance [employer] MEDICARE Advance Directives * Full Code (Latest Code Status on File) Date Activated Date Inactivated Comments 09/22/2022 2:41 PM 09/27/2022 3:02 PM Question Answer Comments Patient has decision-making capacity? Yes Care Teams Human Factors Specialist Relationship Specialty Start Date End Date Andres Marie MD [address] [place] [facility] [address] [address] PCP - General 10/10/20 Quintin Dahl PA [address] [place] [address] Referring Physician Cardiology 08/23/22 Yola Mora MD [address] [facility] [address] [place] [address] Consulting Physician Neurology 04/23/25
--- OUTSIDE RECORDS SUMMARY | 2025-05-14 13:52 | XMS_ITS | Encounter Summary ---
Author Organization Healthcare Address [address] [place] [address] Care Team Providers Care Watermaster Name Role Phone Andres Marie MD Primary Care Provider [phone] Quintin Dahl Unavailable Yola Mora MD Unavailable [phone] Encounter Details Date Type Department Care Team (Late st Contact Info) Description 08/11/2022 Orders Only External Location [address] [place] [address] Provider, External Social History Tobacco Use Types [...] Visit [place] [facility] [address], [address] [place] [address] Yola Mora MD [address] [place] [address] documented as of this encounter Procedures Procedure [...] on filedocumented in this encounter Care Teams Watermaster Relationship Specialty Start Date End Date Andres Marie MD 1210 [facility] [address] [address] PCP - General 10/10/20 Quintin Dahl PA [address] [facility] [address] [place], [place] [id number] Referring Physician Cardiology 08/23/22 Yola Mora MD [address] [facility] [address] [place] [address] Consulting Physician Neurology 04/23/25 documented as of this encounter
--- OUTSIDE RECORDS SUMMARY | 2025-05-14 13:52 | XMS_ITS | Encounter Summary ---
Author Organization [facility] Address [address] [place] [address] Care Team Providers Care Group Director Name Role Phone Andres Marie MD Primary Care Provider [phone] Quintin Dahl Unavailable Yola Mora MD Unavailable [phone] Reason for Referral * Consultation (Routine) - Closed Specialty Diagnoses / Procedures Referred By Contac t Referred To Contact Neurology Diagnoses MG (myasthenia gravis) Mamie Thao MD [address] [place] [address] [place] [address] Phone: tel: fax: Referral ID Status Reason Start Date Expiration Date V isits Requested Visits Authorized [id number] Closed Specialty Services Required 04/04/2025 10/04/2026 1 1 Encounter Details Date Type Department Care Team ([facility] Contact Info) Description 04/04/2025 [facility] [address] [place] [address] Mamie Thao MD [address] [place] [address] [place] [address] MG (myasthenia gravis) (Primary Dx) Social [...] Description 07/26/2025 1:30 PM EST Office Visit [place] [facility] [address], [address] [place] [address] Yola Mora MD [address] [address] Scheduled Referrals Name Type Priority Associated Diagnoses Order Schedule Ambulatory referral to Neurology Outpatient Referral Routine MG (myasthenia gravis) (CMS/[facility]) Expected: 04/04/2025 (Approximate), Expires: 10/02/2026 documented as of this encounter Visit Diagnoses Diagnosis MG (myasthenia gravis)- Primary Myasthenia gravis without exacerbation documented in this encounter Additional Health Concerns Assessment Noted Time A fall risk assessment has been complete d for the patient 10/14/2022 2:23 PM EDT documented as of this encounter Care Teams Group Director Relationship Specialty Start Date End Date Andres Marie MD 1210 [facility] [address] [address] PCP - General 10/10/20 Quintin Dahl PA 1210 [facility] 36 [place] [address] Referring Physician Cardiology 08/23/22 Yola Mora MD [address] [facility] [place] [address] Consulting Physician Neurology 04/23/25 documented as of this encounter
--- OUTSIDE RECORDS SUMMARY | 2025-05-14 13:52 | XMS_ITS | Encounter Summary ---
[facility] Address [address] [place] [address] Care Team Providers Care Ocean Biologist Name Role Phone Andres Marie MD Primary Care Provider [phone] Reason for Visit * Reason Onset Date Comments DR ZIMMER - CLINICAL 04/04/2025 Encounter Details Date Type Department Care Team (Late st Contact Info) Description 04/04/2025 Telephone [facility] GYNECOLOGIC ONCOLOGY [address] [facility] [address] [place] [address] Andres Zimmer MD 1700 [facility] [address] [place] [address] DR ZIMMER - CLINICAL Social History Tobacco [...] or training? Not on file Preferred Language Mauritanian 04/02/2025 PHQ-2 Answer Date Recorded Patient Health [...] chart. 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 PLEASE ADVISE documented in this encounter Plan of Treatment Upcoming Encounters Date Type Department Care Team (Late st Contact Info) Description 06/25/2025 10:30 AM EST Appointment [facility] [place] [address] [facility] [address] [place] [address] 06/25/2025 11:30 AM EST Appointment [facility] [place] [address] [facility] [address] [place] [address] 06/27/2025 11:30 AM EST Office Visit [facility] GYNECOLOGIC ONCOLOGY [address] [facility] [address] [place] [address] Andres Zimmer MD 1700 [facility] [address] [place] [address] documented as of this encounter Visit Diagnoses Not on filedocumented in this encounter Care Teams Ocean Biologist Relationship Specialty Start Date End Date Andres Marie MD 1210 [facility] [address] [facility] 2 [place] [address] PCP - General Family Medicine 03/27/25 documented as of this encounter
--- OUTSIDE RECORDS SUMMARY | 2025-05-14 13:52 | XMS_ITS | Encounter Summary ---
[facility] [address] [place] [id number] Care Team Providers Care Content Producer Name Role Phone Andres Marie MD Primary Care Provider [phone] Encounter Details Date Type Department Care Team [...] Info) Description 06/25/2025 10:30 AM EST Appointment [facility] [place] [address] [facility] [address] [place] [address] 06/25/2025 11:30 AM EST Appointment [facility] [place] [address] [facility] [address] [place] [address] 06/27/2025 11:30 AM EST Office Visit [facility]ICAL [facility] GYNECOLOGIC ONCOLOGY [address] [facility] [address] [place] [address] Andres Allen MD [address] [place] [address] documented as of this encounter Visit Diagnoses Not on filedocumented in this encounter Care Teams Content Producer Relationship Specialty Start Date End Date Andres Marie MD 1210 [facility] [address] [facility] [address] [place] [address] PCP - General Family Medicine 03/27/25 documented as of this encounter
--- OUTSIDE RECORDS SUMMARY | 2025-05-14 13:52 | XMS_ITS | Encounter Summary ---
[facility] Address [address] [place] [address] Care Team Providers Care Driveway Sealer Name Role Phone Andres Marie MD Primary Care Provider [phone] Encounter Details Date Type Department Care Team (Late st Contact Info) Description 04/04/2025 Patient rounding ([facility]) [facility] GYNECOLOGIC ONCOLOGY [address] [facility] [address] [place] [address] Keturah Mendes Social History Tobacco Use Types [...] or training? Not on file Preferred Language Cape Verdean 04/02/2025 PHQ-2 Answer Date Recorded Patient Health Questionnaire-2 Score 1 03/28/2025 Comments Unknown Sex and Gender Information Value Date Recorded Sex Assigned at Not on file Legal Sex Female 11:49 AM EDT Gender Identity Not on file Sexual Orientation Not on file documented as of this encounter Progress Notes * Keturah Mendes - 04/04/2025 8:23 AM EST A PathJump message has been sent to the patient for PATIENT ROUNDING with [facility]. documented in this encounter Plan of Treatment Upcoming Encounters Date Type Department Care Team (Late st Contact Info) Description 06/25/2025 10:30 AM EST Appointment [facility] [place] [address] [facility] [address] [place] [address] 06/25/2025 11:30 AM EST Appointment [facility] [place] [address] [facility] [address] [place] [address] 06/27/2025 11:30 AM EST Office Visit [facility] MEDICAL [facility] GYNECOLOGIC ONCOLOGY [address] [facility] [address] [place] [address] Andres Allen MD 1700 [facility] [address] [place] [address] documented as of this encounter Visit Diagnoses Not on filedocumented in this encounter Care Teams Driveway Sealer Relationship Specialty Start Date End Date Andres Marie MD 1210 [facility] [address] [place] [address] PCP - General Family Medicine 03/27/25 documented as of this encounter
--- OUTSIDE RECORDS SUMMARY | 2025-05-14 13:53 | XMS_ITS | Patient Health Record ---
Author [facility] Address [address] [place] [id number] Care Team Providers Care Blow Pit Helper Name Role Phone [place] Marie Primary Care Provider [phone] Kee Gaspar Unavailable [phone] Maggie Ramos Unavailable [phone] Melodie Ponce Unavailable [phone] Allergies Allergen (clinical drug ingredient) Drug/Non Drug [...] 10.7 Performing Lab: Notes/Report: Test performed by [facility], [facility] [address] [place] [address] , [address], [place] [address] Kenneth Mcrae MD, Senior Net Web Developer CLIA: [id number] Sodium 138 135-145 mmol/L Potassium 4.9 3.5-5.3 mmol/L Chloride 104 97-108 mmol/L CO2 24 22-32 mmol/L Glucose 91 65-99 mg/dL BUN 16 8-23 mg/dL Creatinine 0.92 0.50-1.00 mg/dL Calcium 10.7 8.6-10.4 mg/dL eGFR by Creatinine 66 >59 mL/min/1.73m2 P-CPK Reviewed date:08/22/2024 05:54:01 PM Interpretation:247 Performing Lab: Notes/Report: Test performed by [facility] , [address], [place] [address] Kenneth Mcrae MD, Senior Net Web Developer CLIA: [id number] Creatine Kinase 247 20-180 U/L Q-A-Svtkxciy Protein (CRP) Reviewed date:08/22/2024 05:54:01 PM Interpretation:0.81 Performing Lab: Notes/Report: Test performed by [facility] , [address], [place] [address] Kenneth Mcrae MD, Senior Net Web Developer CLIA: [id number] C-Reactive Protein (CRP) 0.81 <0.50 mg/dL P-Sed Rate (ESR) Reviewed date:08/22/2024 05:54:01 PM Interpretation:Normal Performing Lab: Notes/Report: [facility] , [facility] [address], [place] [address] Kenneth Mcrae MD, Senior Net Web Developer CLIA: [id number] Erythrocyte Sedimentation Rate (ESR), Automated 7 <31 mm/hr P-Magnesium Reviewed date:08/22/2024 05:54:01 PM Interpretation:Normal Performing Lab: Notes/Report: Test performed by [facility] , [address], [place] [address] Kenneth Mcrae MD, Senior Net Web Developer CLIA: [id number] Magnesium 2.2 1.6-2.4 mg/dL P-Phosphorus Reviewed date:08/22/2024 05:54:01 PM Interpretation:Normal Performing Lab: Notes/Report: [facility] , [address], [place] [address] Kenneth Mcrae MD, Senior Net Web Developer CLIA: [id number] Phosphorus 3.2 2.5-4.5 mg/dL CBC Fingerstick (in [...] Duration) Notes Start Date End Date Status amLODIPine Besylate 5 MG 1 tablet Orally Once a day; Duration: 90 days Active tiZANidine HCl 4 MG 1 tablet Orally 3 times a day As needed 01/17/2025 Not-Taking Metoprolol Succinate 50 MG 1 capsule Ora lly Once a day Active Spironolactone 25 MG 1 tablet Orally Active Levothyroxine Sodium 50 MCG TAKE 1 TABLET EVERY OTHER DAY ALTERNATE WITH 1/2 TABLET EVERY OTHER DAY; Duration: 90 Active Albuterol Sulfate HFA 108 (90 Base) MCG/ACT 2 inhalations Inhalation four times a day as needed 11/24/2022 Active Aspirin 81 MG 1 tab(s) orally once a day; Duration: 30 day(s) Active pyRIDostigmine [place] 30 MG 1 tablet Orally Five times [...] Once a day; Duration: 90 days Active Immunizations Vaccine Route Administration Date Status Comme nts COVID 19 Moderna Unknown 08/27/2020 Administered COVID 19 Moderna Unknown 09/24/2020 Administered COVID 19 Moderna Unknown 06/03/2021 Administered Fluzone High Dose (65yr and older) IM Intramuscular 04/12/2019 Administered Fluzone High Dose (65yr and older) Unknown 03/21/2020 Administered Fluzone High Dose (65yr and older) IM Intramuscular 02/14/2023 Administered PNEUMOVAX 23 VACCINE Unknown 03/21/2020 Administered Shingrix Unknown 03/21/2020 Administered Shingrix Unknown 06/10/2020 Administered xFlu shot-36 months and older IM Intramuscular 04/29/2006 Administered Problems Problem Type SNOMED Code ICD Code Onset Dates Problem Status W/U Status Risk Notes Problem Hypothyroidism (09998547) Hypothyroidism (acquired) (E03.9) Active confirmed Problem Vitamin D deficiency (62288666) Vitamin D deficiency (E55.9) Active confirmed Problem Essential hypertension (87405391) Essential hypertension (I10) Active confirmed Problem Hypertriglyceridemia (770320418) Hypertriglyceridemia (E78.1) Active confirmed Problem Anxiety (62489785) Anxiety (F41.9) Active confi rmed Problem Osteopenia (513227302) Osteopenia (M85.80) Active confirmed Problem Mixed anxiety and depressive disorder (043673937) Depression with anxiety (F41.8) Active confirmed Problem Memory loss (99924369) Memory loss (R41.3) Active confirmed Problem Paroxysmal hemicrani a (860566824) Episodic paroxysmal hemicrania, 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) Active confirmed Problem Chronic pain (26550215) Other chronic pain (G89.29) Active confirmed Problem Thyroid nodule (693924575) Thyroid nodule (E04.1) Active confirmed Problem Chronic pain (60004415) Other chronic pain (G89.29) Active confirmed Problem Reactive depression (situational) (93092240) Situational depression (F43.21) Active confirmed Problem Mammography abnormal (684194481) Abnormal mammogram of left breast (R92.8) Active confirmed Problem New daily persistent headache (383010990539766) New daily persistent headache (G44.52) Active confirmed Problem Abnormal gait (61241254) Imbalance (R26.89) Active confirmed Problem History of heart valve repair with prosthesis (626607551450073) Status post aortic valve replacement (Z95.2) Active confirmed Problem Ultrasonography of breast abnormal (30925040894559951) Abnormal ultrasound of breast (R92.8) Active confirmed Problem Mixed hyperlipidemia (956816371) Elevated triglycerides with high cholesterol (E78.2) Active confirmed Problem Memory deficit (593925894) Memory deficit (R41.3) Active confirmed Problem Aortic valve sclerosis (87445091) Aortic valve sclerosis (I35.8) Active confirmed Problem Hypertensive urgency (282021759) Hypertensive urgency (I16.0) Active confirmed Problem Loss of balance (364311772) Loss of balance (R26.89) Active confirmed Problem Contracture of smith r fascia (755663705) Dupuytren's contracture of left hand (M72.0) Active confirmed Problem Age-related osteoporosis (022306709) Osteoporosis, unspecified osteoporosis type, unspecified pathological fracture presence (M81.0) Active confirmed Problem Disorder of kidney and/or ureter (469417804) Left renal mass (N28.89) Active confirmed Problem Disorder of skin pigmentation (05246023) Pigmented skin lesion suspicious for malignant neoplasm (L81.9) Active confirmed Problem Basal cell carcinoma of truncal skin (691689846) Basal cell carcinoma of skin of trunk (C44.519) Active confirmed Problem Vitreous floaters of both eyes (537053724876173) Vitreous floaters of both eyes (H43.393) Active confirmed Problem Myasthenia gravis without exacerbation (11305651460245) MG (myasthenia gravis) (G70.00) Active confirmed Vital Signs Heart Rate 58 /min 04/29/2025 Blood pressure diastolic 70 mm Hg 04/29/2025 Height 66.50 in 04/29/2025 Blood pressure systolic 110 mm Hg 04/29/2025 Weight 140.0 lbs 04/29/2025 BMI 22.26 kg/m2 04/29/2025 Encounters Encounter Location Date Provider Diagnosis [facility] [address] [facility] [address] [place] [id number] 08/21/2024 Kee Phillips Cramp in lower leg R25.2 ; Myalgia M79.10 and MG (myasthenia gravis) G70.00 [facility] [address] [place], [place] [id number] 11/26/2024 Maggie Ramos Acute upper respiratory infection 465.9 ; Rectal mass K62.89 ; Essential hypertension I10 ; Imbalance R26.89 and BMI 22.0-22.9, adult Z68.22 [facility] [address] [place], [place] [id number] 01/12/2025 Kee Phillips Muscle spasm of back M62.830 [facility] [address] [place], [place] [id number] 04/29/2025 [place] Marie Neoplasm of skin of face D49.2 and Neoplasm of arm D49.89 [facility] [address] [place], [place] [id number] 06/08/2024 [place] Marie [facility] [address] [place], [place] [id number] 08/22/2024 Kee Phillips [facility] [address] [place], [place] [id number] 09/17/2024 [place] Marie [facility] [address] [place], [place] [id number] 12/10/2024 [place] Marie Screening for osteoporosis Z13.820 [facility] [address] [place], [place] [id number] 01/07/2025 [place] Marie [facility] [address] [place], [place] [id number] 01/14/2025 Kee Phillips [facility] [address] [place], [place] [id number] 01/16/2025 Kee Phillips Muscle spasm of back M62.830 [facility] [address] [place], [place] [id number] 02/28/2025 [place] Marie Assessments Encounter Date Diagnosis [...] Muscle spasm of back (ICD-10 - M62.830) 04/29/2025 Neoplasm of skin of face (ICD-10 - D49.2) 04/29/2025 Neoplasm of arm (ICD-10 - D49.89) 11/26/2024 Acute upper respiratory infection (ICD-10 - [...] Cologuard 11/18/2023 Next Appt Details Provider Name:Mallorie Dominguez er, 06/21/2025 08:00:00 AM, [address], [place], [place], [id number], Insurance Providers Payer Name Payer Address Payer Phone Subscriber Number Group Number Insured Name Patient Relationship to Insured Coverage Start Date Coverage End Date [employer] (MEDICAR E) [address] [address] [place] [address] [phone] [id number] Kathy Barron Self - patient is the insured Medications [...] anemia; COPD with hypoxia 09/22-09/27/2022 Chest Pain- [facility] 08/2010
== END 2025-05-14 23:59 | disposition home or self-care (01) ==
LOC: RAD 13:46
PROVIDERS: PCP Family Medicine; Visit Provider Obstetrics & Gynecology
DX: N64.89 Other specified disorders of breast (principal); R92.333 Mammographic heterogeneous density, bilateral breasts; Z98.890 Other specified postprocedural states; Z85.44 Personal history of malignant neoplasm of other female genital organs
CPT/HCPCS: 77062; 77066; G0279